=== PATIENT | female | born 1955 | race Caucasian/White ===

== ENCOUNTER 2016-05-14 12:56 | Inpatient (IN) | payer MEDICARE ==
[~2016-05-14] VITALS: Ht 170.2 cm; Wt 96.8 kg
[~2016-05-14 12:56] MED LIST: AC325T PO; BACTRIM PO; BPR150TCR PO; CLN150C PO; CLPD75T PO; GABA600T2 PO; GBPN300C PO; HYDR-3583 PO; HYDR-3714 PO; META-84 PO; NF-METANX PO; NITR-65 PO; NITR100C PO; PHEN200T27 PO; PNT40TEC PO; WRF3T PO
--- OUTSIDE RECORDS SUMMARY | 2016-05-14 13:04 | XMS REPORT | Continuity of Care Document ---
Author Author [facility] Organization [facility] Address Unknown Phone Unavailable Support Name Relationship Address Phone MAGEN DESIR Next Of Kin [address] [place] [address] Insurance Providers Payer Name Policy Number Subscriber Name Relationship [employer]ps Medicare [id number] Oniel Desir 01 Self / Same As Patient Advance Directives Directive Response Recorded Date Advance Directives N 12/10/12 2:14pm Health Care Power of Food Safety Manager N 12/10/12 2:14pm Organ Donor Y 12/10/12 2:14pm Problems No Known Problems or Medical conditions. 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 12/10/12 1:50pm Hospitalization with Isolation Contact 11:51am Allergies, Adverse Reactions, Alerts Allergen Type Severity Reaction Last Updated NKANo Known Allergies Allergy Unknown 09/17/05 Medications Medication Dose Units Route Sig Qty Days Warfarin Sodium (Coumadin) 3 Mg PO DAILY 30 Pantoprazole Sodium (Protonix) 40 Mg PO DAILY 30 Gabapentin (Neurontin) 300 Mg PO TID 90 Clindamycin Hcl (Cleocin Capsule) 150 Mg PO 07,12,17,21 28 Bupropion HCl (Wellbutrin Sr) 150 Mg PO DAILY 30 Acetaminophen (Tylenol) 650 Mg PO Q4H PRN Acetaminophen/Hydrocodone Bitart (Lortab 5 Mg) 1 - 2 Ea PO Q4H PRN 60 Acetaminophen/Hydrocodone Bitart (Anexsia 5-325 Mg Tablet) 1 Each PO Q6HR PRN Phenazopyridine HCl (Pyridium) 1 Each PO TID PRN 5 Nitrofurantoin Macrocrystals (Macrobid) 1 Each PO BID 5 Response Recorded Date/Time Status not known Unknown Results Test Date Result Interp. Ref. Range Activated Partial Thromboplast Time June 09, 2011 1: 45pm 52 SEC H 24-35 Alanine Aminotransferase (ALT/SGPT) June 09, 2011 9: 28am 33 U/L N 30-65 Albumin June 09, 2011 9:28am 2.4 G/ DL L 3.4-5.0 Alkaline Phosphatase June 09, 2011 9:28am 80 U/L N 50-136 Aspartate Amino Transf (AST/SGOT) June 09, 2011 9:28am 52 U/L H 15-37 BUN/Creatinine Ratio June 09, 2011 9:28am 5 - Basophils # (Auto) March 21, 2009 5:03pm 0.0 10^3/uL N 0.0-0.1 Basophils (%) (Auto) March 21, 2009 5:03pm 0 % N 0-10 Blood Urea Nitrogen June 09, 2011 9:28am 4 MG/DL L 7-18 Calcium Level June 09, 2011 9:28am 6.8 MG/DL L 8.5-10.1 Carbon Dioxide Level June 09, 2011 9:28am 22 MMOL/L N 21-32 Chloride Level June 09, 2011 9:28am 107 MMOL/L N 101-110 Creatinine June 09, 2011 9:28am 0.8 MG/DL N 0.6-1.3 Eosinophils # (Auto) March 21, 2009 5:03pm 0.3 10^3/uL N 0.0-0.3 Eosinophils (%) (Auto) March 21, 2009 5:03pm 3 % N 0-10 Glucose Level June 09, 2011 9:28am 94 MG/DL N 74-106 Hematocrit June 08, 2011 2:13am 35 % N 35-52 Hemoglobin June 08, 2011 2:13am 12.0 G/DL N 11.5-16.0 Lymphocytes # (Auto) March 21, 2009 5:03pm 2.4 X 10^3 N 1.0-4.0 Lymphocytes (%) (Auto) March 21, 2009 5:03pm 21 % N 12-44 Mean Corpuscular Hemoglobin June 08, 2011 2:13am 33 PG N 25-34 Mean Corpuscular Hemoglobin Concent June 08, 2011 2: 13am 35 G/DL N 32-36 Mean Corpuscular Volume June 08, 2011 2:13am 95 FL N 80-99 Mean Platelet Volume June 08, 2011 2:13am 10.1 FL N 7.4-10.4 Monocytes # (Auto) March 21, 2009 5:03pm 0.7 X 10^3 N 0.0-1.0 Monocytes (%) (Auto) March 21, 2009 5:03pm 6 % N 0-12 Neutrophils # (Auto) March 21, 2009 5:03pm 8.0 X 10^3 H 1.8-7.8 Neutrophils (%) (Auto) March 21, 2009 5:03pm 70 % N 42-75 Platelet Count June 08, 2011 2:13am 175 10^3/uL N 130-400 Potassium Level June 09, 2011 9:28am 3.5 MMOL/L L 3.6-5.0 Prothromb Time International Ratio June 07, 2011 8:18am 1.0 N 0.8-1.4 Prothrombin Time June 07, 2011 8:18am 13.2 SEC N 12.2-14.7 Red Blood Count June 08, 2011 2:13am 3.64 10^6/uL L 4.35-5.85 Red Cell Distribution Width June 08, 2011 2:13am 16.3 % H 10.0-14.5 Sodium Level June 09, 2011 9:28am 138 MMOL/L N 135-145 Total Bilirubin June 09, 2011 9:28am 0.3 MG/DL N 0.0-1.0 Total Protein June 09, 2011 9:28am 4.5 G/DL L 6.4-8.2 Urine Bacteria September 29, 2012 10:53pm MODERATE /HPF H - Urine Bilirubin September 29, 2012 10:53pm NEGATIVE - Urine Casts September 29, 2012 10:53pm NONE / LPF - Urine Clarity September 29, 2012 10:53pm VERY CLOUDY H - Urine Color September 29, 2012 10:53pm YELLOW - Urine Crystals September 29, 2012 10:53pm NONE /LPF - Urine Culture Indicated September 29, 2012 10:53pm YES - Urine Glucose (UA) September 29, 2012 10:53pm NEGATIVE - Urine Ketones September 29, 2012 10:53pm NEGATIVE - Urine Leukocyte Esterase September 29, 2012 10:53pm 3+ H - Urine Mucus September 29, 2012 10:53pm NEGATIVE /LPF - Urine Nitrite September 29, 2012 10:53pm NEGATIVE - Urine Protein September 29, 2012 10:53pm 3+ H - Urine RBC September 29, 2012 10:53pm 2-5 / HPF H - Urine Specific [place] September 29, 2012 10:53pm 1.020 - Urine Squamous Epithelial Cells September 29, 2012 10:53pm 5-10 /HPF - Urine Urobilinogen September 29, 2012 10:53pm 1 MG/DL - Urine WBC September 29, 2012 10:53pm TNTC / HPF H - Urine pH September 29, 2012 10:53pm 6 - White Blood Count June 08, 2011 2:13am 9.3 10^3/uL N 4.3-11.0 Glucometer June 09, 2011 12:46pm 90 MG/DL N 70-110 Estimat Glomerular Filtration Rate June 07, 2011 8:18am 46 - Urine RBC (Auto) September 29, 2012 10:53pm 5 + H - Procedures Procedure Code Date EXCISION BREAST LESION 09/03/05 EXCISION ADDL BREAST LESION OTH CHEST CAGE OSTECTOMY 77.81 09/17/05 INJECT/INFUSE THROMBOLYTIC AGENT 99.10 CONTRAST AORTOGRAM 88.42 06/07/11 CONTR CEREBR ARTERIOGRAM 88.41 06/07/11 CONTRAST RENAL ARTERIOGR 88.45 06/09/11 CONTRAST AORTOGRAM 88.42 06/08/11 MRSA Screen 06/07/11 Urine Culture 09/29/12 Encounters Encounter Location Date/Time Discharged Inpatient [facility] 1:15pm Departed Emergency Room [facility] 10:01pm
--- NOTE | 2016-05-14 13:09 | ED Dyspnea ---
General Chief Complaint: Respiratory Problems Stated Complaint: SOA/COUGH Source of Information: Patient, RN Notes Reviewed Exam Limitations: No Limitations History of Present Illness Time Seen by Provider: 13:07 Initial Comments As above. Denies previous similar episodes. Hasn't seen her PCP in over 2 years. Does continue to smoke. Timing/Duration: 1 Week, Constant, Increasing Severity: Severe Activities at Onset: None, Rest Prior Episodes/Possible Cause: Unknown Cause Modifying Factors: Worse With Activity, Worse With Coughing, Worse With Lying Down Associated Symptoms: Anxiety, Cough, Edema Allergies and Home Medications Allergies Coded Allergies: NKANo Known Allergies (Verified Allergy, Unknown, 05/14/16) Home Medications Ibuprofen 200 Mg Tablet 600 MG PO Q8H PRN PRN PAIN (Reported) TAKES 3 (200 MG) TABLETS Constitutional: see HPI Respiratory: see HPI cough dyspnea on exertion orthopnea short of breath Cardiovascular: see HPI edema vascular heart diseas : No Psychiatric/Neurological: See HPI Anxiety All Other Systems Reviewed Negative Unless Noted: Yes (Negative excepted noted.) Past Ukwsrrq-Pgxcpd-Zgnkel Hx Surgeries HX Surgeries: Yes Respiratory Hx Respiratory Disorders: No Cardiovascular Hx Cardiac Disorders: Yes Neurological Hx Neurological Disorders: No Reproductive System Hx Reproductive Disorders: No Genitourinary Hx Genitourinary Disorders: Yes Genitourinary Disorders: Bladder Infection Gastrointestinal Hx Gastrointestinal Disorders: No Musculoskeletal Hx Musculoskeletal Disorders: Yes Musculoskeletal Disorders: Amputee, Fractures Endocrine Hx Endocrine Disorders: No HEENT HX ENT Disorders: No Cancer Hx Cancer: No Psychosocial Hx Psychiatric Problems: No Integumentary HX Skin/Integumentary Disorder: Yes Skin/Integumentary Disorders: Recent Skin Changes Blood Transfusions Hx Blood Disorders: No Physical Exam Vital Signs Vital Sign - Last 12Hours 05/14/16 13:04 Temp 97.0 Pulse 130 Resp 24 Pulse Ox 92 O2 Delivery Nasal Cannula O2 Flow Rate 2 Capillary Refill : General Appearance: WD/WN Anxious Moderate Distress Obese HEENT: Normal ENT Inspection Neck: Supple Respiratory: Crackles Decreased Breath Sounds Respiratory Distress (mild- moderate) Cardiovascular: Tachycardia Gastrointestinal: Other (obese; benign) Rectal: Deferred Extremity: Pedal Edema Neurologic/Psychiatric: Alert Oriented x3 No Motor/Sensory Deficits Skin: Warm/Dry Progress/Results/Core Measures Results/Orders Lab Results Laboratory Tests Test 05/14/16 13:35 05/14/16 13:57 05/14/16 14:40 05/14/16 15:47 Range/Units Activated Partial Thromboplast Time 32 24-35 SEC Alanine Aminotransferase (ALT/SGPT) 28 0-55 U/L Albumin 3.9 3.2-4.5 G/DL Alkaline Phosphatase 107 40-136 U/L Anion Gap 11 5-14 MMOL/L Anisocytosis SLIGHT Aspartate Amino Transf (AST/SGOT) 28 5-34 U/L B-Type Natriuretic Peptide 1911.7 H <100.0 PG/ML BUN/Creatinine Ratio 10 Band Neutrophils 0 % Basophils # (Auto) 0.0 0.0-0.1 10^3/uL Basophils % (Manual) 0 % Basophils (%) (Auto) 0 0-10 % Blood Urea Nitrogen 11 7-18 MG/DL Calcium Level 8.3 L 8.5-10.1 MG/DL Carbon Dioxide Level 18 L 21-32 MMOL/L Chloride Level 107 98-107 MMOL/L Creatinine 1.08 0.60-1.30 MG/DL D-Dimer 1.48 H 0.00-0.49 UG/ML Eosinophils # (Auto) 0.0 0.0-0.3 10^3/uL Eosinophils % (Manual) 0 % Eosinophils (%) (Auto) 0 0-10 % Estimat Glomerular Filtration Rate 51 Glucose Level 203 H 70-105 MG/DL Hematocrit 40 35-52 % Hemoglobin 13.5 11.5-16.0 G/DL INR Comment 1.1 0.8-1.4 Lymphocytes # (Auto) 0.8 L 1.0-4.0 X 10^3 Lymphocytes % (Manual) 2 % Lymphocytes (%) (Auto) 6 L 12-44 % Magnesium Level 2.0 1.8-2.4 MG/DL Mean Corpuscular Hemoglobin 31 25-34 PG Mean Corpuscular Hemoglobin Concent 34 32-36 G/DL Mean Corpuscular Volume 91 80-99 FL Mean Platelet Volume 10.4 7.4-10.4 FL Monocytes # (Auto) 0.8 0.0-1.0 X 10^3 Monocytes % (Manual) 6 % Monocytes (%) (Auto) 6 0-12 % Neutrophils # (Auto) 12.3 H 1.8-7.8 X 10^3 Neutrophils % (Manual) 92 % Neutrophils (%) (Auto) 88 H 42-75 % Platelet Count 259 130-400 10^3/uL Potassium Level 4.0 3.6-5.0 MMOL/L Prothrombin Time 14.3 12.2-14.7 SEC Red Blood Count 4.41 4.35-5.85 10^6/uL Red Cell Distribution Width 17.0 H 10.0-14.5 % Sodium Level 136 135-145 MMOL/L Thyroid Stimulating Hormone (TSH) 0.69 0.35-4.94 UIU/ML Total Bilirubin 1.0 0.1-1.0 MG/DL Total Protein 6.6 6.4-8.2 G/DL Troponin I < 0.30 <0.30 NG/ML White Blood Count 14.0 H 4.3-11.0 10^3/uL Alejandro Test YES-POS Arterial Blood Base Excess -6.1 L -2.5-2.5 MMOL/L Arterial Blood HCO3 17 *L 23-27 MMOL/L Arterial Blood Oxygen Saturation 93 L 94-100 % Arterial Blood Partial Pressure CO2 27 L 35-45 MMHG Arterial Blood Partial Pressure O2 60 L 79-93 MMHG Arterial Blood Total CO2 18.0 L 21.0-31.0 MMOL/L Arterial Blood pH 7.42 7.37-7.43 Blood Gas Inspired Oxygen 4L Blood Gas Patient Temperature 97.4 Blood Gas Puncture Site LT RAD Blood Gas Ventilator Setting NO Urine Bacteria NEGATIVE /HPF Urine Bilirubin NEGATIVE NEGATIVE Urine Casts NONE /LPF Urine Clarity CLEAR Urine Color YELLOW Urine Crystals NONE /LPF Urine Culture Indicated NO Urine Glucose (UA) 2+ H NEGATIVE Urine Ketones NEGATIVE NEGATIVE Urine Leukocyte Esterase NEGATIVE NEGATIVE Urine Mucus SMALL H /LPF Urine Nitrite NEGATIVE NEGATIVE Urine Protein 3+ H NEGATIVE Urine RBC 5-10 H /HPF Urine RBC (Auto) 2+ H NEGATIVE Urine Specific [place] 1.020 1.016-1.022 Urine Squamous Epithelial Cells 10-25 H /HPF Urine Urobilinogen 1 NORMAL MG/DL Urine WBC NONE /HPF Urine pH 6 5-9 Lactic Acid Level 2.0 0.5-2.0 MMOL/L My Orders Orders-RACHEAL MURRAY DO Saline Lock/Iv-Start (05/14/16 13:09) Ekg Tracing (05/14/16 13:09) BNP (05/14/16 13:09) Cbc With Automated Diff (05/14/16 13:09) Comprehensive Metabolic Panel (05/14/16 13:09) Fibrin Degradation Products (05/14/16 13:09) Magnesium (05/14/16 13:09) Thyroid Stimulating Hormone (05/14/16 13:09) Troponin I (05/14/16 13:09) Ua Culture If Indicated (05/14/16 13:09) Chest 1 View, Ap/Pa Only (05/14/16 13:09) Protime With Inr (05/14/16 13:17) Partial Thromboplastin Time (05/14/16 13:17) Arterial Blood Gas (05/14/16 13:24) Manual Differential (05/14/16 13:35) Ct Angio Chest W (05/14/16 14:10) Iohexol Injection (Omnipaque 350 Mg/Ml 1 (05/14/16 14:15) Ns (Ivpb) (Sodium Chloride 0.9% Ivpb Bag (05/14/16 14:15) Blood Culture (05/14/16 14:45) Lactic Acid Analyzer (05/14/16 14:45) Furosemide Injection (Lasix Injection) (05/14/16 14:45) Nitroglycerin Ointment (Nitrobid Ointme (05/14/16 14:45) Vital Signs/I&O Vital Sign - Last 12Hours 05/14/16 13:04 Temp 97.0 Pulse 130 Resp 24 B/P Pulse Ox 92 O2 Delivery Nasal Cannula O2 Flow Rate 2 ECG Initial ECG Impression Date: May 14, 2016 Initial ECG Impression Time: 13:18 Initial ECG Rate: 130 Initial ECG Rhythm: S.Tach Initial ECG Comparisson: No Previous ECG Available Comment (+) [facility] Diagnostic Imaging Diagonstic Imaging: Xray, CT Plain Films/CT/US/NM/MRI: chest Reviewed: Reviewed/Discussed Departure Communication Time/Spoke to Admitting Phy: 17:00 Impression Impression: Primary Impression: Respiratory distress Additional Impressions: Elevated BNP c/w CHF Tobacco abuse; probable COPD Pneumonia Disposition: ADMITTED INPATIENT Condition: Stable Decision to Admit Reason: Admit from ER (General) Decision to Admit/Date: May 14, 2016 Time/Decision to Admit Time: 17:00 Departure-Patient Inst. Referrals: [facility] (PCP/Family) Primary Care Physician RACHEAL MURRAY DO May 14, 2016 13:09
[2016-05-14 13:45] LABS: BASOPHILS % (AUTO) 0 % (0-10); EOSINOPHILS % (AUTO) 0 % (0-10); LYMPHOCYTES # (AUTO) 0.8 X 10^3 (1.0-4.0); LYMPHOCYTES % (AUTO) 6 % (12-44); MEAN CORPUSCULAR HEMOGLOBIN 31 PG (25-34); MEAN CORPUSCULAR HGB CONC 34 G/DL (32-36); MEAN CORPUSCULAR VOLUME 91 FL (80-99); MEAN PLATELET VOLUME 10.4 FL (7.4-10.4); MONOCYTES # (AUTO) 0.8 X 10^3 (0.0-1.0); MONOCYTES % (AUTO) 6 % (0-12); NEUTROPHILS # (AUTO) 12.3 X 10^3 (1.8-7.8); NEUTROPHILS % (AUTO) 88 % (42-75); PLATELET COUNT 259 10^3/uL (130-400); RED BLOOD COUNT 4.41 10^6/uL (4.35-5.85)
[2016-05-14 13:56] LABS: INR 1.1 (0.8-1.4); PROTHROMBIN TIME PATIENT 14.3 SEC (12.2-14.7)
[2016-05-14 13:57] LABS: BAND NEUTROPHILS 0 %; BASOPHILS % (MANUAL) 0 %; EOSINOPHILS % (MANUAL) 0 %; LYMPHOCYTES % (MANUAL) 2 %; NEUTROPHILS % (MANUAL) 92 %
[2016-05-14 13:58] LABS: ANISOCYTOSIS SLIGHT
--- NOTE | 2016-05-14 14:02 | Diagnostic Imaging Report ---
CLINICAL INDICATION: Patient with cough, shortness of air x1 day. EXAM: Portable chest x-ray upright view. COMPARISONS: Chest x-ray dated 06/07/2011. FINDINGS: There is interval development of mild cardiomegaly and increased pulmonary vascular congestion. There is development of a small left pleural effusion. There is bibasilar increased density which may be related to mild pulmonary edema. There are degenerative spurs involving the spine. IMPRESSION: 1: There is interval development of mild cardiomegaly, pulmonary vascular congestion which may be related to congestive heart failure/cardiac decompensation. 2: There is development of bibasilar lung infiltrate which may be related to pulmonary edema and a small left pleural effusion as well. Dictated by: Dictated on workstation # [id number]
[2016-05-14 14:03] LABS: ABG BASE EXCESS -6.1 MMOL/L (-2.5-2.5); ABG OXYGEN SATURATION 93 % (94-100); ABG PCO2 27 MMHG (35-45); ABG PH 7.42 (7.37-7.43); ABG PO2 60 MMHG (79-93)
[2016-05-14 14:04] LABS: ABG HCO3 17 MMOL/L (23-27); ALLENS TEST YES-POS; PATIENT TEMP 97.4
[2016-05-14 14:04] LABS: ALANINE AMINOTRANSFERASE 28 U/L (0-55); ALBUMIN 3.9 G/DL (3.2-4.5); ANION GAP 11 MMOL/L (5-14); ASPARTATE AMINO TRANSFERASE 28 U/L (5-34); BLOOD UREA NITROGEN 11 MG/DL (7-18); BUN/CREATININE RATIO 10; CALCIUM 8.3 MG/DL (8.5-10.1); CARBON DIOXIDE 18 MMOL/L (21-32); CHLORIDE 107 MMOL/L (98-107); CREATININE SERUM 1.08 MG/DL (0.60-1.30); GFR ESTIMATED 51; GLUCOSE 203 MG/DL (70-105); SODIUM 136 MMOL/L (135-145); TOTAL PROTEIN 6.6 G/DL (6.4-8.2)
[2016-05-14] MEDS ORDERED: IOHEXOL 350 MG/ML 150 ML (OMNIPAQUE 350) VIAL IV ONE (14:15)
[2016-05-14] MEDS ORDERED: NS 100 ML (IVPB) BAG IV ONE (14:15)
[2016-05-14 14:23] LABS: THYROID STIMULATING HORMONE 0.69 UIU/ML (0.35-4.94); TROPONIN I < 0.30 NG/ML (<0.30)
--- NOTE | 2016-05-14 14:40 | Diagnostic Imaging Report ---
PROCEDURE: CT angiography of the chest with contrast. TECHNIQUE: Multiple contiguous axial images were obtained through the chest after uneventful bolus administration of intravenous contrast. Reconstructed CTA MIP acquisitions were also performed. INDICATION: Shortness of breath, coughing, congestion. FINDINGS: There are no pulmonary emboli seen. The aorta has minimal atherosclerosis. There is no aneurysm or dissection. There is some coronary artery calcification present. There are bilateral pleural effusions layering out to a depth of 2 cm. There are emphysematous changes in the lungs. There is some consolidating infiltrate in the lingular segment of the left upper lobe and in the lateral basal segment of the left lower lobe. There is also some atelectasis at the posterior basilar segment of the right lower lobe. There is no hilar or mediastinal lymphadenopathy. IMPRESSION: Patchy areas of infiltrate and/or atelectasis in both lungs with bilateral pleural effusions. There is no evidence for pulmonary embolism. Dictated by: Dictated on workstation # [id number]
[2016-05-14] MEDS ORDERED: FUROSEMIDE 40 MG/4 ML INJ (LASIX) IVP ONE (14:45)
[2016-05-14] MEDS ORDERED: NITROGLYCERIN 2% OINT 1 GM UNIT DOSE PACKET TOP ONE (14:45)
[2016-05-14 14:53] LABS: BILIRUBIN,URINE NEGATIVE (NEGATIVE); KETONES,URINE NEGATIVE (NEGATIVE); LEUKOCYTE ESTERASE ,URINE NEGATIVE (NEGATIVE); NITRITE,URINE NEGATIVE (NEGATIVE); PH,URINE 6 (5-9); PROTEIN,URINE 3+ (NEGATIVE); UROBILINOGEN,URINE 1 MG/DL (NORMAL)
[2016-05-14] MEDS ORDERED: cefTRIAXone INJECTION 1,000 MG in NORMAL SALINE (BAXTER MINI) 50 ML IV ONE (16:00)
[2016-05-14 16:30] VITALS: BP 113/84
[2016-05-14] MEDS ORDERED: IBUP-2055 PO (17:17)
[2016-05-14] MEDS ORDERED: AZITHROMYCIN IV ADD-VANTAGE 500 MG IV ONE (17:30)
[2016-05-14] MEDS ORDERED: AZITHROMYCIN 500 MG/NS 250 ML IVPB IV NR ×2 (17:30)
[2016-05-14] MEDS ORDERED: SODIUM CHLORIDE (ADD-VANTAGE) 250 ML ONE (17:30)
[2016-05-14] MEDS ORDERED: CATHETER FLUSH 10 ML SYR IV PRN (17:30)
[2016-05-14] MEDS: NS IV 1000 ML 1,000 ML IV SCH (17:45)
[2016-05-14] MEDS: NICOTINE 14 MG (NICODERM) PATCH TD SCH (17:46)
[2016-05-14] MEDS: FUROSEMIDE 40 MG/4 ML INJ (LASIX) IV SCH (17:46)
[2016-05-14] MEDS ORDERED: FLU TRIvalent (5 YOA+) 2016-17 (AFLURIA) 0.5 ML IM ONE (18:30)
[2016-05-14 19:00] VITALS: BP 92/61
[2016-05-14] MEDS: inSUlin (REGULAR) HUMAN 1 UNIT/0.01 ML (CHARGE PER UNIT) SC SCH (21:00)
[2016-05-15 00:35] VITALS: BP 106/64
[2016-05-15 04:20] VITALS: BP 129/58
[2016-05-15] MEDS: inSUlin (REGULAR) HUMAN 1 UNIT/0.01 ML (CHARGE PER UNIT) SC SCH ×4 (06:00→21:40)
[2016-05-15] MEDS: FUROSEMIDE 40 MG/4 ML INJ (LASIX) IV SCH ×2 (06:39→17:02)
[2016-05-15 07:40] LABS: BASOPHILS % (AUTO) 0 % (0-10); EOSINOPHILS # (AUTO) 0.1 10^3/uL (0.0-0.3); EOSINOPHILS % (AUTO) 1 % (0-10); LYMPHOCYTES % (AUTO) 11 % (12-44); MEAN CORPUSCULAR HEMOGLOBIN 31 PG (25-34); MEAN CORPUSCULAR HGB CONC 34 G/DL (32-36); MEAN CORPUSCULAR VOLUME 91 FL (80-99); MEAN PLATELET VOLUME 11.4 FL (7.4-10.4); MONOCYTES # (AUTO) 0.9 X 10^3 (0.0-1.0); MONOCYTES % (AUTO) 9 % (0-12); NEUTROPHILS # (AUTO) 7.5 X 10^3 (1.8-7.8); NEUTROPHILS % (AUTO) 79 % (42-75); PLATELET COUNT 220 10^3/uL (130-400); RED BLOOD COUNT 4.21 10^6/uL (4.35-5.85); RED CELL DISTRIBUTION WIDTH 16.8 % (10.0-14.5); WHITE BLOOD COUNT 9.5 10^3/uL (4.3-11.0)
[2016-05-15 07:59] LABS: CALCIUM 8.1 MG/DL (8.5-10.1); CREATININE SERUM 1.3 MG/DL (0.60-1.30); MAGNESIUM 2.2 MG/DL (1.8-2.4); POTASSIUM 2.7 MMOL/L (3.6-5.0)
[2016-05-15 08:00] VITALS: BP 97/52
[2016-05-15] MEDS: NICOTINE PATCH REMOVAL TP SCH (08:12)
[2016-05-15] MEDS: AZITHROMYCIN 250 MG TAB (ZITHROMAX) PO SCH (08:12)
[2016-05-15] MEDS: NICOTINE 14 MG (NICODERM) PATCH TD SCH (08:12)
--- NOTE | 2016-05-15 08:44 | History & Physicial (CHS) ---
HPI History of Present Illness: 61 yo F that has not been seen by a doctor in over 2 years presents to ER with increasing shortness of breath. She states that she has been coughing for the last 3 days. States that it is a dry cough. No home oxygen dependence. + sick contacts with grandchildren. Denies any fevers or chills. Denies chest pain or palpitations. States that her leg swells frequently but resolves spontaneously. States that about 5 years ago she had cath with stent placement. Denies ever having heart attack. States that she has been a smoker since age 13. Denies ever having diagnosis of CHF or COPD. Source: patient, old records Exam Limitations: no limitations Date seen by provider: May 15, 2016 Attending Physician Alejandra Joseph MD PCP [facility] [place] Date of Admission May 14, 2016 at 15:50 Home Medications Home Medications Reviewed patient Home Medication Reconciliation Form Allergies Coded Allergies: NKANo Known Allergies (Verified Allergy, Unknown, 05/14/16) [id number] Hx Patient Social History Living Status: Home Alone Alcohol Use: Denies Use Recreational Drug Use: No Smoking Status: Current Everyday Smoker Type Used: Cigarettes (1/2 ppd) Recent Foreign Travel: No Contact w/other who traveled: No Recent Hopitalizations: Yes Recent Infectious Disease Expo: No Physical Abuse Screen: No Sexual Abuse: No Past Medical History 1. ASOD- with multiple peripheral interventions by Dr. Pedro, Esvin, and Melonie. Carotid Stenosis- Willis 2. 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 Wilhelm 12-03-12 3. Debility secondary to recent BKA 4. Post op Anemia- Hg at [place] 9.5 on 8- 5. Supratherapeutic INR- coumadin started at [place] during this visit due to previous stenting of the aorta and illiacs by Dr. Mcallister in 2011. 6. Lt. Breast Biopsy- Boles (No path results avail. in computer) 7. Resection of Rt. posterior 8th and 9th ribs by Dr. Pedro 2005, 8. Appendectomy 1970 9. 1978 10. Tubal Ligation- 1979 Review of Systems ([facility]) Constitutional: no symptoms reportedNo chills, No fever, malaiseNo weakness EENTM: no symptoms reported Respiratory: cough dyspnea on exertionNo hemoptysis, orthopnea short of breath wheezing Cardiovascular: No chest pain, edemaNo palpitations Gastrointestinal: no symptoms reportedNo abdominal pain, No constipation, No diarrhea, No nausea, No vomiting Genitourinary: no symptoms reportedNo dysuria, No frequency, No hematuria, No incontinence : No Musculoskeletal: no symptoms reported Skin: no symptoms reportedNo dryness, No lesions, No rash Psychiatric/Neurological: Anxiety (States that she has been anxious since having shortness of breath, no treatment for anxiety at home) Reviewed Test Results Reviewed Test Results Lab Laboratory Tests Test 05/14/16 13:35 05/14/16 13:57 05/14/16 14:40 05/14/16 15:47 Range/Units Activated Partial Thromboplast Time 32 24-35 SEC Alanine Aminotransferase (ALT/SGPT) 28 0-55 U/L Albumin 3.9 3.2-4.5 G/DL Alkaline Phosphatase 107 40-136 U/L Anion Gap 11 5-14 MMOL/L Anisocytosis SLIGHT Aspartate Amino Transf (AST/SGOT) 28 5-34 U/L B-Type Natriuretic Peptide 1911.7 H <100.0 PG/ML BUN/Creatinine Ratio 10 Band Neutrophils 0 % Basophils # (Auto) 0.0 0.0-0.1 10^3/uL Basophils % (Manual) 0 % Basophils (%) (Auto) 0 0-10 % Blood Urea Nitrogen 11 7-18 MG/DL Calcium Level 8.3 L 8.5-10.1 MG/DL Carbon Dioxide Level 18 L 21-32 MMOL/L Chloride Level 107 98-107 MMOL/L Creatinine 1.08 0.60-1.30 MG/DL D-Dimer 1.48 H 0.00-0.49 UG/ML Eosinophils # (Auto) 0.0 0.0-0.3 10^3/uL Eosinophils % (Manual) 0 % Eosinophils (%) (Auto) 0 0-10 % Estimat Glomerular Filtration Rate 51 Glucose Level 203 H 70-105 MG/DL Hematocrit 40 35-52 % Hemoglobin 13.5 11.5-16.0 G/DL INR Comment 1.1 0.8-1.4 Lymphocytes # (Auto) 0.8 L 1.0-4.0 X 10^3 Lymphocytes % (Manual) 2 % Lymphocytes (%) (Auto) 6 L 12-44 % Magnesium Level 2.0 1.8-2.4 MG/DL Mean Corpuscular Hemoglobin 31 25-34 PG Mean Corpuscular Hemoglobin Concent 34 32-36 G/DL Mean Corpuscular Volume 91 80-99 FL Mean Platelet Volume 10.4 7.4-10.4 FL Monocytes # (Auto) 0.8 0.0-1.0 X 10^3 Monocytes % (Manual) 6 % Monocytes (%) (Auto) 6 0-12 % Neutrophils # (Auto) 12.3 H 1.8-7.8 X 10^3 Neutrophils % (Manual) 92 % Neutrophils (%) (Auto) 88 H 42-75 % Platelet Count 259 130-400 10^3/uL Potassium Level 4.0 3.6-5.0 MMOL/L Prothrombin Time 14.3 12.2-14.7 SEC Red Blood Count 4.41 4.35-5.85 10^6/uL Red Cell Distribution Width 17.0 H 10.0-14.5 % Sodium Level 136 135-145 MMOL/L Thyroid Stimulating Hormone (TSH) 0.69 0.35-4.94 UIU/ML Total Bilirubin 1.0 0.1-1.0 MG/DL Total Protein 6.6 6.4-8.2 G/DL Troponin I < 0.30 <0.30 NG/ML White Blood Count 14.0 H 4.3-11.0 10^3/uL Alejandro Test YES-POS Arterial Blood Base Excess -6.1 L -2.5-2.5 MMOL/L Arterial Blood HCO3 17 *L 23-27 MMOL/L Arterial Blood Oxygen Saturation 93 L 94-100 % Arterial Blood Partial Pressure CO2 27 L 35-45 MMHG Arterial Blood Partial Pressure O2 60 L 79-93 MMHG Arterial Blood Total CO2 18.0 L 21.0-31.0 MMOL/L Arterial Blood pH 7.42 7.37-7.43 Blood Gas Inspired Oxygen 4L Blood Gas Patient Temperature 97.4 Blood Gas Puncture Site LT RAD Blood Gas Ventilator Setting NO Urine Bacteria NEGATIVE /HPF Urine Bilirubin NEGATIVE NEGATIVE Urine Casts NONE /LPF Urine Clarity CLEAR Urine Color YELLOW Urine Crystals NONE /LPF Urine Culture Indicated NO Urine Glucose (UA) 2+ H NEGATIVE Urine Ketones NEGATIVE NEGATIVE Urine Leukocyte Esterase NEGATIVE NEGATIVE Urine Mucus SMALL H /LPF Urine Nitrite NEGATIVE NEGATIVE Urine Protein 3+ H NEGATIVE Urine RBC 5-10 H /HPF Urine RBC (Auto) 2+ H NEGATIVE Urine Specific [place] 1.020 1.016-1.022 Urine Squamous Epithelial Cells 10-25 H /HPF Urine Urobilinogen 1 NORMAL MG/DL Urine WBC NONE /HPF Urine pH 6 5-9 Lactic Acid Level 2.0 0.5-2.0 MMOL/L Test 05/14/16 16:15 05/14/16 17:13 05/14/16 21:07 05/15/16 04:05 Range/Units Hemoglobin A1c 5.8 4.5-6.2 % Glucometer 179 H 156 H 70-110 MG/DL Anion Gap 14 5-14 MMOL/L B-Type Natriuretic Peptide 1689.2 H <100.0 PG/ML BUN/Creatinine Ratio 11 Basophils # (Auto) 0.0 0.0-0.1 10^3/uL Basophils (%) (Auto) 0 0-10 % Blood Urea Nitrogen 14 7-18 MG/DL Calcium Level 8.1 L 8.5-10.1 MG/DL Carbon Dioxide Level 22 21-32 MMOL/L Chloride Level 103 98-107 MMOL/L Creatinine 1.30 0.60-1.30 MG/DL Eosinophils # (Auto) 0.1 0.0-0.3 10^3/uL Eosinophils (%) (Auto) 1 0-10 % Estimat Glomerular Filtration Rate 42 Glucose Level 123 H 70-105 MG/DL Hematocrit 38 35-52 % Hemoglobin 12.9 11.5-16.0 G/DL Lymphocytes # (Auto) 1.0 1.0-4.0 X 10^3 Lymphocytes (%) (Auto) 11 L 12-44 % Magnesium Level 2.2 1.8-2.4 MG/DL Mean Corpuscular Hemoglobin 31 25-34 PG Mean Corpuscular Hemoglobin Concent 34 32-36 G/DL Mean Corpuscular Volume 91 80-99 FL Mean Platelet Volume 11.4 H 7.4-10.4 FL Monocytes # (Auto) 0.9 0.0-1.0 X 10^3 Monocytes (%) (Auto) 9 0-12 % Neutrophils # (Auto) 7.5 1.8-7.8 X 10^3 Neutrophils (%) (Auto) 79 H 42-75 % Platelet Count 220 130-400 10^3/uL Potassium Level 2.7 L 3.6-5.0 MMOL/L Red Blood Count 4.21 L 4.35-5.85 10^6/uL Red Cell Distribution Width 16.8 H 10.0-14.5 % Sodium Level 139 135-145 MMOL/L White Blood Count 9.5 4.3-11.0 10^3/uL Test 05/15/16 07:06 Range/Units Glucometer 183 H 70-110 MG/DL Radiology Date of Exam: 05/14/16 CHEST 1 VIEW, AP/PA ONLY CLINICAL INDICATION: Patient with cough, shortness of air x1 day. EXAM: Portable chest x-ray upright view. COMPARISONS: Chest x-ray dated 06/07/2011. FINDINGS: There is interval development of mild cardiomegaly and increased pulmonary vascular congestion. There is development of a small left pleural effusion. There is bibasilar increased density which may be related to mild pulmonary edema. There are degenerative spurs involving the spine. IMPRESSION: 1: There is interval development of mild cardiomegaly, pulmonary vascular congestion which may be related to congestive heart failure/cardiac decompensation. 2: There is development of bibasilar lung infiltrate which may be related to pulmonary edema and a small left pleural effusion as well. Date of Exam: 05/14/16 CT ANGIO CHEST W PROCEDURE: CT angiography of the chest with contrast. TECHNIQUE: Multiple contiguous axial images were obtained through the chest after uneventful bolus administration of intravenous contrast. Reconstructed CTA MIP acquisitions were also performed. INDICATION: Shortness of breath, coughing, congestion. FINDINGS: There are no pulmonary emboli seen. The aorta has minimal atherosclerosis. There is no aneurysm or dissection. There is some coronary artery calcification present. There are bilateral pleural effusions layering out to a depth of 2 cm. There are emphysematous changes in the lungs. There is some consolidating infiltrate in the lingular segment of the left upper lobe and in the lateral basal segment of the left lower lobe. There is also some atelectasis at the posterior basilar segment of the right lower lobe. There is no hilar or mediastinal lymphadenopathy. IMPRESSION: Patchy areas of infiltrate and/or atelectasis in both lungs with bilateral pleural effusions. There is no evidence for pulmonary embolism. Physical Exam-([facility]) Physical Exam Vital Signs VS - Last 72 Hours, by Label 05/14/16 05/14/16 05/14/16 05/14/16 13:04 16:30 16:50 18:37 Temp 97.0 99.2 97.0 Pulse 130 121 122 Resp 24 22 20 B/P 113/84 Pulse Ox 92 97 95 95 O2 Delivery Nasal Cannula O2 Flow Rate 2 4 4.00 05/14/16 05/14/16 05/15/16 05/15/16 19:00 20:32 00:35 04:20 Temp 98.7 97.3 98.0 Pulse 116 109 112 Resp 22 18 22 B/P 92/61 106/64 129/58 Pulse Ox 97 96 98 O2 Delivery Nasal Cannula Nasal Cannula Nasal Cannula O2 Flow Rate 4.00 4.00 4.00 05/15/16 07:07 O2 Flow Rate 4.00 Capillary Refill : Less Than 3 Seconds General Appearance: WD/WN no apparent distress Eyes: Bilateral Eye EOMI, Bilateral Eye PERRL Neck: non-tender full range of motion supple normal inspectionNo carotid bruit Respiratory: chest non-tender no respiratory distress no accessory muscle useNo crackles, wheezing (diffuse in all lung valle) Cardiovascular: normal peripheral pulses regular rate, rhythm no JVD no murmurNo systolic murmur Gastrointestinal: normal bowel sounds non tender soft no organomegaly no pulsatile massNo distended, No guarding, No rebound, No tenderness Extremities: non-tender no calf tenderness pedal edema (LLE 1+ pitting edema) other (R AKA) 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 as tested no motor/sensory deficits alert normal mood/affect oriented x 3 Skin: normal color warm/dry Lymphatic: no adenopathy Assessment/Plan Assessment/Plan Admission Dx Acute Respiratory Failure Severe PVD s/p R AKA and Aortic Stenting CAD s/p stenting Pre Diabetes Hypokalemia Plan 61 yo F admitted with Acute Respiratory Failure concerned for Acute CHF Acute Respiratory Failure: ddx: CHF vs COPD vs PNA - CT did not show evidence of PE, + pleural effusions with h/o vascular dz is concerning for CHF exacerbation given elevated BNP, Echo pending - Continue IV lasix today, will switch to PO tomorrow - A/A nebs started with PO steroids (patient has long h/o tobacco use and likely has underlying COPD) Will need spirometry outpatient - Continue Azithromycin, d/jeremy Rocephin - Titrate oxygen as tolerated - Inspiratory Spirometry Severe PVD s/p R AKA and Aortic Stenting CAD s/p stenting Pre Diabetes - Goal A1c below 5.7, Discussed need for weight loss Tobaccoism - Discussed the need for cessation, patient states that it has been the one habit she has not been able to kick - Will refer her to cessation counselor at [facility] Hypokalemia: Replace and repeat BMP this afternoon, Scheduled PO dose with lasix FEN: Heart Healthy diet DVT PPX: Lovenox 40 mg daily Dispo: Admit to medicine floor, patient continues to need oxygen Diagnosis/Problems: Clinical Quality Measures DVT/VTE Risk/Contraindication: Risk Factor Score Per Nursin RFS Level Per Nursing on Admit: 4+=Very High Copy Copies To 1: ALEJANDRA JOSEPH MD, HOLLY R MD May 15, 2016 08:44
[2016-05-15] MEDS ORDERED: KCL 20 MEQ TAB (K-DUR) PO NR (08:45)
[2016-05-15] MEDS ORDERED: methylPREDNISolone 40 MG/ML (Solu-MEDROL) VIAL IV NR (08:45)
[2016-05-15] MEDS ORDERED: cefTRIAXone 1 GM/NS 50 ML IVPB IV SCH ×2 (09:00)
[2016-05-15] MEDS: ENOXAPARIN 40 MG/0.4 ML (LOVENOX) SYR SC SCH (09:34)
[2016-05-15] MEDS ORDERED: IBUPROFEN 600 MG (MOTRIN) TAB PO PRN (09:45)
[2016-05-15 12:00] VITALS: BP 128/57
[2016-05-15 12:34] LABS: CALCIUM 8.1 MG/DL (8.5-10.1); CREATININE SERUM 1.45 MG/DL (0.60-1.30); POTASSIUM 3.5 MMOL/L (3.6-5.0)
--- NOTE | 2016-05-15 12:58 | Physical Therapy Evaluation ---
PT Evaluation-General Medical Diagnosis Admission Date May 14, 2016 at 15:50 Medical Diagnosis: pneumonia/CHF/DM Onset Date: May 14, 2016 Therapy Diagnosis Therapy Diagnosis: weakness Height/Weight Height (Feet): 5 Height (Inches): 7.00 Weight (Pounds): 205 Weight (Ounces): 4.0 Precautions Precautions/Isolations: Fall Prevention, Standard Precautions Referral Physician: Sami Reason for Referral: Evaluation/Treatment Medical History Pertinent Medical History: CAD, Smoking Additional Medical History right BKA (appears to be an AKA) Current History acute resp. failure; has not seen a physician x 2 yrs; ER with c/o SOB Reviewed History: Yes Social History Home: Single Level Current Living Status: Spouse Entry Into Home: Ramp Prior/Core FIM Prior Level of Function Functional [place] Measure 0=Not Assessed/NA 4=Minimal Assistance 1=Total Assistance 5=Supervision or Setup 2=Maximal Assistance 6=Modified [place] 3=Moderate Assistance 7=Complete [place] Bed Mobility: 6 Transfers (B,C,W/C) (FIM): 6 Wheelchair Mobility: 6 Per patient, she does not ambulate, leave the house and uses her w/c for all mobility PT Evaluation-Current Subjective Patient reluctantly agrees to PT. Pain Numeric Pain Scale: 0-No Pain Location: No Pain Reported Pt/Family Goals return to home Objective Patient Orientation: Normal For Age Problem Solving: Good Attachments: Oxygen, IV ROM/Strength ROM Lower Extremities left LE WFL Strenght Lower Extremities left LE WFL Integumentary/Posture Integumentary refer to nursing notes Bowel Incontinence: No Bladder Incontinence: No Posture WNL Neuromuscular (Tone, Coordination, Reflexes) grossly intact Sensory Vision: Functional Hearing: Functional Sensation Right Lower Extremit: Impaired Sensation Left Lower Extremity: Impaired Transfers Functional [place] Measure 0=Not Assessed/NA 4=Minimal Assistance 1=Total Assistance 5=Supervision or Setup 2=Maximal Assistance 6=Modified [place] 3=Moderate Assistance 7=Complete [place] Transfers (B, C, W/C) (FIM): 5 Scootin Supine to/from Sit: 5 Sit to/from Stand: 5 bed t/f WC(FIM only if WC use): 5 Patient performed sit to stand to FWW SBA and performs squat pivot transfers bed <> commode/w/c Gait Mode of Locomotion: Wheelchair Anticipated Mode of Locomotion: Wheelchair Balance Sitting Static: Normal Sitting Dynamic: Normal Standing Static: Normal Standing Dynamic: Normal Assessment/Needs 61 y.o. female, will benefit from skilled PT to address functional strength to improve functional mobility. Patient is inactive PLOF per patient report. Rehab Potential: Fair Post Rehab Potential-Barriers: inactivity PLOF PT Short Term Goals Short Term Goals Time Frame: May 22, 2016 Transfers (B,C,W/C) (FIM): 6 PT Plan Problem List Problem List: Activity Tolerance, Functional Strength Treatment/Plan Treatment Plan: Continue Plan of Care Treatment Plan: Bed Mobility, Education, Functional Activity Cr, Functional Strength, Safety, Therapeutic Exercise, Transfers Treatment Duration: May 22, 2016 # of days/week 5-6 Visits Per Week: 5-6 Pt/Family Agrees w/Plan: Yes Safety Risks/Education Patient Education: Safety Issues Teaching Recipient: Patient Teaching Methods: Discussion Response to Teaching: Verbalize Understanding Discharge Recommendations Therapy D/C Recommendations: Home w/ Family Support Time/GCodes Time In: 1115 Time Out: 1130 Total Billed Treatment Time: 15 Total Billed Treatment 1 visit EVMod 15 min G Codes Necessary: ALISON Danielle PT May 15, 2016 12:58
[2016-05-15 16:00] VITALS: BP 103/75
[2016-05-15] MEDS: NS IV 1000 ML 1,000 ML IV SCH (17:03)
[2016-05-15 20:30] VITALS: BP 105/76
[2016-05-15] MEDS: FUROSEMIDE 40 MG (LASIX) TAB PO SCH (21:39)
[2016-05-16] VITALS: BP 109/58
[2016-05-16 04:00] VITALS: BP 107/61
[2016-05-16] MEDS: inSUlin (REGULAR) HUMAN 1 UNIT/0.01 ML (CHARGE PER UNIT) SC SCH (06:00)
[2016-05-16] MEDS: KCL 20 MEQ TAB (K-DUR) PO SCH (06:39)
[2016-05-16 06:51] LABS: CALCIUM 8.3 MG/DL (8.5-10.1); CREATININE SERUM 1.57 MG/DL (0.60-1.30); POTASSIUM 3.1 MMOL/L (3.6-5.0)
[2016-05-16] MEDS ORDERED: predniSONE 20 MG TAB PO SCH (07:00)
[2016-05-16] MEDS: NICOTINE PATCH REMOVAL TP SCH (08:06)
[2016-05-16] MEDS: FUROSEMIDE 40 MG (LASIX) TAB PO SCH (08:06)
[2016-05-16] MEDS: AZITHROMYCIN 250 MG TAB (ZITHROMAX) PO SCH (08:06)
[2016-05-16] MEDS: NICOTINE 14 MG (NICODERM) PATCH TD SCH (08:07)
[2016-05-16] MEDS: ENOXAPARIN 40 MG/0.4 ML (LOVENOX) SYR SC SCH (08:08)
[2016-05-16 08:35] VITALS: BP 129/58
[2016-05-16] MEDS ORDERED: KCL 20 MEQ TAB (K-DUR) PO NR (10:14)
--- NOTE | 2016-05-16 10:29 | Physical Therapy Daily Note ---
PT Daily Note-Current Subjective Pt laying supine in bed with head of bed up upon arrival. Pt reports feeling fatigued and SOB at start of tx. Pt agrees to PT and pt encouraged to keep taking deep breaths. Pain Numeric Pain Scale: 0-No Pain Location: No Pain Reported Mental Status Patient Orientation: Person, Place, Time, Situation Attachments: Oxygen, IV Transfers Functional [place] Measure 0=Not Assessed/NA 4=Minimal Assistance 1=Total Assistance 5=Supervision or Setup 2=Maximal Assistance 6=Modified [place] 3=Moderate Assistance 7=Complete IndependenceIRFPAI Quality Coding Scale 6 Independent with activity with or without an assistive device 5 Patient requires set up or clean up by helper. Patient completes activity by themselves 4 Supervision or touching assist (CGA). [place] provide cues , steadying assist 3 The helper provides less than half the effort to complete the activity 2 The helper provides more than half the effort to complete the activity 1 Dependent. The helper does all the effort to complete an activity 7 Patient refused to complete or attempt activity 9 The patient did not perform the activity before the current illness or injury 88 Not attempted due to Medical conditions or safety concerns Pt didn't complete transfers during tx. Exercises Supine Ex: Ankle pumps, Quad Set, Heel Slides, Straight leg raise, Hip abd/add Supine Reps: 15 Treatments Pt completed supine EX in bed for tx. Pt took a couple of rest breaks due to fatigue and SOB but recovered fairly quickly. Pt also received pt education on importance of maintaining strength and ROM. Pt is encouraged to change positions to prevent pressure sores and if pt could stand or even walk a little would be beneficial. Pt is left with all needs met at end of tx. Assessment Current Status: Fair Progress Pt gets SOB during tx but recovers fairly quickly. PT is receptive to pt education. PT Short Term Goals Short Term Goals Time Frame: May 22, 2016 Transfers (B,C,W/C) (FIM): 6 PT Plan Problem List Problem List: Activity Tolerance, Functional Strength, Safety, Balance, Gait, Transfer, Bed Mobility Treatment/Plan Treatment Plan: Continue Plan of Care Treatment Plan: Bed Mobility, Education, Functional Activity Cr, Functional Strength, Safety, Therapeutic Exercise, Transfers Treatment Duration: May 22, 2016 Visits Per Week: 5-6 Safety Risks/Education Patient Education: Transfer Techniques, Correct Positioning, Disease Process, Safety Issues Time/GCodes Time In: 905 Time Out: 930 Total Billed Treatment Time: 25 Total Billed Treatment visit, EX (15m) & FA (10m) DARNELL PRO PTA May 16, 2016 10:29
[2016-05-16 12:00] VITALS: BP 95/51
--- NOTE | 2016-05-16 13:28 | Progress Note (SOAP) ---
Subjective Subjective/Events-last exam Patient states that she is breathing much better today. She took the oxygen off and was still having some shortness of breath but she was satting 92%. Tolerating PO diet. + BM last night. Good UOP. She has decided that she is going to try and stop smoking. She has not had one for 3 days now. Date seen by provider: May 16, 2016 Objective Exam Last Set of Vital Signs Vital Signs Date Time Temp Pulse Resp B/P Pulse Ox O2 Delivery O2 Flow Rate FiO2 05/16/16 08:35 97.7 113 16 129/58 94 Room Air 05/16/16 08:00 2.00 Capillary Refill : Less Than 3 Seconds I&O Intake and Output 05/16/16 00:00 Intake Total 3310 ml Output Total 3400 ml Balance -90 ml Intake Oral 2610 ml IV Total 700 ml Output Urine Total 3400 ml # Voids 2 General: Alert, Oriented X3, Cooperative, No Acute Distress Neck: Supple, No JVD, No Thyromegaly Lungs: Clear to Auscultation, Normal Air Movement Heart: Regular Rate, Normal S1, Normal S2, No Murmurs Abdomen: Normal Bowel Sounds, Soft, No Tenderness, No Hepatosplenomegaly, No Masses Extremities: No Tenderness/Swelling, Other (trace edema present in her leg) Skin: No Rashes, No Breakdown Psych/Mental Status: Mental Status NL, Mood NL Results/Procedures Lab Laboratory Tests 05/15/16 16:09: Glucometer 234H 05/15/16 20:56: Glucometer 236H 05/16/16 05:21: Glucometer 199H 05/16/16 06:17: Anion Gap 12, BUN/Creatinine Ratio 15, Blood Urea Nitrogen 23H, Calcium Level 8.3L, Carbon Dioxide Level 22, Chloride Level 103, Creatinine 1.57H, Estimat Glomerular Filtration Rate 33, Glucose Level 192H, Potassium Level 3.1L, Sodium Level 137 05/16/16 10:45: Glucometer 197H Microbiology 05/14/16 Blood Culture - Preliminary, Resulted No growth Radiology Date of Exam: 05/14/16 CHEST 1 VIEW, AP/PA ONLY CLINICAL INDICATION: Patient with cough, shortness of air x1 day. EXAM: Portable chest x-ray upright view. COMPARISONS: Chest x-ray dated 06/07/2011. FINDINGS: There is interval development of mild cardiomegaly and increased pulmonary vascular congestion. There is development of a small left pleural effusion. There is bibasilar increased density which may be related to mild pulmonary edema. There are degenerative spurs involving the spine. IMPRESSION: 1: There is interval development of mild cardiomegaly, pulmonary vascular congestion which may be related to congestive heart failure/cardiac decompensation. 2: There is development of bibasilar lung infiltrate which may be related to pulmonary edema and a small left pleural effusion as well. Date of Exam: 05/14/16 CT ANGIO CHEST W PROCEDURE: CT angiography of the chest with contrast. TECHNIQUE: Multiple contiguous axial images were obtained through the chest after uneventful bolus administration of intravenous contrast. Reconstructed CTA MIP acquisitions were also performed. INDICATION: Shortness of breath, coughing, congestion. FINDINGS: There are no pulmonary emboli seen. The aorta has minimal atherosclerosis. There is no aneurysm or dissection. There is some coronary artery calcification present. There are bilateral pleural effusions layering out to a depth of 2 cm. There are emphysematous changes in the lungs. There is some consolidating infiltrate in the lingular segment of the left upper lobe and in the lateral basal segment of the left lower lobe. There is also some atelectasis at the posterior basilar segment of the right lower lobe. There is no hilar or mediastinal lymphadenopathy. IMPRESSION: Patchy areas of infiltrate and/or atelectasis in both lungs with bilateral pleural effusions. There is no evidence for pulmonary embolism. Assessment/Plan Assessment/Plan Admission Dx Acute Respiratory Failure Severe PVD s/p R AKA and Aortic Stenting CAD s/p stenting Pre Diabetes Hypokalemia Plan 61 yo F admitted with Acute Respiratory Failure concerned for Acute CHF Acute Respiratory Failure: ddx: CHF vs COPD vs PNA: Improving, likely multifactorial - CT did not show evidence of PE, + pleural effusions with h/o vascular dz is concerning for CHF exacerbation given elevated BNP, Echo pending - Transitioned to PO lasix today, decrease dose given SCOTT - A/A nebs started with PO steroids (patient has long h/o tobacco use and likely has underlying COPD) Will need spirometry outpatient - Continue Azithromycin - Titrate oxygen as tolerated - Inspiratory Spirometry - Discussed the need for smoking cessation Acute Kidney Insufficiency - Likely secondary to aggressive diuresis, Will continue to monitor - Lasix PO daily - Encouraged gentle PO hydration Severe PVD s/p R AKA and Aortic Stenting CAD s/p stenting Pre Diabetes - Goal A1c below 5.7, Discussed need for weight loss Tobaccoism - Discussed the need for cessation, patient states that it has been the one habit she has not been able to kick - Will refer her to cessation counselor at [facility] Hypokalemia: Replace and repeat BMP this afternoon, Scheduled PO dose with lasix FEN: Heart Healthy diet DVT PPX: Lovenox 40 mg daily Dispo: Admit to medicine floor, patient continues to need oxygen Diagnosis/Problems: Clinical Quality Measures DVT/VTE Risk/Contraindication: Risk Factor Score Per Nursin RFS Level Per Nursing on Admit: 4+=Very High ALEJANDRA JOSEPH MD May 16, 2016 13:28
[2016-05-16 15:40] VITALS: BP 109/76
[2016-05-16] MEDS: NS IV 1000 ML 1,000 ML IV SCH (17:28)
[2016-05-16 20:20] VITALS: BP 124/76
[2016-05-16] MEDS: RT-ALBUTEROL/IPRATROPIUM 3 ML (DUONEB) VIAL INH PRN (23:03)
[2016-05-17] VITALS: BP 125/86
[2016-05-17] MEDS ORDERED: LORazepam 1 MG (ATIVAN) TAB PO ONE
[2016-05-17] MEDS ORDERED: ZOLPIDEM 5 MG (AMBIEN) TAB PO PRN
[2016-05-17] MEDS: RT-ALBUTEROL/IPRATROPIUM 3 ML (DUONEB) VIAL INH PRN (02:49)
[2016-05-17 04:00] VITALS: BP 114/80
[2016-05-17] MEDS ORDERED: morphine INJ 4 MG/ML 1 ML (VIAL/SYRINGE) IVP ONE (04:30)
[2016-05-17 06:20] LABS: CALCIUM 8.3 MG/DL (8.5-10.1); CREATININE SERUM 1.59 MG/DL (0.60-1.30); MAGNESIUM 2.1 MG/DL (1.8-2.4); POTASSIUM 3.1 MMOL/L (3.6-5.0)
[2016-05-17] MEDS: RT-ALBUTEROL/IPRATROPIUM 3 ML (DUONEB) VIAL INH SCH ×6 (06:31→23:55)
[2016-05-17] MEDS ORDERED: predniSONE 20 MG TAB PO SCH (07:00)
[2016-05-17 08:00] VITALS: BP 130/85
--- NOTE | 2016-05-17 08:01 | Diagnostic Imaging Report ---
INDICATION: Shortness of breath Portable chest 4:35 AM Heart size and pulmonary vascularity are normal. Lungs are clear. There are no effusions or pneumothoraces. IMPRESSION: Negative chest Dictated by: Dictated on workstation # [id number]
[2016-05-17] MEDS: KCL 20 MEQ TAB (K-DUR) PO SCH (08:09)
[2016-05-17] MEDS: NICOTINE 14 MG (NICODERM) PATCH TD SCH (08:39)
[2016-05-17] MEDS: AZITHROMYCIN 250 MG TAB (ZITHROMAX) PO SCH (08:39)
[2016-05-17] MEDS: NICOTINE PATCH REMOVAL TP SCH (08:40)
[2016-05-17] MEDS: FUROSEMIDE 40 MG (LASIX) TAB PO SCH (08:40)
[2016-05-17] MEDS: ENOXAPARIN 40 MG/0.4 ML (LOVENOX) SYR SC SCH (08:40)
[2016-05-17] MEDS ORDERED: KCL 20 MEQ TAB (K-DUR) PO NR (09:22)
--- NOTE | 2016-05-17 11:33 | Progress Note (SOAP) ---
Subjective Subjective/Events-last exam Patient states that she feels better then last night but still short of breath. Tolerated breakfast this AM. Last night she was having alot of anxiety because of her shortness of breath. She was not hypoxic. Been doing her IS since last night and her high is 1000. Date seen by provider: May 17, 2016 Objective Exam Last Set of Vital Signs Vital Signs Date Time Temp Pulse Resp B/P Pulse Ox O2 Delivery O2 Flow Rate FiO2 05/17/16 10:10 94 2.00 05/17/16 09:00 Nasal Cannula 05/17/16 08:00 96.9 122 18 130/85 Capillary Refill : Less Than 3 Seconds I&O Intake and Output 05/17/16 00:00 Intake Total 3020 ml Output Total 1900 ml Balance 1120 ml Intake Oral 3020 ml Output Urine Total 1900 ml # Voids 2 # Bowel Movements 1 General: Alert, Oriented X3, Cooperative Neck: Supple, No JVD Lungs: Other (Diffuse wheezing in all lung valle, normal work of breathing) Heart: No Murmurs (Tachycardic rate) Abdomen: Normal Bowel Sounds, Soft, No Tenderness, No Hepatosplenomegaly, No Masses Extremities: No Clubbing, No Edema, No Tenderness/Swelling Skin: No Rashes, No Breakdown Neuro: Normal Speech, Sensation Intact, Cranial Nerves 3-12 NL Psych/Mental Status: Mental Status NL, Mood NL Results/Procedures Lab Laboratory Tests 05/17/16 05:12: Anion Gap 13, BUN/Creatinine Ratio 20, Blood Urea Nitrogen 32H, Calcium Level 8.3L, Carbon Dioxide Level 18L, Chloride Level 104, Creatinine 1.59H, Estimat Glomerular Filtration Rate 33, Glucose Level 168H, Magnesium Level 2.1, Potassium Level 3.1L, Sodium Level 135 Microbiology 05/14/16 Blood Culture - Preliminary, Resulted No growth Radiology Date of Exam: 05/14/16 CHEST 1 VIEW, AP/PA ONLY CLINICAL INDICATION: Patient with cough, shortness of air x1 day. EXAM: Portable chest x-ray upright view. COMPARISONS: Chest x-ray dated 06/07/2011. FINDINGS: There is interval development of mild cardiomegaly and increased pulmonary vascular congestion. There is development of a small left pleural effusion. There is bibasilar increased density which may be related to mild pulmonary edema. There are degenerative spurs involving the spine. IMPRESSION: 1: There is interval development of mild cardiomegaly, pulmonary vascular congestion which may be related to congestive heart failure/cardiac decompensation. 2: There is development of bibasilar lung infiltrate which may be related to pulmonary edema and a small left pleural effusion as well. Date of Exam: 05/14/16 CT ANGIO CHEST W PROCEDURE: CT angiography of the chest with contrast. TECHNIQUE: Multiple contiguous axial images were obtained through the chest after uneventful bolus administration of intravenous contrast. Reconstructed CTA MIP acquisitions were also performed. INDICATION: Shortness of breath, coughing, congestion. FINDINGS: There are no pulmonary emboli seen. The aorta has minimal atherosclerosis. There is no aneurysm or dissection. There is some coronary artery calcification present. There are bilateral pleural effusions layering out to a depth of 2 cm. There are emphysematous changes in the lungs. There is some consolidating infiltrate in the lingular segment of the left upper lobe and in the lateral basal segment of the left lower lobe. There is also some atelectasis at the posterior basilar segment of the right lower lobe. There is no hilar or mediastinal lymphadenopathy. IMPRESSION: Patchy areas of infiltrate and/or atelectasis in both lungs with bilateral pleural effusions. There is no evidence for pulmonary embolism. Assessment/Plan Assessment/Plan Admission Dx Acute Respiratory Failure Severe PVD s/p R AKA and Aortic Stenting CAD s/p stenting Pre Diabetes Hypokalemia Plan 61 yo F admitted with Acute Respiratory Failure concerned for Acute CHF Acute Respiratory Failure: ddx: CHF vs COPD vs PNA: Improving, likely multifactorial - CT did not show evidence of PE, + pleural effusions with h/o vascular dz is concerning for CHF exacerbation given elevated BNP, Echo pending - Continue PO lasix 40 daily - A/A nebs started with PO steroids (patient has long h/o tobacco use and likely has underlying COPD) Will need spirometry outpatient - PO steroids increased to 40 BID - Continue Azithromycin - Titrate oxygen as tolerated - Inspiratory Spirometry - Discussed the need for smoking cessation Acute Kidney Insufficiency - Likely secondary to aggressive diuresis, Will continue to monitor - Encouraged gentle PO hydration - Repeat BMP in AM Severe PVD s/p R AKA and Aortic Stenting CAD s/p stenting Pre Diabetes - Goal A1c below 5.7, Discussed need for weight loss Tobaccoism - Discussed the need for cessation, patient states that it has been the one habit she has not been able to kick - Will refer her to cessation counselor at [facility] Hypokalemia: Replace and repeat BMP this afternoon, Scheduled PO dose with lasix FEN: Heart Healthy diet DVT PPX: Lovenox 40 mg daily Dispo: Admit to medicine floor, patient continues to need oxygen, plan to d/c tomorrow, social consult for home oxygen Diagnosis/Problems: Clinical Quality Measures DVT/VTE Risk/Contraindication: Risk Factor Score Per Nursin RFS Level Per Nursing on Admit: 4+=Very High ALEJANDRA JOSEPH MD May 17, 2016 11:33
[2016-05-17 12:00] VITALS: BP 102/84
--- NOTE | 2016-05-17 14:21 | Physical Therapy Daily Note ---
PT Daily Note-Current Subjective Pt sitting up in bed upon arrival. Pt reports continued SOB and anxiety when she feels as though she hasn't caught her breathe. Pt agrees to PT to attempt walking in room. Pain Numeric Pain Scale: 0-No Pain Location: No Pain Reported Mental Status Patient Orientation: Person, Normal For Age Attachments: Oxygen, IV Transfers Functional [place] Measure 0=Not Assessed/NA 4=Minimal Assistance 1=Total Assistance 5=Supervision or Setup 2=Maximal Assistance 6=Modified [place] 3=Moderate Assistance 7=Complete IndependenceIRFPAI Quality Coding Scale 6 Independent with activity with or without an assistive device 5 Patient requires set up or clean up by helper. Patient completes activity by themselves 4 Supervision or touching assist (CGA). D Hanis provide cues , steadying assist 3 The helper provides less than half the effort to complete the activity 2 The helper provides more than half the effort to complete the activity 1 Dependent. The helper does all the effort to complete an activity 7 Patient refused to complete or attempt activity 9 The patient did not perform the activity before the current illness or injury 88 Not attempted due to Medical conditions or safety concerns Transfers (B, C, W/C) (FIM): 4 Scootin Sit to/from Stand: 4 Weight Bearing Weight Bearing Restriction: Full Weight Bearing Location Restriction: LE Bilateral Gait Training Gait (FIM): 1 Distance: 10' Gait Level of Assist: 4 Gait Persons Needed: 1 Gait Assistive Device: FWW Pt has hop to gait pattern. Pt fatigues very easy and has SOB, needing to return to bed to rest. Treatments Pt receives pt education on importance of PT and movement for maintaining strength and health. Pt agrees to ambulation in room. Pt transfers from EOB to standing using FWW at Min A. Pt ambulates approx. 10' wit FWW at CGA in room before needing to return to bed due to SOB and fatigue. Pt returns to bed for O2 and is encouraged with deep breathing EX to catch breathe as well as help control anxiety. Pt is left with all needs met at end of tx and BEAUTY OPERATOR present. Assessment Current Status: Fair Progress Pt continues to have anxiety and SOB with tx. Pt fatigues easy. PT Short Term Goals Short Term Goals Time Frame: May 22, 2016 Transfers (B,C,W/C) (FIM): 6 PT Plan Problem List Problem List: Activity Tolerance, Functional Strength, Safety, Balance, Gait, Transfer Treatment/Plan Treatment Plan: Continue Plan of Care Treatment Plan: Bed Mobility, Education, Functional Activity Cr, Functional Strength, Safety, Therapeutic Exercise, Transfers Treatment Duration: May 22, 2016 Visits Per Week: 5-6 Safety Risks/Education Patient Education: Gait Training, Transfer Techniques, Correct Positioning, Safety Issues Teaching Recipient: Patient Teaching Methods: Discussion Response to Teaching: Verbalize Understanding Time/GCodes Time In: 1210 Time Out: 1235 Total Billed Treatment Time: 25 Total Billed Treatment visit, FA X2 (25m) DARNELL PRO PTA May 17, 2016 14:21
[2016-05-17 14:30] LABS: CALCIUM 8.1 MG/DL (8.5-10.1); CREATININE SERUM 1.6 MG/DL (0.60-1.30); POTASSIUM 4.1 MMOL/L (3.6-5.0)
[2016-05-17 16:35] VITALS: BP 114/82
[2016-05-17] MEDS: NS IV 1000 ML 1,000 ML IV SCH (18:49)
[2016-05-17 20:20] VITALS: BP 115/77
[2016-05-17] MEDS: predniSONE 20 MG TAB PO SCH (20:36)
[2016-05-18 00:35] VITALS: BP 122/89
[2016-05-18] MEDS ORDERED: RT-ALBUTEROL/IPRATROPIUM 3 ML (DUONEB) VIAL INH PRN (02:00)
[2016-05-18] MEDS: RT-ALBUTEROL/IPRATROPIUM 3 ML (DUONEB) VIAL INH SCH ×6 (02:19→22:18)
[2016-05-18 06:02] LABS: CALCIUM 8.5 MG/DL (8.5-10.1); CREATININE SERUM 1.47 MG/DL (0.60-1.30); POTASSIUM 4.2 MMOL/L (3.6-5.0)
[2016-05-18] MEDS: KCL 20 MEQ TAB (K-DUR) PO SCH (07:24)
--- NOTE | 2016-05-18 07:54 | ECHOCARDIOGRAPHY REPORT ---
PROCEDURE PHYSICIAN: LUIS M BROOKS DATE OF PROCEDURE: 05/14/2016 TWO DIMENSIONAL ECHOCARDIOGRAM REPORT PRIMARY PHYSICIAN: OTHER PHYSICIAN: [facility] REFERRING PHYSICIAN: ORDERING PHYSICIAN: Dr. Gallardo INDICATION FOR THE PROCEDURE: 1. Congestive heart failure. 2. Pneumonia. MEASUREMENTS DERIVED VALUES LV DIAMETER (LAX) NORMALS NORMALS Diastolic 5.5 (3.6-5.2) Eject. Fract. (60%+/-6%) Systolic (2.3-3.9) Diastolic Vol. % Shortening (0.22-0.42) Systolic Vol. Aortic Root 3 IVS THICKNESS Diastolic 1.1 (0.6-1.1) LVPW THICKNESS Diastolic 1 (0.6-1.1) LA DIAMETER Systolic 4 (2.1-3.7) DESCRIPTION: Two-dimensional echocardiography shows impairment of global left ventricular systolic function. Left ventricular ejection fraction is approximately 40 to 45%. There is distal septal and apical hypokinesis to akinesis. Aortic, mitral and tricuspid valve leaflets show fair to good leaflet excursion. There is no significant pericardial effusion. Doppler imaging shows mild to moderate mitral regurgitation. There is no evidence of significant valvular stenosis. Subcostal views are limited. On the views available, there is no distinct evidence of any significant intracardiac shunt. Inferior vena cava appears to be mildly dilated but does seem to have inspiratory collapse. Pulmonary artery systolic pressure could not be reliably estimated on this study. CONCLUSIONS: 1. Impairment of global left ventricular systolic function with an ejection fraction of 40 to 45%. 2. Distal septal and apical hypokinesis to akinesis. 3. Mild to moderate mitral regurgitation. 4. No evidence of significant valvular stenosis. Job ID: [id number] Dictated Date: 05/17/2016 09:39:52 Clay Burner Date: 05/18/2016 07:44:42 / marie
[2016-05-18 08:29] VITALS: BP 120/89
[2016-05-18] MEDS: ENOXAPARIN 40 MG/0.4 ML (LOVENOX) SYR SC SCH (09:14)
[2016-05-18] MEDS: AZITHROMYCIN 250 MG TAB (ZITHROMAX) PO SCH (09:14)
[2016-05-18] MEDS: NICOTINE 14 MG (NICODERM) PATCH TD SCH (09:14)
[2016-05-18] MEDS: FUROSEMIDE 40 MG (LASIX) TAB PO SCH (09:14)
[2016-05-18] MEDS: predniSONE 20 MG TAB PO SCH ×2 (09:14→21:56)
[2016-05-18] MEDS: NICOTINE PATCH REMOVAL TP SCH (09:15)
--- NOTE | 2016-05-18 13:47 | Progress Note (SOAP) ---
Subjective Subjective/Events-last exam Pt still quite SOA, become more dyspneic with any activity. Date seen by provider: May 18, 2016 Objective Exam Last Set of Vital Signs Vital Signs Date Time Temp Pulse Resp B/P Pulse Ox O2 Delivery O2 Flow Rate FiO2 05/18/16 11:33 93 2.00 05/18/16 09:00 Nasal Cannula 05/18/16 08:29 97.9 115 26 120/89 Capillary Refill : Less Than 3 Seconds I&O Intake and Output 05/18/16 00:00 Intake Total 2620 ml Output Total 950 ml Balance 1670 ml Intake Oral 1820 ml IV Total 800 ml Output Urine Total 950 ml # Voids 2 # Bowel Movements 2 General: Alert, Oriented X3, Cooperative Lungs: Other (exp wheezes) Heart: Regular Rate Psych/Mental Status: Mood NL Results/Procedures Lab Laboratory Tests 05/17/16 14:02: Anion Gap 13, BUN/Creatinine Ratio 18, Blood Urea Nitrogen 28H, Calcium Level 8.1L, Carbon Dioxide Level 17L, Chloride Level 102, Creatinine 1.60H, Estimat Glomerular Filtration Rate 33, Glucose Level 253H, Potassium Level 4.1, Sodium Level 132L 05/18/16 05:30: Anion Gap 15H, BUN/Creatinine Ratio 18, Blood Urea Nitrogen 27H, Calcium Level 8.5, Carbon Dioxide Level 15L, Chloride Level 103, Creatinine 1.47H, Estimat Glomerular Filtration Rate 36, Glucose Level 212H, Potassium Level 4.2, Sodium Level 133L Microbiology 05/14/16 Blood Culture - Preliminary, Resulted No growth Radiology Date of Exam: 05/14/16 CHEST 1 VIEW, AP/PA ONLY CLINICAL INDICATION: Patient with cough, shortness of air x1 day. EXAM: Portable chest x-ray upright view. COMPARISONS: Chest x-ray dated 06/07/2011. FINDINGS: There is interval development of mild cardiomegaly and increased pulmonary vascular congestion. There is development of a small left pleural effusion. There is bibasilar increased density which may be related to mild pulmonary edema. There are degenerative spurs involving the spine. IMPRESSION: 1: There is interval development of mild cardiomegaly, pulmonary vascular congestion which may be related to congestive heart failure/cardiac decompensation. 2: There is development of bibasilar lung infiltrate which may be related to pulmonary edema and a small left pleural effusion as well. Date of Exam: 05/14/16 CT ANGIO CHEST W PROCEDURE: CT angiography of the chest with contrast. TECHNIQUE: Multiple contiguous axial images were obtained through the chest after uneventful bolus administration of intravenous contrast. Reconstructed CTA MIP acquisitions were also performed. INDICATION: Shortness of breath, coughing, congestion. FINDINGS: There are no pulmonary emboli seen. The aorta has minimal atherosclerosis. There is no aneurysm or dissection. There is some coronary artery calcification present. There are bilateral pleural effusions layering out to a depth of 2 cm. There are emphysematous changes in the lungs. There is some consolidating infiltrate in the lingular segment of the left upper lobe and in the lateral basal segment of the left lower lobe. There is also some atelectasis at the posterior basilar segment of the right lower lobe. There is no hilar or mediastinal lymphadenopathy. IMPRESSION: Patchy areas of infiltrate and/or atelectasis in both lungs with bilateral pleural effusions. There is no evidence for pulmonary embolism. Assessment/Plan Assessment/Plan Admission Dx Acute Respiratory Failure Severe PVD s/p R AKA and Aortic Stenting CAD s/p stenting Pre Diabetes Hypokalemia Plan 61 yo F admitted with Acute Respiratory Failure concerned for Acute CHF Acute Respiratory Failure: ddx: CHF vs COPD vs PNA: Improving, likely multifactorial - CT did not show evidence of PE, + pleural effusions with h/o vascular dz is concerning for CHF exacerbation given elevated BNP, Echo pending - Continue PO lasix 40 daily - A/A nebs started with PO steroids (patient has long h/o tobacco use and likely has underlying COPD) Will need spirometry outpatient - PO steroids increased to 40 BID - Continue Azithromycin - Titrate oxygen as tolerated - Inspiratory Spirometry - Discussed the need for smoking cessation 2/3 - continued wheezing and dyspnea on exertion; qualifies for home oxygen - order placed; will hold DC due to continued symptoms Acute Kidney Insufficiency - Likely secondary to aggressive diuresis, Will continue to monitor - Encouraged gentle PO hydration - Repeat BMP in AM Severe PVD s/p R AKA and Aortic Stenting CAD s/p stenting Pre Diabetes - Goal A1c below 5.7, Discussed need for weight loss Tobaccoism - Discussed the need for cessation, patient states that it has been the one habit she has not been able to kick - Will refer her to cessation counselor at [facility] Hypokalemia: Replace and repeat BMP this afternoon, Scheduled PO dose with lasix FEN: Heart Healthy diet DVT PPX: Lovenox 40 mg daily Dispo: Admit to medicine floor, patient continues to need oxygen, plan to d/c tomorrow, social consult for home oxygen - ordered Diagnosis/Problems: Clinical Quality Measures DVT/VTE Risk/Contraindication: Risk Factor Score Per Nursin RFS Level Per Nursing on Admit: 4+=Very High ELISEO VALENCIA DO May 18, 2016 13:47
[2016-05-18 15:25] VITALS: BP 114/77
[2016-05-18] MEDS ORDERED: CALCIUM CARBONATE 500 MG (TUMS) TAB.CHEW PO PRN (22:00)
[2016-05-19] VITALS: BP 127/78
[2016-05-19] MEDS: RT-ALBUTEROL/IPRATROPIUM 3 ML (DUONEB) VIAL INH SCH ×3 (02:08→10:46)
[2016-05-19] MEDS: KCL 20 MEQ TAB (K-DUR) PO SCH (06:00)
[2016-05-19] MEDS: NICOTINE PATCH REMOVAL TP SCH (08:30)
[2016-05-19] MEDS: NICOTINE 14 MG (NICODERM) PATCH TD SCH (08:30)
[2016-05-19] MEDS: FUROSEMIDE 40 MG (LASIX) TAB PO SCH (08:30)
[2016-05-19] MEDS: ENOXAPARIN 40 MG/0.4 ML (LOVENOX) SYR SC SCH (08:31)
[2016-05-19 08:47] VITALS: BP 130/89
[2016-05-19] MEDS ORDERED: TIOT18CA2 IH (12:26)
[2016-05-19] MEDS ORDERED: LISI10TA2 PO (12:26)
[2016-05-19] MEDS ORDERED: RT-ALBUINH IH (12:26)
[2016-05-19] MEDS ORDERED: POTA20TA8 PO (12:26)
[2016-05-19] MEDS ORDERED: FURO40TA4 PO (12:26)
--- NOTE | 2016-05-20 17:45 | Discharge Summary ---
Diagnosis/Chief Complaint Date of Admission May 14, 2016 at 15:50 Date of Discharge May 19, 2016 at 14:30 Admission Diagnosis Admission Diagnosis Acute Respiratory Failure Severe PVD s/p R AKA and Aortic Stenting CAD s/p stenting Pre Diabetes Hypokalemia Discharge Diagnosis See above Chief Complaint/HPI Chief Complaint/HPI 61 yo F that has not been seen by a doctor in over 2 years presents to ER with increasing shortness of breath. She states that she has been coughing for the last 3 days. States that it is a dry cough. No home oxygen dependence. + sick contacts with grandchildren. Denies any fevers or chills. Denies chest pain or palpitations. States that her leg swells frequently but resolves spontaneously. States that about 5 years ago she had cath with stent placement. Denies ever having heart attack. States that she has been a smoker since age 13. Denies ever having diagnosis of CHF or COPD. Discharge Summary-Simple/Stand Procedures Echo: showed decreased EF 40-45%, mild to moderate mitral regurg Consultations None Discharge Physical Examination Allergies: Coded Allergies: NKANo Known Allergies (Verified Allergy, Unknown, 05/14/16) Vitals & I&Os Vital Sign - Last 12Hours Date Time Temp Pulse Resp B/P Pulse Ox O2 Delivery O2 Flow Rate FiO2 05/19/16 10:47 95 1.00 05/19/16 08:47 97.2 116 20 130/89 Nasal Cannula General Appearance: Alert, Oriented X3, Cooperative, No Acute Distress HEENT: Atraumatic, PERRLA, EOMI, Mucous Memb Moist/[place] Respiratory: Clear to Auscultation, Normal Air Movement Cardiovascular: Regular Rate, Normal S1, Normal S2, No Murmurs Abdominal: Normal Bowel Sounds, Soft, No Tenderness, No Masses Extremities: No Tenderness/Swelling (trace edema: improved since admission) Skin: No Rashes, No Breakdown Neuro: Normal Speech, Sensation Intact, Cranial Nerves 3-12 NL Psych/Mental Status: Mental Status NL, Mood NL Hospital Course See final discharge diagnosis. Labs A1c 5.8 Pending Labs None Radiology Reviewed Date of Exam: 05/14/16 CHEST 1 VIEW, AP/PA ONLY CLINICAL INDICATION: Patient with cough, shortness of air x1 day. EXAM: Portable chest x-ray upright view. COMPARISONS: Chest x-ray dated 06/07/2011. FINDINGS: There is interval development of mild cardiomegaly and increased pulmonary vascular congestion. There is development of a small left pleural effusion. There is bibasilar increased density which may be related to mild pulmonary edema. There are degenerative spurs involving the spine. IMPRESSION: 1: There is interval development of mild cardiomegaly, pulmonary vascular congestion which may be related to congestive heart failure/cardiac decompensation. 2: There is development of bibasilar lung infiltrate which may be related to pulmonary edema and a small left pleural effusion as well. Date of Exam: 05/14/16 CT ANGIO CHEST W PROCEDURE: CT angiography of the chest with contrast. TECHNIQUE: Multiple contiguous axial images were obtained through the chest after uneventful bolus administration of intravenous contrast. Reconstructed CTA MIP acquisitions were also performed. INDICATION: Shortness of breath, coughing, congestion. FINDINGS: There are no pulmonary emboli seen. The aorta has minimal atherosclerosis. There is no aneurysm or dissection. There is some coronary artery calcification present. There are bilateral pleural effusions layering out to a depth of 2 cm. There are emphysematous changes in the lungs. There is some consolidating infiltrate in the lingular segment of the left upper lobe and in the lateral basal segment of the left lower lobe. There is also some atelectasis at the posterior basilar segment of the right lower lobe. There is no hilar or mediastinal lymphadenopathy. IMPRESSION: Patchy areas of infiltrate and/or atelectasis in both lungs with bilateral pleural effusions. There is no evidence for pulmonary embolism. Discussion & Recommendations 61 yo F admitted with Acute Respiratory Failure concerned for Acute CHF Acute Respiratory Failure: ddx: CHF vs COPD vs PNA: Improving, likely multifactorial - CT did not show evidence of PE, + pleural effusions with h/o vascular dz is concerning for CHF exacerbation given elevated BNP - Continue PO lasix 40 daily - A/A nebs started with PO steroids (patient has long h/o tobacco use and likely has underlying COPD) Will need spirometry outpatient - PO steroids increased to 40 BID - Continue Azithromycin - Titrate oxygen as tolerated - Inspiratory Spirometry - Discussed the need for smoking cessation 2/3 - continued wheezing and dyspnea on exertion; qualifies for home oxygen - order placed; will hold DC due to continued symptoms Acute Systolic CHF - Started on ACEI, will consider betablocker as outpatient - EF 40-45% - Will refer to cardiology as outpatient for new onset CHF Acute Kidney Insufficiency: Improving and trending to baseline - Likely secondary to aggressive diuresis, Will continue to monitor - Encouraged gentle PO hydration Severe PVD s/p R AKA and Aortic Stenting CAD s/p stenting Pre Diabetes - Goal A1c below 5.7, Discussed need for weight loss Tobaccoism - Discussed the need for cessation, patient states that it has been the one habit she has not been able to kick - Will refer her to cessation counselor at [facility] Hypokalemia: replaced and resolved at discharge, continue PO replacement with lasix Follow up - Patient plans to follow up with me in the clinic - Needs referral to Cardiology and Pulmonology as outpatient - Needs Spirometry or PFTs Discharge Condition at discharge Stable Instructions to patient/family Please see electonic discharge instructions given to patient. Discharge Medications Reviewed and agree with Discharge Medication list on patient's Discharge Instruction sheet Clinical Quality Measures DVT/VTE Risk/Contraindication: Risk Factor Score Per Nursin RFS Level Per Nursing on Admit: 4+=Very High Copy Copies To 1: ALEJANDRA JOSEPH MD, HOLLY R MD May 20, 2016 17:45
--- NOTE | 2016-05-21 14:05 | Physician Query-General Query ---
Physician Query-General Query to Physician: 1. After studies was pneumonia ruled in or ruled out? Ruled out 2. Please clarify acute kidney insufficiency, does this mean acute kidney failure? Yes PHYSICIAN RESPONSE: Based on the clinical findings in the record, please respond to the query above on this document as an addendum. Possible, probable, or questionable diagnosis can be coded for INPATIENTS ONLY. Physician Response: Physician Response See above If you have questions please contact: Regional Construction Manager: Ext: Thank you for your time and cooperation. Clinical Body Design Checker/Regional Construction Manager This is a permanent part of the medical record PEG HOUSER May 21, 2016 14:04 ALEJANDRA JOSEPH MD May 31, 2016 08:37
== END 2016-05-19 14:30 | disposition home or self-care (01) | DRG 189 ==
LOC: EDUNIT# 12:56 → ER 12:59 → UNDOADMIN 15:50 → 4TH 15:50
PROVIDERS: ADMIT Family Medicine; ATTEND Family Medicine
DX: J96.00 Acute respiratory failure, unspecified whether with hypoxia or hypercapnia (principal); I50.21 Acute systolic (congestive) heart failure; N17.9 Acute kidney failure, unspecified; J90 Pleural effusion, not elsewhere classified; J44.9 Chronic obstructive pulmonary disease, unspecified; F17.200 Nicotine dependence, unspecified, uncomplicated; I25.10 Atherosclerotic heart disease of native coronary artery without angina pectoris; R73.03 Prediabetes; E87.6 Hypokalemia; I70.209 Unspecified atherosclerosis of native arteries of extremities, unspecified extremity; N28.9 Disorder of kidney and ureter, unspecified; Z99.81 Dependence on supplemental oxygen; Z95.5 Presence of coronary angioplasty implant and graft; Z89.611 Acquired absence of right leg above knee
CPT/HCPCS: 36415; 71010; 71275; 80048; 80053; 81000; 82805; 82962; 83036; 83605; 83735; 83880; 84443; 84484; 85007; 85025; 85027; 85379; 85610; 85730; 87040; 93005; 93306; 94640; 94664; 94760; 96365; 96375

== ENCOUNTER 2017-04-02 12:02 | Inpatient (IN) | payer MEDICARE ==
[~2017-04-02] VITALS: Ht 167.6 cm; Wt 96.3 kg
[2017-04-02] VITALS (17 sets, daily range): BP systolic 96–144; BP diastolic 70–112
[~2017-04-02 12:02] MED LIST changes: +FURO40TA4 PO; +IBUP-2055 PO; +LISI10TA2 PO; +POTA20TA8 PO; +RT-ALBUINH IH; +TIOT18CA2 IH
[2017-04-02] MEDS ORDERED: RT-ALBUTEROL/IPRATROPIUM 3 ML (DUONEB) VIAL INH ONE (12:15)
[2017-04-02 12:27] LABS: BASOPHILS # (AUTO) 0.1 10^3/uL (0.0-0.1); BASOPHILS % (AUTO) 0 % (0-10); EOSINOPHILS # (AUTO) 0.1 10^3/uL (0.0-0.3); EOSINOPHILS % (AUTO) 1 % (0-10); LYMPHOCYTES # (AUTO) 1.2 X 10^3 (1.0-4.0); LYMPHOCYTES % (AUTO) 8 % (12-44); MEAN CORPUSCULAR HEMOGLOBIN 31 PG (25-34); MEAN CORPUSCULAR HGB CONC 33 G/DL (32-36); MEAN CORPUSCULAR VOLUME 94 FL (80-99); MEAN PLATELET VOLUME 10.3 FL (7.4-10.4); MONOCYTES # (AUTO) 0.8 X 10^3 (0.0-1.0); MONOCYTES % (AUTO) 5 % (0-12); NEUTROPHILS # (AUTO) 12.2 X 10^3 (1.8-7.8); NEUTROPHILS % (AUTO) 85 % (42-75); PLATELET COUNT 258 10^3/uL (130-400); RED BLOOD COUNT 3.97 10^6/uL (4.35-5.85); RED CELL DISTRIBUTION WIDTH 18.6 % (10.0-14.5); WHITE BLOOD COUNT 14.3 10^3/uL (4.3-11.0)
--- NOTE | 2017-04-02 12:29 | ED General ---
General Stated Complaint: SOB Source of Information: Patient, Family Exam Limitations: No Limitations History of Present Illness Time Seen by Provider: 12:01 Initial Comments Here with report of shortness of breath that is worsened over the last 3 days. She is unable to lay flat and thinks that her CHF may be activated. Does have a history of COPD as well. Has had some recent upper respiratory symptoms. Denies diarrhea. Reports that she may have had a bladder infection. Denies nausea or vomiting. Timing/Duration: 3-4 Days Severity: Moderate, Severe Associated Systoms: No Chest Pain, Cough, No Fever/Chills, No Nausea/Vomiting, Shortness of Air, Weakness Allergies and Home Medications Allergies Coded Allergies: NKANo Known Allergies (Verified Allergy, Unknown, 05/14/16) Home Medications Albuterol Sulfate 8.5 Gm Hfa.aer.ad, 1-2 PUFF IH Q4H PRN for WHEEZING, #1 Prescribed by: ALEJANDRA JOSEPH on 05/19/16 1226 Furosemide 40 Mg Tablet, 40 MG PO DAILY, #30 Prescribed by: ALEJANDRA JOSEPH on 05/19/16 1226 Ibuprofen 200 Mg Tablet, 600 MG PO Q8H PRN for PAIN, (Reported) TAKES 3 (200 MG) TABLETS Lisinopril 10 Mg Tablet, 10 MG PO DAILY, #30 Prescribed by: ALEJANDRA JOSEPH on 05/19/16 1226 Potassium Chloride 20 Meq Tab.er.prt, 20 MEQ PO DAILY@0700, #30 Prescribed by: ALEJANDRA JOSEPH on 05/19/16 1226 Tiotropium [place] 1 Inh Aerp, 1 INH IH QID, #1 Prescribed by: ALEJANDRA JOSEPH on 05/19/16 1226 Constitutional: see HPI, No diaphoresis, fever EENTM: nose congestion Respiratory: cough, short of breath, wheezing Cardiovascular: No chest pain, No edema Gastrointestinal: no symptoms reported Genitourinary: pain (feels some bladder discomfort) : No Musculoskeletal: no symptoms reported Skin: no symptoms reported All Other Systems Reviewed Negative Unless Noted: Yes Past Orrvdly-Wfhobl-Wiqabq Hx Patient Social History Alcohol Use: Denies Use Recreational Drug Use: No Smoking Status: Current Everyday Smoker Type Used: Cigarettes Recent Foreign Travel: No Contact w/Someone Who Travel: No Recent Hopitalizations: Yes Immunizations Up To Date PED Vaccines UTD: No Surgeries History of Surgeries: Yes (pvd) Respiratory History of Respiratory Disorde: No Currently Using CPAP: No Currently Using BIPAP: No Cardiovascular History of Cardiac Disorders: Yes Neurological History of Neurological Disord: No Reproductive System Hx Reproductive Disorders: No Genitourinary History of Genitourinary Disor: No Genitourinary Disorders: Bladder Infection Gastrointestinal History of Gastrointestinal Di: No Musculoskeletal History of Musculoskeletal Dis: Yes Musculoskeletal Disorders: Amputee, Fractures Endocrine History of Endocrine Disorders: No Cancer History of Cancer: No Did You Recieve Any Treatments: No Psychosocial History of Psychiatric Problem: Yes Behavioral Health Disorders: Anxiety Integumentary History of Skin or Integumenta: Yes (age spots) Skin/Integumentary Disorders: Recent Skin Changes Blood Transfusions History of Blood Disorders: No Reviewed Nursing Assessment Reviewed/Agree w Nursing PMH: Yes Family Medical History Significant Family History: No Pertinent Family Hx Physical Exam-Suspected Sepsis Physical Exam Vital Signs Vital Sign - Last 12Hours Capillary Refill : General Appearance: No Apparent Distress, WD/WN HEENT: PERRL/EOMI, Pharynx Normal Neck: Non Tender, Supple Respiratory: No Crackles, Decreased Breath Sounds, Respiratory Distress, Wheezing Cardiovascular: No Murmur, Tachycardia Gastrointestinal: Non Tender, Soft Back: Normal Inspection, No CVA Tenderness, No Vertebral Tenderness Extremity: Normal Range of Motion, Non Tender Neurologic/Psychiatric: Alert, Oriented x3 Skin: normal color, warm/dry Focused Exam Evaluation Lactate Level Laboratory Tests 04/02/17 12:20: Lactic Acid Level 2.00 Lactic Acid Level Laboratory Tests Test 04/02/17 12:20 Lactic Acid Level 2.00 MMOL/L (0.50-2.00) Progress/Results/Core Measures Suspected Sepsis SIRS Temperature: Pulse: Respiratory Rate: Laboratory Tests 04/02/17 12:20: White Blood Count 14.3H Blood Pressure / Mean: Laboratory Tests 04/02/17 12:20: Lactic Acid Level 2.00 Laboratory Tests 04/02/17 12:20: Creatinine 1.66H, INR Comment 1.1, Platelet Count 258, Total Bilirubin 1.0 Results/Orders Lab Results Laboratory Tests Test 04/02/17 12:20 04/02/17 12:54 Range/Units White Blood Count 14.3 H 4.3-11.0 10^3/uL Red Blood Count 3.97 L 4.35-5.85 10^6/uL Hemoglobin 12.4 11.5-16.0 G/DL Hematocrit 37 35-52 % Mean Corpuscular Volume 94 80-99 FL Mean Corpuscular Hemoglobin 31 25-34 PG Mean Corpuscular Hemoglobin Concent 33 32-36 G/DL Red Cell Distribution Width 18.6 H 10.0-14.5 % Platelet Count 258 130-400 10^3/uL Mean Platelet Volume 10.3 7.4-10.4 FL Neutrophils (%) (Auto) 85 H 42-75 % Lymphocytes (%) (Auto) 8 L 12-44 % Monocytes (%) (Auto) 5 0-12 % Eosinophils (%) (Auto) 1 0-10 % Basophils (%) (Auto) 0 0-10 % Neutrophils # (Auto) 12.2 H 1.8-7.8 X 10^3 Lymphocytes # (Auto) 1.2 1.0-4.0 X 10^3 Monocytes # (Auto) 0.8 0.0-1.0 X 10^3 Eosinophils # (Auto) 0.1 0.0-0.3 10^3/uL Basophils # (Auto) 0.1 0.0-0.1 10^3/uL Neutrophils % (Manual) 84 % Lymphocytes % (Manual) 7 % Monocytes % (Manual) 6 % Eosinophils % (Manual) 2 % Band Neutrophils 1 % Toxic Granulation 1+ Anisocytosis SLIGHT Prothrombin Time 14.7 12.2-14.7 SEC INR Comment 1.1 0.8-1.4 Activated Partial Thromboplast Time 26 24-35 SEC Sodium Level 134 L 135-145 MMOL/L Potassium Level 2.6 L 3.6-5.0 MMOL/L Chloride Level 94 L 98-107 MMOL/L Carbon Dioxide Level 24 21-32 MMOL/L Anion Gap 16 H 5-14 MMOL/L Blood Urea Nitrogen 19 H 7-18 MG/DL Creatinine 1.66 H 0.60-1.30 MG/DL Estimat Glomerular Filtration Rate 31 BUN/Creatinine Ratio 11 Glucose Level 167 H 70-105 MG/DL Lactic Acid Level 2.00 0.50-2.00 MMOL/L Calcium Level 9.2 8.5-10.1 MG/DL Total Bilirubin 1.0 0.1-1.0 MG/DL Aspartate Amino Transf (AST/SGOT) 24 5-34 U/L Alanine Aminotransferase (ALT/SGPT) 27 0-55 U/L Alkaline Phosphatase 104 40-136 U/L B-Type Natriuretic Peptide 3771.0 H <100.0 PG/ML Total Protein 6.8 6.4-8.2 GM/DL Albumin 3.9 3.2-4.5 GM/DL Urine Color YELLOW Urine Clarity SLIGHTLY CLOUDY Urine pH 7 5-9 Urine Specific [place] 1.010 L 1.016-1.022 Urine Protein 2+ H NEGATIVE Urine Glucose (UA) NEGATIVE NEGATIVE Urine Ketones NEGATIVE NEGATIVE Urine Nitrite NEGATIVE NEGATIVE Urine Bilirubin NEGATIVE NEGATIVE Urine Urobilinogen NORMAL NORMAL MG/DL Urine Leukocyte Esterase NEGATIVE NEGATIVE Urine RBC (Auto) NEGATIVE NEGATIVE Urine RBC 0-2 /HPF Urine WBC 0-2 /HPF Urine Squamous Epithelial Cells 2-5 /HPF Urine Crystals NONE /LPF Urine Bacteria NEGATIVE /HPF Urine Casts NONE /LPF Urine Mucus NEGATIVE /LPF Urine Culture Indicated NO My Orders Orders - SHANA PHOENIX MD Cbc With Automated Diff (04/02/17 12:10) Comprehensive Metabolic Panel (04/02/17 12:10) Lactic Acid Analyzer (04/02/17 12:10) Blood Culture (04/02/17 12:10) Sputum Culture (04/02/17 12:10) Ua Culture If Indicated (04/02/17 12:10) Protime With Inr (04/02/17 12:10) Partial Thromboplastin Time (04/02/17 12:10) Chest 1 View, Ap/Pa Only (04/02/17 12:10) O2 (04/02/17 12:10) Saline Lock/Iv-Start (04/02/17 12:10) Saline Lock/Iv-Start (04/02/17 12:10) Vital Signs Adult Sepsis Patie Q1H (04/02/17 12:10) Remove Rings In Anticipation O (04/02/17 12:10) Albuterol/Ipra Inhalation Soln (Duoneb I (04/02/17 12:15) Svn Sm Volume Nebulizer Rt-Rfs (04/02/17 12:10) Manual Differential (04/02/17 12:20) Ns Iv 1000 Ml (Sodium Chloride 0.9%) (04/02/17 13:42) Methylprednisolone Sod Succ (Solu-Medrol (04/02/17 13:42) Potassium Chloride (Tablet) (Klor Con Ta (04/02/17 13:42) BNP (04/02/17 13:47) Ceftriaxone Injection (Rocephin Injectio (04/02/17 14:15) Ns Iv 1000 Ml (Sodium Chloride 0.9%) (04/02/17 14:03) Ns Iv 1000 Ml (Sodium Chloride 0.9%) (04/02/17 14:03) Albuterol Pre-Mix Nebs (Rt) (Proventil (04/02/17 14:21) Svn Sm Volume Nebulizer Rt-Rfs (04/02/17 14:21) Medications Given in ED Current Medications Medications Dose Ordered Sig/Angel Route Start Time Stop Time Status Last Admin Dose Admin Albuterol/ Ipratropium 3 ml ONCE ONCE INH 04/02/17 12:15 04/02/17 12:16 DC 04/02/17 12:35 3 ML Ceftriaxone Sodium 1000 mg/ Sodium Chloride 50 ml @ 100 mls/hr ONCE ONCE IV 04/02/17 14:15 04/02/17 14:44 04/02/17 14:19 100 MLS/HR Sodium Chloride 1,000 ml @ 0 mls/hr Q0M ONCE IV 04/02/17 13:42 04/02/17 13:47 DC 04/02/17 13:55 1,000 MLS/HR Sodium Chloride 1,000 ml @ 0 mls/hr Q0M ONCE IV 04/02/17 14:03 04/02/17 14:09 DC 04/02/17 14:15 1,000 MLS/HR Vital Signs/I&O Vital Sign - Last 12Hours 04/02/17 04/02/17 04/02/17 12:05 12:05 12:38 Temp 99.7 Pulse 115 Resp 25 B/P (MAP) 111/90 (97) Pulse Ox 94 94 95 O2 Delivery Nasal Cannula Nasal Cannula Nasal Cannula O2 Flow Rate 4.00 4.00 4.00 Capillary Refill : Progress Note : Progress Note Seen and evaluated. IV 2, labs, chest x-ray, blood cultures and lactic acid ordered. Duo neb ordered. This did improve her situation and breathing. She is on her normal for liters O2. Monitor patient. 1355: Patient's lactic acid upper-level normal. Creatinine is elevated. White count is elevated. Patient is tachycardic. We do not find an actual source of infection although I'm concerned about pneumonia given her breathing history and mildly elevated temperature with respiratory distress. I did discuss the case with Dr. Martínez and she accepts patient for admission, inpatient status. Patient did receive 40 mEq of potassium by mouth. 1402: Patient's as declining blood pressure. We will initiate septic shock protocol. Patient has 1 L of normal saline infusing and we will do a total of 3 L of normal saline to meet the 30 mL/kg bolus. 1415 : I have discussed the case with Dr. Bhakta and he will see the patient in the ICU today in consult. Pending call back Dr. Romero related to Cardiology consult. Dr. Bhakta has recommended 40 mEq of potassium IV after oral meds. 1420: Patient began having shortness of breath. She did reevaluate the patient and her lungs are still clear at this point but diminished. I do not hear crackles. I do believe this is related more to the COPD. Albuterol neb ordered. We did slow down the fluids and we will continue at a slower rate than the protocol given the shortness of breath and history of CHF. Otherwise is the focused exam is completed at this time and do not find any other adverse findings. Blood pressure 113/33 with heart rate of 115. O2 sat in the low 90s on 5 L currently via nasal cannula.. Diagnostic Imaging Diagonstic Imaging: Xray Plain Films/CT/US/NM/MRI: chest Comments VIA [facility]. [place], [place] NAME: ONIEL DESIR [facility] REC#: [id number] PT STATUS: REG ER : 1955 PHYSICIAN: SHANA PHOENIX MD ADMIT DATE: 04/02/17/ER Draft Date of Exam:04/02/17 CHEST 1 VIEW, AP/PA ONLY INDICATION: Shortness of breath. TECHNIQUE: PA and lateral chest. FINDINGS: The heart is mildly enlarged. The pulmonary vascularity is at the upper limits of normal. There are no infiltrates, effusions, or pneumothoraces. IMPRESSION: Mild cardiomegaly without evidence of pulmonary venous hypertension. Dictated on workstation # [id number] Dict: 04/02/17 1246 Trans: 04/02/17 1248 [id number] Interpreted by: SHANA RIOS MD Electronically signed by: Departure Communication (Admissions) Time/Spoke to Admitting Phy: 13:55 Time/Spoke to Consulting Phy: 14:08 Impression Impression: Primary Impression: Septic shock Additional Impressions: Pneumonia Qualified Codes: J18.9 - Pneumonia, unspecified organism COPD exacerbation Acute renal failure Qualified Codes: N17.9 - Acute kidney failure, unspecified Hypokalemia Disposition: ADMITTED INPATIENT Condition: Stable Admissions Decision to Admit Reason: Admit from ER (General) Decision to Admit/Date: Apr 02, 2017 Time/Decision to Admit Time: 13:55 Departure-Patient Inst. Referrals: [facility] (PCP/Family) Primary Care Physician SHANA PHOENIX MD Apr 02, 2017 12:29
[2017-04-02 12:39] LABS: INR 1.1 (0.8-1.4); PROTHROMBIN TIME PATIENT 14.7 SEC (12.2-14.7)
[2017-04-02 12:46] LABS: ALBUMIN 3.9 GM/DL (3.2-4.5); CALCIUM 9.2 MG/DL (8.5-10.1); CREATININE SERUM 1.66 MG/DL (0.60-1.30); POTASSIUM 2.6 MMOL/L (3.6-5.0); TOTAL PROTEIN 6.8 GM/DL (6.4-8.2)
[2017-04-02 12:49] LABS: BAND NEUTROPHILS 1 %; EOSINOPHILS % (MANUAL) 2 %; LYMPHOCYTES % (MANUAL) 7 %; NEUTROPHILS % (MANUAL) 84 %
--- NOTE | 2017-04-02 12:49 | Diagnostic Imaging Report ---
INDICATION: Shortness of breath. TECHNIQUE: PA and lateral chest. FINDINGS: The heart is mildly enlarged. The pulmonary vascularity is at the upper limits of normal. There are no infiltrates, effusions, or pneumothoraces. IMPRESSION: Mild cardiomegaly without evidence of pulmonary venous hypertension. Dictated by: Dictated on workstation # [id number]
[2017-04-02 13:01] LABS: BILIRUBIN,URINE NEGATIVE (NEGATIVE); KETONES,URINE NEGATIVE (NEGATIVE); LEUKOCYTE ESTERASE ,URINE NEGATIVE (NEGATIVE); NITRITE,URINE NEGATIVE (NEGATIVE); PH,URINE 7 (5-9); PROTEIN,URINE 2+ (NEGATIVE); UROBILINOGEN,URINE NORMAL (NORMAL)
[2017-04-02 13:10] LABS: WBC,URINE 0-2 /HPF
[2017-04-02 13:21] LABS: ANISOCYTOSIS SLIGHT
[2017-04-02] MEDS ORDERED: KCL 10 MEQ TAB (MICRO K) PO STA (13:42)
[2017-04-02] MEDS ORDERED: methylPREDNISolone 125 MG (Solu-MEDROL) VIAL IV STA (13:42)
[2017-04-02] MEDS ORDERED: NS IV 1000 ML 1,000 ML IV ONE ×2 (13:42→14:03)
--- OUTSIDE RECORDS SUMMARY | 2017-04-02 13:46 | XMS REPORT ---
Author Author ALEJANDRA JOSEPH Organization [facility] Address [address] [place] [address] Care Team Providers Care Senior Manufacturing Technician Name Role Phone ALEJANDRA JOSEPH Unavailable PROBLEMS Type Condition ICD9-CM Code [id number] Code Onset Dates Condition Status SNOMED Code Problem Above knee amputation of right lower extremity Z89.611 Active 930526604 Problem Insomnia due to medical condition G47.01 Active 97371622 Problem Acute systolic (congestive) heart failure I50.21 Active 028867185 Problem Chronic bronchitis, unspecified chronic bronchitis type J42 Active 79265074 Problem Moderate major depression F32.1 Active 982071 Problem Tobacco use Z72.0 Active 047128530 Problem PVD (peripheral vascular disease) I73.9 Active 164366555 ALLERGIES No Known Allergies SOCIAL HISTORY Never Assessed PLAN OF CARE VITAL SIGNS MEDICATIONS Medication Instructions Dosage Frequency Start Date End Date Duration Status Furosemide 40 mg Orally Once a day 1 tablet 24h Active ProAir HFA 108 (90 Base) MCG/ACT Inhalation every 4 hrs 2 puffs as needed 4h Active Lisinopril 10 mg Orally Once a day 1 tablet 24h Active Klor-Con M20 20 MEQ Orally Once a day 1 tablet with food 24h Active Oxygen 2 L/NC Active Spiriva HandiHaler 18 MCG Inhalation 4 times a day 6h Active RESULTS No Results PROCEDURES No Known procedures IMMUNIZATIONS No Known Immunizations MEDICAL (GENERAL) HISTORY Type Description Date Medical History chronic obstructive pulmonary disease (COPD) Medical History coronary artery disease Medical History pulmonary artery disease Medical History Anxiety disorder Medical History Panic attacks r/t COPD Surgical History section Surgical History Right leg above knee amputation 12/08/2013 Surgical History appendectomy - age 18 Surgical History Stents placed x2 02/06/10 03/31/09 Surgical History left Breast Lumpectomy Surgical History tubal ligation Surgical History Exploratory back surgery Hospitalization History Acute Resp Failure, Severe PVD s/p R AKA, CAD-Vch Hospitalization History past surgery
--- OUTSIDE RECORDS SUMMARY | 2017-04-02 13:46 | XMS REPORT ---
Author Author ALEJANDRA JOSEPH Organization [facility] Address [address] [place] [address] Care Team Providers Care Distance Education Director Name Role Phone ALEJANDRA JOSEPH Unavailable PROBLEMS Type Condition ICD9-CM Code [id number] Code Onset Dates Condition Status SNOMED Code Problem Above knee amputation of right lower extremity Z89.611 Active 813179242 Problem Insomnia due to medical condition G47.01 Active 91309659 Problem Acute systolic (congestive) heart failure I50.21 Active 203275807 Problem Chronic bronchitis, unspecified chronic bronchitis type J42 Active 25562193 Problem Moderate major depression F32.1 Active 482250 Problem Tobacco use Z72.0 Active 350043606 Problem PVD (peripheral vascular disease) I73.9 Active 224745218 ALLERGIES No Information SOCIAL HISTORY Never Assessed PLAN OF CARE VITAL SIGNS MEDICATIONS Medication Instructions Dosage Frequency Start Date End Date Duration Status Furosemide 40 MG Orally Once a day 1 tablet 24h Active Klor-Con M20 20 MEQ Orally Once a day 1 tablet with food 24h Active Spiriva HandiHaler 18 MCG Inhalation 4 times a day 6h Active Lisinopril 10 MG Orally Once a day 1 tablet 24h Active ProAir HFA 108 (90 Base) MCG/ACT Inhalation every 4 hrs 2 puffs as needed 4h Active RESULTS No Results PROCEDURES No Known [...]
--- OUTSIDE RECORDS SUMMARY | 2017-04-02 13:46 | XMS REPORT ---
Author Author ALEJANDRA JOSEPH Organization [facility] Address [address] [place] [address] Care Team Providers Care Tile Presser Name Role Phone ALEJANDRA JOSEPH Unavailable PROBLEMS Type Condition ICD9-CM Code USS93-HD Code Onset Dates Condition Status SNOMED Code Problem Above knee amputation of right lower extremity Z89.611 Active 144989633 Problem Insomnia due to medical condition G47.01 Active 52715064 Problem Acute systolic (congestive) heart failure I50.21 Active 783964071 Problem Chronic bronchitis, unspecified chronic bronchitis type J42 Active 05298932 Problem Moderate major depression F32.1 Active 261138 Problem Tobacco use Z72.0 Active 691218468 Problem PVD (peripheral vascular disease) I73.9 Active 602426032 ALLERGIES No Known Allergies SOCIAL HISTORY Never Assessed PLAN OF CARE Activity Details Follow Up 3 Months with Sami f/u tobacco use and debilty Reason: VITAL SIGNS Height 67 in 2016-09-17 Weight 197.0 lbs 2016-09-17 Temperature 97.6 degrees Fahrenheit 2016-09-17 Heart Rate 76 bpm 2016-09-17 Respiratory Rate 18 2016-09-17 BMI 30.85 kg/m2 2016-09-17 Blood pressure systolic 98 mmHg 2016-09-17 Blood pressure diastolic 62 mmHg 2016-09-17 MEDICATIONS Medication Instructions Dosage Frequency Start Date End Date Duration Status ProAir HFA 108 (90 Base) MCG/ACT Inhalation every 4 hrs 2 puffs as needed 4h 30 days Active Spiriva HandiHaler 18 MCG Inhalation Once a day 1 capsule 24h Active Furosemide 40 mg Orally Once a day 1 tablet 24h Active Klor-Con M20 20 MEQ Orally Once a day 1 tablet with food 24h Active Lisinopril 10 mg Orally Once a day 1 tablet 24h Active Oxygen 2 L/NC Active RESULTS No Results PROCEDURES Procedure Date Ordered Result Body Site [facility] VISIT ESTABLISHED PATIENT September 17, 2016 IMMUNIZATIONS No Known Immunizations MEDICAL (GENERAL) HISTORY [...]
--- OUTSIDE RECORDS SUMMARY | 2017-04-02 13:46 | XMS REPORT ---
Author Author ALEJANDRA JOSEPH Organization [facility] Address [address] [place] [address] Care Team Providers Care Divorce Lawyer Name Role Phone ALEJANDRA JOSEPH Unavailable PROBLEMS Type Condition ICD9-CM Code PGF64-OY Code Onset Dates Condition Status SNOMED Code Problem Above knee amputation of right lower extremity Z89.611 Active 485347857 Problem Insomnia due to medical condition G47.01 Active 07535653 Problem Acute systolic (congestive) heart failure I50.21 Active 289105340 Problem Chronic bronchitis, unspecified chronic bronchitis type J42 Active 00923739 Problem Moderate major depression F32.1 Active 651635 Problem Tobacco use Z72.0 Active 408473863 Problem PVD (peripheral vascular disease) I73.9 Active 587860001 ALLERGIES No Information SOCIAL HISTORY Never Assessed PLAN OF CARE VITAL SIGNS MEDICATIONS Medication Instructions Dosage Frequency Start Date End Date Duration Status Klor-Con M20 20 MEQ Orally Once a day 1 tablet with food 24h Active Lisinopril 10 mg Orally Once a day 1 tablet 24h Active Furosemide 40 mg Orally Once a day 1 tablet 24h Active RESULTS No Results PROCEDURES No Known [...]
--- OUTSIDE RECORDS SUMMARY | 2017-04-02 13:48 | XMS REPORT | Continuity of Care Document ---
Author Author [facility] Organization [facility] Address Unknown Phone Unavailable Allergies Active Description Code Type Severity Reaction Onset Reported/Identified Relationship to Patient Clinical Status Yes NKANo Known Allergies NKA Miscellaneous Allergy Unknown N/A 2016 Medications There is no data. Problems Date Dx Coded Attending Type Code Diagnosis Diagnosed By 08/19/2012 443.81 PERIPHERAL VASCULAR DISEASE DUE TO OTHER DISEASE 08/19/2012 682.6 SKIN ABSCESS OF THE THIGH 08/19/2012 443.81 PERIPHERAL VASCULAR DISEASE DUE TO OTHER DISEASE 08/19/2012 682.6 SKIN ABSCESS OF THE THIGH 08/19/2012 ELISEO VALENCIA DO 443.81 PERIPHERAL VASCULAR DISEASE DUE TO OTHER DISEASE 08/19/2012 ELISEO VALENCIA DO 682.6 SKIN ABSCESS OF THE THIGH 08/19/2012 EILSEO VALENCIA DO 443.81 PERIPHERAL VASCULAR DISEASE DUE TO OTHER DISEASE 08/19/2012 ELISEO VALENCIA DO 682.6 SKIN ABSCESS OF THE THIGH 08/19/2012 JARRELL LOMELI MD 443.81 PERIPHERAL VASCULAR DISEASE DUE TO OTHER DISEASE 08/19/2012 JARRELL LOMELI MD 682.6 SKIN ABSCESS OF THE THIGH 08/19/2012 JARRELL LOMELI MD 443.81 PERIPHERAL VASCULAR DISEASE DUE TO OTHER DISEASE 08/19/2012 JARRELL LOMELI MD 682.6 SKIN ABSCESS OF THE THIGH 08/19/2012 ELISEO VALENCIA DO 443.81 PERIPHERAL VASCULAR DISEASE DUE TO OTHER DISEASE 08/19/2012 ELISEO VALENCIA DO 682.6 SKIN ABSCESS OF THE THIGH 08/19/2012 JARRELL LOMELI MD 443.81 PERIPHERAL VASCULAR DISEASE DUE TO OTHER DISEASE 08/19/2012 JARRELL LOMELI MD 682.6 SKIN ABSCESS OF THE THIGH 08/19/2012 JARRELL LOMELI MD 443.81 PERIPHERAL VASCULAR DISEASE DUE TO OTHER DISEASE 08/19/2012 YANI MD, JARRELL N 682.6 SKIN ABSCESS OF THE THIGH 09/03/2012 682.7 CELLULITIS OF THE RIGHT FOOT 09/03/2012 ELISEO VALENCIA DO 682.7 CELLULITIS OF THE RIGHT FOOT 09/03/2012 ELISEO VALENCIA DO 682.7 CELLULITIS OF THE RIGHT FOOT 09/03/2012 JARRELL LOMELI MD N 682.7 CELLULITIS OF THE RIGHT FOOT 09/03/2012 JARRELL LOMELI MD 682.7 CELLULITIS OF THE RIGHT FOOT 09/03/2012 ELISEO VALENCIA DO 682.7 CELLULITIS OF THE RIGHT FOOT 09/03/2012 JARRELL LOMELI MD N 682.7 CELLULITIS OF THE RIGHT FOOT 09/03/2012 JARRELL LOMELI MD N 682.7 CELLULITIS OF THE RIGHT FOOT 09/29/2012 KENYON CASTAÑEDA MD Ot 443.9 PERIPH VASCULAR DIS NOS 09/29/2012 KENYON CASTAÑEDA MD Ot 599.0 URIN TRACT INFECTION NOS 09/29/2012 KENYON CASTAÑEDA MD Ot 788.1 DYSURIA 12/19/2012 ART BENEDICT MD Ot 041.19 BACTERIAL INFECTION DUE TO OTHER STAPHYL 12/19/2012 ART BENEDICT MD Ot 110.1 DERMATOPHYTOSIS OF NAIL 12/19/2012 ART BENEDICT MD Ot 273.8 DIS PLAS PROTEIN MET NEC 12/19/2012 ART BENEDICT MD Ot 280.0 CHR BLOOD LOSS ANEMIA 12/19/2012 ART BENEDICT MD Ot 305.1 TOBACCO USE DISORDER 12/19/2012 ART BENEDICT MD Ot 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 12/19/2012 ART BENEDICT MD Ot 599.0 URIN TRACT INFECTION NOS 12/19/2012 ART BENEDICT MD Ot 707.15 ULCER OF OTHER PART OF FOOT 12/19/2012 ART BENEDICT MD Ot 730.27 OSTEOMYELITIS NOS-ANKLE 12/19/2012 ART BENEDICT MD Ot 997.62 AMPUT STUMP COMP,INFECT CHRONIC 12/19/2012 ART BENEDICT MD Ot V49.75 BELOW KNEE AMPUTATION STATUS 12/19/2012 ART BENEDICT MD Ot V57.89 REHABILITATION PROC NEC 12/19/2012 ART BENEDICT MD Ot V58.73 AFTERCARE POST SURGERY CIRULATORY SYSTEM 01/14/2013 ELISEO VALENCIA DO K 443.9 PERIPHERAL VASCULAR DISEASE UNSPECIFIED 01/14/2013 ELISEO VALENCIA DO K 891.0 OPEN WOUND OF KNEE LEG (EXCEPT THIGH) AND ANKLE WITHOUT COMPLICATION 01/14/2013 ELISEO VALENCIA DO K 443.9 PERIPHERAL VASCULAR DISEASE UNSPECIFIED 01/14/2013 GARY VALENCIA DOA K 891.0 OPEN WOUND OF KNEE LEG (EXCEPT THIGH) AND ANKLE WITHOUT COMPLICATION 01/14/2013 JARRELL LOMELI MD N 443.9 PERIPHERAL VASCULAR DISEASE UNSPECIFIED 01/14/2013 JARRELL LOMELI MD N 891.0 OPEN WOUND OF KNEE LEG (EXCEPT THIGH) AND ANKLE WITHOUT COMPLICATION 01/14/2013 JARRELL LOMELI MD N 443.9 PERIPHERAL VASCULAR DISEASE UNSPECIFIED 01/14/2013 JARRELL LOMELI MD N 891.0 OPEN WOUND OF KNEE LEG (EXCEPT THIGH) AND ANKLE WITHOUT COMPLICATION 01/14/2013 ELISEO VALENCIA DO K 443.9 PERIPHERAL VASCULAR DISEASE UNSPECIFIED 01/14/2013 ELISEO VALENCIA DO K 891.0 OPEN WOUND OF KNEE LEG (EXCEPT THIGH) AND ANKLE WITHOUT COMPLICATION 01/14/2013 JARRELL LOMELI MD N 443.9 PERIPHERAL VASCULAR DISEASE UNSPECIFIED 01/14/2013 JARRELL LOMELI MD N 891.0 OPEN WOUND OF KNEE LEG (EXCEPT THIGH) AND ANKLE WITHOUT COMPLICATION 01/14/2013 JARRELL LOMELI MD N 443.9 PERIPHERAL VASCULAR DISEASE UNSPECIFIED 01/14/2013 JARRELL LOMELI MD N 891.0 OPEN WOUND OF KNEE LEG (EXCEPT THIGH) AND ANKLE WITHOUT COMPLICATION 01/26/2013 ELISEO VALENCIA DO K 788.41 URINARY FREQUENCY 01/26/2013 ELISEO VALENCIA DO 788.41 URINARY FREQUENCY 01/26/2013 JARRELL LOMELI MD N 788.41 URINARY FREQUENCY 01/26/2013 JARRELL LOMELI MD N 788.41 URINARY FREQUENCY 01/26/2013 ELISEO VALENCIA DO 788.41 URINARY FREQUENCY 01/26/2013 AJRRELL LOMELI MD N 788.41 URINARY FREQUENCY 01/26/2013 JARRELL LOMELI MD N 788.41 URINARY FREQUENCY 06/11/2013 JARRELL LOMELI MD 338.4 CHRONIC PAIN SYNDROME 06/11/2013 ELISEO VALENCIA DO 338.4 CHRONIC PAIN SYNDROME 06/11/2013 JARRELL LOMELI MD 338.4 CHRONIC PAIN SYNDROME 06/11/2013 JARRELL LOMELI MD 338.4 CHRONIC PAIN SYNDROME 08/07/2013 JARRELL LOMELI MD V58.61 LONG-TERM (CURRENT) USE OF ANTICOAGULANTS 08/07/2013 JARRELL LOMELI MD V65.42 COUNSELING ON SUBSTANCE USE AND ABUSE 2016 LEONEL PRATER MD, Ot V58.61 ANTICOAGULANTS,LT,CURRENT USE 2016 LEONEL PRATER MD, Ot V58.83 ENCOUNTER FOR THERAPEUTIC DRUG MONITORIN 2016 LEONEL PRATER MD, Ot V58.61 ANTICOAGULANTS,LT,CURRENT USE 2016 LEONEL PRATER MD Ot V58.83 ENCOUNTER FOR THERAPEUTIC DRUG MONITORIN 2016 LEONEL PRATER MD, Ot V58.61 ANTICOAGULANTS,LT,CURRENT USE 2016 LEONEL PRATER MD Ot V58.83 ENCOUNTER FOR THERAPEUTIC DRUG MONITORIN 2016 LEONEL PRATER MD Ot V58.61 ANTICOAGULANTS,LT,CURRENT USE 2016 LEONEL PRATER MD Ot V58.83 ENCOUNTER FOR THERAPEUTIC DRUG MONITORIN 2016 JARRELL LOMELI MD Ot 707.15 ULCER OF OTHER PART OF FOOT 2016 JARRELL LOMELI MD Ot V58.61 ANTICOAGULANTS,LT,CURRENT USE 2016 JARRELL LOMLEI MD Ot V58.83 ENCOUNTER FOR THERAPEUTIC DRUG MONITORIN 2016 JARRELL LOMELI MD Ot V58.61 ANTICOAGULANTS,LT,CURRENT USE 2016 JARRELL LOMELI MD Ot V58.83 ENCOUNTER FOR THERAPEUTIC DRUG MONITORIN 2016 MARK COE MD Ot V58.61 ANTICOAGULANTS,LT,CURRENT USE 2016 MARK COE MD Ot V58.83 ENCOUNTER FOR THERAPEUTIC DRUG MONITORIN 2016 LEONEL PRATER MD Ot V58.61 ANTICOAGULANTS,LT,CURRENT USE 2016 VETSCH MD, LEONEL Ot V58.83 ENCOUNTER FOR THERAPEUTIC DRUG MONITORIN 2016 LEONEL PRATER MD Ot V58.61 ANTICOAGULANTS,LT,CURRENT USE 2016 LEONEL PRATER MD Ot V58.83 ENCOUNTER FOR THERAPEUTIC DRUG MONITORIN 2016 JARRELL LOMELI MD Ot V58.61 ANTICOAGULANTS,LT,CURRENT USE 2016 JARRELL LOMELI MD N Ot V58.83 ENCOUNTER FOR THERAPEUTIC DRUG MONITORIN 2016 JARRELL LOMELI MD N Ot V58.61 ANTICOAGULANTS,LT,CURRENT USE 2016 JARRELL LOMELI MD N Ot V58.83 ENCOUNTER FOR THERAPEUTIC DRUG MONITORIN 2016 JARRELL LOMELI MD N Ot V58.61 ANTICOAGULANTS,LT,CURRENT USE 2016 JARRELL LOMELI MD N Ot V58.83 ENCOUNTER FOR THERAPEUTIC DRUG MONITORIN 2016 JARRELL LOMELI MD Ot V58.61 ANTICOAGULANTS,LT,CURRENT USE 2016 JARRELL LOMELI MD N Ot V58.83 ENCOUNTER FOR THERAPEUTIC DRUG MONITORIN 2016 JARRELL LOMELI MD N Ot V58.61 ANTICOAGULANTS,LT,CURRENT USE 2016 JARRELL LOMELI MD N Ot V58.83 ENCOUNTER FOR THERAPEUTIC DRUG MONITORIN 2016 JARRELL LOMELI MD N Ot 443.9 PERIPH VASCULAR DIS NOS 2016 JARRELL LOMELI MD Ot V58.61 ANTICOAGULANTS,LT,CURRENT USE 2016 JARRELL LOMELI MD N Ot V58.83 ENCOUNTER FOR THERAPEUTIC DRUG MONITORIN 2016 JARRELL LOMELI MD N Ot V58.61 ANTICOAGULANTS,LT,CURRENT USE 2016 JARRELL LOMELI MD N Ot V58.83 ENCOUNTER FOR THERAPEUTIC DRUG MONITORIN 2016 JARRELL LOMELI MD N Ot V58.61 ANTICOAGULANTS,LT,CURRENT USE 2016 JARRELL LOMELI MD N Ot V58.83 ENCOUNTER FOR THERAPEUTIC DRUG MONITORIN 2016 JARRELL LOMELI MD N Ot V58.61 ANTICOAGULANTS,LT,CURRENT USE 2016 JARRELL LOMELI MD Ot V58.83 ENCOUNTER FOR THERAPEUTIC DRUG MONITORIN 2016 JARRELL LOMELI MD Ot V58.61 ANTICOAGULANTS,LT,CURRENT USE 2016 JARRELL LOMELI MD Ot V58.83 ENCOUNTER FOR THERAPEUTIC DRUG MONITORIN 2016 JARRELL LOMELI MD Ot V58.61 ANTICOAGULANTS,LT,CURRENT USE 2016 JARRELL LOMELI MD Ot V58.83 ENCOUNTER FOR THERAPEUTIC DRUG MONITORIN 2016 JARRELL LOMELI MD Ot V58.61 ANTICOAGULANTS,LT,CURRENT USE 2016 JARRELL LOMELI MD Ot V58.83 ENCOUNTER FOR THERAPEUTIC DRUG MONITORIN 2016 VALENCIA DO, ELISEO K Ot V58.61 ANTICOAGULANTS,LT,CURRENT USE 2016 VALENCIA DO, ELISEO K Ot V58.83 ENCOUNTER FOR THERAPEUTIC DRUG MONITORIN 2016 JARRELL LOMELI MD Ot V58.61 ANTICOAGULANTS,LT,CURRENT USE 2016 JARRELL LOMELI MD Ot V58.83 ENCOUNTER FOR THERAPEUTIC DRUG MONITORIN 2016 JARRELL LOMELI MD Ot V58.61 ANTICOAGULANTS,LT,CURRENT USE 2016 JARRELL LOMELI MD Ot V58.83 ENCOUNTER FOR THERAPEUTIC DRUG MONITORIN 05/16/2016 ALEJANDRA JOSEPH MD Ot E87.6 HYPOKALEMIA 05/16/2016 ALEJANDRA JOSEPH MD Ot F17.200 NICOTINE DEPENDENCE, UNSPECIFIED, UNCOMP 05/16/2016 ALEJANDRA JOSEPH MD Ot I25.10 ATHSCL HEART DISEASE OF [place] CORONARY 05/16/2016 ALEJANDRA JOSEPH MD Ot I70.209 UNSP ATHSCL [place] ARTERIES OF EXTREMITI 05/16/2016 ALEJANDRA JOSEPH MD Ot J96.00 ACUTE RESPIRATORY FAILURE, UNSP W HYPOXI 05/16/2016 ALEJANDRA JOSEPH MD Ot R73.03 PREDIABETES 05/16/2016 ALEJANDRA JOSEPH MD, Ot 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 05/16/2016 ALEJANDRA JOSEPH MD Ot Z95.5 PRESENCE OF CORONARY ANGIOPLASTY IMPLANT 05/16/2016 GAULT MD, ALEJANDRA R Ot Z99.81 DEPENDENCE ON SUPPLEMENTAL OXYGEN 05/17/2016 ALEJANDRA JOSEPH MD R Ot E87.6 HYPOKALEMIA 05/17/2016 ALEJANDRA JOSEPH MD R Ot F17.200 NICOTINE DEPENDENCE, UNSPECIFIED, UNCOMP 05/17/2016 ALEJANDRA JOSEPH MD R Ot I25.10 ATHSCL HEART DISEASE OF [place] CORONARY 05/17/2016 ALEJANDRA JOSEPH MD R Ot I70.209 UNSP ATHSCL [place] ARTERIES OF EXTREMITI 05/17/2016 ALEJANDRA JOSEPH MD R Ot J96.00 ACUTE RESPIRATORY FAILURE, UNSP W HYPOXI 05/17/2016 ALEJANDRA JOSEPH MD R Ot R73.03 PREDIABETES 05/17/2016 ALEJANDRA JOSEPH MD R Ot 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 05/17/2016 ALEJANDRA JOSEPH MD R Ot Z95.5 PRESENCE OF CORONARY ANGIOPLASTY IMPLANT 05/17/2016 ALEJANDRA JOSEPH MD Ot Z99.81 DEPENDENCE ON SUPPLEMENTAL OXYGEN 05/18/2016 ALEJANDRA JOSEPH MD Ot E87.6 HYPOKALEMIA 05/18/2016 ALEJANDRA JOSEPH MD Ot F17.200 NICOTINE DEPENDENCE, UNSPECIFIED, UNCOMP 05/18/2016 ALEJANDRA JOSEPH MD Ot I25.10 ATHSCL HEART DISEASE OF [place] CORONARY 05/18/2016 ALEJANDRA JOSEPH MD Ot I70.209 UNSP ATHSCL [place] ARTERIES OF EXTREMITI 05/18/2016 ALEJANDRA JOSEPH MD R Ot J96.00 ACUTE RESPIRATORY FAILURE, UNSP W HYPOXI 05/18/2016 ALEJANDRA JOSEPH MD R Ot R73.03 PREDIABETES 05/18/2016 ALEJANDRA JOSEPH MD Ot 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 05/18/2016 ALEJANDRA JOSEPH MD R Ot Z95.5 PRESENCE OF CORONARY ANGIOPLASTY IMPLANT 05/18/2016 ALEJANDRA JOSEPH MD R Ot Z99.81 DEPENDENCE ON SUPPLEMENTAL OXYGEN 05/19/2016 ALEJANDRA JOSEPH MD R Ot E87.6 HYPOKALEMIA 05/19/2016 ALEJANDRA JOSEPH MD R Ot F17.200 NICOTINE DEPENDENCE, UNSPECIFIED, UNCOMP 05/19/2016 ALEJANDRA JOSEPH MD R Ot I25.10 ATHSCL HEART DISEASE OF [place] CORONARY 05/19/2016 ALEJANDRA JOSEPH MD Ot I70.209 UNSP ATHSCL [place] ARTERIES OF EXTREMITI 05/19/2016 ALEJANDRA JOSEPH MD Ot J96.00 ACUTE RESPIRATORY FAILURE, UNSP W HYPOXI 05/19/2016 ALEJANDRA JOSEPH MD Ot R73.03 PREDIABETES 05/19/2016 ALEJANDRA JOSEPH MD Ot 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 05/19/2016 ALEJANDRA JOSEPH MD Ot Z95.5 PRESENCE OF CORONARY ANGIOPLASTY IMPLANT 05/19/2016 ALEJANDRA JOSEPH MD Ot Z99.81 DEPENDENCE ON SUPPLEMENTAL OXYGEN 05/19/2016 ALEJANDRA JOSEPH MD Ot E87.6 HYPOKALEMIA 05/19/2016 ALEJANDRA JOSEPH MD Ot F17.200 NICOTINE DEPENDENCE, UNSPECIFIED, UNCOMP 05/19/2016 ALEJANDRA JOSEPH MD Ot I25.10 ATHSCL HEART DISEASE OF [place] CORONARY 05/19/2016 ALEJANDRA JOSEPH MD Ot I50.21 ACUTE SYSTOLIC (CONGESTIVE) HEART FAILUR 05/19/2016 ALEJANDRA JOSEPH MD Ot I70.209 UNSP ATHSCL [place] ARTERIES OF EXTREMITI 05/19/2016 ALEJANDRA JOSEPH MD Ot J44.9 CHRONIC OBSTRUCTIVE PULMONARY DISEASE, U 05/19/2016 ALEJANDRA JOSEPH MD Ot J90 PLEURAL EFFUSION, NOT ELSEWHERE CLASSIFI 05/19/2016 ALEJANDRA JOSEPH MD Ot J96.00 ACUTE RESPIRATORY FAILURE, UNSP W HYPOXI 05/19/2016 ALEJANDRA JOSEPH MD Ot N17.9 ACUTE KIDNEY FAILURE, UNSPECIFIED 05/19/2016 ALEJANDRA JOSEPH MD Ot N28.9 DISORDER OF KIDNEY AND URETER, UNSPECIFI 05/19/2016 ALEJANDRA JOSEPH MD Ot R73.03 PREDIABETES 05/19/2016 ALEJANDRA JOSEPH MD Ot 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 05/19/2016 ALEJANDRA JOSEPH MD Ot Z95.5 PRESENCE OF CORONARY ANGIOPLASTY IMPLANT 05/19/2016 ALEJANDRA JOSEPH MD Ot Z99.81 DEPENDENCE ON SUPPLEMENTAL OXYGEN 04/02/2017 LEONEL PRATER MD Ot V58.61 ANTICOAGULANTS,LT,CURRENT USE 04/02/2017 LEONEL PRATER MD Ot V58.83 ENCOUNTER FOR THERAPEUTIC DRUG MONITORIN 04/02/2017 LEONEL PRATER MD Ot V58.61 ANTICOAGULANTS,LT,CURRENT USE 04/02/2017 LEONEL PRATER MD Ot V58.83 ENCOUNTER FOR THERAPEUTIC DRUG MONITORIN 04/02/2017 LEONEL PRATER MD Ot V58.61 ANTICOAGULANTS,LT,CURRENT USE 04/02/2017 LEONEL PRATER MD Ot V58.83 ENCOUNTER FOR THERAPEUTIC DRUG MONITORIN 04/02/2017 LEONEL PRATER MD Ot V58.61 ANTICOAGULANTS,LT,CURRENT USE 04/02/2017 LEONEL PRATER MD Ot V58.83 ENCOUNTER FOR THERAPEUTIC DRUG MONITORIN 04/02/2017 YANI HEWITT, JARRELL N Ot 707.15 ULCER OF OTHER PART OF FOOT 04/02/2017 JARRELL LOMELI MD Ot V58.61 ANTICOAGULANTS,LT,CURRENT USE 04/02/2017 JARRELL LOMELI MD N Ot V58.83 ENCOUNTER FOR THERAPEUTIC DRUG MONITORIN 04/02/2017 JARRELL LOMELI MD N Ot V58.61 ANTICOAGULANTS,LT,CURRENT USE 04/02/2017 JARRELL LOMELI MD N Ot V58.83 ENCOUNTER FOR THERAPEUTIC DRUG MONITORIN 04/02/2017 MARK COE MD Ot V58.61 ANTICOAGULANTS,LT,CURRENT USE 04/02/2017 MARK COE MD Ot V58.83 ENCOUNTER FOR THERAPEUTIC DRUG MONITORIN 04/02/2017 LEONEL PRATER MD Ot V58.61 ANTICOAGULANTS,LT,CURRENT USE 04/02/2017 LEONEL PRATER MD Ot V58.83 ENCOUNTER FOR THERAPEUTIC DRUG MONITORIN 04/02/2017 LEONEL PRATER MD Ot V58.61 ANTICOAGULANTS,LT,CURRENT USE 04/02/2017 LEONEL PRATER MD Ot V58.83 ENCOUNTER FOR THERAPEUTIC DRUG MONITORIN 04/02/2017 JARRELL LOMELI MD Ot V58.61 ANTICOAGULANTS,LT,CURRENT USE 04/02/2017 JARRELL LOMELI MD N Ot V58.83 ENCOUNTER FOR THERAPEUTIC DRUG MONITORIN 04/02/2017 JARRELL LOMELI MD Ot V58.61 ANTICOAGULANTS,LT,CURRENT USE 04/02/2017 JARRELL LOMELI MD N Ot V58.83 ENCOUNTER FOR THERAPEUTIC DRUG MONITORIN 04/02/2017 JARRELL LOMELI MD N Ot V58.61 ANTICOAGULANTS,LT,CURRENT USE 04/02/2017 JARRELL LOMELI MD N Ot V58.83 ENCOUNTER FOR THERAPEUTIC DRUG MONITORIN 04/02/2017 JARRELL LOMELI MD N Ot V58.61 ANTICOAGULANTS,LT,CURRENT USE 04/02/2017 JARRELL LOMELI MD N Ot V58.83 ENCOUNTER FOR THERAPEUTIC DRUG MONITORIN 04/02/2017 JARRELL LOMELI MD N Ot V58.61 ANTICOAGULANTS,LT,CURRENT USE 04/02/2017 JARRELL LOMELI MD N Ot V58.83 ENCOUNTER FOR THERAPEUTIC DRUG MONITORIN 04/02/2017 JARRELL LOMELI MD N Ot 443.9 PERIPH VASCULAR DIS NOS 04/02/2017 JARRELL LOMELI MD N Ot V58.61 ANTICOAGULANTS,LT,CURRENT USE 04/02/2017 JARRELL LOMELI MD N Ot V58.83 ENCOUNTER FOR THERAPEUTIC DRUG MONITORIN 04/02/2017 JARRELL LOMELI MD N Ot V58.61 ANTICOAGULANTS,LT,CURRENT USE 04/02/2017 JARRELL LOMELI MD N Ot V58.83 ENCOUNTER FOR THERAPEUTIC DRUG MONITORIN 04/02/2017 JARRELL LOMELI MD N Ot V58.61 ANTICOAGULANTS,LT,CURRENT USE 04/02/2017 JARRELL LOMELI MD N Ot V58.83 ENCOUNTER FOR THERAPEUTIC DRUG MONITORIN 04/02/2017 JARRELL LOMELI MD N Ot V58.61 ANTICOAGULANTS,LT,CURRENT USE 04/02/2017 JARRELL LOMELI MD N Ot V58.83 ENCOUNTER FOR THERAPEUTIC DRUG MONITORIN 04/02/2017 JARRELL LOMELI MD N Ot V58.61 ANTICOAGULANTS,LT,CURRENT USE 04/02/2017 JARRELL LOMELI MD N Ot V58.83 ENCOUNTER FOR THERAPEUTIC DRUG MONITORIN 04/02/2017 JARRELL LOMELI MD N Ot V58.61 ANTICOAGULANTS,LT,CURRENT USE 04/02/2017 YANI HEWITT JARRELL N Ot V58.83 ENCOUNTER FOR THERAPEUTIC DRUG MONITORIN 04/02/2017 JARRELL LOMELI MD N Ot V58.61 ANTICOAGULANTS,LT,CURRENT USE 04/02/2017 JARRELL LOMELI MD Ot V58.83 ENCOUNTER FOR THERAPEUTIC DRUG MONITORIN 04/02/2017 ELISEO VALENCIA DO Ot V58.61 ANTICOAGULANTS,LT,CURRENT USE 04/02/2017 VALENCIA ELISEO JUSTIN Ot V58.83 ENCOUNTER FOR THERAPEUTIC DRUG MONITORIN 04/02/2017 JARRELL LOMELI MD Ot V58.61 ANTICOAGULANTS,LT,CURRENT USE 04/02/2017 JARRELL LOMELI MD Ot V58.83 ENCOUNTER FOR THERAPEUTIC DRUG MONITORIN 04/02/2017 JARRELL LOMELI MD Ot V58.61 ANTICOAGULANTS,LT,CURRENT USE 04/02/2017 JARRELL LOMELI MD Ot V58.83 ENCOUNTER FOR THERAPEUTIC DRUG MONITORIN Procedures Code Description [place] [address] ARTERIAL DOPPLER LOWER EXT 09/03/2012 34773 VENOUS DOPPLER BILATERAL 09/03/2012 Cardiolog Braulio Lei 11/12/2012 86.23 NAIL REMOVAL 12/11/2012 84.11 TOE AMPUTATION 12/17/2012 82747 ROUTINE VENIPUNCTURE 06/11/2013 36804 LIPID PANEL 06/11/2013 126418 [employer] DRUG SCREEN 08/07/2013 Results Test Result Range Complete blood count (CBC) with automated white blood cell (WBC) differential - 05/14/16 13:35 Blood leukocytes automated count (number/volume) 14.0 10*3/uL 4.3-11.0 Blood erythrocytes automated count (number/volume) 4.41 10*6/uL 4.35-5.85 Venous blood hemoglobin measurement (mass/volume) 13.5 g/dL 11.5-16.0 Blood hematocrit (volume fraction) 40 % 35-52 Automated erythrocyte mean corpuscular volume 91 [foz_us] 80-99 Automated erythrocyte mean corpuscular hemoglobin (mass per erythrocyte) 31 pg 25-34 Automated erythrocyte mean corpuscular hemoglobin concentration measurement ( mass/volume) 34 g/dL 32-36 Automated erythrocyte distribution width ratio 17.0 % 10.0-14.5 Automated blood platelet count (count/volume) 259 10*3/uL 130-400 Automated blood platelet mean volume measurement 10.4 [foz_us] 7.4-10.4 Automated blood neutrophils/100 leukocytes 88 % 42-75 Automated blood lymphocytes/100 leukocytes 6 % 12-44 Blood monocytes/100 leukocytes 6 % 0-12 Automated blood eosinophils/100 leukocytes 0 % 0-10 Automated blood basophils/100 leukocytes 0 % 0-10 Blood neutrophils automated count (number/volume) 12.3 10*3 1.8-7.8 Blood lymphocytes automated count (number/volume) 0.8 10*3 1.0-4.0 Blood monocytes automated count (number/volume) 0.8 10*3 0.0-1.0 Automated eosinophil count 0.0 10*3/uL 0.0-0.3 Automated blood basophil count (count/volume) 0.0 10*3/uL 0.0-0.1 Blood manual differential performed detection - 05/14/16 13:35 Blood monocytes/100 leukocytes 6 % NRG Manual blood segmented neutrophils/100 leukocytes 92 % NRG Blood band neutrophils/100 leukocytes 0 % NRG Manual blood lymphocytes/100 leukocytes 2 % NRG Manual eosinophils/100 leukocytes in nose 0 % NRG Manual blood basophils/100 leukocytes 0 % NRG Blood anisocytosis detection by light microscopy SLIGHT NRG PT panel in platelet poor plasma by coagulation assay - 05/14/16 13:35 Prothrombin time (PT) in platelet poor plasma by coagulation assay 14.3 s 12.2-14.7 INR in platelet poor plasma or blood by coagulation assay 1.1 0.8-1.4 Activated partial thromboplastin time (aPTT) in platelet poor plasma bycoagulation assay - 05/14/16 13:35 Activated partial thromboplastin time (aPTT) in platelet poor plasma bycoagulation assay 32 s 24-35 Fibrin D-dimer FEU measurement in platelet poor plasma (mass/volume) - 13:35 Fibrin D-dimer FEU measurement in platelet poor plasma (mass/volume) 1.48 ug/mL 0.00-0.49 Comprehensive metabolic panel - 05/14/16 13:35 Serum or plasma sodium measurement (moles/volume) 136 mmol/L 135-145 Serum or plasma potassium measurement (moles/volume) 4.0 mmol/L 3.6-5.0 Serum or plasma chloride measurement (moles/volume) 107 mmol/L 98-107 Carbon dioxide 18 mmol/L 21-32 Serum or plasma anion gap determination (moles/volume) 11 mmol/L 5-14 Serum or plasma urea nitrogen measurement (mass/volume) 11 mg/dL 7-18 Serum or plasma creatinine measurement (mass/volume) 1.08 mg/dL 0.60-1.30 Serum or plasma urea nitrogen/creatinine mass ratio 10 NRG Serum or plasma creatinine measurement with calculation of estimated glomerular filtration rate 51 NRG Serum or plasma glucose measurement (mass/volume) 203 mg/dL 70-105 Serum or plasma calcium measurement (mass/volume) 8.3 mg/dL 8.5-10.1 Serum or plasma total bilirubin measurement (mass/volume) 1.0 mg/dL 0.1-1.0 Serum or plasma alkaline phosphatase measurement (enzymatic activity/volume) 107 U/L 40-136 Serum or plasma aspartate aminotransferase measurement (enzymatic activity/ volume) 28 U/L 5-34 Serum or plasma alanine aminotransferase measurement (enzymatic activity/volume ) 28 U/L 0-55 Serum or plasma protein measurement (mass/volume) 6.6 g/dL 6.4-8.2 Serum or plasma albumin measurement (mass/volume) 3.9 g/dL 3.2-4.5 Magnesium - 05/14/16 13:35 Magnesium 2.0 mg/dL 1.8-2.4 Serum or plasma lithium measurement (moles/volume) - 05/14/16 13:35 BNP level 1911.7 pg/mL <100.0 Serum or plasma troponin i.cardiac measurement (mass/volume) - 05/14/16 13:35 Serum or plasma troponin i.cardiac measurement (mass/volume) < ng/ mL <0.30 THYROID STIMULATING HORMONE - 05/14/16 13:35 THYROID STIMULATING HORMONE 0.69 u[iU]/mL 0.35-4.94 Arterial blood gas measurement - 05/14/16 13:57 Blood pCO2 27 mm[Hg] 35-45 Blood pO2 60 mm[Hg] 79-93 Arterial blood bicarbonate measurement (moles/volume) 17 mmol/L 23-27 Arterial blood base excess by calculation -6.1 mmol/L - 2.5-2.5 Arterial blood oxygen saturation measurement 93 % 94-100 * Inhaled oxygen flow rate 4L NRG Arterial blood pH measurement with patient temperature correction 7.42 7.37-7.43 Arterial blood carbon dioxide, total measurement (moles/volume) 18.0 mmol/L 21.0-31.0 Body site LT RAD NRG Assessment of wrist artery patency prior to arterial puncture YES- POS NRG Setting of ventilation mode NO NRG Measurement of body temperature 97.4 NRG Complete urinalysis with reflex to culture - 05/14/16 14:40 Urine color determination YELLOW NRG Urine clarity determination CLEAR NRG Urine pH measurement by test strip 6 5-9 Specific gravity of urine by test strip 1.020 1.016- 1.022 Urine protein assay by test strip, semi-quantitative 3+ NEGATIVE Urine glucose detection by automated test strip 2+ NEGATIVE Erythrocytes detection in urine sediment by light microscopy 2+ NEGATIVE Urine ketones detection by automated test strip NEGATIVE NEGATIVE Urine nitrite detection by test strip NEGATIVE NEGATIVE Urine total bilirubin detection by test strip NEGATIVE NEGATIVE Urine urobilinogen measurement by automated test strip (mass/volume) 1 mg/dL NORMAL Urine leukocyte esterase detection by dipstick NEGATIVE NEGATIVE Automated urine sediment erythrocyte count by microscopy (number/high power field) [HPF] NRG Automated urine sediment leukocyte count by microscopy (number/high power field ) NONE NRG Bacteria detection in urine sediment by light microscopy NEGATIVE NRG Squamous epithelial cells detection in urine sediment by light microscopy 10-25 NRG Crystals detection in urine sediment by light microscopy NONE NRG Casts detection in urine sediment by light microscopy NONE NRG Mucus detection in urine sediment by light microscopy SMALL NRG Complete urinalysis with reflex to culture NO NRG Bacterial blood culture - 05/14/16 15:30 Bacterial blood culture NG NRG Blood lactic acid measurement (moles/volume) - 05/14/16 15:47 Blood lactic acid measurement (moles/volume) 2.0 mmol/L 0.5-2.0 Bacterial blood culture - 05/14/16 15:47 Bacterial blood culture NG NRG Hemoglobin A1c - 05/14/16 16:15 Hemoglobin A1c 5.8 % 4.5-6.2 Capillary blood glucose measurement by glucometer (mass/volume) - 05/14/16 17: 13 Capillary blood glucose measurement by glucometer (mass/volume) 179 mg/dL 70-110 Capillary blood glucose measurement by glucometer (mass/volume) - 05/14/16 21: 07 Capillary blood glucose measurement by glucometer (mass/volume) 156 mg/dL 70-110 Complete blood count (CBC) with automated white blood cell (WBC) differential - 05/15/16 04:05 Blood leukocytes automated count (number/volume) 9.5 10*3/uL 4.3-11.0 Blood erythrocytes automated count (number/volume) 4.21 10*6/uL 4.35-5.85 Venous blood hemoglobin measurement (mass/volume) 12.9 g/dL 11.5-16.0 Blood hematocrit (volume fraction) 38 % 35-52 Automated erythrocyte mean corpuscular volume 91 [foz_us] 80-99 Automated erythrocyte mean corpuscular hemoglobin (mass per erythrocyte) 31 pg 25-34 Automated erythrocyte mean corpuscular hemoglobin concentration measurement ( mass/volume) 34 g/dL 32-36 Automated erythrocyte distribution width ratio 16.8 % 10.0-14.5 Automated blood platelet count (count/volume) 220 10*3/uL 130-400 Automated blood platelet mean volume measurement 11.4 [foz_us] 7.4-10.4 Automated blood neutrophils/100 leukocytes 79 % 42-75 Automated blood lymphocytes/100 leukocytes 11 % 12-44 Blood monocytes/100 leukocytes 9 % 0-12 Automated blood eosinophils/100 leukocytes 1 % 0-10 Automated blood basophils/100 leukocytes 0 % 0-10 Blood neutrophils automated count (number/volume) 7.5 10*3 1.8-7.8 Blood lymphocytes automated count (number/volume) 1.0 10*3 1.0-4.0 Blood monocytes automated count (number/volume) 0.9 10*3 0.0-1.0 Automated eosinophil count 0.1 10*3/uL 0.0-0.3 Automated blood basophil count (count/volume) 0.0 10*3/uL 0.0-0.1 Whole blood basic metabolic panel - 05/15/16 04:05 Serum or plasma sodium measurement (moles/volume) 139 mmol/L 135-145 Serum or plasma potassium measurement (moles/volume) 2.7 mmol/L 3.6-5.0 Serum or plasma chloride measurement (moles/volume) 103 mmol/L 98-107 Carbon dioxide 22 mmol/L 21-32 Serum or plasma anion gap determination (moles/volume) 14 mmol/L 5-14 Serum or plasma urea nitrogen measurement (mass/volume) 14 mg/dL 7-18 Serum or plasma creatinine measurement (mass/volume) 1.30 mg/dL 0.60-1.30 Serum or plasma urea nitrogen/creatinine mass ratio 11 NRG Serum or plasma creatinine measurement with calculation of estimated glomerular filtration rate 42 NRG Serum or plasma glucose measurement (mass/volume) 123 mg/dL 70-105 Serum or plasma calcium measurement (mass/volume) 8.1 mg/dL 8.5-10.1 Magnesium - 05/15/16 04:05 Magnesium 2.2 mg/dL 1.8-2.4 Serum or plasma lithium measurement (moles/volume) - 05/15/16 04:05 BNP level 1689.2 pg/mL <100.0 Capillary blood glucose measurement by glucometer (mass/volume) - 05/15/16 07: 06 Capillary blood glucose measurement by glucometer (mass/volume) 183 mg/dL 70-110 Whole blood basic metabolic panel - 05/15/16 12:06 Serum or plasma sodium measurement (moles/volume) 136 mmol/L 135-145 Serum or plasma potassium measurement (moles/volume) 3.5 mmol/L 3.6-5.0 Serum or plasma chloride measurement (moles/volume) 100 mmol/L 98-107 Carbon dioxide 22 mmol/L 21-32 Serum or plasma anion gap determination (moles/volume) 14 mmol/L 5-14 Serum or plasma urea nitrogen measurement (mass/volume) 18 mg/dL 7-18 Serum or plasma creatinine measurement (mass/volume) 1.45 mg/dL 0.60-1.30 Serum or plasma urea nitrogen/creatinine mass ratio 12 NRG Serum or plasma creatinine measurement with calculation of estimated glomerular filtration rate 37 NRG Serum or plasma glucose measurement (mass/volume) 164 mg/dL 70-105 Serum or plasma calcium measurement (mass/volume) 8.1 mg/dL 8.5-10.1 Capillary blood glucose measurement by glucometer (mass/volume) - 05/15/16 16: 09 Capillary blood glucose measurement by glucometer (mass/volume) 234 mg/dL 70-110 Capillary blood glucose measurement by glucometer (mass/volume) - 05/15/16 20: 56 Capillary blood glucose measurement by glucometer (mass/volume) 236 mg/dL 70-110 Capillary blood glucose measurement by glucometer (mass/volume) - 05/16/16 05: 21 Capillary blood glucose measurement by glucometer (mass/volume) 199 mg/dL 70-110 Whole blood basic metabolic panel - 05/16/16 06:17 Serum or plasma sodium measurement (moles/volume) 137 mmol/L 135-145 Serum or plasma potassium measurement (moles/volume) 3.1 mmol/L 3.6-5.0 Serum or plasma chloride measurement (moles/volume) 103 mmol/L 98-107 Carbon dioxide 22 mmol/L 21-32 Serum or plasma anion gap determination (moles/volume) 12 mmol/L 5-14 Serum or plasma urea nitrogen measurement (mass/volume) 23 mg/dL 7-18 Serum or plasma creatinine measurement (mass/volume) 1.57 mg/dL 0.60-1.30 Serum or plasma urea nitrogen/creatinine mass ratio 15 NRG Serum or plasma creatinine measurement with calculation of estimated glomerular filtration rate 33 NRG Serum or plasma glucose measurement (mass/volume) 192 mg/dL 70-105 Serum or plasma calcium measurement (mass/volume) 8.3 mg/dL 8.5-10.1 Capillary blood glucose measurement by glucometer (mass/volume) - 05/16/16 10: 45 Capillary blood glucose measurement by glucometer (mass/volume) 197 mg/dL 70-110 Whole blood basic metabolic panel - 05/17/16 05:12 Serum or plasma sodium measurement (moles/volume) 135 mmol/L 135-145 Serum or plasma potassium measurement (moles/volume) 3.1 mmol/L 3.6-5.0 Serum or plasma chloride measurement (moles/volume) 104 mmol/L 98-107 Carbon dioxide 18 mmol/L 21-32 Serum or plasma anion gap determination (moles/volume) 13 mmol/L 5-14 Serum or plasma urea nitrogen measurement (mass/volume) 32 mg/dL 7-18 Serum or plasma creatinine measurement (mass/volume) 1.59 mg/dL 0.60-1.30 Serum or plasma urea nitrogen/creatinine mass ratio 20 NRG Serum or plasma creatinine measurement with calculation of estimated glomerular filtration rate 33 NRG Serum or plasma glucose measurement (mass/volume) 168 mg/dL 70-105 Serum or plasma calcium measurement (mass/volume) 8.3 mg/dL 8.5-10.1 Magnesium - 05/17/16 05:12 Magnesium 2.1 mg/dL 1.8-2.4 Whole blood basic metabolic panel - 05/17/16 14:02 Serum or plasma sodium measurement (moles/volume) 132 mmol/L 135-145 Serum or plasma potassium measurement (moles/volume) 4.1 mmol/L 3.6-5.0 Serum or plasma chloride measurement (moles/volume) 102 mmol/L 98-107 Carbon dioxide 17 mmol/L 21-32 Serum or plasma anion gap determination (moles/volume) 13 mmol/L 5-14 Serum or plasma urea nitrogen measurement (mass/volume) 28 mg/dL 7-18 Serum or plasma creatinine measurement (mass/volume) 1.60 mg/dL 0.60-1.30 Serum or plasma urea nitrogen/creatinine mass ratio 18 NRG Serum or plasma creatinine measurement with calculation of estimated glomerular filtration rate 33 NRG Serum or plasma glucose measurement (mass/volume) 253 mg/dL 70-105 Serum or plasma calcium measurement (mass/volume) 8.1 mg/dL 8.5-10.1 Whole blood basic metabolic panel - 05/18/16 05:30 Serum or plasma sodium measurement (moles/volume) 133 mmol/L 135-145 Serum or plasma potassium measurement (moles/volume) 4.2 mmol/L 3.6-5.0 Serum or plasma chloride measurement (moles/volume) 103 mmol/L 98-107 Carbon dioxide 15 mmol/L 21-32 Serum or plasma anion gap determination (moles/volume) 15 mmol/L 5-14 Serum or plasma urea nitrogen measurement (mass/volume) 27 mg/dL 7-18 Serum or plasma creatinine measurement (mass/volume) 1.47 mg/dL 0.60-1.30 Serum or plasma urea nitrogen/creatinine mass ratio 18 NRG Serum or plasma creatinine measurement with calculation of estimated glomerular filtration rate 36 NRG Serum or plasma glucose measurement (mass/volume) 212 mg/dL 70-105 Serum or plasma calcium measurement (mass/volume) 8.5 mg/dL 8.5-10.1 Complete blood count (CBC) with automated white blood cell (WBC) differential - 04/02/17 12:20 Blood leukocytes automated count (number/volume) 14.3 10*3/uL 4.3-11.0 Blood erythrocytes automated count (number/volume) 3.97 10*6/uL 4.35-5.85 Venous blood hemoglobin measurement (mass/volume) 12.4 g/dL 11.5-16.0 Blood hematocrit (volume fraction) 37 % 35-52 Automated erythrocyte mean corpuscular volume 94 [foz_us] 80-99 Automated erythrocyte mean corpuscular hemoglobin (mass per erythrocyte) 31 pg 25-34 Automated erythrocyte mean corpuscular hemoglobin concentration measurement ( mass/volume) 33 g/dL 32-36 Automated erythrocyte distribution width ratio 18.6 % 10.0-14.5 Automated blood platelet count (count/volume) 258 10*3/uL 130-400 Automated blood platelet mean volume measurement 10.3 [foz_us] 7.4-10.4 Automated blood neutrophils/100 leukocytes 85 % 42-75 Automated blood lymphocytes/100 leukocytes 8 % 12-44 Blood monocytes/100 leukocytes 5 % 0-12 Automated blood eosinophils/100 leukocytes 1 % 0-10 Automated blood basophils/100 leukocytes 0 % 0-10 Blood neutrophils automated count (number/volume) 12.2 10*3 1.8-7.8 Blood lymphocytes automated count (number/volume) 1.2 10*3 1.0-4.0 Blood monocytes automated count (number/volume) 0.8 10*3 0.0-1.0 Automated eosinophil count 0.1 10*3/uL 0.0-0.3 Automated blood basophil count (count/volume) 0.1 10*3/uL 0.0-0.1 Blood lactic acid measurement (moles/volume) - 04/02/17 12:20 Blood lactic acid measurement (moles/volume) 2.00 mmol/L 0.50-2.00 PT panel in platelet poor plasma by coagulation assay - 04/02/17 12:20 Prothrombin time (PT) in platelet poor plasma by coagulation assay 14.7 s 12.2-14.7 INR in platelet poor plasma or blood by coagulation assay 1.1 0.8-1.4 Activated partial thromboplastin time (aPTT) in platelet poor plasma bycoagulation assay - 04/02/17 12:20 Activated partial thromboplastin time (aPTT) in platelet poor plasma bycoagulation assay 26 s 24-35 Comprehensive metabolic panel - 04/02/17 12:20 Serum or plasma sodium measurement (moles/volume) 134 mmol/L 135-145 Serum or plasma potassium measurement (moles/volume) 2.6 mmol/L 3.6-5.0 Serum or plasma chloride measurement (moles/volume) 94 mmol/L 98-107 Carbon dioxide 24 mmol/L 21-32 Serum or plasma anion gap determination (moles/volume) 16 mmol/L 5-14 Serum or plasma urea nitrogen measurement (mass/volume) 19 mg/dL 7-18 Serum or plasma creatinine measurement (mass/volume) 1.66 mg/dL 0.60-1.30 Serum or plasma urea nitrogen/creatinine mass ratio 11 NRG Serum or plasma creatinine measurement with calculation of estimated glomerular filtration rate 31 NRG Serum or plasma glucose measurement (mass/volume) 167 mg/dL 70-105 Serum or plasma calcium measurement (mass/volume) 9.2 mg/dL 8.5-10.1 Serum or plasma total bilirubin measurement (mass/volume) 1.0 mg/dL 0.1-1.0 Serum or plasma alkaline phosphatase measurement (enzymatic activity/volume) 104 U/L 40-136 Serum or plasma aspartate aminotransferase measurement (enzymatic activity/ volume) 24 U/L 5-34 Serum or plasma alanine aminotransferase measurement (enzymatic activity/volume ) 27 U/L 0-55 Serum or plasma protein measurement (mass/volume) 6.8 g/dL 6.4-8.2 Serum or plasma albumin measurement (mass/volume) 3.9 g/dL 3.2-4.5 Blood manual differential performed detection - 04/02/17 12:20 Blood monocytes/100 leukocytes 6 % NRG Manual blood segmented neutrophils/100 leukocytes 84 % NRG Blood band neutrophils/100 leukocytes 1 % NRG Manual blood lymphocytes/100 leukocytes 7 % NRG Manual eosinophils/100 leukocytes in nose 2 % NRG Blood anisocytosis detection by light microscopy SLIGHT NRG Blood toxic granules detection by light microscopy 1+ NRG Complete urinalysis with reflex to culture - 04/02/17 12:54 Urine color determination YELLOW NRG Urine clarity determination SLIGHTLY CLOUDY NRG Urine pH measurement by test strip 7 5-9 Specific gravity of urine by test strip 1.010 1.016- 1.022 Urine protein assay by test strip, semi-quantitative 2+ NEGATIVE Urine glucose detection by automated test strip NEGATIVE NEGATIVE Erythrocytes detection in urine sediment by light microscopy NEGATIVE NEGATIVE Urine ketones detection by automated test strip NEGATIVE NEGATIVE Urine nitrite detection by test strip NEGATIVE NEGATIVE Urine total bilirubin detection by test strip NEGATIVE NEGATIVE Urine urobilinogen measurement by automated test strip (mass/volume) NORMAL NORMAL Urine leukocyte esterase detection by dipstick NEGATIVE NEGATIVE Automated urine sediment erythrocyte count by microscopy (number/high power field) [HPF] NRG Automated urine sediment leukocyte count by microscopy (number/high power field ) [HPF] NRG Bacteria detection in urine sediment by light microscopy NEGATIVE NRG Squamous epithelial cells detection in urine sediment by light microscopy 2-5 NRG Crystals detection in urine sediment by light microscopy NONE NRG Casts detection in urine sediment by light microscopy NONE NRG Mucus detection in urine sediment by light microscopy NEGATIVE NRG Complete urinalysis with reflex to culture NO NRG Encounters ACCT No. Visit Date/Time Discharge Status Pt. Type Provider Facility Loc./Unit Complaint [id number] 2016 15:50:00 05/19/2016 14:30:00 DIS Inpatient JAKE HEWITT, ALEJANDRA Martinez [facility] [address] CHF,PNEUMONIA,DIABETES [id number] 09/11/2013 12:55:00 09/11/2013 23:59:59 CLS Outpatient JARRELL LOMELI MD [facility] ANTICOAG THERPAY [id number] 08/31/2013 13:13:00 08/31/2013 23:59:59 CLS Outpatient JARRELL LOMELI MD [facility] ANTICOAG THERAPY [id number] 08/21/2013 12:15:00 08/21/2013 23:59:59 CLS Outpatient ELISEO VALENCIA DO [facility] ANTICOAG THERPAY [id number] 08/14/2013 16:00:00 08/14/2013 23:59:59 CLS Outpatient JARRELL LOMELI MD [facility] ANTICOAG THERAPY [id number] 08/05/2013 12:30:00 08/05/2013 23:59:59 CLS Outpatient JARRELL LOMELI MD [facility] ANTICOAG THERAPY [id number] 07/17/2013 15:45:00 07/17/2013 23:59:59 CLS Outpatient JARRELL LOMELI MD [facility] ANTICOAG THERAPY [id number] 07/08/2013 13:32:00 07/08/2013 23:59:59 CLS Outpatient JARRELL LOMELI MD [facility] ANTICOAG THERAPY [id number] 06/24/2013 13:05:00 06/24/2013 23:59:59 CLS Outpatient JARRELL LOMELI MD [facility] ANTICOAG THERAPY [id number] 06/11/2013 13:30:00 06/11/2013 23:59:59 CLS Outpatient JARRELL LOMELI MD [facility] ANTICOAG THERPAY [id number] 06/05/2013 14:45:00 06/05/2013 23:59:59 CLS Outpatient JARRELL LOMELI MD [facility] ANTICOAG THERAPY, AMPUTATION (RT) UPPER KNEE [id number] 04/13/2013 12:30:00 04/13/2013 23:59:59 CLS Outpatient JARRELL LOMELI MD [facility] ANTI COAG THERAPY [id number] 04/06/2013 11:25:00 04/06/2013 23:59:59 CLS Outpatient JARRELL LOMELI MD [facility] ANTICOAGULANT THERAPY [id number] 03/26/2013 13:30:00 03/26/2013 23:59:59 CLS Outpatient JARRELL LOMELI MD [facility] ANTICOAG THERAPY [id number] 03/19/2013 16:15:00 03/19/2013 23:59:59 CLS Outpatient JARRELL LOMELI MD [facility] ANTICOAG THERAPY [id number] 03/11/2013 15:45:00 03/11/2013 23:59:59 CLS Outpatient JARRELL LOMELI MD [facility] ANTI-COAGULANT [id number] 03/02/2013 13:15:00 03/02/2013 23:59:59 CLS Outpatient LEONEL PRATER MD [facility] ANTICOAG THERPAY [id number] 02/16/2013 16:00:00 02/16/2013 23:59:59 CLS Outpatient LEONEL PRATER MD [facility] ANTICOAG [place] [id number] 01/29/2013 14:50:00 01/29/2013 23:59:59 CLS Outpatient MARK COE MD [facility] ANTICOAG THERAPY [id number] 01/22/2013 13:15:00 01/22/2013 23:59:59 CLS Outpatient JARRELL LOMELI MD [facility] ANTICOAG THERAPY [id number] 01/15/2013 13:30:00 01/15/2013 23:59:59 CLS Outpatient JARRELL LOMELI MD [facility] ANTICOAG THERAPY, OPEN WOUND [id number] 01/08/2013 13:30:00 01/08/2013 23:59:59 CLS Outpatient LEONEL PRATER MD [facility] ANTICOAG THERAPY [id number] 01/01/2013 11:50:00 01/01/2013 23:59:59 CLS Outpatient LEONEL PRATER MD [facility] ANTICOAGULATION THERAPY [id number] 12/29/2012 13:40:00 12/29/2012 23:59:59 CLS Outpatient LEONEL PRATER MD [facility] ANTICOAGULANT THERAPY [id number] 12/22/2012 15:45:00 12/22/2012 23:59:59 CLS Outpatient LEONEL PRATER MD [facility] ANTICOAG THERPAY [id number] 12/10/2012 13:15:00 12/19/2012 11:30:00 DIS Inpatient ART BENEDICT MD [facility] IRF R-BKA [id number] 09/29/2012 22:01:00 09/29/2012 23:41:00 DIS Emergency KENYON CASTAÑEDA MD [facility] ER POSS BLADDER INFECTION [id number] 04/02/2017 12:04:00 ACT Emergency SHANA PHOENIX MD [facility] ER SOB [id number] 2016 12:59:00 Document Registration [id number] 08/07/2013 11:42:00 08/07/2013 23:59:59 CLS Outpatient JARRELL LOMELI MD [id number] 07/09/2013 11:16:00 07/09/2013 23:59:59 CLS Outpatient JARRELL LOMELI MD [id number] 06/11/2013 13:45:00 06/11/2013 23:59:59 CLS Outpatient ELISEO VALENCIA DO [id number] 06/11/2013 13:45:00 06/11/2013 23:59:59 CLS Outpatient JARRELL LOMELI MD [id number] 04/14/2013 10:41:00 04/14/2013 23:59:59 CLS Outpatient JARRELL LOMELI MD [id number] 02/18/2013 09:52:00 02/18/2013 23:59:59 CLS Outpatient ELISEO VALENCIA DO [id number] 01/14/2013 10:49:00 01/14/2013 23:59:59 CLS Outpatient ELISEO VALENCIA DO [id number] 09/03/2012 12:38:00 Document Registration [id number] 08/19/2012 14:45:00 Document Registration
[2017-04-02] MEDS ORDERED: NS IV 1000 ML 1,000 ML IV STA (14:03)
[2017-04-02] MEDS ORDERED: cefTRIAXone INJECTION 1,000 MG in NS (IVPB) 50 ML IV ONE (14:15)
[2017-04-02] MEDS ORDERED: RT-ALBUTEROL SULF 2.5 MG/3 ML PRE-MIX VIAL INH STA (14:21)
--- NOTE | 2017-04-02 14:49 | Consultation-Cardiology ---
HPI-Cardiology Cardiology Consultation: Date of Consultation 04/02/17 Time Seen by Provider: 14:45 Date of Admission 04-02-17 Attending Physician Admitting Physician [facility] Consulting Physician Wing Romero MD HPI: Chief Complaint: Dyspnea Elevated BNP Ms. Desir is a 61 year old female who is being admitted to ICU 10 from the ED. She reports increasing dyspnea over the course of the last 3 days. She reports orthopnea. She reports thick, productive cough. She c/o nausea. No vomiting or diarrhea. She reports some swelling of her left leg. She does not report any fever or chills. She continue to smoke approx 5 cigs per. She is currently sitting up in bed and is dyspneic with conversation. She is O2 dependant at home, 4L/NC. Review of Systems-Cardiology Review of Systems Constitutional: lightheadedness, malaise Eyes: No vision change Ears/Nose/Throat: No nasal drainage Respiratory: As described under HPI Cardiovascular: As described under HPI Gastrointestinal: No diarrhea, nausea, No vomiting Genitourinary: No dysuria, No hematuria : No Musculoskeletal: other (Right AKA) Skin: No rash, No ulcerations Psychiatric/Neurological: No focal weakness Hematologic: No bleeding abnormalities All Other Systems Reviewed Negative Unless Noted: Yes YTH-Ainqfs-Ofgjml Hx Patient Social History Alcohol Use: Denies Use Recreational Drug Use: No Smoking Status: Current Everyday Smoker Type Used: Cigarettes Recent Foreign Travel: No Recent Infectious Disease Expo: No Hospitalization with Isolation: Denies Immunizations Up To Date Tetanus Booster (TDap): Unknown Past Medical History PMH As described under Assessment. Allergies and Home Medications Allergies Coded Allergies: NKANo Known Allergies (Verified Allergy, Unknown, 05/14/16) Home Medications Albuterol Sulfate 1 Puff Puff, 2 PUFF IH Q6H PRN for SHORTNESS OF BREATH, ( Reported) 1 PUFF = 90 MCG Furosemide 40 Mg Tablet, 80 MG PO DAILY, (Reported) TAKES 2 (40MG) TABLETS Ibuprofen 200 Mg Tablet, 600 MG PO Q8H PRN for PAIN-MILD, (Reported) TAKES 3 (200 MG) TABLETS Potassium Chloride 20 Meq Tab.er.prt, 40 TAB PO DAILY, (Reported) TAKES 2 (20MEQ) TABLETS Tiotropium [place] 1 Inh Aerp, 1 CAP IH DAILY, (Reported) Zolpidem Tartrate 10 Mg Tablet, 10 MG PO HS, (Reported) Physical Exam-Cardiology Physical Exam Vital Signs/I&O Vital Sign - Last 12Hours 04/02/17 04/02/17 04/02/17 12:05 12:05 12:38 Temp 99.7 Pulse 115 Resp 25 B/P (MAP) 111/90 (97) Pulse Ox 94 94 95 O2 Delivery Nasal Cannula Nasal Cannula Nasal Cannula O2 Flow Rate 4.00 4.00 4.00 Capillary Refill : Less Than 3 Seconds Constitutional: AAO x 3 HEENT: PERRL Neck: carotid bruit Respiratory: wheezing (scattered), other (diminished lower lobes bilat; dyspneic; orthopneic) Cardiovascular: regular rate-rhythm, tachycardia, systolic murmur Gastrointestinal: No tender, soft, round, audible bowel sounds Rectal: deferred Extremities: other (mild LLE edema; R AKA) Neurologic/Psychiatric: grossly intact Skin: normal color, warm/dry, No rash, No ulcerations Data Review Labs Laboratory Tests 04/02/17 12:20: White Blood Count 14.3H, Red Blood Count 3.97L, Hemoglobin 12.4, Hematocrit 37, Mean Corpuscular Volume 94, Mean Corpuscular Hemoglobin 31, Mean Corpuscular Hemoglobin Concent 33, Red Cell Distribution Width 18.6H, Platelet Count 258, Mean Platelet Volume 10.3, Neutrophils (%) (Auto) 85H, Lymphocytes (%) (Auto) 8L , Monocytes (%) (Auto) 5, Eosinophils (%) (Auto) 1, Basophils (%) (Auto) 0, Neutrophils # (Auto) 12.2H, Lymphocytes # (Auto) 1.2, Monocytes # (Auto) 0.8, Eosinophils # (Auto) 0.1, Basophils # (Auto) 0.1, Neutrophils % (Manual) 84, Lymphocytes % (Manual) 7, Monocytes % (Manual) 6, Eosinophils % (Manual) 2, Band Neutrophils 1, Toxic Granulation 1+, Anisocytosis SLIGHT, Prothrombin Time 14.7, INR Comment 1.1, Activated Partial Thromboplast Time 26, Sodium Level 134L , Potassium Level 2.6L, Chloride Level 94L, Carbon Dioxide Level 24, Anion Gap 16H, Blood Urea Nitrogen 19H, Creatinine 1.66H, Estimat Glomerular Filtration Rate 31, BUN/Creatinine Ratio 11, Glucose Level 167H, Lactic Acid Level 2.00, Calcium Level 9.2, Total Bilirubin 1.0, Aspartate Amino Transf (AST/SGOT) 24, Alanine Aminotransferase (ALT/SGPT) 27, Alkaline Phosphatase 104, B-Type Natriuretic Peptide 3771.0H, Total Protein 6.8, Albumin 3.9 04/02/17 12:54: Urine Color YELLOW, Urine Clarity SLIGHTLY CLOUDY, Urine pH 7, Urine Specific [place] 1.010L, Urine Protein 2+H, Urine Glucose (UA) NEGATIVE, Urine Ketones NEGATIVE, Urine Nitrite NEGATIVE, Urine Bilirubin NEGATIVE, Urine Urobilinogen NORMAL, Urine Leukocyte Esterase NEGATIVE, Urine RBC (Auto) NEGATIVE, Urine RBC 0-2, Urine WBC 0-2, Urine Squamous Epithelial Cells 2-5, Urine Crystals NONE, Urine Bacteria NEGATIVE, Urine Casts NONE, Urine Mucus NEGATIVE, Urine Culture Indicated NO Radiology NAME: ONIEL DESIR [facility] REC#: [id number] PT STATUS: REG ER : 1955 PHYSICIAN: SHANA PHOENIX MD ADMIT DATE: 04/02/17/ER Draft Date of Exam:04/02/17 CHEST 1 VIEW, AP/PA ONLY INDICATION: Shortness of breath. TECHNIQUE: PA and lateral chest. FINDINGS: The heart is mildly enlarged. The pulmonary vascularity is at the upper limits of normal. There are no infiltrates, effusions, or pneumothoraces. IMPRESSION: Mild cardiomegaly without evidence of pulmonary venous hypertension. 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 Barker on 12-03-12 Severe PAD for which she has had stenting to the iliac and femoral artery per Dr. Barker and Dr. Mcallister at [facility]. 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 Paez Discussion and Recomendations Dyspnea which is multifactorial. Pneumonia with sepsis which is being managed by medical/pulmonary services. Acute exacerbation of COPD which is being managed by medical and pulmonary services. Last echo showed LVEF 40-45%. Elevated BNP. We will treat with diuretics and repeat echocardiogram. Acute on chronic renal failure likely in some part r/t chronic diuretic use. She reports she is on Lasix 40mg daily, but has recently been taking 80 mg daily. This is likely the reason for her hypokalemia. We will treat with diuretics as needed. Monitor renal function closely. We will start ASA 81 mg daily d/t known h/o carotid arterial disease. Advise out pt f/u on carotids. We advise further coronary work up when more stable. We would like to thank medical services for this consult. Further rec will be based on her hospital course. This consult is being scribed on behalf of Dr. Romero after discussion regarding plan of care. Physician Assessment Physician Assessment Notes continuing shortness of breath. Denies cp or palp or syncope or recent ext swelling Lungs: diminished air entry over all lung desir, prolonged exp phase, scattered rhonchi Cor: reg Ext: R AKA, no significant edema of the L leg A&R * As documented in our note above that I updated (italics) and as noted below * Complex management due to multiple advance comorbidities * I discussed her case with Dr Phoenix of the ER service * Current diagnosis is septic shock. Consequently, she has been large amounts of fluids that has stabilized * Need to monitor closely for signs of decomp CHF * When stabilized, we do recommend further w/u for CAD (but she is currently refusing to have any further cor w/u) * Replenish K * Monitor labs closely * I spoke in detail with her and answered her questions FRANCES [employer] Apr 02, 2017 14:49 WING ROMERO MD [facility] Apr 02, 2017 16:00
--- OUTSIDE RECORDS SUMMARY | 2017-04-02 14:55 | XMS REPORT | Continuity of Care Document ---
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 05/16/2016 ALEJANDRA JOSEPH MD Ot I70.209 UNSP ATHSCL BLACKFEET ARTERIES OF EXTREMITI 05/16/2016 ALEJANDRA JOSEPH MD [...] R Ot 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 05/17/2016 ALEJANDRA JOSEPH MD R Ot I70.209 UNSP ATHSCL BLACKFEET ARTERIES OF EXTREMITI 05/17/2016 ALEJANDRA JOSEPH MD [...] MD Ot 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 05/18/2016 ALEJANDRA JOSEPH MD Ot I70.209 UNSP ATHSCL BLACKFEET ARTERIES OF EXTREMITI 05/18/2016 ALEJANDRA JOSEPH MD [...] F17.200 NICOTINE DEPENDENCE, UNSPECIFIED, UNCOMP 05/19/2016 ALEJANDRA OJSEPH MD R Ot 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 05/19/2016 ALEJANDRA JOSEPH MD Ot I70.209 UNSP ATHSCL BLACKFEET ARTERIES OF EXTREMITI 05/19/2016 ALEJANDRA JOSEPH MD [...] MD Ot 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 05/19/2016 ALEJANDRA JOSEPH MD Ot I50.21 ACUTE SYSTOLIC (CONGESTIVE) HEART FAILUR 05/19/2016 ALEJANDRA JOSEPH MD Ot I70.209 UNSP ATHSCL BLACKFEET ARTERIES OF EXTREMITI 05/19/2016 ALEJANDRA JOSEPH MD [...] Procedures Code Description [place] [address] ARTERIAL DOPPLER LOWER EXT 09/03/2012 57884 VENOUS DOPPLER BILATERAL 09/03/2012 Cardiolog Braulio Lei 11/12/2012 86.23 NAIL REMOVAL 12/11/2012 84.11 TOE AMPUTATION 12/17/2012 60023 ROUTINE VENIPUNCTURE 06/11/2013 91343 LIPID PANEL 06/11/2013 301440 [employer] DRUG SCREEN 08/07/2013 Results Test Result [...] granules detection by light microscopy 1+ NRG Serum or plasma lithium measurement (moles/volume) - 04/02/17 12:20 BNP level 3771.0 pg/mL <100.0 Complete urinalysis with reflex to culture - [...] Status Pt. Type Provider Facility Loc./Unit Complaint [id number] 2016 15:50:00 05/19/2016 14:30:00 DIS Inpatient JAKE HEWITT, ALEJANDRA Martinez [facility] [address] CHF,PNEUMONIA,DIABETES [id number] 09/11/2013 12:55:00 09/11/2013 23:59:59 CLS Outpatient JARRELL LOMELI MD [facility] ANTICOAG THERPAY [id number] 08/31/2013 13:13:00 08/31/2013 23:59:59 CLS Outpatient JARRELL LOMELI MD [facility] ANTICOAG THERAPY [id number] 08/21/2013 12:15:00 08/21/2013 23:59:59 CLS Outpatient ELISEO VALENCIA DO [facility] ANTICOAG THERPAY [id number] 08/14/2013 16:00:00 08/14/2013 23:59:59 CLS Outpatient JARRELL LOMELI MD [facility] ANTICOAG THERAPY [id number] 08/05/2013 12:30:00 08/05/2013 23:59:59 CLS Outpatient JARRELL LOMELI MD [facility] ANTICOAG THERAPY [id number] 07/17/2013 15:45:00 07/17/2013 23:59:59 CLS Outpatient JARRELL LOMELI MD [facility] ANTICOAG THERAPY [id number] 07/08/2013 13:32:00 07/08/2013 23:59:59 CLS Outpatient JARRELL LOMELI MD [facility] ANTICOAG THERAPY [id number] 06/24/2013 13:05:00 06/24/2013 23:59:59 CLS Outpatient JARRELL LOMELI MD [facility] ANTICOAG THERAPY [id number] 06/11/2013 13:30:00 06/11/2013 23:59:59 CLS Outpatient JARRELL LOMELI MD [facility] ANTICOAG THERPAY [id number] 06/05/2013 14:45:00 06/05/2013 23:59:59 CLS Outpatient JARRELL LOMELI MD [facility] ANTICOAG THERAPY, AMPUTATION (RT) UPPER KNEE [id number] 04/13/2013 12:30:00 04/13/2013 23:59:59 CLS Outpatient JARRELL LOMELI MD [facility] ANTI COAG THERAPY [id number] 04/06/2013 11:25:00 04/06/2013 23:59:59 CLS Outpatient JARRELL LOMELI MD [facility] ANTICOAGULANT THERAPY [id number] 03/26/2013 13:30:00 03/26/2013 23:59:59 CLS Outpatient JARRELL LOMELI MD [facility] ANTICOAG THERAPY [id number] 03/19/2013 16:15:00 03/19/2013 23:59:59 CLS Outpatient JARRELL LOMELI MD [facility] ANTICOAG THERAPY [id number] 03/11/2013 15:45:00 03/11/2013 23:59:59 CLS Outpatient JARRELL LOMELI MD [facility] LAB ANTI-COAGULANT [id number] 03/02/2013 13:15:00 03/02/2013 23:59:59 CLS Outpatient LEONEL PRATER MD [facility] ANTICOAG THERPAY [id number] 02/16/2013 16:00:00 02/16/2013 23:59:59 CLS Outpatient LEONEL PRATER MD [facility] ANTICOAG [place] [id number] 01/29/2013 14:50:00 01/29/2013 23:59:59 CLS Outpatient MARK COE MD [facility] ANTICOAG THERAPY [id number] 01/22/2013 13:15:00 01/22/2013 23:59:59 CLS Outpatient JARRELL LOMELI MD [facility] ANTICOAG THERAPY [id number] 01/15/2013 13:30:00 01/15/2013 23:59:59 CLS Outpatient JARRELL LOMELI MD [facility] ANTICOAG THERAPY, OPEN WOUND [id number] 01/08/2013 13:30:00 01/08/2013 23:59:59 CLS Outpatient LEONEL PRATER MD [facility] ANTICOAG THERAPY [id number] 01/01/2013 11:50:00 01/01/2013 23:59:59 CLS Outpatient LEONEL PRATER MD [facility] ANTICOAGULATION THERAPY [id number] 12/29/2012 13:40:00 12/29/2012 23:59:59 CLS Outpatient LEONEL PRATER MD [facility] ANTICOAGULANT THERAPY [id number] 12/22/2012 15:45:00 12/22/2012 23:59:59 CLS Outpatient LEONEL PRATER MD [facility] ANTICOAG THERPAY [id number] 12/10/2012 13:15:00 12/19/2012 11:30:00 DIS Inpatient ART BENEDICT MD [facility] IRF R-BKA [id number] 09/29/2012 22:01:00 09/29/2012 23:41:00 DIS Emergency KENYON CASTAÑEDA MD [facility] ER POSS BLADDER INFECTION [id number] 04/02/2017 12:04:00 ACT Emergency SHANA PHOENIX MD [facility] ER SOB [id number] 2016 12:59:00 Document Registration [id number] 08/07/2013 11:42:00 08/07/2013 23:59:59 CLS Outpatient JARRELL LOMELI MD [id number] 07/09/2013 11:16:00 07/09/2013 23:59:59 CLS Outpatient JARRELL LOMELI MD [id number] 06/11/2013 13:45:00 06/11/2013 23:59:59 CLS Outpatient ELISEO VALENCIA DO [id number] 06/11/2013 13:45:00 06/11/2013 23:59:59 CLS Outpatient JARRELL LOMELI MD [id number] 04/14/2013 10:41:00 04/14/2013 23:59:59 CLS Outpatient JARRELL LOMEIL MD [id number] 02/18/2013 09:52:00 02/18/2013 23:59:59 CLS Outpatient ELISEO VALENCIA DO [id number] 01/14/2013 10:49:00 01/14/2013 23:59:59 CLS Outpatient ELISEO VALENCIA DO [id number] 09/03/2012 12:38:00 Document Registration [id number] 08/19/2012 14:45:00 Document Registration
[2017-04-02] MEDS ORDERED: ASPIRIN 81 MG CHEW (CHILDREN'S ASA) PO NR (15:30)
[2017-04-02] MEDS ORDERED: MAGNESIUM 1 GM/100 ML IVPB 100 ML IV NR (15:30)
[2017-04-02] MEDS ORDERED: POTA20TA15 PO (15:46)
[2017-04-02] MEDS ORDERED: TIOT18CA2 IH (15:46)
[2017-04-02] MEDS ORDERED: RT-ALBUINH IH (15:46)
[2017-04-02] MEDS ORDERED: ZOLP10TA5 PO (15:46)
[2017-04-02] MEDS ORDERED: FURO40TA4 PO (15:46)
[2017-04-02] MEDS ORDERED: FUROSEMIDE 40 MG/4 ML INJ (LASIX) ONE (17:43)
[2017-04-02] MEDS ORDERED: morphine INJ 4 MG/ML 1 ML (VIAL/SYRINGE) ONE (17:43)
[2017-04-02] MEDS ORDERED: AZITHROMYCIN 250 MG TAB (ZITHROMAX) PO NR (17:46)
[2017-04-02] MEDS ORDERED: FUROSEMIDE 40 MG/4 ML INJ (LASIX) IV NR (17:46)
[2017-04-02] MEDS: morphine INJ 4 MG/ML 1 ML (VIAL/SYRINGE) IV PRN ×2 (17:57→21:56)
[2017-04-02] MEDS: ENOXAPARIN 40 MG/0.4 ML (LOVENOX) SYR SQ SCH (18:00)
[2017-04-02] MEDS: RT-ALBUTEROL/IPRATROPIUM 3 ML (DUONEB) VIAL INH SCH ×2 (18:19→22:02)
[2017-04-02] MEDS ORDERED: INFLUENZA TRIvalent 2017-2018 0.5 ML/45 MCG SYR IM ONE (19:30)
[2017-04-03] VITALS (18 sets, daily range): BP systolic 15–139; BP diastolic 35–112
[2017-04-03] MEDS: inSUlin (REGULAR) HUMAN 1 UNIT/0.01 ML (CHARGE PER UNIT) SC SCH ×6 (00:20→22:34)
[2017-04-03] MEDS: RT-ALBUTEROL/IPRATROPIUM 3 ML (DUONEB) VIAL INH SCH ×6 (03:05→22:21)
[2017-04-03 05:25] LABS: BASOPHILS % (AUTO) 0 % (0-10); EOSINOPHILS % (AUTO) 0 % (0-10); LYMPHOCYTES # (AUTO) 0.8 X 10^3 (1.0-4.0); LYMPHOCYTES % (AUTO) 7 % (12-44); MEAN CORPUSCULAR HEMOGLOBIN 31 PG (25-34); MEAN CORPUSCULAR HGB CONC 32 G/DL (32-36); MEAN CORPUSCULAR VOLUME 95 FL (80-99); MEAN PLATELET VOLUME 10.7 FL (7.4-10.4); MONOCYTES # (AUTO) 0.3 X 10^3 (0.0-1.0); MONOCYTES % (AUTO) 3 % (0-12); NEUTROPHILS # (AUTO) 9.6 X 10^3 (1.8-7.8); NEUTROPHILS % (AUTO) 90 % (42-75); PLATELET COUNT 224 10^3/uL (130-400); RED BLOOD COUNT 4.16 10^6/uL (4.35-5.85); RED CELL DISTRIBUTION WIDTH 18.6 % (10.0-14.5); WHITE BLOOD COUNT 10.8 10^3/uL (4.3-11.0)
[2017-04-03 05:45] LABS: BILIRUBIN,TOTAL 1.9 MG/DL (0.1-1.0); CALCIUM 8.7 MG/DL (8.5-10.1); CREATININE SERUM 1.75 MG/DL (0.60-1.30); MAGNESIUM 2.2 MG/DL (1.8-2.4); PHOSPHORUS 5.8 MG/DL (2.3-4.7); POTASSIUM 3.7 MMOL/L (3.6-5.0); TOTAL PROTEIN 7.1 GM/DL (6.4-8.2)
[2017-04-03] MEDS: KCL 20 MEQ TAB (K-DUR) PO SCH (06:00)
[2017-04-03] MEDS: POTASSIUM CL 10MEQ/50ML IVPB 50 ML IV SCH (06:00)
[2017-04-03] MEDS: MAGNESIUM 1 GM/100 ML IVPB 100 ML IV SCH (06:00)
[2017-04-03 06:10] LABS: THYROID STIMULATING HORMONE 1.08 UIU/ML (0.35-4.94)
--- NOTE | 2017-04-03 06:41 | Pulmonary Consultation ---
History of Present Illness History of Present Illness Date of Consultation 04/03/17 06:36 Time Seen by Provider: 06:36 Date of Admission History of Present Illness 61yo with hx of COPD and persistent tobacco use, and CHF SOB that has progressively worsened over the last 3 days. SOB is worse with laying flat. I am consulted for ICU management. Pt has had thick productive sputum. No fever or chills. I am consulted for ICU management. Allergies and Home Medications Allergies Coded Allergies: No Known Drug Allergies (Unverified , 04/02/17) Home Medications Albuterol Sulfate 1 Puff Puff, 2 PUFF IH Q6H PRN for SHORTNESS OF BREATH, ( Reported) 1 PUFF = 90 MCG Furosemide 40 Mg Tablet, 80 MG PO DAILY, (Reported) TAKES 2 (40MG) TABLETS Ibuprofen 200 Mg Tablet, 600 MG PO Q8H PRN for PAIN-MILD, (Reported) TAKES 3 (200 MG) TABLETS Potassium Chloride 10 Meq Tablet.er, 10 MEQ PO DAILY for 30 Days Prescribed by: SAMANTHA BAÑUELOS on 04/09/17 1245 Tiotropium [place] 1 Inh Aerp, 1 CAP IH DAILY, (Reported) Past Abdjeis-Ziobud-Seqcpx Hx Patient Social History Alcohol Use: Denies Use Recreational Drug Use: No Smoking Status: Current Everyday Smoker Type Used: Cigarettes Recent Foreign Travel: No Contact w/Someone Who Travel: No Recent Infectious Disease Expo: No Recent Hopitalizations: No Physical Abuse: No Sexual Abuse: No Immunizations Up To Date Tetanus Booster (TDap): Unknown PED Vaccines UTD: No Surgeries History of Surgeries: Yes (pvd, ) Surgeries: Amputation, Section, Coronary Stent, Orthopedic, Vascular Surgery Respiratory History of Respiratory Disorde: Yes Respiratory Disorders: COPD Currently Using CPAP: No Currently Using BIPAP: No Cardiovascular History of Cardiac Disorders: Yes (CHF) Cardiac Disorders: Coronary Artery Disease, Peripheral Vascular Neurological History of Neurological Disord: No Reproductive System : No Hx Reproductive Disorders: No Genitourinary History of Genitourinary Disor: Yes Genitourinary Disorders: Bladder Infection Gastrointestinal History of Gastrointestinal Di: No Musculoskeletal History of Musculoskeletal Dis: Yes Musculoskeletal Disorders: Amputee, Fractures Endocrine History of Endocrine Disorders: No HEENT History of HEENT Disorders: No Cancer History of Cancer: No Did You Recieve Any Treatments: No Psychosocial History of Psychiatric Problem: Yes Behavioral Health Disorders: Anxiety Suicide Risk Score: 0 Integumentary History of Skin or Integumenta: Yes (age spots) Skin/Integumentary Disorders: Recent Skin Changes Blood Transfusions History of Blood Disorders: No Reviewed Nursing Assessment Reviewed/Agree w Nursing PMH: Yes Family Medical History Significant Family History: No Pertinent Family Hx Review of Systems Time Seen by Provider: 06:52 Constitutional: Weakness, Malaise Respiratory: Cough, Shortness of breath, Wheezing, Sputum Cardiovascular: Palpitations, Orthopnea, Edema, Lt Headedness Neurological: Weakness, Incoordination, Confusion Exam Exam Vital Signs Date Time Temp Pulse Resp B/P (MAP) Pulse Ox O2 Delivery O2 Flow Rate FiO2 04/03/17 05:00 101 15 15/102 (73) 97 Nasal Cannula 4.00 04/03/17 04:00 96.2 101 19 123/91 (102) 96 Nasal Cannula 4.00 04/03/17 04:00 95 Nasal Cannula 4.00 04/03/17 03:05 96 Nasal Cannula 4.00 04/03/17 03:00 105 33 110/81 (91) 96 Nasal Cannula 4.00 04/03/17 02:00 103 14 128/90 (103) 95 Nasal Cannula 4.00 04/03/17 01:00 101 04/03/17 01:00 107 26 133/94 (107) 99 Nasal Cannula 4.00 04/03/17 00:00 96.4 104 18 101/87 (92) 96 Nasal Cannula 4.00 04/03/17 00:00 96 Nasal Cannula 4.00 04/02/17 23:00 110 22 126/111 (116) 96 Nasal Cannula 4.00 04/02/17 22:04 99 Nasal Cannula 4.00 04/02/17 22:00 112 25 123/94 (104) 99 Nasal Cannula 4.00 04/02/17 21:00 112 15 131/112 (118) 96 Nasal Cannula 4.00 04/02/17 20:00 96.6 115 37 118/100 (106) 98 Nasal Cannula 4.00 04/02/17 20:00 96 Nasal Cannula 4.00 04/02/17 19:00 114 04/02/17 19:00 114 36 144/106 (119) 96 Nasal Cannula 4.00 04/02/17 18:45 114 15 129/91 (104) 97 Nasal Cannula 4.00 04/02/17 18:30 113 23 126/88 (101) 98 Nasal Cannula 4.00 04/02/17 18:23 97 Nasal Cannula 4.00 04/02/17 18:15 112 117/95 (102) 97 Nasal Cannula 4.00 04/02/17 18:00 111 37 137/96 (110) 97 Nasal Cannula 4.00 04/02/17 17:45 121 139/70 (93) 98 Nasal Cannula 4.00 04/02/17 17:30 118 140/75 (96) 98 Nasal Cannula 4.00 04/02/17 17:15 129 106/87 (93) 98 Nasal Cannula 4.00 04/02/17 17:00 121 96/84 (88) 98 Nasal Cannula 4.00 04/02/17 16:45 118 36 122/92 (102) 98 Nasal Cannula 4.00 04/02/17 16:45 98 Nasal Cannula 4.00 04/02/17 16:40 110 98 04/02/17 16:30 120 36 121/99 (106) 98 Nasal Cannula 4.00 04/02/17 16:15 119 23 121/77 (92) 98 Nasal Cannula 4.00 04/02/17 16:00 99.0 110 26 98 Nasal Cannula 5.00 04/02/17 12:38 95 Nasal Cannula 4.00 04/02/17 12:05 94 Nasal Cannula 4.00 04/02/17 12:05 99.7 115 25 111/90 (97) 94 Nasal Cannula 4.00 I & O 04/03/17 07:00 Intake Total 850 ml Output Total 525 ml Balance 325 ml General Appearance: No Apparent Distress, WD/WN HEENT: PERRL/EOMI, Pharynx Normal Neck: Non Tender, Supple Respiratory: No Crackles, Decreased Breath Sounds, Respiratory Distress, Wheezing Cardiovascular: No Murmur, Tachycardia Capillary Refill: Less Than 3 Seconds Extremity: Normal Range of Motion, Non Tender Neurologic/Psychiatric: Alert, Oriented x3 Results Lab Laboratory Tests 04/02/17 12:20 04/03/17 04:55 Assessment/Plan Assessment/Plan Dyspnea - multifactorial Pneumonia -continue rocephin and azithromycin Hypotension - resolved -responded to IVF Acute on chronic respiratory failure wtih COPDAE -Continue solumedrol -Check ABG - pt will probably benefit from vent to mask -SVNs Morbid obesity r/o obesity hypoventilation syndrome CHF systolic/diastolic last EF 40-45% -repeat echo pending Acute renal failure with CKD stage II-III Tobacco dependance -education severe PAD and 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 255 Clinical Quality Measures DVT/VTE Risk/Contraindication: Risk Factor Score Per Nursin RFS Level Per Nursing on Admit: 3=High NORA BAER DO Apr 03, 2017 06:41
--- NOTE | 2017-04-03 08:39 | Progress Note-Cardiology ---
Cardiology SOAP Progress Note Subjective: Sitting up in bed. Spouse at the bedside. States she feels better today. Continued c/o cough, but feels it has improved. No c/o CP, palpitations. Objective: I&O/Vital Signs Vital Sign - Last 12Hours 04/03/17 04/03/17 04/03/17 04/03/17 01:00 01:00 02:00 03:00 Pulse 107 101 103 105 Resp 26 14 33 B/P (MAP) 133/94 (107) 128/90 (103) 110/81 (91) Pulse Ox 99 95 96 O2 Delivery Nasal Cannula Nasal Cannula Nasal Cannula O2 Flow Rate 4.00 4.00 4.00 04/03/17 04/03/17 04/03/17 04/03/17 03:05 04:00 04:00 05:00 Temp 96.2 Pulse 101 101 Resp 19 15 B/P (MAP) 123/91 (102) 125/102 (110) Pulse Ox 96 95 96 97 O2 Delivery Nasal Cannula Nasal Cannula Nasal Cannula Nasal Cannula O2 Flow Rate 4.00 4.00 4.00 4.00 04/03/17 04/03/17 04/03/17 04/03/17 06:00 06:59 07:00 07:03 Pulse 101 105 106 Resp 17 17 B/P (MAP) 135/108 (117) 105/90 (95) Pulse Ox 96 96 97 O2 Delivery Nasal Cannula Nasal Cannula Nasal Cannula O2 Flow Rate 4.00 4.00 4.00 04/03/17 04/03/17 04/03/17 04/03/17 08:00 09:00 10:00 10:58 Pulse 101 106 102 Resp 14 27 51 B/P (MAP) 139/72 (94) 125/108 (114) Pulse Ox 96 99 97 96 O2 Delivery Nasal Cannula Nasal Cannula Nasal Cannula Room Air O2 Flow Rate 4.00 4.00 4.00 Intake and Output 04/03/17 00:00 Intake Total 650 ml Output Total 375 ml Balance 275 ml Weight (Pounds): 190 Weight (Ounces): 0.0 Weight (Calculated Kilograms): 86.578348 Constitutional: AAO x 3 Respiratory: wheezing (scattered), other (diminished lower lobes bilat) Cardiovascular: regular rate-rhythm, tachycardia, systolic murmur Gastrointestional: No tender, soft, round, audible bowel sounds Extremities: other (mild LLE edema; R AKA) Neurologic/Psychiatric: grossly intact Skin: normal color, warm/dry, No rash, No ulcerations Results/Procedures: Labs Laboratory Tests 04/02/17 12:54: Urine Color YELLOW, Urine Clarity SLIGHTLY CLOUDY, Urine pH 7, Urine Specific [place] 1.010L, Urine Protein 2+H, Urine Glucose (UA) NEGATIVE, Urine Ketones NEGATIVE, Urine Nitrite NEGATIVE, Urine Bilirubin NEGATIVE, Urine Urobilinogen NORMAL, Urine Leukocyte Esterase NEGATIVE, Urine RBC (Auto) NEGATIVE, Urine RBC 0-2, Urine WBC 0-2, Urine Squamous Epithelial Cells 2-5, Urine Crystals NONE, Urine Bacteria NEGATIVE, Urine Casts NONE, Urine Mucus NEGATIVE, Urine Culture Indicated NO 04/02/17 20:08: 04/03/17 00:06: Glucometer 160H 04/03/17 04:55: White Blood Count 10.8, Red Blood Count 4.16L, Hemoglobin 12.8, Hematocrit 40, Mean Corpuscular Volume 95, Mean Corpuscular Hemoglobin 31, Mean Corpuscular Hemoglobin Concent 32, Red Cell Distribution Width 18.6H, Platelet Count 224, Mean Platelet Volume 10.7H, Neutrophils (%) (Auto) 90H, Lymphocytes (%) (Auto) 7L, Monocytes (%) (Auto) 3, Eosinophils (%) (Auto) 0, Basophils (%) (Auto) 0, Neutrophils # (Auto) 9.6H, Lymphocytes # (Auto) 0.8L, Monocytes # (Auto) 0.3, Eosinophils # (Auto) 0.0, Basophils # (Auto) 0.0, Sodium Level 134L, Potassium Level 3.7, Chloride Level 97L, Carbon Dioxide Level 19L, Anion Gap 18H, Blood Urea Nitrogen 24H, Creatinine 1.75H, Estimat Glomerular Filtration Rate 29, BUN/ Creatinine Ratio 14, Glucose Level 162H, Calcium Level 8.7, Phosphorus Level 5.8H, Magnesium Level 2.2, Total Bilirubin 1.9H, Aspartate Amino Transf (AST/ SGOT) 52H, Alanine Aminotransferase (ALT/SGPT) 49, Alkaline Phosphatase 115, Total Protein 7.1, Albumin 4.0, Triglycerides Level 48, Cholesterol Level 60, LDL Cholesterol Direct 19, VLDL Cholesterol 10, HDL Cholesterol 32L, Thyroid Stimulating Hormone (TSH) 1.08 04/03/17 09:37: Blood Gas Puncture Site LT RAD, Blood Gas Patient Temperature 96.6, Arterial Blood pH 7.37, Arterial Blood Partial Pressure CO2 28L, Arterial Blood Partial Pressure O2 81, Arterial Blood HCO3 16*L, Arterial Blood Total CO2 17.3L, Arterial Blood Oxygen Saturation 98, Arterial Blood Base Excess -8.0L, Alejandro Test YES-POS, Blood Gas Ventilator Setting NO, Blood Gas Inspired Oxygen 4L 04/03/17 11:10: Lactic Acid Level 3.69*H Microbiology 04/02/17 Influenza Types A,B Antigen (LISA) - Final, Complete Laboratory Tests 04/02/17 12:20 04/03/17 04:55 A/P: Assessment: Dyspnea, likely multifactorial (see below) Septic shock - management per Med/Pulm/ICU services Pneumonia with septicemia Dilated cardiomyopathy of undetermined etiology and chronic systolic and diastolic CHF Acute exacerbation of COPD Supplemental oxygen dependent at home (4L/NC per pt) Echo of 04/02/17: LVEF approx 30%, mod to mod-sev MR Acute on chronic renal failure - CKD stage III, worse today Hypokalemia r/t chronic diuretic use - improved today Tobaccoism - cessation advised 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 Barker on 12-03-12 Severe PAD for which she has had stenting to the iliac and femoral artery per Dr. Barker and Dr. Mcallister at [facility]. 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 Paez Plan: Dyspnea which is multifactorial. Pneumonia with sepsis which is being managed by medical/pulmonary services. Acute exacerbation of COPD which is being managed by medical and pulmonary services. Chronic systolic CHF - will give diuretics cautiously and monitor renal function closely Advise starting STEVEN (-) tx for cardiomyopathy with close monitoring of renal function Advise further cardiac work up when clinically improved - she does not wish to have any further cardiac testing at this time Hypokalemia - resolved Physician Assessment Physician Assessment Still short of breath, but somewhat better today. Denies cp or palp or syncope Lungs: diminished air entry over all lung ferraro Cor: reg Ext: R AKA, L mild swelling of the leg A&R * As documented in our note above that I updated (italics) and as noted below * I discussed her case with Dr Bhakta of the ICU/Pulm svce * I discussed her CV issues in detail with Mrs Ferraro and her . A full cardiac w/u is advised (post stabilization) of current illness, but she refuses * Will reinitiate diuretics to control CHF * Labs need monitored closely * Management is complex due to multiple comorbidities FRANCES DEL CID [employer] HEL[employer] Apr 03, 2017 08:39 LUIS M BROOKS MD [facility] Apr 03, 2017 12:30
--- NOTE | 2017-04-03 08:39 | Diagnostic Imaging Report ---
INDICATION: Dyspnea. TECHNIQUE: A frontal chest was obtained at 0445 hours. COMPARISON: 04/02/2017. FINDINGS: There is cardiomegaly and central vascular congestion with mild interstitial edema showing partial improvement compared to yesterday. There is no new consolidation, pneumothorax, or pleural fluid. IMPRESSION: Cardiomegaly and central vascular congestion with partial improvement in the interstitial edema compared to yesterday. No new abnormality. Dictated by: Dictated on workstation # [id number]
[2017-04-03] MEDS ORDERED: lisINopril 5 MG (PRINIVIL) TABLET PO NR (08:45)
[2017-04-03] MEDS: ASPIRIN 81 MG CHEW (CHILDREN'S ASA) PO SCH (09:31)
[2017-04-03] MEDS: cefTRIAXone INJECTION 1,000 MG in NS (IVPB) 50 ML IV SCH (09:32)
[2017-04-03 09:59] LABS: ABG OXYGEN SATURATION 98 % (94-100); ABG PCO2 28 MMHG (35-45); ABG PH 7.37 (7.37-7.43); ABG PO2 81 MMHG (79-93); ABG TCO2 17.3 MMOL/L (21.0-31.0)
[2017-04-03 10:01] LABS: ABG HCO3 16 MMOL/L (23-27); ALLENS TEST YES-POS; PATIENT TEMP 96.6
[2017-04-03] MEDS ORDERED: SODIUM BICARB 8.4% 50 MEQ/50 ML (ABBOTT) SYR IV ONE ×2 (11:00)
--- NOTE | 2017-04-03 11:25 | History & Physical-Hospitalist ---
HPI History of Present Illness: HPI/Chief Complaint CC: Shortness of breath w/septic shock with pneumonia HPI: This is a 61-year-old white female clinic patient of [facility] with a past medical history of oxygen dependent COPD on 4 L 05/11 who presents to the emergency room with complaints of worsening shortness of breath over the last few days. She denied any fever but it worsened to the point that she can no longer go on. She was found to be in acute respiratory failure responded to nebulizer treatments but fluid overload precluded the high volume fluid resuscitation for septic shock that she was classified as having after her blood pressure decreased to the [address] Bhakta and Dr. Cruz were both consulted on the case and patient was monitored closely in the ICU while empiric antibiotics given along with fluids and oxygen supplementation. Source: patient Exam Limitations: no limitations Date Seen 04/03/17 Time Seen by Provider: 10:00 Attending Physician Leigh Walsh DO [facility] Referring Physician Date of Admission Apr 02, 2017 at 14:46 Home Medications & Allergies Home Medications Reviewed patient Home Medication Reconciliation Form Allergies Allergies Coded Allergies No Known Drug Allergies ([id number]) Past Eefvswd-[id number]-Hrhztd Hx Patient Social History Marrital Status: Employed/Student: unemployed Alcohol Use: Denies Use Recreational Drug Use: No Smoking Status: Current Everyday Smoker Type Used: Cigarettes Physical Abuse Screen: No Sexual Abuse: No Recent Foreign Travel: No Contact w/other who traveled: No Recent Hopitalizations: No Recent Infectious Disease Expo: No Immunizations Up To Date Tetanus Booster (TDap): Unknown Pediatric: No Surgeries Yes (pvd, ) Amputation, Section, Coronary Stent, Orthopedic, Vascular Surgery Respiratory Yes COPD, Emphysema, Pneumonia Currently Using CPAP: No Currently Using BIPAP: No Cardiovascular Yes (CHF) Chronic Edema/Swelling, Coronary Artery Disease, Peripheral Vascular Neurological No Reproductive System : No Hx Reproductive Disorders: No Genitourinary Yes Bladder Infection Gastrointestinal No Musculoskeletal Yes Amputee, Fractures Endocrine History of Endocrine Disorders: No HEENT History of HEENT Disorders: No Cancer No Did You Recieve Any Treatments: No Psychosocial History of Psychiatric Problem: Yes Behavioral Health Disorders: Anxiety Integumentary History of Skin or Integumenta: Yes (age spots) Skin/Integumentary Disorders: Recent Skin Changes Blood Transfusions History of Blood Disorders: No Reviewed Nursing Assessment Reviewed/Agree w Nursing PMH: Yes Family Medical History Significant Family History: No Pertinent Family Hx Review of Systems Constitutional: see HPI, weakness EENTM: no symptoms reported Respiratory: cough, dyspnea on exertion, orthopnea, short of breath, wheezing Cardiovascular: palpitations Gastrointestinal: nausea Genitourinary: decreased output Musculoskeletal: back pain Skin: no symptoms reported Psychiatric/Neurological: Anxiety, Depressed All Other Systems Reviewed Negative Unless Noted: Yes Physical Exam Physical Exam Vital Signs Vital Sign - Last 12Hours Capillary Refill : Less Than 3 Seconds General Appearance: No Apparent Distress, WD/WN, Chronically ill, Obese Eyes: Bilateral Eye Normal Inspection, Bilateral Eye PERRL HEENT: PERRL/EOMI, Normal ENT Inspection, Pharynx Normal Neck: Full Range of Motion, Normal Inspection, Non Tender, Supple, Carotid Bruit Respiratory: Chest Non Tender, No Accessory Muscle Use, No Respiratory Distress , Crackles, Decreased Breath Sounds, Wheezing Cardiovascular: Regular Rate, Rhythm, No Edema, No Gallop, No JVD, No Murmur, Normal Peripheral Pulses Gastrointestinal: Normal Bowel Sounds, No Organomegaly, No Pulsatile Mass, Non Tender, Soft Back: Normal Inspection, No CVA Tenderness, No Vertebral Tenderness Extremity: Normal Capillary Refill, Normal Inspection, Normal Range of Motion ( amputee), Non Tender, No Calf Tenderness, No Pedal Edema Neurologic/Psychiatric: Alert, Oriented x3, No Motor/Sensory Deficits, Normal Mood/Affect Skin: Normal Color, Warm/Dry Lymphatic: No Adenopathy Results Results/Procedures Lab Laboratory Tests 04/02/17 12:20 04/03/17 04:55 Assessment/Plan Admission Diagnosis Respiratory failure with septic shock Assessment and Plan Plan: ICU admit Monitor closely IVF along with fluid overload precautions Home meds Monitor creatinine Diagnosis/Problems Diagnosis/Problems (1) Septic shock Status: Acute Assessment & Plan: IVF (2) RESPIRATORY FAILURE, UNSP, UNSP W HYPOXIA OR HYPERCAPNIA Status: Acute Assessment & Plan: O2, Nebs, BiPAP (3) Acute renal failure Status: Acute Qualifiers: Qualified Codes: N17.9 - Acute kidney failure, unspecified (4) Hypokalemia Status: Acute Assessment & Plan: Replace (5) Pneumonia Status: Acute Qualifiers: Qualified Codes: J18.9 - Pneumonia, unspecified organism (6) COPD exacerbation Status: Acute Assessment & Plan: IV steroids Clinical Quality Measures DVT/VTE Risk/Contraindication: Risk Factor Score Per Nursin RFS Level Per Nursing on Admit: 3=High LEIGH WALSH DO Apr 03, 2017 11:25
[2017-04-03] MEDS ORDERED: IBUPROFEN TABLET 200 MG TAB PO PRN (11:30)
[2017-04-03] MEDS ORDERED: LACTATED RINGERS 1,000 ML IV ONE (11:50)
[2017-04-03] MEDS: ENOXAPARIN 40 MG/0.4 ML (LOVENOX) SYR SQ SCH (17:09)
[2017-04-03] MEDS ORDERED: NS IV 1000 ML 1,000 ML ONE (17:25)
[2017-04-03] MEDS ORDERED: NS IV 1000 ML 1,000 ML IV SCH (17:30)
[2017-04-03] MEDS ORDERED: AZITHROMYCIN 250 MG TAB (ZITHROMAX) PO SCH (18:00)
[2017-04-03] MEDS: ZOLPIDEM 5 MG (AMBIEN) TAB PO SCH (21:00)
[2017-04-03] MEDS: morphine INJ 4 MG/ML 1 ML (VIAL/SYRINGE) IV PRN (22:33)
[2017-04-04] VITALS (25 sets, daily range): BP systolic 64–107; BP diastolic 40–83
[2017-04-04] MEDS: LACTATED RINGERS 1,000 ML IV SCH ×4 (01:25→21:27)
[2017-04-04] MEDS ORDERED: NS IV 1000 ML 1,000 ML IV SCH ×3 (02:15→17:45)
[2017-04-04] MEDS: RT-ALBUTEROL/IPRATROPIUM 3 ML (DUONEB) VIAL INH SCH ×6 (02:31→21:35)
[2017-04-04 05:04] LABS: BASOPHILS % (AUTO) 0 % (0-10); EOSINOPHILS % (AUTO) 0 % (0-10); LYMPHOCYTES # (AUTO) 0.6 X 10^3 (1.0-4.0); LYMPHOCYTES % (AUTO) 3 % (12-44); MEAN CORPUSCULAR HEMOGLOBIN 31 PG (25-34); MEAN CORPUSCULAR HGB CONC 32 G/DL (32-36); MEAN CORPUSCULAR VOLUME 96 FL (80-99); MEAN PLATELET VOLUME 10.6 FL (7.4-10.4); MONOCYTES # (AUTO) 0.9 X 10^3 (0.0-1.0); MONOCYTES % (AUTO) 5 % (0-12); NEUTROPHILS # (AUTO) 15.9 X 10^3 (1.8-7.8); NEUTROPHILS % (AUTO) 92 % (42-75); PLATELET COUNT 202 10^3/uL (130-400); RED BLOOD COUNT 3.51 10^6/uL (4.35-5.85); RED CELL DISTRIBUTION WIDTH 18.5 % (10.0-14.5); WHITE BLOOD COUNT 17.4 10^3/uL (4.3-11.0)
[2017-04-04 05:22] LABS: ALBUMIN 3.3 GM/DL (3.2-4.5); CALCIUM 8.5 MG/DL (8.5-10.1); CREATININE SERUM 1.44 MG/DL (0.60-1.30); MAGNESIUM 1.9 MG/DL (1.8-2.4); PHOSPHORUS 3.6 MG/DL (2.3-4.7); POTASSIUM 3.4 MMOL/L (3.6-5.0); TOTAL PROTEIN 5.8 GM/DL (6.4-8.2)
[2017-04-04 05:32] LABS: ANISOCYTOSIS MODERATE; BAND NEUTROPHILS 1 %; BASOPHILS % (MANUAL) 0 %; EOSINOPHILS % (MANUAL) 0 %; LYMPHOCYTES % (MANUAL) 3 %; MICROCYTOSIS SLIGHT; NEUTROPHILS % (MANUAL) 94 %; POLYCHROMASIA SLIGHT
[2017-04-04] MEDS: POTASSIUM CL 10MEQ/50ML IVPB 50 ML IV SCH (06:32)
[2017-04-04] MEDS: MAGNESIUM 1 GM/100 ML IVPB 100 ML IV SCH (06:32)
[2017-04-04] MEDS: KCL 20 MEQ TAB (K-DUR) PO SCH ×2 (06:32→10:04)
[2017-04-04] MEDS: inSUlin (REGULAR) HUMAN 1 UNIT/0.01 ML (CHARGE PER UNIT) SC SCH ×4 (06:32→21:34)
--- NOTE | 2017-04-04 07:19 | Diagnostic Imaging Report ---
INDICATION: Dyspnea. 0536 hours FINDINGS: Since study one day earlier, there is persistent mild cardiomegaly. There is mild pulmonary venous congestion. No focal infiltrate is identified. There is blunting of the costophrenic sulci, greater on the right. IMPRESSION: Findings remain compatible with probable congestive heart failure with cardiomegaly and pulmonary venous congestion. There are probable small pleural effusions, greater on the right. Dictated by: Dictated on workstation # [id number]
[2017-04-04] MEDS: UMECLIDINIUM BROMIDE (INCRUSE ELLIPTA) 7'S IH SCH ×2 (07:42→10:20)
--- NOTE | 2017-04-04 08:57 | Progress Note-Cardiology ---
Cardiology SOAP Progress Note Subjective: Sitting up in bed. States she feels weak and tired. She states she feels her breathing is much better than yesterday. No c/o CP, palpitations. Objective: I&O/Vital Signs Vital Sign - Last 12Hours 04/04/17 04/04/17 04/04/17 04/04/17 00:00 00:00 01:00 01:00 Pulse 98 99 98 Resp 15 16 Pulse Ox 98 94 93 O2 Delivery Nasal Cannula Nasal Cannula Nasal Cannula O2 Flow Rate 4.00 4.00 4.00 04/04/17 04/04/17 04/04/17 04/04/17 02:00 02:33 03:00 04:00 Pulse 98 99 Resp 18 13 B/P (MAP) 89/66 (74) Pulse Ox 94 93 96 95 O2 Delivery Nasal Cannula Nasal Cannula Nasal Cannula Nasal Cannula O2 Flow Rate 4.00 4.00 4.00 4.00 04/04/17 04/04/17 04/04/17 04/04/17 04:00 05:00 06:00 07:00 Pulse 97 98 98 98 Resp 14 17 14 17 B/P (MAP) 84/57 (66) 102/68 (79) 84/65 (71) Pulse Ox 93 95 95 94 O2 Delivery Nasal Cannula Nasal Cannula Nasal Cannula Nasal Cannula O2 Flow Rate 4.00 4.00 4.00 4.00 04/04/17 04/04/17 04/04/17 04/04/17 07:01 08:00 10:20 10:21 Pulse 98 95 Resp 25 B/P (MAP) 84/57 (66) Pulse Ox 94 96 96 O2 Delivery Nasal Cannula Nasal Cannula Nasal Cannula O2 Flow Rate 4.00 4.00 4.00 Intake and Output 04/04/17 00:00 Intake Total 2200 ml Output Total 550 ml Balance 1650 ml Weight (Pounds): 191 Weight (Ounces): 0.0 Weight (Calculated Kilograms): 86.042514 Constitutional: AAO x 3 Respiratory: wheezing (scattered), other (diminished lower lobes bilat) Cardiovascular: regular rate-rhythm, tachycardia, systolic murmur Gastrointestional: No tender, soft, round, audible bowel sounds Extremities: other (mild LLE edema; R AKA) Neurologic/Psychiatric: grossly intact Skin: normal color, warm/dry, No rash, No ulcerations Results/Procedures: Labs Laboratory Tests 04/03/17 12:28: Glucometer 151H 04/03/17 13:09: Lactic Acid Level 3.20*H 04/03/17 17:03: Glucometer 149H 04/03/17 22:10: Glucometer 303H 04/04/17 04:30: White Blood Count 17.4H, Red Blood Count 3.51L, Hemoglobin 10.8L, Hematocrit 34L , Mean Corpuscular Volume 96, Mean Corpuscular Hemoglobin 31, Mean Corpuscular Hemoglobin Concent 32, Red Cell Distribution Width 18.5H, Platelet Count 202, Mean Platelet Volume 10.6H, Neutrophils (%) (Auto) 92H, Lymphocytes (%) (Auto) 3L, Monocytes (%) (Auto) 5, Eosinophils (%) (Auto) 0, Basophils (%) (Auto) 0, Neutrophils # (Auto) 15.9H, Lymphocytes # (Auto) 0.6L, Monocytes # (Auto) 0.9, Eosinophils # (Auto) 0.0, Basophils # (Auto) 0.0, Neutrophils % (Manual) 94, Lymphocytes % (Manual) 3, Monocytes % (Manual) 2, Eosinophils % (Manual) 0, Basophils % (Manual) 0, Band Neutrophils 1, Polychromasia SLIGHT, Anisocytosis MODERATE, Microcytosis SLIGHT, Macrocytosis MODERATE, Sodium Level 133L, Potassium Level 3.4L, Chloride Level 96L, Carbon Dioxide Level 22, Anion Gap 15H , Blood Urea Nitrogen 29H, Creatinine 1.44H, Estimat Glomerular Filtration Rate 37, BUN/Creatinine Ratio 20, Glucose Level 132H, Lactic Acid Level 1.27, Calcium Level 8.5, Phosphorus Level 3.6, Magnesium Level 1.9, Total Bilirubin 1.0, Aspartate Amino Transf (AST/SGOT) 38H, Alanine Aminotransferase (ALT/SGPT) 43, Alkaline Phosphatase 87, Total Protein 5.8L, Albumin 3.3 04/04/17 11:17: Glucometer 170H Microbiology 04/02/17 Blood Culture - Preliminary, Resulted No growth 04/02/17 Influenza Types A,B Antigen (LISA) - Final, Complete A/P: Assessment: Dyspnea, likely multifactorial (see below) Septic shock - management per Med/Pulm/ICU services Pneumonia with septicemia Dilated cardiomyopathy of undetermined etiology and chronic systolic and diastolic CHF Acute exacerbation of COPD Supplemental oxygen dependent at home (4L/NC per pt) Echo of 04/02/17: LVEF approx 30%, mod to mod-sev MR Acute on chronic renal failure - CKD stage III, better today Hypokalemia r/t chronic diuretic use - replace Tobaccoism - cessation advised 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 Barker on 12-03-12 Severe PAD for which she has had stenting to the iliac and femoral artery per Dr. Barker and Dr. Mcallister at [facility]. 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 Paez Plan: Dyspnea which is multifactorial. Pneumonia with sepsis which is being managed by medical/pulmonary services. Acute exacerbation of COPD which is being managed by medical and pulmonary services. Chronic systolic and diastolic CHF - will give diuretics cautiously and monitor renal function closely Somewhat low BP requiring multiple fluid bolus during the night. We will hold STEVEN (-) for now. Advise further cardiac work up when clinically improved - she does not wish to have any further cardiac testing at this time Hypokalemia - replace Monitor lab closely Physician Assessment Physician Assessment Reports gen weakness and malaise. Dissatisfied with diet. Refuses cardiac diet. Still short of breath, but notes improvement compared to time of admission. Denies cp or palp or syncope Lungs: diminished air entry over all lung valle Cor: reg Ext: R AKA, L mild swelling of the leg Diminished urine output this am A&R * As documented in our note above that I updated (italics) and as noted below * Management is complex due to multiple comorbidities * Complex management * Reasonable to continue ivf because of low urine output, mild hypotension, and suspected septic shock * Monitor labs closely * Change diet to 1500 kCal ADA, because refusing cardiac diet * I have reviewed her CV issues with her and her in detail during this hospitalization FRANCES DEL CID [employer] JO[employer] FEEDER Apr 04, 2017 08:57 LUIS M BROOKS MD FACP [facility] Apr 04, 2017 11:40
[2017-04-04] MEDS ORDERED: FUROSEMIDE 40 MG (LASIX) TAB PO SCH (09:00)
[2017-04-04] MEDS ORDERED: lisINopril 5 MG (PRINIVIL) TABLET PO SCH ×2 (09:00)
[2017-04-04] MEDS ORDERED: TIOTROPIUM BROMIDE (SPIRIVA) 5'S INHALER IH SCH (09:00)
[2017-04-04] MEDS ORDERED: NS IV 1000 ML 1,000 ML IV ONE (09:45)
[2017-04-04] MEDS: cefTRIAXone INJECTION 1,000 MG in NS (IVPB) 50 ML IV SCH (10:04)
[2017-04-04] MEDS: ASPIRIN 81 MG CHEW (CHILDREN'S ASA) PO SCH (10:04)
--- NOTE | 2017-04-04 10:21 | Progress Note-Hospitalist ---
Progress Note HPI/CC on Admission CC: Shortness of breath w/septic shock with pneumonia HPI: This is a 61-year-old white female clinic patient of [facility] with a past medical history of oxygen dependent COPD on 4 L 24/7 who presents to the emergency room with complaints of worsening shortness of breath over the last few days. She denied any fever but it worsened to the point that she can no longer go on. She was found to be in acute respiratory failure responded to nebulizer treatments but fluid overload precluded the high volume fluid resuscitation for septic shock that she was classified as having after her blood pressure decreased to the [address] Bhakta and Dr. Cruz were both consulted on the case and patient was monitored closely in the ICU while empiric antibiotics given along with fluids and oxygen supplementation. Progress Notes/Assess & Plan Date Seen 04/04/17 Time Seen by Provider: 09:30 Admission Dx/Process Respiratory failure with septic shock Diagonsis/Assessment & Plan Patient doing well except for hypotension that continues. I suspect some sort of adrenal insufficiency but she reports that she is not on prednisone or any type of steroid long-term or multiple times in the past but considering the refractory hypotension in the fluids that have been given in its still 86/40 and she is overall very weak I'm going to empirically start hydrocortisone 100 MG every 8 hours and evaluate response Doesn't understand why she is on a heart healthy diet so I explained that she needed to maintain that and whenever she went home that was up to her Denies any significant pain issues currently Coughing a lot more so I ordered antitussives Checked meds and labs No fever, hypotension noted, improved overall, at bedside Tachycardic at 92 bpm Diminished breath sounds in the bases but very subtle wheezing noted much improved from yesterday No edema and normal range of motion Laboratory Tests 04/04/17 04:30 Assessment: Septic shock requiring high volume fluid resuscitation but volume overload and pulmonary congestion on chest x-ray on admit but continues to be hypotensive so empirically treating for adrenal insufficiency and awaiting response Severe COPD oxygen dependent at home on 4 L 24/7 Hyponatremia Hypokalemia Acute on chronic renal failure Leukocytosis Anemia of chronic illness Plan: ICU maintained due to hypotension Monitor closely IVF along with fluid overload precautions Home meds Monitor creatinine Hydrocortisone 100mg IV Q8 hrs Diagnosis/Problems Diagnosis/Problems (1) Septic shock Status: Acute Assessment & Plan: 04/03/17: IVF 04/04/17: Add Hydrocortisone empirically since I suspect Adrenal insufficiency (2) RESPIRATORY FAILURE, UNSP, UNSP W HYPOXIA OR HYPERCAPNIA Status: Acute Assessment & Plan: O2, Nebs, BiPAP (3) Acute renal failure Status: Acute Assessment & Plan: 04/04/17: Improved on IVF Qualifiers: Qualified Codes: N17.9 - Acute kidney failure, unspecified (4) Hypokalemia Status: Acute Assessment & Plan: Replacing (5) Pneumonia Status: Acute Qualifiers: Qualified Codes: J18.9 - Pneumonia, unspecified organism (6) COPD exacerbation Status: Acute Assessment & Plan: Nebs, O2 HERMELINDA WALSH DO Apr 04, 2017 10:21
[2017-04-04] MEDS: HYDROCORTISONE 100 MG/2 ML (Solu-CORTEF) VIAL IV SCH ×3 (12:02→21:34)
[2017-04-04] MEDS: guaiFENesin/CODEINE (ROBITUSSIN AC) 10ML UDC PO PRN ×2 (12:02→21:34)
[2017-04-04] MEDS: BENZONATATE 100 MG (TESSALON) CAPSULE PO SCH ×2 (12:02→21:33)
--- NOTE | 2017-04-04 13:40 | Pulmonary Progress Note ---
Subjective Time Seen by Provider: 13:41 Subjective/Events-last exam PT is having persistent hypotension and leukocytosis is worse. No fever. Exam Exam Vital Signs Date Time Temp Pulse Resp B/P (MAP) Pulse Ox O2 Delivery O2 Flow Rate FiO2 04/04/17 10:21 96 Nasal Cannula 4.00 04/04/17 10:20 96 Nasal Cannula 4.00 04/04/17 10:00 107 16 72/40 (51) 97 Nasal Cannula 4.00 04/04/17 09:00 103 14 107/78 (88) 91 Nasal Cannula 4.00 04/04/17 08:00 95 25 84/57 (66) 94 Nasal Cannula 4.00 04/04/17 07:01 98 04/04/17 07:00 98 17 84/65 (71) 94 Nasal Cannula 4.00 04/04/17 06:00 98 14 102/68 (79) 95 Nasal Cannula 4.00 04/04/17 05:00 98 17 84/57 (66) 95 Nasal Cannula 4.00 04/04/17 04:00 97 14 93 Nasal Cannula 4.00 04/04/17 04:00 95 Nasal Cannula 4.00 04/04/17 03:00 99 13 96 Nasal Cannula 4.00 04/04/17 02:33 93 Nasal Cannula 4.00 04/04/17 02:00 98 18 89/66 (74) 94 Nasal Cannula 4.00 04/04/17 01:00 98 16 93 Nasal Cannula 4.00 04/04/17 01:00 99 04/04/17 00:00 94 Nasal Cannula 4.00 04/04/17 00:00 98 15 98 Nasal Cannula 4.00 04/03/17 23:00 102 13 88 Nasal Cannula 4.00 04/03/17 22:21 91 Nasal Cannula 4.00 04/03/17 22:00 105 20 117/64 (81) 93 04/03/17 21:00 105 15 90/78 (82) 97 Nasal Cannula 4.00 04/03/17 20:00 105 11 101/85 (90) 96 Nasal Cannula 4.00 04/03/17 20:00 94 Nasal Cannula 4.00 04/03/17 19:37 104 04/03/17 19:17 94 Nasal Cannula 4.00 04/03/17 19:00 104 16 74/56 (62) 97 Nasal Cannula 4.00 04/03/17 18:00 101 21 66/50 (55) 94 Nasal Cannula 4.00 04/03/17 17:00 103 26 83/70 (74) 97 Nasal Cannula 4.00 04/03/17 16:00 96 Nasal Cannula 4.00 04/03/17 16:00 98.8 04/03/17 16:00 Nasal Cannula 4.00 04/03/17 15:00 Nasal Cannula 4.00 04/03/17 14:44 94 Nasal Cannula 4.00 04/03/17 14:00 Nasal Cannula 4.00 I & O 04/04/17 07:00 Intake Total 5700 ml Output Total 1200 ml Balance 4500 ml General Appearance: No Apparent Distress, WD/WN, Chronically ill, Obese HEENT: PERRL/EOMI, Normal ENT Inspection, Pharynx Normal Neck: Full Range of Motion, Normal Inspection, Non Tender, Supple, Carotid Bruit Respiratory: Chest Non Tender, No Accessory Muscle Use, No Respiratory Distress , Crackles, Decreased Breath Sounds, Wheezing Cardiovascular: Regular Rate, Rhythm, No Edema, No Gallop, No JVD, No Murmur, Normal Peripheral Pulses Capillary Refill: Less Than 3 Seconds Extremity: Normal Capillary Refill, Normal Inspection, Normal Range of Motion ( amputee), Non Tender, No Calf Tenderness, No Pedal Edema Neurologic/Psychiatric: Alert, Oriented x3, No Motor/Sensory Deficits, Normal Mood/Affect Skin: Normal Color, Warm/Dry Lymphatic: No Adenopathy Results Lab Laboratory Tests 04/03/17 04:55 04/04/17 04:30 Assessment/Plan Assessment/Plan Dyspnea - multifactorial Pneumonia with sepsis -change to vanco and zosyn Hypotension - - IVF bolus -solucortef started COPDAE -Check ABG - pt will probably benefit from vent to mask -SVNs Metabolic acidosis -Improving continue LA Morbid obesity CHF systolic/diastolic last EF 40-45% -cardiology following Acute renal failure with CKD stage II-III -monitor Tobacco dependance -education severe PAD and hx of R BKA secondary to hx of ischemic foot Hx of stent distal aorta 233 Clinical Quality Measures DVT/VTE Risk/Contraindication: Risk Factor Score Per Nursin RFS Level Per Nursing on Admit: 3=High NORA BAER DO Apr 04, 2017 13:40
[2017-04-04] MEDS ORDERED: PIPERACILLIN/TAZOBACTAM 4.5 GM/NS 100 ML IV NR ×2 (13:45)
[2017-04-04] MEDS ORDERED: PHARMACY TO DOSE IV SCH (13:45)
[2017-04-04] MEDS ORDERED: NS IV 500 ML 500 ML IV ONE (14:15)
[2017-04-04 14:37] LABS: BILIRUBIN,URINE NEGATIVE (NEGATIVE); KETONES,URINE NEGATIVE (NEGATIVE); LEUKOCYTE ESTERASE ,URINE 2+ (NEGATIVE); NITRITE,URINE NEGATIVE (NEGATIVE); PH,URINE 6 (5-9); PROTEIN,URINE 2+ (NEGATIVE); UROBILINOGEN,URINE NORMAL (NORMAL)
[2017-04-04 14:50] LABS: SQUAMOUS EPITHELIAL CELL,UR 0-2 /HPF
[2017-04-04] MEDS ORDERED: VANCOMYCIN 1,750 MG/NS 500 ML IVPB IV NR ×2 (15:00)
[2017-04-04] MEDS: ENOXAPARIN 40 MG/0.4 ML (LOVENOX) SYR SQ SCH (15:50)
[2017-04-04] MEDS ORDERED: NS IV 1000 ML 1,000 ML ONE (16:07)
[2017-04-04] MEDS ORDERED: LIDOCAINE 1% INJ 20 ML (XYLOCAINE) VIAL ONE (16:09)
[2017-04-04 16:10] LABS: LEGIONELLA PNEU ANTIGEN URINE Negative; STREP PNEUMOCOCCUS ANTIG Negative
--- NOTE | 2017-04-04 16:39 | Progress Note-Standard ---
Standard Progress Note Progress Notes/Assess & Plan Time Seen by Provider: 16:30 Final Diagnosis Consulted for a-line placement per Dr. Bhakta. Pts history obtained from Dr. Bhakta and RN. Consent signed after discussion with pt. A 22 gauge arterial catheter was placed to left radial artery x2 attempts. Ace well. Report to RN and Dr. Bhakta. YULISSA MINA CRNA Apr 04, 2017 16:39
[2017-04-04] MEDS: morphine INJ 4 MG/ML 1 ML (VIAL/SYRINGE) IV PRN ×2 (17:11→20:26)
--- NOTE | 2017-04-04 17:25 | Pulmonary Procedures ---
Pulmonary Procedures Date of Procedure Date of Service: Apr 04, 2017 Lumen: triple (US guided) Central Line Procedure: betadine prep, sterile drapes applied Position: internal jugular (R) Anesthesia: Lidocaine Volume Anesthetic (ccs): 5 Complications: none Post Position: sutured, good blood return, position confirmed w/ CXR NORA BAER DO Apr 04, 2017 17:25
[2017-04-04] MEDS ORDERED: NS IV 500 ML 500 ML IV SCH (17:45)
--- NOTE | 2017-04-04 17:51 | Diagnostic Imaging Report ---
INDICATION: Central line placement. FINDINGS: Right IJ catheter at the SVC. There is cardiomegaly with vascular congestion and pulmonary edema. No pneumothorax or small pleural effusions. IMPRESSION: Failure pattern with venous hypertension, edema, and small effusions. Central line at the SVC. No pneumothorax. Dictated by: Dictated on workstation # [id number]
[2017-04-04] MEDS ORDERED: NS (IVPB) 250 ML ONE (18:44)
[2017-04-04] MEDS ORDERED: NOREPINEPHRINE 4 MG/4 ML (LEVOPHED) AMP IV ONE (18:45)
[2017-04-04] MEDS: NOREPINEPHRINE 4 MG in NS (IVPB) 250 ML IV SCH (18:50)
[2017-04-04] MEDS: PIPERACILLIN SODIUM/TAZOBACTAM 4.5 GM in NS (IVPB) 100 ML IV SCH (20:26)
[2017-04-04] MEDS: ZOLPIDEM 5 MG (AMBIEN) TAB PO SCH (21:28)
[2017-04-05] VITALS (34 sets, daily range): BP systolic 67–111; BP diastolic 49–94
[2017-04-05] MEDS: RT-ALBUTEROL/IPRATROPIUM 3 ML (DUONEB) VIAL INH SCH ×6 (02:07→22:05)
[2017-04-05] MEDS: PIPERACILLIN SODIUM/TAZOBACTAM 4.5 GM in NS (IVPB) 100 ML IV SCH ×3 (03:20→19:35)
[2017-04-05] MEDS: LACTATED RINGERS 1,000 ML IV SCH ×3 (03:45→17:10)
[2017-04-05 04:13] LABS: BASOPHILS % (AUTO) 0 % (0-10); EOSINOPHILS % (AUTO) 0 % (0-10); LYMPHOCYTES # (AUTO) 0.7 X 10^3 (1.0-4.0); LYMPHOCYTES % (AUTO) 5 % (12-44); MEAN CORPUSCULAR HEMOGLOBIN 31 PG (25-34); MEAN CORPUSCULAR HGB CONC 32 G/DL (32-36); MEAN CORPUSCULAR VOLUME 97 FL (80-99); MEAN PLATELET VOLUME 10.2 FL (7.4-10.4); MONOCYTES # (AUTO) 0.8 X 10^3 (0.0-1.0); MONOCYTES % (AUTO) 6 % (0-12); NEUTROPHILS % (AUTO) 89 % (42-75); PLATELET COUNT 245 10^3/uL (130-400); RED BLOOD COUNT 3.79 10^6/uL (4.35-5.85); RED CELL DISTRIBUTION WIDTH 18.9 % (10.0-14.5); WHITE BLOOD COUNT 13.5 10^3/uL (4.3-11.0)
[2017-04-05 04:33] LABS: ALBUMIN 3.6 GM/DL (3.2-4.5); BILIRUBIN,TOTAL 1.1 MG/DL (0.1-1.0); CALCIUM 8.6 MG/DL (8.5-10.1); CREATININE SERUM 1.45 MG/DL (0.60-1.30); MAGNESIUM 1.9 MG/DL (1.8-2.4); PHOSPHORUS 3.7 MG/DL (2.3-4.7); POTASSIUM 4.1 MMOL/L (3.6-5.0); TOTAL PROTEIN 6.1 GM/DL (6.4-8.2)
[2017-04-05] MEDS: POTASSIUM CL 10MEQ/50ML IVPB 50 ML IV SCH (04:42)
[2017-04-05] MEDS: MAGNESIUM 1 GM/100 ML IVPB 100 ML IV SCH (04:42)
[2017-04-05] MEDS: KCL 20 MEQ TAB (K-DUR) PO SCH ×2 (04:42→08:33)
[2017-04-05] MEDS: inSUlin (REGULAR) HUMAN 1 UNIT/0.01 ML (CHARGE PER UNIT) SC SCH ×4 (04:43→20:46)
[2017-04-05] MEDS: HYDROCORTISONE 100 MG/2 ML (Solu-CORTEF) VIAL IV SCH (05:42)
[2017-04-05 06:34] LABS: PROCALCITON 0.21 ng/mL (<=0.10)
[2017-04-05] MEDS: UMECLIDINIUM BROMIDE (INCRUSE ELLIPTA) 7'S IH SCH (06:54)
--- NOTE | 2017-04-05 07:06 | Pulmonary Progress Note ---
Subjective Time Seen by Provider: 07:13 Subjective/Events-last exam No complications noted. Exam Exam Vital Signs Date Time Temp Pulse Resp B/P (MAP) Pulse Ox O2 Delivery O2 Flow Rate FiO2 04/05/17 06:57 98 Nasal Cannula 4.00 04/05/17 06:54 98 Nasal Cannula 4.00 04/05/17 06:00 85 21 97/77 (84) 98 Nasal Cannula 4.00 04/05/17 05:00 88 14 100/80 (87) 97 Nasal Cannula 4.00 04/05/17 04:20 97 Nasal Cannula 4.00 04/05/17 04:00 99 14 98/76 (83) 97 Nasal Cannula 4.00 04/05/17 03:15 98.0 102 103/80 (88) 04/05/17 03:00 105 15 97/79 (85) 96 Nasal Cannula 4.00 04/05/17 02:08 97 Nasal Cannula 4.00 04/05/17 02:00 101 14 96/75 (82) 97 Nasal Cannula 4.00 04/05/17 01:00 106 15 97/82 (87) 96 Nasal Cannula 4.00 04/05/17 01:00 105 04/05/17 00:00 109 16 91/79 (83) 96 Nasal Cannula 4.00 04/04/17 23:45 97 Nasal Cannula 4.00 04/04/17 23:45 97.1 112 22 102/75 (84) 97 Nasal Cannula 4.00 04/04/17 23:00 112 20 99/77 (84) 97 Nasal Cannula 4.00 04/04/17 22:00 109 14 92/72 (79) 96 Nasal Cannula 4.00 04/04/17 21:36 96 Nasal Cannula 3.50 04/04/17 21:00 112 20 91/72 (78) 95 Nasal Cannula 4.00 04/04/17 20:00 96 Nasal Cannula 4.00 04/04/17 20:00 115 19 84/67 (73) 94 Nasal Cannula 4.00 04/04/17 19:19 92 Nasal Cannula 3.50 04/04/17 19:00 108 04/04/17 19:00 108 20 93/79 (84) 96 Nasal Cannula 4.00 04/04/17 19:00 98.2 04/04/17 18:24 89/51 (64) 04/04/17 18:00 106 20 64/53 (57) 95 Nasal Cannula 4.00 04/04/17 17:55 105 83/66 (72) 04/04/17 17:53 104 04/04/17 17:00 112 21 73/50 (58) 96 Nasal Cannula 4.00 04/04/17 16:00 105 22 97/54 (68) 95 Nasal Cannula 4.00 04/04/17 16:00 95 Nasal Cannula 4.00 04/04/17 15:51 104 97/54 (68) 04/04/17 15:24 88/50 (63) 04/04/17 15:00 105 18 71/58 (62) 94 Nasal Cannula 4.00 04/04/17 14:30 95 Nasal Cannula 4.00 04/04/17 14:30 91 Nasal Cannula 4.00 04/04/17 14:23 99 20 80/51 (61) 96 Nasal Cannula 4.00 04/04/17 14:05 98.7 103 16 84/53 (63) 97 Nasal Cannula 4.00 04/04/17 13:00 108 04/04/17 13:00 108 20 69/56 (60) 95 Nasal Cannula 4.00 04/04/17 12:00 108 19 92/83 (86) 93 Nasal Cannula 4.00 04/04/17 12:00 97.4 Nasal Cannula 4.00 04/04/17 10:21 96 Nasal Cannula 4.00 04/04/17 10:20 96 Nasal Cannula 4.00 04/04/17 10:00 107 16 72/40 (51) 97 Nasal Cannula 4.00 04/04/17 09:00 103 14 107/78 (88) 91 Nasal Cannula 4.00 04/04/17 08:30 96.9 Nasal Cannula 4.00 04/04/17 08:30 Nasal Cannula 4.00 04/04/17 08:00 95 25 84/57 (66) 94 Nasal Cannula 4.00 I & O 04/05/17 07:00 Intake Total 6394.5 ml Output Total 890 ml Balance 5504.5 ml General Appearance: No Apparent Distress, WD/WN, Chronically ill, Obese HEENT: PERRL/EOMI, Normal ENT Inspection, Pharynx Normal Neck: Full Range of Motion, Normal Inspection, Non Tender, Supple, Carotid Bruit Respiratory: Chest Non Tender, No Accessory Muscle Use, No Respiratory Distress , Crackles, Decreased Breath Sounds, Wheezing Cardiovascular: Regular Rate, Rhythm, No Edema, No Gallop, No JVD, No Murmur, Normal Peripheral Pulses Capillary Refill: Less Than 3 Seconds Extremity: Normal Capillary Refill, Normal Inspection, Normal Range of Motion ( amputee), Non Tender, No Calf Tenderness, No Pedal Edema Neurologic/Psychiatric: Alert, Oriented x3, No Motor/Sensory Deficits, Normal Mood/Affect Skin: Normal Color, Warm/Dry Lymphatic: No Adenopathy Results Lab Laboratory Tests 04/04/17 04:30 04/05/17 03:55 Assessment/Plan Assessment/Plan Dyspnea - multifactorial Pneumonia with sepsis Hypotension - improved -Continue to monitor COPDAE -noninvasive ventilation -SVNs Metabolic acidosis -Improving continue LA Morbid obesity CHF systolic/diastolic last EF 40-45% -cardiology following Acute renal failure with CKD stage II-III -monitor Tobacco dependance -education severe PAD and hx of R BKA secondary to hx of ischemic foot Hx of stent distal aorta 233 Clinical Quality Measures DVT/VTE Risk/Contraindication: Risk Factor Score Per Nursin RFS Level Per Nursing on Admit: 3=High NORA BAER DO Apr 05, 2017 07:06
--- NOTE | 2017-04-05 08:27 | Diagnostic Imaging Report ---
EXAMINATION: Portable upright radiograph of the chest. INDICATION: Dyspnea. FINDINGS: The heart is moderately enlarged with pulmonary vascular congestion. There is right perihilar and basilar infiltrates or atelectasis. Small bilateral effusions are suggested. No pneumothorax. Right IJ line is again noted. IMPRESSION: Interstitial pulmonary edema. Right perihilar and basilar mild opacities are likely atelectasis. Dictated by: Dictated on workstation # [id number]
[2017-04-05] MEDS: BENZONATATE 100 MG (TESSALON) CAPSULE PO SCH ×3 (08:34→21:04)
[2017-04-05] MEDS: ASPIRIN 81 MG CHEW (CHILDREN'S ASA) PO SCH (08:34)
--- NOTE | 2017-04-05 09:14 | Progress Note-Cardiology ---
Cardiology SOAP Progress Note Subjective: She does not report cp or palp or syncope. Reports some improvement of shortness of breath. Transferred to ICU status yesterday for low bp requiring pressor support; now off pressors Objective: I&O/Vital Signs Vital Sign - Last 12Hours 04/04/17 04/04/17 04/04/17 04/04/17 21:36 22:00 23:00 23:45 Temp 97.1 Pulse 109 112 112 Resp 14 20 22 B/P (MAP) 92/72 (79) 99/77 (84) 102/75 (84) Pulse Ox 96 96 97 97 O2 Delivery Nasal Cannula Nasal Cannula Nasal Cannula Nasal Cannula O2 Flow Rate 3.50 4.00 4.00 4.00 04/04/17 04/05/17 04/05/17 04/05/17 23:45 00:00 01:00 01:00 Pulse 109 105 106 Resp 16 15 B/P (MAP) 91/79 (83) 97/82 (87) Pulse Ox 97 96 96 O2 Delivery Nasal Cannula Nasal Cannula Nasal Cannula O2 Flow Rate 4.00 4.00 4.00 04/05/17 04/05/17 04/05/17 04/05/17 02:00 02:08 03:00 03:15 Temp 98.0 Pulse 101 105 102 Resp 14 15 B/P (MAP) 96/75 (82) 97/79 (85) 103/80 (88) Pulse Ox 97 97 96 O2 Delivery Nasal Cannula Nasal Cannula Nasal Cannula O2 Flow Rate 4.00 4.00 4.00 04/05/17 04/05/17 04/05/17 04/05/17 04:00 04:20 05:00 06:00 Pulse 99 88 85 Resp 14 14 21 B/P (MAP) 98/76 (83) 100/80 (87) 97/77 (84) Pulse Ox 97 97 97 98 O2 Delivery Nasal Cannula Nasal Cannula Nasal Cannula Nasal Cannula O2 Flow Rate 4.00 4.00 4.00 4.00 04/05/17 04/05/17 04/05/17 04/05/17 06:54 06:57 07:00 07:00 Pulse 103 83 Resp 26 B/P (MAP) 96/72 (80) Pulse Ox 98 98 97 O2 Delivery Nasal Cannula Nasal Cannula Nasal Cannula O2 Flow Rate 4.00 4.00 4.00 04/05/17 04/05/17 04/05/17 04/05/17 07:34 07:35 07:35 08:00 Temp 97.2 Pulse 101 101 101 97 Resp 20 12 B/P (MAP) 106/81 (89) 106/80 (89) 101/75 (84) Pulse Ox 98 97 O2 Delivery Nasal Cannula Nasal Cannula O2 Flow Rate 4.00 4.00 04/05/17 08:30 Pulse Ox 97 O2 Delivery Nasal Cannula O2 Flow Rate 4.00 Intake and Output 04/05/17 00:00 Intake Total 4619.5 ml Output Total 475 ml Balance 4144.5 ml Weight (Pounds): 212 Weight (Ounces): 0.0 Weight (Calculated Kilograms): 96.717450 Constitutional: AAO x 3 Respiratory: wheezing (scattered), other (diminished lower lobes bilat) Cardiovascular: regular rate-rhythm, tachycardia, systolic murmur Gastrointestional: No tender, soft, round, audible bowel sounds Extremities: other (mild LLE edema; R AKA) Neurologic/Psychiatric: grossly intact Skin: normal color, warm/dry, No rash, No ulcerations Results/Procedures: Labs Laboratory Tests 04/04/17 11:17: Glucometer 170H 04/04/17 14:21: Urine Color YELLOW, Urine Clarity SLIGHTLY CLOUDY, Urine pH 6, Urine Specific [place] 1.015L, Urine Protein 2+H, Urine Glucose (UA) NEGATIVE, Urine Ketones NEGATIVE, Urine Nitrite NEGATIVE, Urine Bilirubin NEGATIVE, Urine Urobilinogen NORMAL, Urine Leukocyte Esterase 2+H, Urine RBC (Auto) 3+H, Urine RBC 2-5H, Urine WBC 2-5, Urine Squamous Epithelial Cells 0-2, Urine Crystals NONE, Urine Bacteria NEGATIVE, Urine Casts NONE, Urine Mucus NEGATIVE, Urine Culture Indicated NO 04/04/17 14:25: Lactic Acid Level 2.24*H 04/04/17 16:00: Glucometer 141H 04/04/17 16:40: Lactic Acid Level 5.49*H 04/04/17 21:25: Glucometer 222H 04/05/17 03:55: White Blood Count 13.5H, Red Blood Count 3.79L, Hemoglobin 11.7, Hematocrit 37, Mean Corpuscular Volume 97, Mean Corpuscular Hemoglobin 31, Mean Corpuscular Hemoglobin Concent 32, Red Cell Distribution Width 18.9H, Platelet Count 245, Mean Platelet Volume 10.2, Neutrophils (%) (Auto) 89H, Lymphocytes (%) (Auto) 5L , Monocytes (%) (Auto) 6, Eosinophils (%) (Auto) 0, Basophils (%) (Auto) 0, Neutrophils # (Auto) 12.0H, Lymphocytes # (Auto) 0.7L, Monocytes # (Auto) 0.8, Eosinophils # (Auto) 0.0, Basophils # (Auto) 0.0, Sodium Level 132L, Potassium Level 4.1, Chloride Level 100, Carbon Dioxide Level 20L, Anion Gap 12, Blood Urea Nitrogen 29H, Creatinine 1.45H, Estimat Glomerular Filtration Rate 37, BUN/ Creatinine Ratio 20, Glucose Level 128H, Calcium Level 8.6, Phosphorus Level 3.7 , Magnesium Level 1.9, Total Bilirubin 1.1H, Aspartate Amino Transf (AST/SGOT) 36H, Alanine Aminotransferase (ALT/SGPT) 55, Alkaline Phosphatase 84, Total Protein 6.1L, Albumin 3.6 04/05/17 04:55: Lactic Acid Level 0.95 Microbiology 04/02/17 Blood Culture - Preliminary, Resulted No growth 04/02/17 Influenza Types A,B Antigen (LISA) - Final, Complete Laboratory Tests 04/04/17 04:30 04/05/17 03:55 A/P: Assessment: Dyspnea, likely multifactorial (see below) Septic shock - management per Med/Pulm/ICU services Pneumonia with septicemia Dilated cardiomyopathy of undetermined etiology and chronic systolic and diastolic CHF Acute exacerbation of COPD Supplemental oxygen dependent at home (4L/NC per pt) Echo of 04/02/17: LVEF approx 30%, mod to mod-sev MR Acute on chronic renal failure - CKD stage III, better today Hypokalemia r/t chronic diuretic use - replace Tobaccoism - cessation advised 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 Barker on 12-03-12 Severe PAD for which she has had stenting to the iliac and femoral artery per Dr. Barker and Dr. Mcallister at [facility]. 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 Paez Plan: * Very complex management due to multiple active comorbidities (see above) * Cardiac management compromised by continual hypotension * Focus currently is on management of septic shock * Monitor labs closely * I spoke with her this morning and answered her questions LUIS M BROOKS MD FACP FAC CCDS Apr 05, 2017 09:14
[2017-04-05] MEDS: NOREPINEPHRINE 4 MG in NS (IVPB) 250 ML IV SCH ×2 (10:52→22:08)
--- NOTE | 2017-04-05 11:24 | Progress Note-Hospitalist ---
Progress Note HPI/CC on Admission CC: Shortness of breath w/septic shock with pneumonia HPI: This is a 61-year-old white female clinic patient of [facility] with a past medical history of oxygen dependent COPD on 4 L 24/7 who presents to the emergency room with complaints of worsening shortness of breath over the last few days. She denied any fever but it worsened to the point that she can no longer go on. She was found to be in acute respiratory failure responded to nebulizer treatments but fluid overload precluded the high volume fluid resuscitation for septic shock that she was classified as having after her blood pressure decreased to the [address] Bhakta and Dr. Cruz were both consulted on the case and patient was monitored closely in the ICU while empiric antibiotics given along with fluids and oxygen supplementation. Progress Notes/Assess & Plan Date Seen 04/05/17 Time Seen by Provider: 10:30 Admission Dx/Process Respiratory failure with septic shock Diagonsis/Assessment & Plan Patient doing well except for hypotension that continues and required Levophed on/off last night No response to the Hydrocortisone so defintely not adrenal crisis Denies any significant pain issues currently Checked meds and labs Pt continues to decline despite our best efforts so prognosis is guarded No fever, hypotension noted, improved overall Tachycardic at 92 bpm Diminished breath sounds in the bases but very subtle wheezing noted No edema and normal range of motion Laboratory Tests 04/05/17 03:55 Assessment: Septic shock requiring high volume fluid resuscitation but volume overload and pulmonary congestion on chest x-ray on admit but continues to be hypotensive so placing back on Levophed Severe COPD oxygen dependent at home on 4 L 24/7 Hyponatremia Hypokalemia Acute on chronic renal failure Leukocytosis Anemia of chronic illness Plan: ICU maintained due to hypotension Monitor closely IVF along with fluid overload precautions Home meds Monitor creatinine Prognosis becomes more poor each passing day Diagnosis/Problems Diagnosis/Problems (1) Septic shock Status: Acute Assessment & Plan: 04/03/17: IVF 04/04/17: Add Hydrocortisone empirically since I suspect Adrenal insufficiency (2) RESPIRATORY FAILURE, UNSP, UNSP W HYPOXIA OR HYPERCAPNIA Status: Acute Assessment & Plan: O2, Nebs, BiPAP (3) Acute renal failure Status: Acute Assessment & Plan: 04/04/17: Improved on IVF Qualifiers: Qualified Codes: N17.9 - Acute kidney failure, unspecified (4) Hypokalemia Status: Acute Assessment & Plan: Replacing (5) Pneumonia Status: Acute Qualifiers: Qualified Codes: J18.9 - Pneumonia, unspecified organism (6) COPD exacerbation Status: Acute Assessment & Plan: Nebs, O2 HERMELINDA WALSH DO Apr 05, 2017 11:24
[2017-04-05] MEDS: morphine INJ 4 MG/ML 1 ML (VIAL/SYRINGE) IV PRN ×3 (13:34→23:46)
[2017-04-05] MEDS ORDERED: VANCOMYCIN 1250 MG/NS 250 ML IVPB IV SCH ×2 (15:00)
[2017-04-05] MEDS: ENOXAPARIN 40 MG/0.4 ML (LOVENOX) SYR SQ SCH (16:20)
[2017-04-05] MEDS ORDERED: FUROSEMIDE 40 MG/4 ML INJ (LASIX) ONE (18:57)
[2017-04-05] MEDS ORDERED: FUROSEMIDE 40 MG/4 ML INJ (LASIX) IV NR (19:15)
--- NOTE | 2017-04-05 19:37 | Diagnostic Imaging Report ---
INDICATION: Shortness of breath. COMPARISON: 04/05/2017. EXAMINATION: Single view of the chest was obtained. FINDINGS: Cardiac enlargement with increasing bilateral pulmonary infiltrates. There are new effusions. No pneumothorax is seen. Central venous catheter on the right is stable. IMPRESSION: 1. Cardiac enlargement with increasing interstitial infiltrates. This may represent CHF versus pneumonia. 2. New trace effusions. Dictated by: Dictated on workstation # [id number]
[2017-04-05] MEDS: ZOLPIDEM 5 MG (AMBIEN) TAB PO SCH (21:02)
[2017-04-06] VITALS (22 sets, daily range): BP systolic 84–112; BP diastolic 65–93
[2017-04-06] MEDS: RT-ALBUTEROL/IPRATROPIUM 3 ML (DUONEB) VIAL INH SCH ×6 (02:26→21:16)
[2017-04-06] MEDS: morphine INJ 4 MG/ML 1 ML (VIAL/SYRINGE) IV PRN ×4 (03:41→18:54)
[2017-04-06] MEDS: PIPERACILLIN SODIUM/TAZOBACTAM 4.5 GM in NS (IVPB) 100 ML IV SCH ×3 (03:41→19:48)
[2017-04-06 04:36] LABS: BASOPHILS % (AUTO) 0 % (0-10); EOSINOPHILS % (AUTO) 0 % (0-10); LYMPHOCYTES # (AUTO) 2.8 X 10^3 (1.0-4.0); LYMPHOCYTES % (AUTO) 16 % (12-44); MEAN CORPUSCULAR HEMOGLOBIN 31 PG (25-34); MEAN CORPUSCULAR HGB CONC 32 G/DL (32-36); MEAN CORPUSCULAR VOLUME 96 FL (80-99); MONOCYTES # (AUTO) 1.7 X 10^3 (0.0-1.0); MONOCYTES % (AUTO) 9 % (0-12); NEUTROPHILS % (AUTO) 74 % (42-75); PLATELET COUNT 346 10^3/uL (130-400); RED BLOOD COUNT 4.08 10^6/uL (4.35-5.85); RED CELL DISTRIBUTION WIDTH 19.1 % (10.0-14.5); WHITE BLOOD COUNT 17.5 10^3/uL (4.3-11.0)
[2017-04-06 05:03] LABS: ALBUMIN 3.7 GM/DL (3.2-4.5); BILIRUBIN,TOTAL 1.8 MG/DL (0.1-1.0); CALCIUM 9.1 MG/DL (8.5-10.1); CREATININE SERUM 1.62 MG/DL (0.60-1.30); MAGNESIUM 1.9 MG/DL (1.8-2.4); POTASSIUM 4.2 MMOL/L (3.6-5.0); TOTAL PROTEIN 6.4 GM/DL (6.4-8.2)
[2017-04-06] MEDS: POTASSIUM CL 10MEQ/50ML IVPB 50 ML IV SCH (05:08)
[2017-04-06] MEDS: MAGNESIUM 1 GM/100 ML IVPB 100 ML IV SCH (05:08)
[2017-04-06] MEDS: KCL 20 MEQ TAB (K-DUR) PO SCH ×3 (05:09→08:03)
[2017-04-06] MEDS: inSUlin (REGULAR) HUMAN 1 UNIT/0.01 ML (CHARGE PER UNIT) SC SCH ×4 (05:09→21:06)
[2017-04-06] MEDS: NOREPINEPHRINE 4 MG in NS (IVPB) 250 ML IV SCH (05:37)
[2017-04-06] MEDS: UMECLIDINIUM BROMIDE (INCRUSE ELLIPTA) 7'S IH SCH (06:44)
[2017-04-06] MEDS: guaiFENesin/CODEINE (ROBITUSSIN AC) 10ML UDC PO PRN ×2 (08:01→17:39)
[2017-04-06] MEDS: BENZONATATE 100 MG (TESSALON) CAPSULE PO SCH ×3 (08:02→21:05)
[2017-04-06] MEDS: ASPIRIN 81 MG CHEW (CHILDREN'S ASA) PO SCH (08:02)
--- NOTE | 2017-04-06 09:34 | Diagnostic Imaging Report ---
Clinical indication: Patient with COPD and hypokalemia, acute renal failure. Exam: Portable chest x-ray, upright view. Comparison: Portable chest x-ray upright view dated 04/05/2017. Findings: Again seen is a right IJ central line with tip in the mid superior vena cava. There is interval improved aeration of both lungs. There is mild airspace opacity in the right perihilar and right midlung field region. There is stable elevation of the right hemidiaphragm. There is stable cardiomegaly with no significant pulmonary vascular congestion. The remainder of this exam shows no significant interval change compared to the prior study of comparison. Impression: 1: There is interval improved aeration of both lungs with resolution of the left lung infiltrates and near resolution of the right lung infiltrates. There is mild right perihilar/right mid lung base infiltrate remaining. 2: Stable cardiomegaly with no significant pulmonary vascular congestion. 3: Stable elevation of the right hemidiaphragm. Dictated by: Dictated on workstation # [id number]
--- NOTE | 2017-04-06 13:29 | Progress Note-Cardiology ---
Cardiology SOAP Progress Note Subjective: Notes gen malaise and weakness Denies cp or palp or syncope Shortness of breath at usual baseline Objective: I&O/Vital Signs Vital Sign - Last 12Hours 04/06/17 04/06/17 04/06/17 04/06/17 02:02 02:26 03:13 03:40 Temp 97.1 Pulse 101 105 Resp 24 21 B/P (MAP) 108/93 (98) 108/83 (91) Pulse Ox 96 97 95 O2 Delivery Nasal Cannula Nasal Cannula Nasal Cannula O2 Flow Rate 4.00 4.00 4.00 04/06/17 04/06/17 04/06/17 04/06/17 04:00 05:05 06:00 06:44 Pulse 107 108 Resp 19 13 B/P (MAP) 101/87 (92) 100/81 (87) Pulse Ox 95 97 95 96 O2 Delivery Nasal Cannula Nasal Cannula Nasal Cannula Nasal Cannula O2 Flow Rate 4.00 4.00 4.00 4.00 04/06/17 04/06/17 04/06/17 04/06/17 06:53 07:00 08:00 08:00 Temp 97.5 Pulse 106 110 Resp 18 B/P (MAP) 107/86 (93) Pulse Ox 97 95 O2 Delivery Nasal Cannula Nasal Cannula Nasal Cannula O2 Flow Rate 4.00 4.00 4.00 04/06/17 04/06/17 04/06/17 04/06/17 08:00 09:00 10:51 12:00 Temp 97.0 Pulse 110 103 Resp 15 11 B/P (MAP) 100/80 (87) 98/65 (76) Pulse Ox 98 96 98 O2 Delivery Nasal Cannula Nasal Cannula Nasal Cannula Nasal Cannula O2 Flow Rate 4.00 4.00 4.00 4.00 04/06/17 12:00 Pulse Ox 95 O2 Delivery Nasal Cannula O2 Flow Rate 4.00 Intake and Output 04/06/17 00:00 Intake Total 2641.5 ml Output Total 2125 ml Balance 516.5 ml Weight (Pounds): 215 Weight (Ounces): 0.3 Weight (Calculated Kilograms): 97.626755 Constitutional: AAO x 3 Respiratory: wheezing (scattered), other (diminished lower lobes bilat) Cardiovascular: regular rate-rhythm, tachycardia, systolic murmur Gastrointestional: No tender, soft, round, audible bowel sounds Extremities: other (mild LLE edema; R AKA) Neurologic/Psychiatric: grossly intact Skin: normal color, warm/dry, No rash, No ulcerations Results/Procedures: Labs Laboratory Tests 04/05/17 16:32: Glucometer 180H 04/05/17 19:12: Lactic Acid Level 1.50 04/05/17 20:31: Glucometer 135H 04/06/17 04:25: White Blood Count 17.5H, Red Blood Count 4.08L, Hemoglobin 12.6, Hematocrit 39, Mean Corpuscular Volume 96, Mean Corpuscular Hemoglobin 31, Mean Corpuscular Hemoglobin Concent 32, Red Cell Distribution Width 19.1H, Platelet Count 346, Mean Platelet Volume 10.0, Neutrophils (%) (Auto) 74, Lymphocytes (%) (Auto) 16 , Monocytes (%) (Auto) 9, Eosinophils (%) (Auto) 0, Basophils (%) (Auto) 0, Neutrophils # (Auto) 13.0H, Lymphocytes # (Auto) 2.8, Monocytes # (Auto) 1.7H, Eosinophils # (Auto) 0.0, Basophils # (Auto) 0.0, Sodium Level 137, Potassium Level 4.2, Chloride Level 102, Carbon Dioxide Level 20L, Anion Gap 15H, Blood Urea Nitrogen 30H, Creatinine 1.62H, Estimat Glomerular Filtration Rate 32, BUN/ Creatinine Ratio 19, Glucose Level 120H, Calcium Level 9.1, Phosphorus Level 4.0 , Magnesium Level 1.9, Total Bilirubin 1.8H, Aspartate Amino Transf (AST/SGOT) 34, Alanine Aminotransferase (ALT/SGPT) 56H, Alkaline Phosphatase 84, Total Protein 6.4, Albumin 3.7 04/06/17 11:17: Glucometer 141H Microbiology 04/04/17 Blood Culture - Preliminary, Resulted No growth 04/02/17 Influenza Types A,B Antigen (LISA) - Final, Complete Laboratory Tests 04/05/17 03:55 04/06/17 04:25 A/P: Assessment: Dyspnea, likely multifactorial (see below) Septic shock - management per Med/Pulm/ICU services Pneumonia with septicemia Dilated cardiomyopathy of undetermined etiology and chronic systolic and diastolic CHF Acute exacerbation of COPD Supplemental oxygen dependent at home (4L/NC per pt) Echo of 04/02/17: LVEF approx 30%, mod to mod-sev MR Acute on chronic renal failure - CKD stage III, better today Hypokalemia r/t chronic diuretic use - replace Tobaccoism - cessation advised 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 Barker on 12-03-12 Severe PAD for which she has had stenting to the iliac and femoral artery per Dr. Barker and Dr. Mcallister at [facility]. 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 Paez Plan: * Very complex management due to multiple active comorbidities (see above) * Cardiac management compromised by continual hypotension * Focus currently is on management of septic shock * Monitor labs closely * I spoke with her this morning and answered her questions LUIS M BROOKS MD FACP FAC CCDS Apr 06, 2017 13:29
[2017-04-06] MEDS ORDERED: TROUGH ORDER-PHARMACY XX NR (14:00)
[2017-04-06] MEDS: ENOXAPARIN 40 MG/0.4 ML (LOVENOX) SYR SQ SCH (16:00)
[2017-04-06] MEDS: ZOLPIDEM 5 MG (AMBIEN) TAB PO SCH (21:06)
[2017-04-07] VITALS (30 sets, daily range): BP systolic 87–118; BP diastolic 58–85
[2017-04-07] MEDS: guaiFENesin/CODEINE (ROBITUSSIN AC) 10ML UDC PO PRN (02:01)
[2017-04-07] MEDS: RT-ALBUTEROL/IPRATROPIUM 3 ML (DUONEB) VIAL INH SCH ×6 (02:19→22:17)
[2017-04-07] MEDS: PIPERACILLIN SODIUM/TAZOBACTAM 4.5 GM in NS (IVPB) 100 ML IV SCH ×3 (03:22→20:35)
[2017-04-07 05:13] LABS: BASOPHILS % (AUTO) 0 % (0-10); EOSINOPHILS # (AUTO) 0.1 10^3/uL (0.0-0.3); EOSINOPHILS % (AUTO) 1 % (0-10); LYMPHOCYTES # (AUTO) 0.7 X 10^3 (1.0-4.0); LYMPHOCYTES % (AUTO) 5 % (12-44); MEAN CORPUSCULAR HEMOGLOBIN 31 PG (25-34); MEAN CORPUSCULAR HGB CONC 32 G/DL (32-36); MEAN CORPUSCULAR VOLUME 96 FL (80-99); MEAN PLATELET VOLUME 9.9 FL (7.4-10.4); MONOCYTES # (AUTO) 0.7 X 10^3 (0.0-1.0); MONOCYTES % (AUTO) 5 % (0-12); NEUTROPHILS # (AUTO) 12.1 X 10^3 (1.8-7.8); NEUTROPHILS % (AUTO) 89 % (42-75); PLATELET COUNT 177 10^3/uL (130-400); RED BLOOD COUNT 3.84 10^6/uL (4.35-5.85); RED CELL DISTRIBUTION WIDTH 18.9 % (10.0-14.5); WHITE BLOOD COUNT 13.6 10^3/uL (4.3-11.0)
[2017-04-07 05:39] LABS: ALBUMIN 3.3 GM/DL (3.2-4.5); BILIRUBIN,TOTAL 1.8 MG/DL (0.1-1.0); CALCIUM 8.7 MG/DL (8.5-10.1); CREATININE SERUM 1.55 MG/DL (0.60-1.30); MAGNESIUM 1.7 MG/DL (1.8-2.4); PHOSPHORUS 3.3 MG/DL (2.3-4.7); POTASSIUM 3.9 MMOL/L (3.6-5.0); TOTAL PROTEIN 5.7 GM/DL (6.4-8.2)
[2017-04-07] MEDS: inSUlin (REGULAR) HUMAN 1 UNIT/0.01 ML (CHARGE PER UNIT) SC SCH ×4 (05:47→22:29)
[2017-04-07] MEDS: POTASSIUM CL 10MEQ/50ML IVPB 50 ML IV SCH (05:47)
[2017-04-07] MEDS: MAGNESIUM 1 GM/100 ML IVPB 100 ML IV SCH ×3 (05:47→07:01)
[2017-04-07] MEDS: morphine INJ 4 MG/ML 1 ML (VIAL/SYRINGE) IV PRN ×5 (07:02→22:29)
[2017-04-07] MEDS: UMECLIDINIUM BROMIDE (INCRUSE ELLIPTA) 7'S IH SCH (07:03)
[2017-04-07] MEDS: ASPIRIN 81 MG CHEW (CHILDREN'S ASA) PO SCH (08:04)
[2017-04-07] MEDS: VANCOMYCIN 750 MG/NS 250 ML IVPB IV SCH ×2 (08:04)
[2017-04-07] MEDS: BENZONATATE 100 MG (TESSALON) CAPSULE PO SCH ×3 (08:05→20:35)
[2017-04-07] MEDS: KCL 20 MEQ TAB (K-DUR) PO SCH (08:08)
--- NOTE | 2017-04-07 09:27 | Progress Note (SOAP) ---
Subjective Subjective/Events-last exam Pt states she is improved today. States that her BP has always run low and this is nothing new to her. Still very SOB when she moves around the bed. Review of Systems Date Seen by Provider: Apr 06, 2017 Time Seen by Provider: 09:00 Pulmonary: Dyspnea, Cough Cardiovascular: No: Chest Pain Objective Exam Last Set of Vital Signs Vital Signs Date Time Temp Pulse Resp B/P (MAP) Pulse Ox O2 Delivery O2 Flow Rate FiO2 04/07/17 08:15 90 Nasal Cannula 4.00 04/07/17 07:46 98.4 105 21 99/77 (84) 04/05/17 19:45 30 Capillary Refill : Less Than 3 Seconds I&O Intake and Output 04/07/17 00:00 Intake Total 1825 ml Output Total 2725 ml Balance -900 ml Intake Oral 1825 ml Output Urine Total 2725 ml General: Alert, Oriented X3, Moderate Distress Lungs: Other (wheezing bilaterally, increased effort) Heart: Regular Rate, Normal S1, Normal S2, No Murmurs, Gallops, Rubs Abdomen: Normal Bowel Sounds, Soft, No Tenderness, No Hepatosplenomegaly, No Masses Extremities: No Clubbing, No Cyanosis, Other (3+ edema) Skin: No Rashes, No Breakdown, No Significant Lesion Psych/Mental Status: Mental Status NL, Mood NL Results/Procedures Lab Laboratory Tests 04/06/17 11:17: Glucometer 141H 04/06/17 14:14: Vancomycin Level Trough 23.5H 04/06/17 16:08: Glucometer 161H 04/06/17 21:05: Glucometer 112H 04/07/17 04:30: White Blood Count 13.6H, Red Blood Count 3.84L, Hemoglobin 11.8, Hematocrit 37, Mean Corpuscular Volume 96, Mean Corpuscular Hemoglobin 31, Mean Corpuscular Hemoglobin Concent 32, Red Cell Distribution Width 18.9H, Platelet Count 177, Mean Platelet Volume 9.9, Neutrophils (%) (Auto) 89H, Lymphocytes (%) (Auto) 5L , Monocytes (%) (Auto) 5, Eosinophils (%) (Auto) 1, Basophils (%) (Auto) 0, Neutrophils # (Auto) 12.1H, Lymphocytes # (Auto) 0.7L, Monocytes # (Auto) 0.7, Eosinophils # (Auto) 0.1, Basophils # (Auto) 0.0, Sodium Level 135, Potassium Level 3.9, Chloride Level 102, Carbon Dioxide Level 19L, Anion Gap 14, Blood Urea Nitrogen 29H, Creatinine 1.55H, Estimat Glomerular Filtration Rate 34, BUN/ Creatinine Ratio 19, Glucose Level 110H, Calcium Level 8.7, Phosphorus Level 3.3 , Magnesium Level 1.7L, Total Bilirubin 1.8H, Aspartate Amino Transf (AST/SGOT) 25, Alanine Aminotransferase (ALT/SGPT) 46, Alkaline Phosphatase 69, Total Protein 5.7L, Albumin 3.3 Microbiology 04/04/17 Blood Culture - Preliminary, Resulted No growth 04/02/17 Influenza Types A,B Antigen (LISA) - Final, Complete Radiology NAME: ONIEL DESIR [facility] REC#: [id number] PT STATUS: REG ER : 1955 PHYSICIAN: SHANA PHOENIX MD ADMIT DATE: 04/02/17/ER Draft Date of Exam:04/02/17 CHEST 1 VIEW, AP/PA ONLY INDICATION: Shortness of breath. TECHNIQUE: PA and lateral chest. FINDINGS: The heart is mildly enlarged. The pulmonary vascularity is at the upper limits of normal. There are no infiltrates, effusions, or pneumothoraces. IMPRESSION: Mild cardiomegaly without evidence of pulmonary venous hypertension. Dictated on workstation # [id number] Dict: 04/02/17 1246 Trans: 04/02/17 1248 [id number] Interpreted by: SHANA RIOS MD Electronically signed by: Assessment/Plan Assessment/Plan Plan Septic shock 04/06 - Resolved Severe COPD oxygen dependent at home on 4 L 05/11 04/06 - still very SOB on the oxygen so we are goign to keep her in the unit. HYPOTENSION 04/06 - pt was again hypotensive to the 80-90s, so started levophed again this am. Hyponatremia 04/06 - Resolved Hypokalemia 04/06 - Replace per protocol Acute on chronic renal failure 04/06 - Improved Leukocytosis 04/06 - improved Anemia of chronic illness 04/06 - stable (1) Septic shock Status: Acute (2) RESPIRATORY FAILURE, UNSP, UNSP W HYPOXIA OR HYPERCAPNIA Status: Acute (3) Acute renal failure Status: Acute Qualifiers: Qualified Codes: N17.9 - Acute kidney failure, unspecified (4) Hypokalemia Status: Acute (5) Pneumonia Status: Acute Qualifiers: Qualified Codes: J18.9 - Pneumonia, unspecified organism (6) COPD exacerbation Status: Acute Clinical Quality Measures DVT/VTE Risk/Contraindication: Risk Factor Score Per Nursin RFS Level Per Nursing on Admit: 3=High TAYLOR LORENZO MD Apr 07, 2017 9:27 am
--- NOTE | 2017-04-07 09:39 | Diagnostic Imaging Report ---
CLINICAL INDICATION: Followup exam. Patient with COPD, hypokalemia, acute renal failure. EXAM: Portable chest x-ray upright view. COMPARISON: Chest x-ray dated 04/06/2017. FINDINGS: There is stable cardiomegaly. There is no significant pulmonary vascular congestion. There is continued right lung base/right perihilar infiltrate. Remainder of the lungs are clear. There is no pleural effusion or pneumothorax. Stable right IJ central line. The remainder of this exam shows no significant interval change compared to the prior study of comparison. IMPRESSION: 1: Stable chest x-ray exam with suspected right lung base/right perihilar infiltrate. 2: The remainder of this exam shows no significant interval change compared to the prior study of comparison. Dictated by: Dictated on workstation # [id number]
[2017-04-07] MEDS ORDERED: FUROSEMIDE 40 MG/4 ML INJ (LASIX) IVP NR (14:00)
--- NOTE | 2017-04-07 14:54 | Progress Note-Cardiology ---
Cardiology SOAP Progress Note Subjective: Feels more short of breath today. Feels she is filling with fluid Denies cp or palp Continues to have gen malaise Objective: I&O/Vital Signs Vital Sign - Last 12Hours 04/07/17 04/07/17 04/07/17 04/07/17 03:00 03:20 04:00 05:00 Pulse 101 110 107 Resp 16 22 20 B/P (MAP) 101/74 (83) 93/60 (71) 90/58 (69) Pulse Ox 94 96 94 98 O2 Delivery Nasal Cannula Nasal Cannula Nasal Cannula Nasal Cannula O2 Flow Rate 4.00 4.00 4.00 4.00 04/07/17 04/07/17 04/07/17 04/07/17 06:00 07:00 07:00 07:03 Pulse 97 109 110 Resp 21 27 B/P (MAP) 99/82 (88) 99/77 (84) Pulse Ox 98 99 98 O2 Delivery Nasal Cannula Nasal Cannula Nasal Cannula O2 Flow Rate 4.00 4.00 4.00 04/07/17 04/07/17 04/07/17 04/07/17 07:46 08:15 09:00 09:45 Temp 98.4 Pulse 105 104 110 Resp 21 28 22 B/P (MAP) 99/77 (84) 118/82 (94) 118/82 (94) Pulse Ox 90 90 97 95 O2 Delivery Nasal Cannula Nasal Cannula Nasal Cannula Nasal Cannula O2 Flow Rate 4.00 4.00 4.00 4.00 04/07/17 04/07/17 04/07/17 04/07/17 10:25 10:42 11:00 11:00 Temp 98.5 Pulse 105 Resp 16 B/P (MAP) 101/74 (83) 97/68 (78) Pulse Ox 99 98 O2 Delivery Nasal Cannula Nasal Cannula O2 Flow Rate 4.00 4.00 04/07/17 04/07/17 04/07/17 04/07/17 11:15 11:25 11:28 11:31 Temp 97.2 Pulse 105 Resp 17 B/P (MAP) 90/63 (72) 87/74 (78) Pulse Ox 96 97 O2 Delivery Nasal Cannula Nasal Cannula O2 Flow Rate 4.00 4.00 04/07/17 04/07/17 04/07/17 11:45 12:00 13:00 Pulse 101 101 Resp 17 B/P (MAP) 101/64 (76) 96/67 (77) Pulse Ox 97 O2 Delivery Nasal Cannula O2 Flow Rate 4.00 Intake and Output 04/07/17 00:00 Intake Total 840 ml Output Total 800 ml Balance 40 ml Weight (Pounds): 215 Weight (Ounces): 1.5 Weight (Calculated Kilograms): 97.761112 Constitutional: AAO x 3 Respiratory: wheezing (scattered), other (diminished lower lobes bilat) Cardiovascular: regular rate-rhythm, tachycardia, systolic murmur Gastrointestional: No tender, soft, round, audible bowel sounds Extremities: other (mild LLE edema; R AKA) Neurologic/Psychiatric: grossly intact Skin: normal color, warm/dry, No rash, No ulcerations Results/Procedures: Labs Laboratory Tests 04/06/17 16:08: Glucometer 161H 04/06/17 21:05: Glucometer 112H 04/07/17 04:30: White Blood Count 13.6H, Red Blood Count 3.84L, Hemoglobin 11.8, Hematocrit 37, Mean Corpuscular Volume 96, Mean Corpuscular Hemoglobin 31, Mean Corpuscular Hemoglobin Concent 32, Red Cell Distribution Width 18.9H, Platelet Count 177, Mean Platelet Volume 9.9, Neutrophils (%) (Auto) 89H, Lymphocytes (%) (Auto) 5L , Monocytes (%) (Auto) 5, Eosinophils (%) (Auto) 1, Basophils (%) (Auto) 0, Neutrophils # (Auto) 12.1H, Lymphocytes # (Auto) 0.7L, Monocytes # (Auto) 0.7, Eosinophils # (Auto) 0.1, Basophils # (Auto) 0.0, Sodium Level 135, Potassium Level 3.9, Chloride Level 102, Carbon Dioxide Level 19L, Anion Gap 14, Blood Urea Nitrogen 29H, Creatinine 1.55H, Estimat Glomerular Filtration Rate 34, BUN/ Creatinine Ratio 19, Glucose Level 110H, Calcium Level 8.7, Phosphorus Level 3.3 , Magnesium Level 1.7L, Total Bilirubin 1.8H, Aspartate Amino Transf (AST/SGOT) 25, Alanine Aminotransferase (ALT/SGPT) 46, Alkaline Phosphatase 69, Total Protein 5.7L, Albumin 3.3 04/07/17 10:33: Glucometer 117H Microbiology 04/04/17 Blood Culture - Preliminary, Resulted No growth 04/02/17 Influenza Types A,B Antigen (LISA) - Final, Complete A/P: Assessment: Dyspnea, likely multifactorial (see below) Septic shock - management per Med/Pulm/ICU services Pneumonia with septicemia Dilated cardiomyopathy of undetermined etiology and chronic systolic and diastolic CHF Acute exacerbation of COPD Supplemental oxygen dependent at home (4L/NC per pt) Echo of 04/02/17: LVEF approx 30%, mod to mod-sev MR Acute on chronic renal failure - CKD stage III, better today Hypokalemia r/t chronic diuretic use - replace Tobaccoism - cessation advised 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 Barker on 12-03-12 Severe PAD for which she has had stenting to the iliac and femoral artery per Dr. Barker and Dr. Mcallister at [facility]. 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 Paez Plan: * Very complex management due to multiple active comorbidities (see above) * Cardiac management compromised by continual hypotension * CHF appears to be worsening * Additional iv Lasix today * Monitor labs closely * I spoke with her this morning and answered her questions LUIS M BROOKS MD FACP [facility] Apr 07, 2017 14:54
[2017-04-07] MEDS: ENOXAPARIN 40 MG/0.4 ML (LOVENOX) SYR SQ SCH (15:46)
[2017-04-07] MEDS: ZOLPIDEM 5 MG (AMBIEN) TAB PO SCH (22:29)
--- NOTE | 2017-04-07 23:43 | Progress Note (SOAP) ---
Subjective Subjective/Events-last exam Pt still very SOB, tearful and doesn't want to leave the ICU due to her SOB. Review of Systems Date Seen by Provider: Apr 07, 2017 Time Seen by Provider: 10:00 Pulmonary: Dyspnea, Cough Cardiovascular: No: Chest Pain Objective Exam Last Set of Vital Signs Vital Signs Date Time Temp Pulse Resp B/P (MAP) Pulse Ox O2 Delivery O2 Flow Rate FiO2 04/07/17 23:00 105 15 109/79 (89) 97 NIV Bilevel 30.00 04/07/17 15:32 98.4 04/05/17 19:45 30 Capillary Refill : Less Than 3 Seconds I&O Intake and Output 04/07/17 00:00 Intake Total 1825 ml Output Total 2725 ml Balance -900 ml Intake Oral 1825 ml Output Urine Total 2725 ml General: Alert, Oriented X3, Cooperative, Moderate Distress Lungs: Other (wheezing diffusely, good effort) Heart: Regular Rate, Normal S1, Normal S2, No Murmurs, Gallops, Rubs Abdomen: Normal Bowel Sounds, Soft, No Tenderness, No Masses Extremities: No Clubbing, No Cyanosis, Other (2-3+ edema) Psych/Mental Status: Mental Status NL, Mood NL Results/Procedures Lab Laboratory Tests 04/07/17 04:30: White Blood Count 13.6H, Red Blood Count 3.84L, Hemoglobin 11.8, Hematocrit 37, Mean Corpuscular Volume 96, Mean Corpuscular Hemoglobin 31, Mean Corpuscular Hemoglobin Concent 32, Red Cell Distribution Width 18.9H, Platelet Count 177, Mean Platelet Volume 9.9, Neutrophils (%) (Auto) 89H, Lymphocytes (%) (Auto) 5L , Monocytes (%) (Auto) 5, Eosinophils (%) (Auto) 1, Basophils (%) (Auto) 0, Neutrophils # (Auto) 12.1H, Lymphocytes # (Auto) 0.7L, Monocytes # (Auto) 0.7, Eosinophils # (Auto) 0.1, Basophils # (Auto) 0.0, Sodium Level 135, Potassium Level 3.9, Chloride Level 102, Carbon Dioxide Level 19L, Anion Gap 14, Blood Urea Nitrogen 29H, Creatinine 1.55H, Estimat Glomerular Filtration Rate 34, BUN/ Creatinine Ratio 19, Glucose Level 110H, Calcium Level 8.7, Phosphorus Level 3.3 , Magnesium Level 1.7L, Total Bilirubin 1.8H, Aspartate Amino Transf (AST/SGOT) 25, Alanine Aminotransferase (ALT/SGPT) 46, Alkaline Phosphatase 69, Total Protein 5.7L, Albumin 3.3 04/07/17 10:33: Glucometer 117H 04/07/17 15:39: Glucometer 146H Microbiology 04/04/17 Blood Culture - Preliminary, Resulted No growth 04/02/17 Influenza Types A,B Antigen (LISA) - Final, Complete Radiology NAME: ONIEL DESIR [facility] REC#: [id number] PT STATUS: REG ER : 1955 PHYSICIAN: SHANA PHOENIX MD ADMIT DATE: 04/02/17/ER Draft Date of Exam:04/02/17 CHEST 1 VIEW, AP/PA ONLY INDICATION: Shortness of breath. TECHNIQUE: PA and lateral chest. FINDINGS: The heart is mildly enlarged. The pulmonary vascularity is at the upper limits of normal. There are no infiltrates, effusions, or pneumothoraces. IMPRESSION: Mild cardiomegaly without evidence of pulmonary venous hypertension. Dictated on workstation # [id number] Dict: 04/02/17 1246 Trans: 04/02/17 1248 [id number] Interpreted by: SHANA RIOS MD Electronically signed by: Assessment/Plan Assessment/Plan Plan Septic shock 04/06 - Resolved Severe COPD oxygen dependent at home on 4 L 05/11 04/06 - still very SOB on the oxygen so we are goign to keep her in the unit. 04/07 - pt desats when she moves around in bed, will keep in unit again today HYPOTENSION 04/06 - pt was again hypotensive to the 80-90s, so started levophed again this am. 04/07 - resolved Hyponatremia 04/06 - Resolved Hypokalemia 04/06 - Replace per protocol 04/07 - replaced Acute on chronic renal failure 04/06 - Improved 04/07 - stable, monitoring closely Leukocytosis 04/06 - improved Anemia of chronic illness 04/06 - stable 04/07 - stable (1) Septic shock Status: Acute (2) RESPIRATORY FAILURE, UNSP, UNSP W HYPOXIA OR HYPERCAPNIA Status: Acute (3) Acute renal failure Status: Acute Qualifiers: Qualified Codes: N17.9 - Acute kidney failure, unspecified (4) Hypokalemia Status: Acute (5) Pneumonia Status: Acute Qualifiers: Qualified Codes: J18.9 - Pneumonia, unspecified organism (6) COPD exacerbation Status: Acute Clinical Quality Measures DVT/VTE Risk/Contraindication: Risk Factor Score Per Nursin RFS Level Per Nursing on Admit: 3=High TAYLOR LORENZO MD Apr 07, 2017 11:43 pm
[2017-04-08] VITALS (15 sets, daily range): BP systolic 89–109; BP diastolic 62–81
[2017-04-08] MEDS: morphine INJ 4 MG/ML 1 ML (VIAL/SYRINGE) IV PRN ×6 (01:19→21:22)
[2017-04-08] MEDS: RT-ALBUTEROL/IPRATROPIUM 3 ML (DUONEB) VIAL INH SCH ×6 (02:40→23:45)
[2017-04-08] MEDS: PIPERACILLIN SODIUM/TAZOBACTAM 4.5 GM in NS (IVPB) 100 ML IV SCH ×3 (05:06→20:24)
[2017-04-08 05:24] LABS: BASOPHILS % (AUTO) 0 % (0-10); EOSINOPHILS # (AUTO) 0.1 10^3/uL (0.0-0.3); EOSINOPHILS % (AUTO) 0 % (0-10); LYMPHOCYTES # (AUTO) 0.4 X 10^3 (1.0-4.0); LYMPHOCYTES % (AUTO) 4 % (12-44); MEAN CORPUSCULAR HEMOGLOBIN 31 PG (25-34); MEAN CORPUSCULAR HGB CONC 32 G/DL (32-36); MEAN CORPUSCULAR VOLUME 95 FL (80-99); MONOCYTES # (AUTO) 0.5 X 10^3 (0.0-1.0); MONOCYTES % (AUTO) 4 % (0-12); NEUTROPHILS # (AUTO) 10.2 X 10^3 (1.8-7.8); NEUTROPHILS % (AUTO) 91 % (42-75); PLATELET COUNT 162 10^3/uL (130-400); RED CELL DISTRIBUTION WIDTH 18.7 % (10.0-14.5); WHITE BLOOD COUNT 11.1 10^3/uL (4.3-11.0)
[2017-04-08 05:48] LABS: MAGNESIUM 1.8 MG/DL (1.8-2.4)
[2017-04-08 05:52] LABS: ALBUMIN 3.3 GM/DL (3.2-4.5); BILIRUBIN,TOTAL 1.6 MG/DL (0.1-1.0); CALCIUM 8.2 MG/DL (8.5-10.1); CREATININE SERUM 1.58 MG/DL (0.60-1.30); POTASSIUM 3.3 MMOL/L (3.6-5.0); TOTAL PROTEIN 5.7 GM/DL (6.4-8.2)
[2017-04-08] MEDS ORDERED: KCL 20 MEQ TAB (K-DUR) PO ONE (06:15)
[2017-04-08] MEDS: POTASSIUM CL 10MEQ/50ML IVPB 50 ML IV SCH (06:17)
[2017-04-08] MEDS: MAGNESIUM 1 GM/100 ML IVPB 100 ML IV SCH (06:17)
[2017-04-08] MEDS: KCL 20 MEQ TAB (K-DUR) PO SCH ×2 (06:18→08:05)
[2017-04-08] MEDS: inSUlin (REGULAR) HUMAN 1 UNIT/0.01 ML (CHARGE PER UNIT) SC SCH ×4 (06:18→21:22)
[2017-04-08] MEDS: UMECLIDINIUM BROMIDE (INCRUSE ELLIPTA) 7'S IH SCH (06:51)
--- NOTE | 2017-04-08 07:57 | Diagnostic Imaging Report ---
Portable upright radiograph of the chest. INDICATION: Pneumonia. COMPARISON 04/07/2017. FINDINGS: There is minimal improvement in right basilar infiltrate with persistent right perihilar infiltrate. There is background vascular congestion. The heart size is markedly enlarged. There is suggestion of a small right effusion. No effusion on the left side. The right IJ line is seen in place with the tip at the SVC level. IMPRESSION: 1. Cardiomegaly with pulmonary vascular congestion. 2. Improving right perihilar and basilar infiltrates. Dictated by: Dictated on workstation # [id number]
[2017-04-08] MEDS ORDERED: RT-ALBUTEROL/IPRATROPIUM 3 ML (DUONEB) VIAL INH PRN (08:00)
[2017-04-08] MEDS: guaiFENesin/CODEINE (ROBITUSSIN AC) 10ML UDC PO PRN (08:04)
[2017-04-08] MEDS: BENZONATATE 100 MG (TESSALON) CAPSULE PO SCH ×3 (08:04→21:22)
[2017-04-08] MEDS: ASPIRIN 81 MG CHEW (CHILDREN'S ASA) PO SCH (08:04)
[2017-04-08] MEDS ORDERED: KCL 20 MEQ TAB (K-DUR) PO NR (08:15)
[2017-04-08] MEDS: VANCOMYCIN 750 MG/NS 250 ML IVPB IV SCH ×2 (09:49)
[2017-04-08] MEDS ORDERED: KCL 10 MEQ TAB (MICRO K) PO NR (11:00)
[2017-04-08] MEDS ORDERED: FUROSEMIDE 40 MG/4 ML INJ (LASIX) IVP NR (11:00)
[2017-04-08] MEDS ORDERED: RT-ALBUTEROL HFA (VENTOLIN) PER PUFF IH PRN (12:30)
--- NOTE | 2017-04-08 12:35 | Progress Note-Cardiology ---
Cardiology SOAP Progress Note Subjective: Notes gen malaise and shortness of breath Does not report cp or palp or syncope Objective: I&O/Vital Signs Vital Sign - Last 12Hours 04/08/17 04/08/17 04/08/17 04/08/17 01:00 01:00 02:00 02:40 Pulse 105 105 98 Resp 21 14 B/P (MAP) 97/67 (77) 94/74 (81) Pulse Ox 99 100 99 O2 Delivery NIV Bilevel Nasal Cannula Nasal Cannula O2 Flow Rate 30.00 4.00 4.00 04/08/17 04/08/17 04/08/17 04/08/17 03:00 04:00 04:00 05:00 Pulse 105 108 106 Resp 24 21 23 B/P (MAP) 98/76 (83) 96/72 (80) 100/79 (86) Pulse Ox 100 91 97 100 O2 Delivery Nasal Cannula Nasal Cannula Nasal Cannula Nasal Cannula O2 Flow Rate 4.00 4.00 4.00 4.00 04/08/17 04/08/17 04/08/17 04/08/17 06:00 06:51 07:00 07:00 Pulse 108 105 109 Resp 22 15 B/P (MAP) 101/75 (84) 96/70 (79) Pulse Ox 99 100 96 O2 Delivery Nasal Cannula Nasal Cannula Nasal Cannula O2 Flow Rate 4.00 4.00 4.00 04/08/17 04/08/17 04/08/17 04/08/17 07:00 08:00 08:00 10:50 Temp 98.0 Pulse 98 106 Resp 24 B/P (MAP) 89/63 (72) Pulse Ox 100 97 96 99 O2 Delivery Nasal Cannula Nasal Cannula Nasal Cannula O2 Flow Rate 4.00 4.00 4.00 FiO2 36 04/08/17 04/08/17 12:00 12:00 Temp 96.7 Pulse 98 Resp 21 B/P (MAP) 95/71 (79) Pulse Ox 96 100 O2 Delivery Nasal Cannula Nasal Cannula O2 Flow Rate 4.00 4.00 Intake and Output 04/08/17 00:00 Intake Total 472 ml Output Total 4625 ml Balance -4153 ml Weight (Pounds): 130 Weight (Ounces): 1.5 Weight (Calculated Kilograms): 58.773195 Constitutional: AAO x 3 Respiratory: wheezing (scattered), other (diminished lower lobes bilat) Cardiovascular: regular rate-rhythm, tachycardia, systolic murmur Gastrointestional: No tender, soft, round, audible bowel sounds Extremities: other (mild LLE edema; R AKA) Neurologic/Psychiatric: grossly intact Skin: normal color, warm/dry, No rash, No ulcerations Results/Procedures: Labs Laboratory Tests 04/07/17 15:39: Glucometer 146H 04/08/17 05:10: White Blood Count 11.1H, Red Blood Count 3.70L, Hemoglobin 11.3L, Hematocrit 35 , Mean Corpuscular Volume 95, Mean Corpuscular Hemoglobin 31, Mean Corpuscular Hemoglobin Concent 32, Red Cell Distribution Width 18.7H, Platelet Count 162, Mean Platelet Volume 10.0, Neutrophils (%) (Auto) 91H, Lymphocytes (%) (Auto) 4L , Monocytes (%) (Auto) 4, Eosinophils (%) (Auto) 0, Basophils (%) (Auto) 0, Neutrophils # (Auto) 10.2H, Lymphocytes # (Auto) 0.4L, Monocytes # (Auto) 0.5, Eosinophils # (Auto) 0.1, Basophils # (Auto) 0.0, Sodium Level 134L, Potassium Level 3.3L, Chloride Level 99, Carbon Dioxide Level 23, Anion Gap 12, Blood Urea Nitrogen 21H, Creatinine 1.58H, Estimat Glomerular Filtration Rate 33, BUN/ Creatinine Ratio 13, Glucose Level 145H, Calcium Level 8.2L, Phosphorus Level 3.0, Magnesium Level 1.8, Total Bilirubin 1.6H, Aspartate Amino Transf (AST/SGOT ) 18, Alanine Aminotransferase (ALT/SGPT) 35, Alkaline Phosphatase 64, Total Protein 5.7L, Albumin 3.3 04/08/17 11:15: Glucometer 151H Microbiology 04/04/17 Blood Culture - Preliminary, Resulted No growth 04/02/17 Influenza Types A,B Antigen (LISA) - Final, Complete Laboratory Tests 04/07/17 04:30 04/08/17 05:10 A/P: Assessment: Dyspnea, likely multifactorial (see below) Septic shock - management per Med/Pulm/ICU services Pneumonia with septicemia Dilated cardiomyopathy of undetermined etiology and acute on chronic systolic and diastolic CHF Acute exacerbation of COPD Supplemental oxygen dependent at home (4L/NC per pt) Echo of 04/02/17: LVEF approx 30%, mod to mod-sev MR Acute on chronic renal failure - CKD stage III, better today Hypokalemia r/t chronic diuretic use - replace Tobaccoism - cessation advised 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 Barker on 12-03-12 Severe PAD for which she has had stenting to the iliac and femoral artery per Dr. Barker and Dr. Mcallister at [facility]. 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 Paez Plan: * Very complex management due to multiple active comorbidities (see above) * Cardiac management compromised by continual hypotension * Still appears to be in CHF and/or volume overload * Additional iv Lasix today * Replenish K * Monitor labs closely * I spoke with her this morning and answered her questions LUIS M BROOKS MD FACP [facility] Apr 08, 2017 12:35
[2017-04-08] MEDS: ENOXAPARIN 40 MG/0.4 ML (LOVENOX) SYR SQ SCH (15:44)
--- NOTE | 2017-04-08 21:17 | Progress Note (SOAP) ---
Subjective Subjective/Events-last exam Pt feeling somewhat better this am, still SOB, closer to her baseline status. Review of Systems Date Seen by Provider: Apr 08, 2017 Time Seen by Provider: 11:00 Pulmonary: Dyspnea, Cough Cardiovascular: No: Chest Pain Objective Exam Last Set of Vital Signs Vital Signs Date Time Temp Pulse Resp B/P (MAP) Pulse Ox O2 Delivery O2 Flow Rate FiO2 04/08/17 21:00 Nasal Cannula 4.00 04/08/17 19:26 97.1 113 24 109/81 (90) 99 04/08/17 07:00 36 Capillary Refill : Less Than 3 Seconds I&O Intake and Output 04/08/17 00:00 Intake Total 1597 ml Output Total 5525 ml Balance -3928 ml Intake Oral 1047 ml IV Total 550 ml Output Urine Total 5525 ml General: Alert, Oriented X3, Cooperative, Moderate Distress Lungs: Other (diffuse wheezing, good effort) Heart: Regular Rate, Normal S1, Normal S2, No Murmurs, Gallops, Rubs Abdomen: Normal Bowel Sounds, Soft, No Tenderness Extremities: Other (2-3+ edema) Psych/Mental Status: Mental Status NL, Mood NL Results/Procedures Lab Laboratory Tests 04/08/17 05:10: White Blood Count 11.1H, Red Blood Count 3.70L, Hemoglobin 11.3L, Hematocrit 35 , Mean Corpuscular Volume 95, Mean Corpuscular Hemoglobin 31, Mean Corpuscular Hemoglobin Concent 32, Red Cell Distribution Width 18.7H, Platelet Count 162, Mean Platelet Volume 10.0, Neutrophils (%) (Auto) 91H, Lymphocytes (%) (Auto) 4L , Monocytes (%) (Auto) 4, Eosinophils (%) (Auto) 0, Basophils (%) (Auto) 0, Neutrophils # (Auto) 10.2H, Lymphocytes # (Auto) 0.4L, Monocytes # (Auto) 0.5, Eosinophils # (Auto) 0.1, Basophils # (Auto) 0.0, Sodium Level 134L, Potassium Level 3.3L, Chloride Level 99, Carbon Dioxide Level 23, Anion Gap 12, Blood Urea Nitrogen 21H, Creatinine 1.58H, Estimat Glomerular Filtration Rate 33, BUN/ Creatinine Ratio 13, Glucose Level 145H, Calcium Level 8.2L, Phosphorus Level 3.0, Magnesium Level 1.8, Total Bilirubin 1.6H, Aspartate Amino Transf (AST/SGOT ) 18, Alanine Aminotransferase (ALT/SGPT) 35, Alkaline Phosphatase 64, Total Protein 5.7L, Albumin 3.3 04/08/17 11:15: Glucometer 151H 04/08/17 15:41: Glucometer 141H 04/08/17 20:38: Glucometer 157H Microbiology 04/04/17 Blood Culture - Preliminary, Resulted No growth 04/02/17 Influenza Types A,B Antigen (LISA) - Final, Complete Radiology NAME: ONIEL DESIR [facility] REC#: [id number] PT STATUS: REG ER : 1955 PHYSICIAN: SHANA PHOENIX MD ADMIT DATE: 04/02/17/ER Draft Date of Exam:04/02/17 CHEST 1 VIEW, AP/PA ONLY INDICATION: Shortness of breath. TECHNIQUE: PA and lateral chest. FINDINGS: The heart is mildly enlarged. The pulmonary vascularity is at the upper limits of normal. There are no infiltrates, effusions, or pneumothoraces. IMPRESSION: Mild cardiomegaly without evidence of pulmonary venous hypertension. Dictated on workstation # [id number] Dict: 04/02/17 1246 Trans: 04/02/17 1248 [id number] Interpreted by: SHANA RIOS MD Electronically signed by: Assessment/Plan Assessment/Plan Plan Septic shock 04/06 - Resolved Severe COPD oxygen dependent at home on 4 L 05/11 04/06 - still very SOB on the oxygen so we are goign to keep her in the unit. 04/07 - pt desats when she moves around in bed, will keep in unit again today 04/08 - on home O2 at 4LPM but still very SOB, no changes today except we will transfer to floor HYPOTENSION 04/06 - pt was again hypotensive to the 80-90s, so started levophed again this am. 04/07 - resolved 04/08 - no further issues Hyponatremia 04/06 - Resolved Hypokalemia 04/06 - Replace per protocol 04/07 - replaced Acute on chronic renal failure 04/06 - Improved 04/07 - stable, monitoring closely 04/08 - Creat still above normal so no lasix despite her edema Leukocytosis 04/06 - improved Anemia of chronic illness 04/06 - stable 04/07 - stable 04/08 - stable DISPO: will consider SWB or CNH tomorrow. (1) Septic shock Status: Acute (2) RESPIRATORY FAILURE, UNSP, UNSP W HYPOXIA OR HYPERCAPNIA Status: Acute (3) Acute renal failure Status: Acute Qualifiers: Qualified Codes: N17.9 - Acute kidney failure, unspecified (4) Hypokalemia Status: Acute (5) Pneumonia Status: Acute Qualifiers: Qualified Codes: J18.9 - Pneumonia, unspecified organism (6) COPD exacerbation Status: Acute Clinical Quality Measures DVT/VTE Risk/Contraindication: Risk Factor Score Per Nursin RFS Level Per Nursing on Admit: 3=High TAYLOR LORENZO MD Apr 08, 2017 9:17 pm
[2017-04-08] MEDS: ZOLPIDEM 5 MG (AMBIEN) TAB PO SCH (21:22)
[2017-04-09 00:03] VITALS: BP 98/69
[2017-04-09] MEDS: RT-ALBUTEROL/IPRATROPIUM 3 ML (DUONEB) VIAL INH SCH ×3 (02:55→11:08)
[2017-04-09] MEDS: morphine INJ 4 MG/ML 1 ML (VIAL/SYRINGE) IV PRN ×3 (02:59→11:35)
[2017-04-09 04:02] VITALS: BP 111/77
[2017-04-09] MEDS: PIPERACILLIN SODIUM/TAZOBACTAM 4.5 GM in NS (IVPB) 100 ML IV SCH ×2 (04:09→11:36)
[2017-04-09] MEDS: inSUlin (REGULAR) HUMAN 1 UNIT/0.01 ML (CHARGE PER UNIT) SC SCH ×2 (05:38→11:44)
[2017-04-09 06:58] LABS: BASOPHILS % (AUTO) 0 % (0-10); EOSINOPHILS # (AUTO) 0.1 10^3/uL (0.0-0.3); EOSINOPHILS % (AUTO) 1 % (0-10); LYMPHOCYTES # (AUTO) 0.5 X 10^3 (1.0-4.0); LYMPHOCYTES % (AUTO) 6 % (12-44); MEAN CORPUSCULAR HEMOGLOBIN 31 PG (25-34); MEAN CORPUSCULAR HGB CONC 32 G/DL (32-36); MEAN CORPUSCULAR VOLUME 94 FL (80-99); MEAN PLATELET VOLUME 10.2 FL (7.4-10.4); MONOCYTES # (AUTO) 0.5 X 10^3 (0.0-1.0); MONOCYTES % (AUTO) 6 % (0-12); NEUTROPHILS # (AUTO) 8.3 X 10^3 (1.8-7.8); NEUTROPHILS % (AUTO) 88 % (42-75); PLATELET COUNT 141 10^3/uL (130-400); RED BLOOD COUNT 3.71 10^6/uL (4.35-5.85); WHITE BLOOD COUNT 9.5 10^3/uL (4.3-11.0)
[2017-04-09 07:14] LABS: ALBUMIN 3.3 GM/DL (3.2-4.5); BILIRUBIN,TOTAL 1.7 MG/DL (0.1-1.0); CREATININE SERUM 1.41 MG/DL (0.60-1.30); POTASSIUM 3.2 MMOL/L (3.6-5.0); TOTAL PROTEIN 5.7 GM/DL (6.4-8.2)
--- NOTE | 2017-04-09 07:17 | Pulmonary Progress Note ---
Subjective Time Seen by Provider: 07:16 Subjective/Events-last exam PT is doing better. Exam Exam Vital Signs Date Time Temp Pulse Resp B/P (MAP) Pulse Ox O2 Delivery O2 Flow Rate FiO2 04/09/17 04:02 97.7 107 18 111/77 (88) 98 Nasal Cannula 4.00 04/09/17 02:55 98 Nasal Cannula 3.00 04/09/17 01:00 102 04/09/17 00:03 97.9 108 20 98/69 (79) 98 Nasal Cannula 4.00 04/08/17 21:00 Nasal Cannula 4.00 04/08/17 20:30 Nasal Cannula 4.00 04/08/17 19:26 97.1 113 24 109/81 (90) 99 Nasal Cannula 4.00 04/08/17 19:00 111 04/08/17 15:47 97.1 97 18 95/69 (78) 99 Nasal Cannula 4.00 04/08/17 15:08 98 Nasal Cannula 4.00 04/08/17 14:10 98.8 73 22 96/68 (77) 94 Nasal Cannula 4.00 04/08/17 13:00 98 04/08/17 12:00 96.7 98 21 95/71 (79) 100 Nasal Cannula 4.00 04/08/17 12:00 96 Nasal Cannula 4.00 04/08/17 11:00 97 15 92/62 (72) 100 Nasal Cannula 4.00 04/08/17 10:50 99 Nasal Cannula 4.00 04/08/17 10:00 100 14 100 Nasal Cannula 4.00 04/08/17 09:00 97 25 95/66 (76) 99 Nasal Cannula 4.00 04/08/17 08:00 96 Nasal Cannula 4.00 04/08/17 08:00 98.0 106 24 89/63 (72) 97 Nasal Cannula 4.00 I & O 04/09/17 07:00 Intake Total 1090 ml Output Total 5525 ml Balance -4435 ml General Appearance: No Apparent Distress, WD/WN, Chronically ill, Obese HEENT: PERRL/EOMI, Normal ENT Inspection, Pharynx Normal Neck: Full Range of Motion, Normal Inspection, Non Tender, Supple, Carotid Bruit Respiratory: Chest Non Tender, No Accessory Muscle Use, No Respiratory Distress , Crackles, Decreased Breath Sounds, Wheezing Cardiovascular: Regular Rate, Rhythm, No Edema, No Gallop, No JVD, No Murmur, Normal Peripheral Pulses Capillary Refill: Less Than 3 Seconds Extremity: Normal Capillary Refill, Normal Inspection, Normal Range of Motion ( amputee), Non Tender, No Calf Tenderness, No Pedal Edema Neurologic/Psychiatric: Alert, Oriented x3, No Motor/Sensory Deficits, Normal Mood/Affect Skin: Normal Color, Warm/Dry Lymphatic: No Adenopathy Results Lab Laboratory Tests 04/08/17 05:10 04/09/17 05:30 Assessment/Plan Assessment/Plan Dyspnea - multifactorial Pneumonia with sepsis -D/C vanco and continue Zosyn for now -Cultures are negative. COPDAE - Persistent wheezing -noninvasive ventilation -Start solumedrol -Check CXR and BNP -SVNs, Oxygen Metabolic acidosis -Improving continue LA Morbid obesity CHF systolic/diastolic last EF 40-45% -cardiology following Acute renal failure with CKD stage II-III -monitor Tobacco dependance -education severe PAD and hx of R BKA secondary to hx of ischemic foot Hx of stent distal aorta 232 Clinical Quality Measures DVT/VTE Risk/Contraindication: Risk Factor Score Per Nursin RFS Level Per Nursing on Admit: 3=High NORA BAER DO Apr 09, 2017 07:16
[2017-04-09 08:00] VITALS: BP 100/71
[2017-04-09] MEDS ORDERED: TROUGH ORDER-PHARMACY XX NR (08:00)
[2017-04-09] MEDS: BENZONATATE 100 MG (TESSALON) CAPSULE PO SCH ×2 (08:26→11:36)
[2017-04-09] MEDS: ASPIRIN 81 MG CHEW (CHILDREN'S ASA) PO SCH (08:26)
[2017-04-09] MEDS ORDERED: KCL 10 MEQ TAB (MICRO K) PO SCH (09:00)
--- NOTE | 2017-04-09 09:48 | Diagnostic Imaging Report ---
INDICATION: Pneumonia. COMPARISON: 04/08/2017. FINDINGS: Single frontal radiographic view of the chest was obtained and demonstrates stable prominent cardiomegaly. Pulmonary vasculature remains mildly prominent as well. Lungs continue to show diffuse interstitial opacities with areas of more prominent patchy airspace disease in the right infrahilar and basilar regions. There is no large effusion or pneumothorax. Right internal jugular central venous catheter is again seen with tip in the SVC. Bony structures show no gross acute abnormalities. IMPRESSION: 1. Essentially stable exam of the chest showing cardiomegaly with pulmonary vascular congestion and diffuse interstitial pneumonia or edema. 2. Stable patchy opacities within the right infrahilar and medial right base. Findings could be on the basis of superimposed atelectasis. Alveolar edema or focal infiltrate is also considered. Dictated by: Dictated on workstation # [id number]
--- NOTE | 2017-04-09 11:01 | Discharge Summary ---
Diagnosis/Chief Complaint Date of Admission Apr 02, 2017 at 2:46 pm Date of Discharge Apr 09, 2017 Admission Diagnosis Admission Diagnosis (1) Septic shock (2) RESPIRATORY FAILURE, UNSP, UNSP W HYPOXIA OR HYPERCAPNIA (3) Acute renal failure (4) Hypokalemia (5) Pneumonia (6) COPD exacerbation Discharge Diagnosis Septic shock 04/06 - Resolved Severe COPD oxygen dependent at home on 4 L 24/7 04/06 - still very SOB on the oxygen so we are goign to keep her in the unit. 04/07 - pt desats when she moves around in bed, will keep in unit again today 04/08 - on home O2 at 4LPM but still very SOB, no changes today except we will transfer to floor HYPOTENSION 04/06 - pt was again hypotensive to the 80-90s, so started levophed again this am. 04/07 - resolved 04/08 - no further issues Hyponatremia 04/06 - Resolved Hypokalemia 04/06 - Replace per protocol 04/07 - replaced Acute on chronic renal failure 04/06 - Improved 04/07 - stable, monitoring closely 04/08 - Creat still above normal so no lasix despite her edema Leukocytosis 04/06 - improved Anemia of chronic illness 04/06 - stable 04/07 - stable 04/08 - stable DISPO: will consider SWB or CNH tomorrow. DISCHARGE: On day of discharge, patient stated that she did not want to participate in therapy, so she requested to go home on hospice. She was very clear that she understood that her prognosis was very poor and that she was making this decision knowing she would . We talked about other options such as a assisted but she roundly refused this. Her was in the room and supported her decision. Arrangements were made through social work. Chief Complaint/HPI Chief Complaint/HPI HPI: This is a 61-year-old white female clinic patient of [facility] with a past medical history of oxygen dependent COPD on 4 L 24/7 who presents to the emergency room with complaints of worsening shortness of breath over the last few days. She denied any fever but it worsened to the point that she can no longer go on. She was found to be in acute respiratory failure responded to nebulizer treatments but fluid overload precluded the high volume fluid resuscitation for septic shock that she was classified as having after her blood pressure decreased to the [address] Bhakta and Dr. Cruz were both consulted on the case and patient was monitored closely in the ICU while empiric antibiotics given along with fluids and oxygen supplementation. Discharge Summary-Simple/Stand Consultations Dr Nick Bhakta Discharge Physical Examination Allergies: Coded Allergies: No Known Drug Allergies (Unverified , 04/02/17) Vitals & I&Os Vital Sign - Last 12Hours Date Time Temp Pulse Resp B/P (MAP) Pulse Ox O2 Delivery O2 Flow Rate FiO2 04/09/17 08:00 98.3 107 18 100/71 (81) 98 Nasal Cannula 4.00 04/08/17 07:00 36 Intake and Output 04/09/17 00:00 Intake Total 650 ml Output Total 4700 ml Balance -4050 ml General Appearance: Alert, Oriented X3, Cooperative, Moderate Distress Respiratory: Other (improved wheezing diffusely, still dyspneic, good efffort) Cardiovascular: Regular Rate, Normal S1, Normal S2, No Murmurs, Gallops, Rubs Abdominal: Normal Bowel Sounds, Soft, No Tenderness Extremities: Other (3+ edema) Psych/Mental Status: Mental Status NL, Mood NL Hospital Course See final discharge diagnosis. Labs Laboratory Tests Test 04/06/17 11:17 04/06/17 14:14 04/06/17 16:08 04/06/17 21:05 Range/Units Glucometer 141 H 161 H 112 H 70-110 MG/DL Vancomycin Level Trough 23.5 H 10.0-20.0 UG/ML Test 04/07/17 04:30 04/07/17 10:33 04/07/17 15:39 04/08/17 05:10 Range/Units White Blood Count 13.6 H 11.1 H 4.3-11.0 10^3/uL Red Blood Count 3.84 L 3.70 L 4.35-5.85 10^6/uL Hemoglobin 11.8 11.3 L 11.5-16.0 G/DL Hematocrit 37 35 35-52 % Mean Corpuscular Volume 96 95 80-99 FL Mean Corpuscular Hemoglobin 31 31 25-34 PG Mean Corpuscular Hemoglobin Concent 32 32 32-36 G/DL Red Cell Distribution Width 18.9 H 18.7 H 10.0-14.5 % Platelet Count 177 162 130-400 10^3/uL Mean Platelet Volume 9.9 10.0 7.4-10.4 FL Neutrophils (%) (Auto) 89 H 91 H 42-75 % Lymphocytes (%) (Auto) 5 L 4 L 12-44 % Monocytes (%) (Auto) 5 4 0-12 % Eosinophils (%) (Auto) 1 0 0-10 % Basophils (%) (Auto) 0 0 0-10 % Neutrophils # (Auto) 12.1 H 10.2 H 1.8-7.8 X 10^3 Lymphocytes # (Auto) 0.7 L 0.4 L 1.0-4.0 X 10^3 Monocytes # (Auto) 0.7 0.5 0.0-1.0 X 10^3 Eosinophils # (Auto) 0.1 0.1 0.0-0.3 10^3/uL Basophils # (Auto) 0.0 0.0 0.0-0.1 10^3/uL Sodium Level 135 134 L 135-145 MMOL/L Potassium Level 3.9 3.3 L 3.6-5.0 MMOL/L Chloride Level 102 99 98-107 MMOL/L Carbon Dioxide Level 19 L 23 21-32 MMOL/L Anion Gap 14 12 5-14 MMOL/L Blood Urea Nitrogen 29 H 21 H 7-18 MG/DL Creatinine 1.55 H 1.58 H 0.60-1.30 MG/DL Estimat Glomerular Filtration Rate 34 33 BUN/Creatinine Ratio 19 13 Glucose Level 110 H 145 H 70-105 MG/DL Calcium Level 8.7 8.2 L 8.5-10.1 MG/DL Phosphorus Level 3.3 3.0 2.3-4.7 MG/DL Magnesium Level 1.7 L 1.8 1.8-2.4 MG/DL Total Bilirubin 1.8 H 1.6 H 0.1-1.0 MG/DL Aspartate Amino Transf (AST/SGOT) 25 18 5-34 U/L Alanine Aminotransferase (ALT/SGPT) 46 35 0-55 U/L Alkaline Phosphatase 69 64 40-136 U/L Total Protein 5.7 L 5.7 L 6.4-8.2 GM/DL Albumin 3.3 3.3 3.2-4.5 GM/DL Glucometer 117 H 146 H 70-110 MG/DL Test 04/08/17 11:15 04/08/17 15:41 04/08/17 20:38 04/09/17 04:59 Range/Units Glucometer 151 H 141 H 157 H 166 H 70-110 MG/DL Test 04/09/17 05:30 04/09/17 05:40 04/09/17 08:23 Range/Units White Blood Count 9.5 4.3-11.0 10^3/uL Red Blood Count 3.71 L 4.35-5.85 10^6/uL Hemoglobin 11.3 L 11.5-16.0 G/DL Hematocrit 35 35-52 % Mean Corpuscular Volume 94 80-99 FL Mean Corpuscular Hemoglobin 31 25-34 PG Mean Corpuscular Hemoglobin Concent 32 32-36 G/DL Red Cell Distribution Width 19.0 H 10.0-14.5 % Platelet Count 141 130-400 10^3/uL Mean Platelet Volume 10.2 7.4-10.4 FL Neutrophils (%) (Auto) 88 H 42-75 % Lymphocytes (%) (Auto) 6 L 12-44 % Monocytes (%) (Auto) 6 0-12 % Eosinophils (%) (Auto) 1 0-10 % Basophils (%) (Auto) 0 0-10 % Neutrophils # (Auto) 8.3 H 1.8-7.8 X 10^3 Lymphocytes # (Auto) 0.5 L 1.0-4.0 X 10^3 Monocytes # (Auto) 0.5 0.0-1.0 X 10^3 Eosinophils # (Auto) 0.1 0.0-0.3 10^3/uL Basophils # (Auto) 0.0 0.0-0.1 10^3/uL Sodium Level 135 135-145 MMOL/L Potassium Level 3.2 L 3.6-5.0 MMOL/L Chloride Level 95 L 98-107 MMOL/L Carbon Dioxide Level 25 21-32 MMOL/L Anion Gap 15 H 5-14 MMOL/L Blood Urea Nitrogen 17 7-18 MG/DL Creatinine 1.41 H 0.60-1.30 MG/DL Estimat Glomerular Filtration Rate 38 BUN/Creatinine Ratio 12 Glucose Level 140 H 70-105 MG/DL Calcium Level 8.0 L 8.5-10.1 MG/DL Total Bilirubin 1.7 H 0.1-1.0 MG/DL Aspartate Amino Transf (AST/SGOT) 19 5-34 U/L Alanine Aminotransferase (ALT/SGPT) 28 0-55 U/L Alkaline Phosphatase 60 40-136 U/L Total Protein 5.7 L 6.4-8.2 GM/DL Albumin 3.3 3.2-4.5 GM/DL B-Type Natriuretic Peptide 4306.4 H <100.0 PG/ML Vancomycin Level Trough 14.1 10.0-20.0 UG/ML Radiology Reviewed NAME: ONIEL DESIR [facility] REC#: [id number] PT STATUS: REG ER : 1955 PHYSICIAN: SHANA PHOENIX MD ADMIT DATE: 04/02/17/ER Draft Date of Exam:04/02/17 CHEST 1 VIEW, AP/PA ONLY INDICATION: Shortness of breath. TECHNIQUE: PA and lateral chest. FINDINGS: The heart is mildly enlarged. The pulmonary vascularity is at the upper limits of normal. There are no infiltrates, effusions, or pneumothoraces. IMPRESSION: Mild cardiomegaly without evidence of pulmonary venous hypertension. Dictated on workstation # [id number] Dict: 04/02/17 1246 Trans: 04/02/17 1248 [id number] Interpreted by: SHANA RIOS MD Electronically signed by: Discharge Instructions to patient/family Please see electronic discharge instructions given to patient. Discharge Medications Reviewed and agree with Discharge Medication list on patient's Discharge Instruction sheet Clinical Quality Measures DVT/VTE Risk/Contraindication: Risk Factor Score Per Nursin RFS Level Per Nursing on Admit: 3=High Copy Copies To 1: ALEJANDRA JOSEPH MD, JULIE A MD Apr 09, 2017 11:01 am
[2017-04-09] MEDS: UMECLIDINIUM BROMIDE (INCRUSE ELLIPTA) 7'S IH SCH (11:08)
--- NOTE | 2017-04-09 11:10 | Discharge Instructions ---
Discharge [facility] Discharge Medications New, Converted or Re-Newed RX: Other Continued Medications: Albuterol Sulfate (Proair Hfa) 1 Puff Puff 2 PUFF IH Q6H PRN for SHORTNESS OF BREATH, PUFF 1 PUFF = 90 MCG Furosemide (Furosemide) 40 Mg Tablet 80 MG PO DAILY, TAB TAKES 2 (40MG) TABLETS Ibuprofen (Ibuprofen) 200 Mg Tablet 600 MG PO Q8H PRN for PAIN-MILD, TAB TAKES 3 (200 MG) TABLETS Tiotropium [place] (Spiriva) 1 Inh Aerp 1 CAP IH DAILY, INHALER Discontinued Medications: Potassium Chloride (Potassium Chloride) 20 Meq Tab.er.prt 40 TAB PO DAILY, TAB TAKES 2 (20MEQ) TABLETS Zolpidem Tartrate (Zolpidem Tartrate) 10 Mg Tablet 10 MG PO HS, TAB Patient Instructions Goal/Follow Up Appt: Hospice will come to your home. If you have any questions, please call the clinic. Patient Instructions: Hospice will work with your family to make arrangements for your comfort at home. Please call [phone] if you have any questions. Return to The Hospital For: Please call the on-call hospice nurse if you have any questions or concerns. You may also call the clinic during regular business hours. Activity & Diet Discharge Diet: No Restrictions Activity as Tolerated: Yes Orders-Post D/C & Referrals Pneu Vac Indicated: Yes Copy Copies To 1: ALEJANDRA JOSEPH MD, JULIE A MD Apr 09, 2017 11:10 am
[2017-04-09 12:00] VITALS: BP 106/74
[2017-04-09] MEDS ORDERED: methylPREDNISolone 40 MG/ML (Solu-MEDROL) VIAL IV SCH (12:00)
[2017-04-09] MEDS ORDERED: POTA10TA10 PO (12:45)
[2017-04-09] MEDS ORDERED: FUROSEMIDE 40 MG (LASIX) TAB PO NR (12:45)
--- NOTE | 2017-04-09 13:45 | Progress Note-Cardiology ---
Cardiology SOAP Progress Note Subjective: Still has gen malaise and weakness Shortness of breath modestly improved, compared to yesterday No cp or palp or syncope Objective: I&O/Vital Signs Vital Sign - Last 12Hours 04/09/17 04/09/17 04/09/17 04/09/17 02:55 04:02 07:00 07:34 Temp 97.7 Pulse 107 108 Resp 18 B/P (MAP) 111/77 (88) Pulse Ox 98 98 O2 Delivery Nasal Cannula Nasal Cannula Nasal Cannula O2 Flow Rate 3.00 4.00 3.00 04/09/17 04/09/17 04/09/17 08:00 08:00 11:11 Temp 98.3 Pulse 107 Resp 18 B/P (MAP) 100/71 (81) Pulse Ox 98 98 O2 Delivery Nasal Cannula Nasal Cannula Nasal Cannula O2 Flow Rate 4.00 3.00 3.00 Intake and Output 04/09/17 00:00 Intake Total 650 ml Output Total 4700 ml Balance -4050 ml Weight (Pounds): 212 Weight (Ounces): 6.0 Weight (Calculated Kilograms): 96.269124 Constitutional: AAO x 3 Respiratory: wheezing (scattered), other (diminished lower lobes bilat) Cardiovascular: regular rate-rhythm, tachycardia, systolic murmur Gastrointestional: No tender, soft, round, audible bowel sounds Extremities: other (mild LLE edema; R AKA) Neurologic/Psychiatric: grossly intact Skin: normal color, warm/dry, No rash, No ulcerations Results/Procedures: Labs Laboratory Tests 04/08/17 15:41: Glucometer 141H 04/08/17 20:38: Glucometer 157H 04/09/17 04:59: Glucometer 166H 04/09/17 05:30: White Blood Count 9.5, Red Blood Count 3.71L, Hemoglobin 11.3L, Hematocrit 35, Mean Corpuscular Volume 94, Mean Corpuscular Hemoglobin 31, Mean Corpuscular Hemoglobin Concent 32, Red Cell Distribution Width 19.0H, Platelet Count 141, Mean Platelet Volume 10.2, Neutrophils (%) (Auto) 88H, Lymphocytes (%) (Auto) 6L , Monocytes (%) (Auto) 6, Eosinophils (%) (Auto) 1, Basophils (%) (Auto) 0, Neutrophils # (Auto) 8.3H, Lymphocytes # (Auto) 0.5L, Monocytes # (Auto) 0.5, Eosinophils # (Auto) 0.1, Basophils # (Auto) 0.0 04/09/17 05:40: Sodium Level 135, Potassium Level 3.2L, Chloride Level 95L, Carbon Dioxide Level 25, Anion Gap 15H, Blood Urea Nitrogen 17, Creatinine 1.41H, Estimat Glomerular Filtration Rate 38, BUN/Creatinine Ratio 12, Glucose Level 140H, Calcium Level 8.0L, Total Bilirubin 1.7H, Aspartate Amino Transf (AST/SGOT) 19, Alanine Aminotransferase (ALT/SGPT) 28, Alkaline Phosphatase 60, Total Protein 5.7L, Albumin 3.3 04/09/17 08:23: B-Type Natriuretic Peptide 4306.4H, Vancomycin Level Trough 14.1 04/09/17 11:42: Glucometer 130H Microbiology 04/04/17 Blood Culture - Preliminary, Resulted No growth 04/02/17 Influenza Types A,B Antigen (LISA) - Final, Complete A/P: Assessment: Dyspnea, likely multifactorial (see below) Septic shock - management per Med/Pulm/ICU services Acute exacerbation of COPD de to pneumonia with septicemia Dilated cardiomyopathy of undetermined etiology and acute on chronic systolic and diastolic CHF Not suitable for STEVEN-inhibitor or ARB due to relative hypotension and renal failure Not suitable for BB due to low bp Supplemental oxygen dependent at home (4L/NC per pt) Echo of 04/02/17: LVEF approx 30%, mod to mod-sev MR Acute on chronic renal failure - CKD stage III, better today Hypokalemia r/t chronic diuretic use - replace Tobaccoism - cessation advised 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 Barker on 12-03-12 Severe PAD for which she has had stenting to the iliac and femoral artery per Dr. Barker and Dr. Mcallister at [facility]. 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 Paez Plan: * Very complex management due to multiple active comorbidities (see above) * Continue Lasix * Replenish K * CHF med therapy compromised due to low bp and renal failure (see above) LUIS M BROOKS MD FACP FAC CCDS Apr 09, 2017 13:45
[2017-04-09 15:26] VITALS: BP 106/74
[2017-04-10] MEDS ORDERED: FUROSEMIDE 40 MG (LASIX) TAB PO SCH (09:00)
== END 2017-04-09 15:26 | disposition hospice, home (50) | DRG 871 ==
LOC: EDUNIT# 12:02 → ER 12:04 → ICU 14:46 → 4TH 04-08 13:50
PROVIDERS: ADMIT Internal Medicine; ATTEND Internal Medicine
PROC: 02HV33Z Insertion of Infusion Device into Superior Vena Cava, Percutaneous Approach (ICD-10-PCS; principal; 2017-04-04)
DX: A41.9 Sepsis, unspecified organism (principal); R65.21 Severe sepsis with septic shock; J18.9 Pneumonia, unspecified organism; J96.21 Acute and chronic respiratory failure with hypoxia; J96.22 Acute and chronic respiratory failure with hypercapnia; N17.9 Acute kidney failure, unspecified; I42.0 Dilated cardiomyopathy; I50.43 Acute on chronic combined systolic (congestive) and diastolic (congestive) heart failure; E27.40 Unspecified adrenocortical insufficiency; E87.1 Hypo-osmolality and hyponatremia; J43.9 Emphysema, unspecified; I25.10 Atherosclerotic heart disease of native coronary artery without angina pectoris; E66.01 Morbid (severe) obesity due to excess calories; N18.3 Chronic kidney disease, stage 3 (moderate); I34.0 Nonrheumatic mitral (valve) insufficiency; I73.9 Peripheral vascular disease, unspecified; D63.8 Anemia in other chronic diseases classified elsewhere; I65.21 Occlusion and stenosis of right carotid artery; E87.6 Hypokalemia; T50.1X5A Adverse effect of loop [high-ceiling] diuretics, initial encounter; F17.210 Nicotine dependence, cigarettes, uncomplicated; F41.9 Anxiety disorder, unspecified; F32.9 Major depressive disorder, single episode, unspecified; Z99.81 Dependence on supplemental oxygen; Z95.5 Presence of coronary angioplasty implant and graft; Z95.828 Presence of other vascular implants and grafts; Z68.30 Body mass index [BMI] 30.0-30.9, adult; Z89.511 Acquired absence of right leg below knee
CPT/HCPCS: 36415; 71010; 80053; 80061; 80202; 81000; 82805; 82962; 83605; 83735; 83880; 84100; 84145; 84443; 85007; 85025; 85027; 85610; 85730; 87040; 87449; 87804; 87899; 93306; 94640; 94660; 94760; 96365; 96375

== ENCOUNTER 2017-06-01 06:00 | Emergency (ER) | payer MEDICARE ==
[~2017-06-01] VITALS: Ht 167.6 cm; Wt 96.3 kg
[~2017-06-01 06:00] MED LIST changes: +POTA10TA10 PO; +POTA20TA15 PO; +ZOLP10TA5 PO
[2017-06-01] MEDS ORDERED: LORA1TAB (06:12)
[2017-06-01] MEDS ORDERED: MORP100S3 (06:12)
[2017-06-01] MEDS ORDERED: RT-ALBUTEROL SULF 2.5 MG/3 ML PRE-MIX VIAL INH STA (06:12)
[2017-06-01 06:18] LABS: BASOPHILS % (AUTO) 0 % (0-10); EOSINOPHILS # (AUTO) 0.4 10^3/uL (0.0-0.3); EOSINOPHILS % (AUTO) 4 % (0-10); HEMATOCRIT 31 % (35-52); HEMOGLOBIN 9.9 G/DL (11.5-16.0); LYMPHOCYTES # (AUTO) 1.2 X 10^3 (1.0-4.0); LYMPHOCYTES % (AUTO) 10 % (12-44); MEAN CORPUSCULAR HEMOGLOBIN 30 PG (25-34); MEAN CORPUSCULAR HGB CONC 32 G/DL (32-36); MEAN CORPUSCULAR VOLUME 95 FL (80-99); MEAN PLATELET VOLUME 9.8 FL (7.4-10.4); MONOCYTES # (AUTO) 0.8 X 10^3 (0.0-1.0); MONOCYTES % (AUTO) 6 % (0-12); NEUTROPHILS # (AUTO) 9.9 X 10^3 (1.8-7.8); NEUTROPHILS % (AUTO) 80 % (42-75); PLATELET COUNT 256 10^3/uL (130-400); RED BLOOD COUNT 3.27 10^6/uL (4.35-5.85); RED CELL DISTRIBUTION WIDTH 17.9 % (10.0-14.5); WHITE BLOOD COUNT 12.3 10^3/uL (4.3-11.0)
--- NOTE | 2017-06-01 06:20 | ED Respiratory ---
General Chief Complaint: Respiratory Problems Stated Complaint: SOB Nursing Triage Note: increased SOA x 5 hours. patient given breathing treatment in route and 125mg solu-medrol IV Source: patient, EMS, old records Exam Limitations: no limitations History of Present Illness Date Seen by Provider: Jun 01, 2017 Time Seen by Provider: 06:02 Initial Comments Here by EMS with shortness of breath over the last several hours. She is apparently been up all night crying with her granddaughter due to or is about her health. States that her anxiety was elevated with this. Reports that she had vomiting and diarrhea with this well. States that she became increasingly short of breath and her nebulizer treatments at home were not working so EMS was ultimately called. They did give DuoNeb and 125 mg Solu-Medrol IV for fairly significant shortness of breath and moderate wheezes throughout with decreased breath sounds in the bases per EMS. Patient does have history of CHF and COPD and does note increased swelling of the left leg. She does have amputation above the knee on the right leg. Timing/Duration: yesterday, getting worse Severity: moderate Prior Episodes/Possible Cause: occasional episodes Modifying Factors: Worse With Activity, Improves With Albuterol Nebulizer, Improves With Oxygen, Improves With Rest Associated Symptoms: No chest pain/soreness, cough, No fever/chills, No nasal congestion, No nasal drainage, shortness of breath, wheezing Allergies and Home Medications Allergies Coded Allergies: No Known Drug Allergies (Unverified , 04/02/17) Home Medications Albuterol Sulfate 1 Puff Puff, 2 PUFF IH Q6H PRN for SHORTNESS OF BREATH, ( Reported) 1 PUFF = 90 MCG Furosemide 40 Mg Tablet, 80 MG PO DAILY, (Reported) TAKES 2 (40MG) TABLETS Ibuprofen 200 Mg Tablet, 600 MG PO Q8H PRN for PAIN-MILD, (Reported) TAKES 3 (200 MG) TABLETS Lorazepam 1 Mg Tablet, (Reported) Morphine Sulfate 100 Mg/5 Ml Solution, (Reported) Potassium Chloride 10 Meq Tablet.er, 10 MEQ PO DAILY for 30 Days Prescribed by: SAMANTHA BAÑUELOS on 04/09/17 1245 Tiotropium [place] 1 Inh Aerp, 1 CAP IH DAILY, (Reported) Constitutional: see HPI, No chills, No fever EENTM: no symptoms reported Respiratory: see HPI, cough, short of breath, wheezing Cardiovascular: No chest pain, edema, No palpitations Gastrointestinal: No abdominal pain, diarrhea, nausea, vomiting Genitourinary: no symptoms reported Musculoskeletal: no symptoms reported Skin: no symptoms reported Psychiatric/Neurological: See HPI, Anxiety, Emotional Problems Hematologic/Lymphatic: No Symptoms Reported All Other Systems Reviewed Negative Unless Noted: Yes Past Mmxntoc-Vjhpzk-Uwmyra Hx Patient Social History Alcohol Use: Denies Use Recreational Drug Use: No Type Used: Cigarettes 2nd Hand Smoke Exposure: Yes Recent Foreign Travel: No Contact w/Someone Who Travel: No Recent Infectious Disease Expo: No Recent Hopitalizations: No Immunizations Up To Date Tetanus Booster (TDap): Unknown PED Vaccines UTD: No Surgeries History of Surgeries: Yes (pvd, ) Surgeries: Amputation, Section, Coronary Stent, Orthopedic, Vascular Surgery Respiratory History of Respiratory Disorde: Yes Respiratory Disorders: COPD Currently Using CPAP: No Currently Using BIPAP: No Cardiovascular History of Cardiac Disorders: Yes (CHF) Cardiac Disorders: Chronic Edema/Swelling, Coronary Artery Disease, Peripheral Vascular Neurological History of Neurological Disord: No Reproductive System Hx Reproductive Disorders: No Genitourinary History of Genitourinary Disor: Yes Genitourinary Disorders: Bladder Infection Gastrointestinal History of Gastrointestinal Di: No Musculoskeletal History of Musculoskeletal Dis: Yes Musculoskeletal Disorders: Amputee, Fractures Endocrine History of Endocrine Disorders: No HEENT History of HEENT Disorders: No Cancer History of Cancer: No Did You Recieve Any Treatments: No Psychosocial History of Psychiatric Problem: Yes Behavioral Health Disorders: Anxiety Integumentary History of Skin or Integumenta: Yes (age spots) Skin/Integumentary Disorders: Recent Skin Changes Blood Transfusions History of Blood Disorders: No Reviewed Nursing Assessment Reviewed/Agree w Nursing PMH: Yes Family Medical History Significant Family History: No Pertinent Family Hx Physical Exam Vital Signs Vital Signs - First Documented 06/01/17 06:00 Temp 96.8 Pulse 112 Resp 24 B/P (MAP) 135/99 (111) Pulse Ox 92 O2 Delivery Nasal Cannula O2 Flow Rate 4.50 Capillary Refill : Less Than 3 Seconds General Appearance: WD/WN, no apparent distress HEENT: PERRL/EOMI, pharynx normal Neck: full range of motion, supple Respiratory: respiratory distress, accessory muscle use, crackles, wheezing, other Cardiovascular: no murmur, tachycardia Gastrointestinal: non tender, soft Extremities: non-tender, normal inspection Neurologic/Psychiatric: alert, oriented x 3 Skin: normal color, warm/dry Focused Exam Evaluation Lactate Level Laboratory Tests 06/01/17 07:51: Lactic Acid Level 0.99 Lactic Acid Level Laboratory Tests Test 06/01/17 07:51 Lactic Acid Level 0.99 MMOL/L (0.50-2.00) Progress/Results/Core Measures Suspected Sepsis Recent Fever Within 48 Hours: No Infection Criteria Present: None New/Unexplained Altered Menta: No Sepsis Screen: No Definite Risk Sepsis Diagnosis: SIRS Temperature:96.8 Pulse: 112 Respiratory Rate: 24 Laboratory Tests 06/01/17 06:10: White Blood Count 12.3H Blood Pressure 135 /99 Mean: 111 Laboratory Tests 06/01/17 07:51: Lactic Acid Level 0.99 Laboratory Tests 06/01/17 06:10: Creatinine 1.53H, Platelet Count 256, Total Bilirubin 1.2H 06/01/17 07:22: INR Comment 1.3 Results/Orders Lab Results Laboratory Tests Test 06/01/17 06:10 06/01/17 07:22 06/01/17 07:51 Range/Units White Blood Count 12.3 H 4.3-11.0 10^3/uL Red Blood Count 3.27 L 4.35-5.85 10^6/uL Hemoglobin 9.9 L 11.5-16.0 G/DL Hematocrit 31 L 35-52 % Mean Corpuscular Volume 95 80-99 FL Mean Corpuscular Hemoglobin 30 25-34 PG Mean Corpuscular Hemoglobin Concent 32 32-36 G/DL Red Cell Distribution Width 17.9 H 10.0-14.5 % Platelet Count 256 130-400 10^3/uL Mean Platelet Volume 9.8 7.4-10.4 FL Neutrophils (%) (Auto) 80 H 42-75 % Lymphocytes (%) (Auto) 10 L 12-44 % Monocytes (%) (Auto) 6 0-12 % Eosinophils (%) (Auto) 4 0-10 % Basophils (%) (Auto) 0 0-10 % Neutrophils # (Auto) 9.9 H 1.8-7.8 X 10^3 Lymphocytes # (Auto) 1.2 1.0-4.0 X 10^3 Monocytes # (Auto) 0.8 0.0-1.0 X 10^3 Eosinophils # (Auto) 0.4 H 0.0-0.3 10^3/uL Basophils # (Auto) 0.0 0.0-0.1 10^3/uL Sodium Level 140 135-145 MMOL/L Potassium Level 3.1 L 3.6-5.0 MMOL/L Chloride Level 102 98-107 MMOL/L Carbon Dioxide Level 21 21-32 MMOL/L Anion Gap 17 H 5-14 MMOL/L Blood Urea Nitrogen 22 H 7-18 MG/DL Creatinine 1.53 H 0.60-1.30 MG/DL Estimat Glomerular Filtration Rate 34 BUN/Creatinine Ratio 14 Glucose Level 146 H 70-105 MG/DL Calcium Level 9.0 8.5-10.1 MG/DL Magnesium Level 1.8 1.8-2.4 MG/DL Total Bilirubin 1.2 H 0.1-1.0 MG/DL Aspartate Amino Transf (AST/SGOT) 24 5-34 U/L Alanine Aminotransferase (ALT/SGPT) 16 0-55 U/L Alkaline Phosphatase 87 40-136 U/L Troponin I < 0.30 <0.30 NG/ML C-Reactive Protein High Sensitivity 3.76 H 0.00-0.50 MG/DL B-Type Natriuretic Peptide 3302.2 H <100.0 PG/ML Total Protein 6.7 6.4-8.2 GM/DL Albumin 3.8 3.2-4.5 GM/DL Prothrombin Time 16.2 H 12.2-14.7 SEC INR Comment 1.3 0.8-1.4 Activated Partial Thromboplast Time 30 24-35 SEC Lactic Acid Level 0.99 0.50-2.00 MMOL/L My Orders Orders - SHANA PHOENIX MD Albuterol Pre-Mix Nebs (Rt) (Proventil (06/01/17 06:12) Svn Sm Volume Nebulizer Rt-Rfs (06/01/17 06:12) BNP (06/01/17 06:13) Cbc With Automated Diff (06/01/17 06:13) Comprehensive Metabolic Panel (06/01/17 06:13) Hs C Reactive Protein (06/01/17 06:13) Magnesium (06/01/17 06:13) Troponin I (06/01/17 06:13) Chest 1 View, Ap/Pa Only (06/01/17 06:13) Saline Lock/Iv-Start (06/01/17 06:13) Ekg Tracing (06/01/17 06:13) O2 (06/01/17 06:13) Monitor-Rhythm Ecg Trace Only (06/01/17 06:13) Albuterol/Ipra Inhalation Soln (Duoneb I (06/01/17 06:45) Svn Sm Volume Nebulizer Rt-Rfs (06/01/17 06:34) Lactic Acid Analyzer (06/01/17 06:48) Blood Culture (06/01/17 06:48) Sputum Culture (06/01/17 06:48) Ua Culture If Indicated (06/01/17 06:48) Protime With Inr (06/01/17 06:48) Partial Thromboplastin Time (06/01/17 06:48) Saline Lock/Iv-Start (06/01/17 06:48) Vital Signs Adult Sepsis Patie Q1H (06/01/17 06:48) Remove Rings In Anticipation O (06/01/17 06:48) Lorazepam Injection (Ativan Injection) (06/01/17 08:15) Ceftriaxone Injection (Rocephin Injectio (06/01/17 08:30) Medications Given in ED Current Medications Medications Dose Ordered Sig/Angel Route Start Time Stop Time Status Last Admin Dose Admin Albuterol/ Ipratropium 3 ml ONCE ONCE INH 06/01/17 06:45 06/01/17 06:46 DC 06/01/17 06:39 3 ML Ceftriaxone Sodium 1000 mg/ Sodium Chloride 50 ml @ 100 mls/hr ONCE ONCE IV 06/01/17 08:30 06/01/17 08:59 DC 06/01/17 08:35 100 MLS/HR Lorazepam 1 mg ONCE ONCE IVP 06/01/17 08:15 06/01/17 08:16 DC 06/01/17 08:34 1 MG Vital Signs/I&O Vital Sign - Last 12Hours 06/01/17 06/01/17 06/01/17 06:00 06:21 06:40 Temp 96.8 Pulse 112 Resp 24 B/P (MAP) 135/99 (111) Pulse Ox 92 96 96 O2 Delivery Nasal Cannula Nasal Cannula Nasal Cannula O2 Flow Rate 4.50 4.00 4.00 Capillary Refill : Less Than 3 Seconds Blood Pressure Mean: 111 Progress Note : Progress Note Seen and evaluated. IV by EMS. Chest x-ray, EKG and labs ordered. We will repeat albuterol 2 and evaluated. Monitor patient. Improving after albuterol treatments. Patient noted to have hypotension. Very challenging in the setting of COPD and CHF. Pending labs. Ottoniel caballero added. Monitor patient. 0800 : I have discussed the case with Dr. Gallardo and she did inform her that the patient was on hospice she thought. I did asked the patient and family and they do agree that she is on hospice. This has changed management some as she is in CHF and COPD but she is on hospice for these things. Does appear that the crux of the problem was severe anxiety. Patient and family did not call the hospice nurse this morning. We will call [facility] and have them come out. reports that there is some problem with her portable oxygen. He will bring her oxygen and wheelchair back from home and we will evaluate that. Ativan 1 mg IV ordered for anxiety. She is typically on 1 mg every 2 hours as needed for anxiety. She has not had any of this since last night. I did rediscuss the case with Dr. Gallardo at 0817 and she is in full agreement with plan. Continue to monitor patient. 0940: Hospice nurse has been in to see the patient and they have her set up for refilling her home medicine of morphine. They are getting a new oxygen regulator and it will be sent here so the patient can go home. All of these things were discussed with the patient and family who agree. She is much better now after Ativan and feels safe at home. Discharged home with return precautions. Patient and family verbalize understanding instructions and agreement with plan. ECG Initial ECG Impression Date: Jun 01, 2017 Initial ECG Impression Time: 06:35 Initial ECG Rate: 109 Initial ECG Rhythm: S.Tach Comment Sinus tachycardia with PVC. Left axis deviation. Right bundle branch block noted. Similar to previous but changing axis from 14 May 2016. No evidence of ST elevation NV. Question of some lateral lead ST depression. Interpreted by me. Diagnostic Imaging Diagonstic Imaging: Xray Plain Films/CT/US/NM/MRI: chest Comments [facility] [place], [place] NAME: ONIEL DESIR REC#: [id number] PT STATUS: REG ER : 1955 PHYSICIAN: SHANA PHOENIX MD ADMIT DATE: 06/01/17/ER Draft Date of Exam:06/01/17 CHEST 1 VIEW, AP/PA ONLY Indication: Worsening dyspnea over the last 5 hours. Discussion: Single portable upright view of the chest was obtained, comparison 04/09/2017. Changes of chronic lung disease with chronic interstitial thickening is again noted. However, there is increased consolidation within the right lung base which could be seen with atelectasis and/or pneumonia. Small right pleural effusion is new. Cardiomegaly is stable. Impression: 1. Cardiomegaly, stable. 2. Small right pleural effusion with right basilar opacities as described. Dictated on workstation # [id number] Dict: 06/01/17 0746 Trans: 06/01/17 0748 [facility] [id number] Interpreted by: JÚNIOR LERMA MD Electronically signed by: Departure Impression Impression: Primary Impression: Right lower lobe pneumonia Qualified Codes: J18.1 - Lobar pneumonia, unspecified organism Additional Impressions: CHF exacerbation Qualified Codes: I50.9 - Heart failure, unspecified COPD exacerbation Anxiety about health Disposition: 01 HOME, SELF-CARE Condition: Stable Departure-Patient Inst. Referrals: [facility] [place] ([place]/Family) Primary Care Physician Patient Instructions: Pneumonia, Adult (DC), Chronic Bronchitis (DC), CHF, Community-Acquired Pneumonia, Adult (DC) Add. Discharge Instructions: All discharge instructions reviewed with patient and/or family. Voiced understanding. Continue medications as directed. Use oxygen as directed. If you're having any problems, you should call your hospice nurse right away. Return for worse pain, fever, vomiting, weakness, breathing problems or other concerns as needed. Take new antibiotic as directed. You may start this tomorrow morning. Scripts Cefdinir (Cefdinir) 300 Mg Capsule 300 MG PO BID, #14 CAP 0 Refills Prov: SHANA PHOENIX MD 06/01/17 SHANA PHOENIX MD Jun 01, 2017 06:20
[2017-06-01 06:44] LABS: ALANINE AMINOTRANSFERASE 16 U/L (0-55); ALBUMIN 3.8 GM/DL (3.2-4.5); ALKALINE PHOSPHATASE 87 U/L (40-136); BILIRUBIN,TOTAL 1.2 MG/DL (0.1-1.0); BUN/CREATININE RATIO 14; CARBON DIOXIDE 21 MMOL/L (21-32); CHLORIDE 102 MMOL/L (98-107); CREATININE SERUM 1.53 MG/DL (0.60-1.30); GFR ESTIMATED 34; GLUCOSE 146 MG/DL (70-105); MAGNESIUM 1.8 MG/DL (1.8-2.4); POTASSIUM 3.1 MMOL/L (3.6-5.0); SODIUM 140 MMOL/L (135-145); TOTAL PROTEIN 6.7 GM/DL (6.4-8.2)
[2017-06-01] MEDS ORDERED: RT-ALBUTEROL/IPRATROPIUM 3 ML (DUONEB) VIAL INH ONE (06:45)
[2017-06-01 07:42] LABS: INR 1.3 (0.8-1.4); PROTHROMBIN TIME PATIENT 16.2 SEC (12.2-14.7)
--- NOTE | 2017-06-01 07:48 | Diagnostic Imaging Report ---
Indication: Worsening dyspnea over the last 5 hours. Discussion: Single portable upright view of the chest was obtained, comparison 04/09/2017. Changes of chronic lung disease with chronic interstitial thickening is again noted. However, there is increased consolidation within the right lung base which could be seen with atelectasis and/or pneumonia. Small right pleural effusion is new. Cardiomegaly is stable. Impression: 1. Cardiomegaly, stable. 2. Small right pleural effusion with right basilar opacities as described. Dictated by: Dictated on workstation # [id number]
[2017-06-01] MEDS ORDERED: LORazepam INJ 2 MG/ML (ATIVAN) VIAL IVP ONE (08:15)
[2017-06-01] MEDS ORDERED: cefTRIAXone INJECTION 1,000 MG in NS (IVPB) 50 ML IV ONE (08:30)
[2017-06-01] MEDS ORDERED: CEFD300C3 PO (09:43)
[2017-06-01 10:50] VITALS: BP 107/59
== END 2017-06-01 10:50 | disposition home or self-care (01) ==
LOC: EDUNIT# 06:04 → ER 06:05
DX: J18.1 Lobar pneumonia, unspecified organism (principal); I50.9 Heart failure, unspecified; J44.1 Chronic obstructive pulmonary disease with (acute) exacerbation; F41.9 Anxiety disorder, unspecified; I25.10 Atherosclerotic heart disease of native coronary artery without angina pectoris; Z77.22 Contact with and (suspected) exposure to environmental tobacco smoke (acute) (chronic); Z87.59 Personal history of other complications of pregnancy, childbirth and the puerperium; Z87.81 Personal history of (healed) traumatic fracture; Z95.5 Presence of coronary angioplasty implant and graft
CPT/HCPCS: 36415; 71045; 80053; 83605; 83735; 83880; 84484; 85025; 85610; 85730; 86141; 87040; 93005; 94640

== ENCOUNTER 2018-01-23 14:21 | Outpatient (CLI) | payer MEDICARE ==
[~2018-01-23] VITALS: Ht 167.6 cm; Wt 68.2 kg
[~2018-01-23 14:21] MED LIST changes: +CEFD300C3 PO; +LORA1TAB; +MORP100S3
[2018-01-24] MEDS ORDERED: BENZ-36 PO (12:34)
[2018-01-24] MEDS ORDERED: HYDR-3820 PO (12:34)
[2018-01-24] MEDS ORDERED: ALBU2.5V4 IH (12:34)
[2018-01-24] MEDS ORDERED: FURO-124 PO (12:34)
[2018-01-24] MEDS ORDERED: HYOS0.1281 PO (12:34)
[2018-01-24] MEDS ORDERED: ESCI20TA45 PO (12:34)
== END 2018-01-23 16:30 | disposition home or self-care (01) ==
LOC: PREOP 14:21
PROVIDERS: ATTEND Surgery
DX: Z01.818 Encounter for other preprocedural examination (principal)
CPT/HCPCS: 87081

== ENCOUNTER 2018-01-27 06:22 | Day surgery (SDC) | payer MEDICARE, OTHER ==
[~2018-01-27] VITALS: Ht 167.6 cm; Wt 68.2 kg
[~2018-01-27 06:22] MED LIST changes: +ALBU2.5V4 IH; +BENZ-36 PO; +ESCI20TA45 PO; +FURO-124 PO; +HYDR-3820 PO; +HYOS0.1281 PO
[2018-01-27 06:25] VITALS: BP 114/72
[2018-01-27] MEDS ORDERED: ceFAZolin 2 GM IV Premixed 50 ML IV ONE (06:30)
--- OUTSIDE RECORDS SUMMARY | 2018-01-27 06:31 | XMS REPORT ---
Author Author ALEJANDRA JOSEPH Organization [facility] Address [address] [place] [address] Care Team Providers Care Procedure Analyst Name Role Phone ALEJANDRA JOSEPH Unavailable PROBLEMS Type Condition ICD9-CM Code QYM80-KN Code Onset Dates Condition Status SNOMED Code Problem Above knee amputation of right lower extremity Z89.611 Active 063684634 Problem Insomnia due to medical condition G47.01 Active 30161345 Problem Acute systolic (congestive) heart failure I50.21 Active 716692547 Problem Chronic bronchitis, unspecified chronic bronchitis type J42 Active 06973624 Problem Moderate major depression F32.1 Active 808910 Problem Tobacco use Z72.0 Active 887347296 Problem PVD (peripheral vascular disease) I73.9 Active [id number] ALLERGIES No Information ENCOUNTERS Encounter Location Date Diagnosis [facility] [id number] [place] [address]2- [address] August, [facility] [id number] [place] [address] 71841- 2482 Jul, [facility] [id number] [place] [address] 37855- 6411 Apr, [facility] [id number] [place] [address] 05293- 7273 Apr, [facility] [id number] [place] [address] [id number] Mar, [facility] [address] [address] Mar, Hypokalemia E87.6 [facility] [id number] [place] [address] 13028- 2775 Mar, Hypokalemia E87.6 and Acute systolic (congestive) heart failure I50.21 [facility] [address] [address] 05 Dec, 2016 Acute systolic (congestive) heart failure I50.21 ; Acute respiratory failure, unsp w hypoxia or hypercapnia J96.00 and Insomnia due to medical condition G47.01 [facility] [address] [address] Dec, SOB (shortness of breath) R06.02 [facility] [id number] [place] [address]23- 0172 Nov, SOB (shortness of breath) R06.02 and Acute on chronic diastolic congestive heart failure I50.33 [facility] [id number] [address] Oct, [facility] [id number] [place] [address] 77991- 4215 Sep, [facility] [id number] [address] Sep, Chronic bronchitis, unspecified chronic bronchitis type J42 ; Tobacco use Z72.0 ; Moderate major depression F32.1 and Debility R53.81 [facility] [address] [address] Sep, [facility] [address] [address] August, [facility] [id number] [address] May, [facility] [id number] [address] Jul, [facility] [id number] [place] [address] 84125- 7131 Jul, [facility] [address], [place] [address] Nov, [facility] [place] [facility] [address] [id number] [place] [address]66 Nov, [facility] [place] [facility] [address] [id number] [place] [address] 5[address] Oct, [facility] [place] [facility] [address] [id number] [place] [address] 64[address] Oct, [facility] [place] [facility] [address] [id number] [place] [address] 2085 Sep, [facility] [place] [facility] [address] [id number] [place] [address] 2597 Sep, [facility] [place] [facility] [address] [id number] [place] [address] 9970 Sep, [facility] [place] [facility] [address] [id number] [place] [address] 2162 Sep, [facility] [place] [facility] [address] [id number] [place] [address] 9148 Sep, [facility] [place] [facility] [address] [id number] [place] [address] 6153 Sep, [facility] [place] [facility] [address] [id number] [place] [address] 2846 August, [facility] [place] [facility] [address] [id number] [place] [address] 8405 August, [facility] [place] [facility] [address] [id number] [place] [address] 9830 August, [facility] [place] [facility] [address] [id number] [place] [address] 6419 August, [facility] [place] [facility] [address] [id number] [place] [address] 2639 August, [facility] [place] [facility] [address] [id number] [place] [address]- 6736 August, [facility] [place] [facility] [address] [id number] [place] [address]- 2265 August, [facility] [place] [facility] [address] [id number] [place] [address]- 6251 August, [facility] [place] [facility] [address] [id number] [place] [address]- 4957 August, [facility] [place] [facility] [address] [id number] [place] [address]- 8280 August, [facility] [place] [facility] [address] [id number] [place] [address]- 3662 Jul, [facility] [place] [facility] [address] [id number] [place] [address]- 5764 Jul, [facility] [place] [facility] [address] [id number] [place] [address]- 1024 Jul, [facility] [place] [facility] [address] [id number] [place] [address]- 3992 Jul, [facility] [place] [facility] [address] [id number] [place] [address]- 4904 Jul, [facility] [place] [facility] [address] [id number] [place] [address]- 6072 Jul, [facility] [place] [facility] [address] [id number] [place] [address]- 8893 Jul, [facility] [place] [facility] [address] [id number] [place] [address]- 8859 Jul, [facility] [place] [facility] [address] [id number] [place] [address]- 4124 Jul, [facility] [place] [facility] [address] [id number] [place] [address]- 3281 Jun, [facility] [place] [facility] [address] [id number] [place] [address]- 4610 Jun, [facility] [place] [facility] [address] [id number] [place] [address]- 6073 Jun, [facility] [place] [facility] [address] [id number] [place] [address]- 5954 27 Jun, 2013 [facility] [place] [facility] [address] [id number] [place] [address]- 7492 Jun, [facility] [place] [facility] [address] [id number] [place] [address]- 2966 Jun, [facility] [place] [facility] [address] [id number] [place] [address]- 9044 Jun, [facility] [place] [facility] [address] [id number] [place] [address]- 4341 Jun, [facility] [place] [facility] [address] [id number] [place] [address]- 9818 Jun, [facility] [place] [facility] [address] [id number] [place] [address]- 8913 Jun, [facility] [place] [facility] [address] [id number] [place] [address]- 2670 Jun, [facility] [place] [facility] [address] [id number] [place] [address]- 9944 May, [facility] [place] [facility] [address] [id number] [place] [address]- 2021 May, [facility] [place] [facility] [address] [facility] [id number] [place] [address]- 6806 May, [facility] [place] [facility] [address] [id number] [place] [address]- 4216 May, [facility] [place] [facility] [address] [id number] [place] [address]- 8886 May, [facility] [place] [facility] [address] [id number] [place] [address]- 1646 May, [facility] [place] [facility] [address] [id number] [place] [address]- 5229 May, [facility] [place] [facility] [address] [facility] [id number] [place] [address]- 2982 May, [facility] [place] [facility] [address] [id number] [place] [address]- 1891 May, [facility] [place] [facility] [address] [id number] [place] [address]- 3946 May, [facility] [place] [facility] [address] [id number] [place] [address]- 0716 May, [facility] [place] [facility] [address] [id number] [place] [address]- 8238 May, [facility] [place] [facility] [address] [id number] [place] [address]- 7922 Mar, [facility] [place] [facility] [address] [id number] [place] [address]- 3910 Mar, [facility] [place] [facility] [address] [id number] [place] [address]- 2629 Mar, [facility] [place] [facility] [address] [id number] [place] [address]- 1070 Mar, [facility] [place] [facility] [address] [id number] [place] [address]- 5309 30 Mar, 2013 [facility] [place] [facility] [address] [id number] [place] [address]- 8298 Mar, [facility] [place] [facility] [address] [id number] [place] [address]- 8575 Mar, [facility] [place] [facility] [address] [id number] [place] [address]- 9634 Mar, [facility] [place] [facility] [address] [id number] [place] [address]- 2631 Mar, [facility] [place] [facility] [address] [id number] [place] [address]- 0548 Mar, [facility] [place] [facility] [address] [id number] [place] [address]- 1585 Mar, [facility] [place] [facility] [address] [id number] [place] [address]- 1292 Mar, 2012 [facility] [address] [id number] [place] [address]- 7535 Mar, [facility] [address] [id number] [place] [address]15 Mar, [facility] [address] [id number] [place] [address]- 6765 Mar, [facility] [address] [id number] [place] [address]- 7672 Mar, [facility] [address] [id number] [place] [address]709 Mar, [facility] [address] [id number] [place] [address]- 0815 Mar, [facility] [address] [facility] [id number] [place] [address]- 6466 Feb, [facility] [address] [id number] [place] [address]- 1459 Feb, [facility] [address] [facility] [id number] [place] [address]- 3498 Feb, [facility] [address] [facility] [id number] [place] [address]- 1133 Feb, [facility] [place] [facility] [address] [id number] [place] [address]- 5830 Feb, [facility] [address] [id number], [place] [address]- 1034 Jan, [facility] [place] [facility] [address] [id number] [place] [address]- 0193 18 Jan, 2013 [facility] [place] [facility] [address] [facility] [id number] [place] [address]- 6511 Jan, [facility] [place] [facility] [address] [facility] [id number] [place] [address]- 0161 Jan, [facility] [address] [facility] [id number], [place] [address]- 2512 Jan, [facility] [address] [facility] [id number], [place] [address]- 8236 Jan, [facility] [address] [facility] [id number], [place] [address]- 9378 Jan, [facility] [address] [facility] [id number], [place] [address]- 9324 Jan, [facility] [address] [facility] [id number], [place] [address]- 6300 Jan, [facility] [address] [facility] [id number], [place] [address]- 6466 Jan, [facility] [address], [place] [address]- 6876 Jan, [facility] [address], [place] [address]- 7635 Jan, [facility] [id number], [place] [address]- 6345 Dec, [facility] [address], [place] [address]- 8406 Dec, [facility] [id number], [place] [address]- 0486 Sep, [facility] [id number], [place] [address]- 9877 August, [facility] [id number], [place] [address]- 2296 August, [facility] [id number], [place] [address]- 3926 August, IMMUNIZATIONS No Known Immunizations SOCIAL HISTORY Never Assessed REASON FOR VISIT PLAN OF CARE VITAL SIGNS MEDICATIONS Unknown Medications RESULTS No Results PROCEDURES No Known procedures INSTRUCTIONS MEDICATIONS ADMINISTERED No Known Medications MEDICAL (GENERAL) HISTORY Type Description Date Medical [...] R AKA, CAD-Vch Hospitalization History past surgery Hospitalization History Septic shock, respiratory failure-[facility] 04/02/17
--- OUTSIDE RECORDS SUMMARY | 2018-01-27 06:31 | XMS REPORT ---
Author Author ALEJANDRA JOSEPH Organization [facility] Address [address] [place] [address] Care Team Providers Care External Auditor Name Role Phone ALEJANDRA JOSEPH Unavailable PROBLEMS Type Condition ICD9-CM Code OOL16-[place] Code Onset Dates Condition Status SNOMED Code Problem Above knee amputation of right lower extremity Z89.611 Active 121082094 Problem Insomnia due to medical condition G47.01 Active 97363152 Problem Acute systolic (congestive) heart failure I50.21 Active 546504076 Problem Chronic bronchitis, unspecified chronic bronchitis type J42 Active 51048457 Problem Moderate major depression F32.1 Active 734274 Problem Tobacco use Z72.0 Active 647019008 Problem PVD (peripheral vascular disease) I73.9 Active [id number] ALLERGIES No Information ENCOUNTERS Encounter Location Date Diagnosis [facility] [id number] [place] [address]- [address] August, [facility] [id number] [place] [address]- 1959 Jul, [facility] [id number] [place] [address] 24296- 4887 Apr, [facility] [id number] [place] [address] 97913- 9656 Apr, [facility] [id number] [place] [id number] Mar, [facility] [address] [address] Mar, Hypokalemia E87.6 [facility] [id number] [place] [address]66- 0677 Mar, Hypokalemia E87.6 and Acute systolic (congestive) heart failure I50.21 [facility] [address] [address] 05 Dec, 2016 Acute systolic (congestive) heart failure I50.21 ; Acute respiratory failure, unsp w hypoxia or hypercapnia J96.00 and Insomnia due to medical condition G47.01 [facility] [address], [place] [address] Dec, SOB (shortness of breath) R06.02 [facility] [id number] [place] [address]10- 5014 Nov, SOB (shortness of breath) R06.02 and Acute on chronic diastolic congestive heart failure I50.33 [facility] [id number] [address] Oct, [facility] [id number] [place] [address]27- 5232 Sep, [facility] [id number] [address] Sep, Chronic bronchitis, unspecified chronic bronchitis type J42 ; Tobacco use Z72.0 ; Moderate major depression F32.1 and Debility R53.81 [facility] [address] [address] Sep, [facility] [address] [address] August, [facility] [id number] [address] May, [facility] [id number] [address] Jul, [facility] [id number] [place] [address]1655- 2444 Jul, [facility] [address] [address] Nov, [facility] [place] [facility] [address] [id number] [place] [address] 7[address] Nov, [facility] [place] [facility] [address] [id number] [place] [address] 7769 Oct, [facility] [place] [facility] [address] [id number] [place] [address] 0[address] Oct, [facility] [place] [facility] [address] [id number] [place] [address] 2766 Sep, [facility] [place] [facility] [address] [id number] [place] [address] 4196 Sep, [facility] [place] [facility] [address] [id number] [place] [address] 0016 Sep, [facility] [place] [facility] [address] [id number] [place] [address] 4669 Sep, [facility] [place] [facility] [address] [id number] [place] [address] 7157 Sep, [facility] [place] [facility] [address] [id number] [place] [address] 2478 Sep, [facility] [place] [facility] [address] [id number] [place] [address] 7759 August, [facility] [place] [facility] [address] [id number] [place] [address] August, [facility] [place] [facility] [address] [id number] [place] [address]- 4343 August, [facility] [place] [facility] [address] [id number] [place] [address] 4014 August, [facility] [place] [facility] [address] [id number] [place] [address] 8703 August, [facility] [place] [facility] [address] [id number] [place] [address] 5236 August, [facility] [place] [facility] [address] [id number] [place] [address]- 3661 August, [facility] [place] [facility] [address] [id number] [place] [address]- 8967 August, [facility] [place] [facility] [address] [id number] [place] [address]- 3940 August, [facility] [place] [facility] [address] [id number] [place] [address]- 4254 August, [facility] [place] [facility] [address] [id number] [place] [address]- 7055 Jul, [facility] [place] [facility] [address] [id number] [place] [address]- 1942 Jul, [facility] [place] [facility] [address] [id number] [place] [address]- 1772 Jul, [facility] [place] [facility] [address] [id number] [place] [address]- 3960 Jul, [facility] [place] [facility] [address] [id number] [place] [address]- 4700 Jul, [facility] [place] [facility] [address] [id number] [place] [address]- 4442 Jul, [facility] [place] [facility] [address] [id number] [place] [address]- 9882 Jul, [facility] [place] [facility] [address] [id number] [place] [address]- 5236 Jul, [facility] [place] [facility] [address] [id number] [place] [address]- 7355 Jul, [facility] [place] [facility] [address] [id number] [place] [address]- 3231 Jun, [facility] [place] [facility] [address] [id number] [place] [address]- 0122 Jun, [facility] [place] [facility] [address] [id number] [place] [address]- 4715 Jun, [facility] [place] [facility] [address] [id number] [place] [address]- 8625 27 Jun, 2013 [facility] [place] [facility] [address] [id number] [place] [address]- 4666 Jun, [facility] [place] [facility] [address] [id number] [place] [address]- 8666 Jun, [facility] [place] [facility] [address] [id number] [place] [address]- 1262 Jun, [facility] [place] [facility] [address] [id number] [place] [address]- 4705 Jun, [facility] [place] [facility] [address] [id number] [place] [address]- 6939 Jun, [facility] [place] [facility] [address] [id number] [place] [address]- 2184 Jun, [facility] [place] [facility] [address] [id number] [place] [address]- 6011 Jun, [facility] [place] [facility] [address] [id number] [place] [address]- 7069 May, [facility] [place] [facility] [address] [id number] [place] [address]- 2114 May, [facility] [place] [facility] [address] [facility] [id number] [place] [address]- 1213 May, [facility] [place] [facility] [address] [id number] [place] [address]- 9356 May, [facility] [place] [facility] [address] [id number] [place] [address]- 5538 May, [facility] [place] [facility] [address] [id number] [place] [address]- 6364 May, [facility] [place] [facility] [address] [id number] [place] [address]- 1584 May, [facility] [place] [facility] [address] [facility] [id number] [place] [address]- 4760 May, [facility] [place] [facility] [address] [id number] [place] [address]- 2698 May, [facility] [place] [facility] [address] [id number] [place] [address]- 0376 May, [facility] [place] [facility] [address] [id number] [place] [address]- 6486 May, [facility] [place] [facility] [address] [id number] [place] [address]- 1506 May, [facility] [place] [facility] [address] [id number] [place] [address]- 2056 Mar, [facility] [place] [facility] [address] [id number] [place] [address]- 9020 Mar, [facility] [place] [facility] [address] [id number] [place] [address]- 3978 Mar, [facility] [place] [facility] [address] [id number] [place] [address]- 2245 Mar, [facility] [place] [facility] [address] [id number] [place] [address]- 8460 30 Mar, 2013 [facility] [place] [facility] [address] [id number] [place] [address]- 0823 Mar, [facility] [place] [facility] [address] [id number] [place] [address]- 8367 Mar, [facility] [place] [facility] [address] [id number] [place] [address]- 1086 Mar, [facility] [place] [facility] [address] [id number] [place] [address]- 3885 Mar, [facility] [place] [facility] [address] [id number] [place] [address]- 0739 Mar, [facility] [place] [facility] [address] [id number] [place] [address]- 0878 Mar, [facility] [place] [facility] [address] [id number] [place] [address]- 3047 Mar, 2012 [facility] [address] [id number] [place] [address]- 4022 Mar, [facility] [address] [id number] [place] [address] Mar, [facility] [address] [id number] [place] [address]- 7972 Mar, [facility] [address] [id number] [place] [address]- 6305 Mar, [facility] [address] [id number] [place] [address] Mar, [facility] [address] [id number] [place] [address]- 2611 Mar, [facility] [address] [facility] [id number] [place] [address]- 7998 Feb, [facility] [address] [id number] [place] [address]- 1447 Feb, [facility] [address] [facility] [id number] [place] [address]- 3586 Feb, [facility] [address] [facility] [id number] [place] [address]- 8309 Feb, [facility] [place] [facility] [address] [id number] [place] [address]- 2015 Feb, [facility] [address] [id number], [place] [address]- 2763 Jan, [facility] [place] [facility] [address] [id number] [place] [address]- 7309 18 Jan, 2013 [facility] [place] [facility] [address] [facility] [id number] [place] [address]- 8981 Jan, [facility] [place] [facility] [address] [facility] [id number] [place] [address]- 7346 Jan, [facility] [address] [facility] [id number], [place] [address]- [address] Jan, [facility] [address] [facility] [id number], [place] [address]- 8766 Jan, [facility] [address] [facility] [id number], [place] [address]- 3673 Jan, [facility] [address] [facility] [id number], [place] [address]- 2690 Jan, [facility] [address] [facility] [id number], [place] [address]- 6933 Jan, [facility] [address] [facility] [id number], [place] [address]- 8096 Jan, [facility] [address], [place] [address]- 1106 Jan, [facility] [address], [place] [address]- 1752 Jan, [facility] [address], [place] [address]- [address] Dec, [facility] [address] Dec, [facility] [id number] [address]- 0485 Sep, [facility] [id number], [place] [address]- 3971 August, [facility] [id number], [place] [address]- 0997 August, [facility] [address], [place] [address]- 2516 August, IMMUNIZATIONS No Known Immunizations SOCIAL HISTORY Never Assessed REASON FOR VISIT Controlled Med Refill PLAN OF CARE VITAL SIGNS MEDICATIONS Unknown [...] past surgery Hospitalization History Septic shock, respiratory failure-VC 04/02/17
--- OUTSIDE RECORDS SUMMARY | 2018-01-27 06:32 | XMS REPORT ---
Author Author ALEJANDRA JOSEPH Organization [facility] Address [address] [place] [address] Care Team Providers Care Field Support Rep Name Role Phone ALEJANDRA JOSEPH Unavailable PROBLEMS Type Condition ICD9-CM Code HZG82-OI Code Onset Dates Condition Status SNOMED Code Problem Above knee amputation of right lower extremity Z89.611 Active 478678219 Problem Insomnia due to medical condition G47.01 Active 81999961 Problem Acute systolic (congestive) heart failure I50.21 Active 382721310 Problem Chronic bronchitis, unspecified chronic bronchitis type J42 Active 46717075 Problem Moderate major depression F32.1 Active 134987 Problem Tobacco use Z72.0 Active 488882040 Problem PVD (peripheral vascular disease) I73.9 Active 284309538 ALLERGIES No Known Allergies ENCOUNTERS Encounter Location Date Diagnosis [facility] [id number] [place] [address] 46504- 8917 Jul, [facility] [id number] [place] [address] 29367- 0757 Apr, [facility] [id number] [place] [address] 14243- 7792 Apr, [facility] [place] [id number] [place] [id number] Mar, [facility] [id number] [place] [address] 95378- 5013 Mar, Hypokalemia E87.6 [facility] [id number] [place] [address] 43274- 6601 Mar, Hypokalemia E87.6 and Acute systolic (congestive) heart failure I50.21 [facility] [id number] [place] [address] 16379- 3083 Dec, Acute systolic (congestive) heart failure I50.21 ; Acute respiratory failure, unsp w hypoxia or hypercapnia J96.00 and Insomnia due to medical condition G47.01 [facility] [id number] [place] [address] 81820- 8930 Dec, SOB (shortness of breath) R06.02 [facility] [id number] [place] [address] 27180- 0992 Nov, SOB (shortness of breath) R06.02 and Acute on chronic diastolic congestive heart failure I50.33 [facility] [address] [place], [place] [id number] [place] [address] Oct, [facility] [id number] [place] [address] 84823- 0063 Sep, [facility] [id number] [place] [address] 62930- 4581 Sep, Chronic bronchitis, unspecified chronic bronchitis type J42 ; Tobacco use Z72.0 ; Moderate major depression F32.1 and Debility R53.81 [facility] [id number] [place] [address] 79418- 1738 Sep, [facility] [id number] [place] [address] 06249- 2881 August, [facility] [id number] [place] [address] 44125- 1241 May, [facility] [id number] [place] [address] 91050- 3525 Jul, [facility] [id number] [place] [address] 77663- 6055 Jul, [facility] [id number] [place] [address] 98217- 1694 Nov, [facility] [id number] [place] [address] 67010- 4118 Nov, [facility] [place] [facility] [address] [id number] [place] [address] 12[address] Oct, [facility] [place] [facility] [address] [id number] [place] [address] Oct, [facility] [place] [facility] [address] [id number] [place] [address] 9085 Sep, [facility] [place] [facility] [address] [id number] [place] [address]- 7407 Sep, [facility] [place] [facility] [address] [id number] [place] [address]- 8460 Sep, [facility] [place] [facility] [address] [id number] [place] [address]- 6050 Sep, [facility] [place] [facility] [address] [id number] [place] [address]- 5974 Sep, [facility] [place] [facility] [address] [id number] [place] [address]- 2228 Sep, [facility] [place] [facility] [address] [id number] [place] [address]- 9688 August, [facility] [place] [facility] [address] [id number] [place] [address]- 3884 August, [facility] [place] [facility] [address] [id number] [place] [address]- 3153 August, [facility] [place] [facility] [address] [id number] [place] [address] 1924 August, [facility] [place] [facility] [address] [id number] [place] [address] August, [facility] [place] [facility] [address] [id number] [place] 3111 August, [facility] [place] [facility] [address] [id number] [place] [address]- 8053 August, [facility] [place] [facility] [address] [id number] [place] [address]- 1937 August, [facility] [place] [facility] [address] [id number] [place] [address]- 1722 August, [facility] [place] [facility] [address] [id number] [place] [address]- 2957 August, [facility] [place] [facility] [address] [id number] [place] [address]- 0644 Jul, [facility] [place] [facility] [address] [id number] [place] [address]- 5133 Jul, [facility] [place] [facility] [address] [id number] [place] [address]- 4091 Jul, [facility] [place] [facility] [address] [id number] [place] [address]- 7544 Jul, [facility] [place] [facility] [address] [id number] [place] [address]- 7327 Jul, [facility] [place] [facility] [address] [id number] [place] [address]- 5789 Jul, [facility] [place] [facility] [address] [id number] [place] [address]- 5591 Jul, [facility] [place] [facility] [address] [id number] [place] [address]- 4658 Jul, [facility] [place] [facility] [address] [id number] [place] [address]- 4728 Jul, [facility] [place] [facility] [address] [id number] [address]- 5315 Jun, [facility] [place] [facility] [address] [id number] [place] [address]- 9060 Jun, [facility] [place] [facility] [address] [id number] [place] [address]- 4747 Jun, [facility] [place] [facility] [address] [id number] [place] [address]- 4133 Jun, [facility] [place] [facility] [address] [id number] [place] [address]- 4680 Jun, [facility] [place] [facility] [address] [id number] [place] [address]- 9088 Jun, [facility] [place] [facility] [address] [id number] [place] 9446 Jun, [facility] [place] [facility] [address] [id number] [place] [address]- 6839 Jun, [facility] [place] [facility] [address] [id number] [place] [address]- 2960 Jun, [facility] [place] [facility] [address] [id number] [place] [address]- 4129 Jun, [facility] [place] [facility] [address] [facility] [id number] [place] [address]- 0386 Jun, [facility] [place] [facility] [address] [facility] [id number] [place] [address]- 8106 May, [facility] [place] [facility] [address] [id number] [place] [address]- 9498 May, [facility] [place] [facility] [address] [facility] [id number] [place] [address]- 3317 May, [facility] [place] [facility] [address] [facility] [id number] [place] [address]- 4920 May, [facility] [place] [facility] [address] [facility] [id number] [place] [address]- 0286 May, [facility] [place] [facility] [address] [id number] [place] [address]- 2549 May, [facility] [place] [facility] [address] [id number] [place] [address]- 7001 May, [facility] [place] [facility] [address] [facility] [id number] [place] 9708 May, [facility] [place] [facility] [address] [facility] [id number] [place] [address]- 1505 May, [facility] [place] [facility] [address] [id number] [place] [address]- 0967 May, [facility] [place] [facility] [address] [id number] [place] [address]- 6096 May, [facility] [place] [facility] [address] [id number] [place] [address]- 8906 May, [facility] [place] [facility] [address] [id number] [place] [address]- 2891 Mar, [facility] [place] [facility] [address] [id number] [place] [address]- 9362 Mar, [facility] [place] [facility] [address] [id number] [place] [address]- 9917 Mar, [facility] [place] [facility] [address] [id number] [place] [address]- 1461 Mar, [facility] [place] [facility] [address] [id number] [place] [address]- 5609 30 Mar, 2013 [facility] [place] [facility] [address] [id number] [place] [address]- 0263 Mar, [facility] [place] [facility] [address] [id number] [place] [address]- 2361 Mar, [facility] [place] [facility] [address] [id number] [place] [address]- 7542 Mar, [facility] [place] [facility] [address] [id number] [place] [address]- 3881 Mar, [facility] [place] [facility] [address] [id number] [place] [address]- 9921 Mar, [facility] [place] [facility] [address] [id number] [place] [address]- 7850 Mar, [facility] [place] [facility] [address] [id number] [place] [address]- 7733 19 Mar, 2013 [facility] [place] [facility] [address] [id number] [place] [address]- 2772 13 Mar, 2013 [facility] [address] [id number] [place] [address]- 9724 Mar, [facility] [place] [facility] [address] [id number] [place] [address]- 3583 06 Mar, 2013 [facility] [address] [id number] [place] [address]- 0893 06 Mar, 2013 [facility] [place] [facility] [address] [id number] [place] [address]- 2000 Mar, [facility] [address] [id number] [place] [address]- 2574 Mar, [facility] [address] [id number] [place] [address]- 7714 Feb, [facility] [address] [id number] [place] [address]- 1235 Feb, [facility] [address] [id number] [place] [address]- 1043 Feb, [facility] [address] [id number] [place] [address]- 7033 Feb, [facility] [address] [facility] [id number] [place] [address]- 0525 Feb, [facility] [place] [facility] [address] [id number] [place] [address]- 8654 18 Jan, 2013 [facility] [place] [facility] [address] [id number] [place] [address]- 3113 18 Jan, 2013 [facility] [place] [facility] [address] [id number] [place] [address]- 7233 17 Jan, 2013 [facility] [place] [facility] [address] [id number] [place] [address]- 7098 17 Jan, 2013 [facility] [place] [facility] [address] [id number] [place] [address]- 2703 Jan, [facility] [address] [id number] [address]- 8929 Jan, [facility] [id number] [address]- 0450 Jan, [facility] [address] [id number] 6307 Jan, [facility] [id number] [address]- 1660 Jan, [facility] [address] [id number] 2370 Jan, [facility] [id number] [address]- 7460 Jan, [facility] [id number] [address]- 7403 Jan, [facility] [id number] [address]- 9636 Dec, [facility] [id number] [address]120 Dec, [facility] [id number] 9413 Sep, [facility] [id number] [address]- 6600 August, [facility] [id number] [address]- 4690 August, [facility] [id number] [address]- 7633 August, IMMUNIZATIONS No Known Immunizations SOCIAL HISTORY Never Assessed REASON FOR VISIT Respiratory c/o/swelling foot and leg---DBennettRN, SOB at rest, cannot sleep at night PLAN OF CARE Activity Details Follow Up 2 days with [place] Reason: VITAL SIGNS Height 67 in 2016-12-12 Weight 220 lbs 2016-12-12 Temperature 97.9 degrees Fahrenheit 2016-12-12 Heart Rate 98 bpm 2016-12-12 Respiratory Rate 20 2016-12-12 Oximetry w/ oxygen:98 % 2016-12-12 BMI 34.45 kg/m2 2016-12-12 Blood pressure systolic 102 mmHg 2016-12-12 Blood pressure diastolic 60 mmHg 2016-12-12 MEDICATIONS Medication Instructions Dosage Frequency Start Date End Date Duration Status Lisinopril 10 mg Orally Once a day 1 tablet 24h 30 Active ProAir HFA 108 (90 Base) MCG/ACT Inhalation every 4 hrs 2 puffs as needed 4h 30 days Active Oxygen 2 L/NC Active Furosemide 40 mg Orally Once a day 1 tablet 24h 30 days Active Klor-Con M20 20 MEQ Orally Once a day 1 tablet with food 24h 30 Active RESULTS Name Result Date Reference Range Xray : Chest (IN HOUSE) 2016-12-12 PROCEDURES Procedure Date Ordered Result Body Site MEASURE BLOOD OXYGEN LEVEL Dec 12, 2016 CHEST X-RAY Dec 12, 2016 INSTRUCTIONS MEDICATIONS ADMINISTERED No Known Medications MEDICAL [...] Resp Failure, Severe PVD s/p R AKA, CAD-[facility] Hospitalization History past surgery Hospitalization History Septic shock, respiratory failure-[facility] 04/02/17
--- OUTSIDE RECORDS SUMMARY | 2018-01-27 06:32 | XMS REPORT ---
Author Author ALEJANDRA GALLARDO Organization [facility] Address [address] [place] [address] Care Team Providers Care Fuel Oil Clerk Name Role Phone ALEJANDRA GALLARDO Unavailable PROBLEMS Type Condition ICD9-CM Code RZK49-JD Code Onset Dates Condition Status SNOMED Code Problem Above knee amputation of right lower extremity Z89.611 Active 288600547 Problem Insomnia due to medical condition G47.01 Active 33799334 Problem Acute systolic (congestive) heart failure I50.21 Active 246347848 Problem Chronic bronchitis, unspecified chronic bronchitis type J42 Active 76117650 Problem Moderate major depression F32.1 Active 080411 Problem Tobacco use Z72.0 Active 648523891 Problem PVD (peripheral vascular disease) I73.9 Active 909114258 ALLERGIES No Known Allergies ENCOUNTERS Encounter Location Date Diagnosis [facility] [id number] [place] [address]73- 9954 Jul, [facility] [id number] [place] [address] 47407- 6507 Apr, [facility] [id number] [place] [address] 94483- 9415 Apr, [facility] [id number] [place] [address] [id number] Mar, [facility] [id number] [place] [address] 28653- 3830 Mar, Hypokalemia E87.6 [facility] [id number] [place] [address] 99779- 5370 Mar, Hypokalemia E87.6 and Acute systolic (congestive) heart failure I50.21 [facility] [id number] [place] [address] 66426- 4234 Dec, Acute systolic (congestive) heart failure I50.21 ; Acute respiratory failure, unsp w hypoxia or hypercapnia J96.00 and Insomnia due to medical condition G47.01 [facility] [id number] [place] [address] 33965- 6816 Dec, SOB (shortness of breath) R06.02 [facility] [id number] [place] [address] 97524- 1672 Nov, SOB (shortness of breath) R06.02 and Acute on chronic diastolic congestive heart failure I50.33 [facility] [address] [place], [place] [id number] [place] [address] Oct, [facility] [id number] [place] [address] 06964- 8946 Sep, [facility] [id number] [place] [address] 22922- 3930 Sep, Chronic bronchitis, unspecified chronic bronchitis type J42 ; Tobacco use Z72.0 ; Moderate major depression F32.1 and Debility R53.81 [facility] [id number] [place] [address] 76147- 7252 Sep, [facility] [id number] [place] [address] 83718- 4639 August, [facility] [id number] [place] [address] 00826- 2353 May, [facility] [id number] [place] [address] 40344- 8736 Jul, [facility] [id number] [place] [address] 61158- 2373 Jul, [facility] [id number] [place] [address] 14175- 1137 Nov, [facility] [id number] [place] [address] 61160- 0575 Nov, [facility] [place] [facility] [address] [id number] [place] [address] 9578 Oct, [facility] [place] [facility] [address] [id number] [place] [address] Oct, [facility] [place] [facility] [address] [id number] [place] [address] 54[address] Sep, [facility] [place] [facility] [address] [id number] [place] [address]- 3536 Sep, [facility] [place] [facility] [address] [id number] [place] [address]- 5857 Sep, [facility] [place] [facility] [address] [id number] [place] [address] 1933 Sep, [facility] [place] [facility] [address] [id number] [place] [address]- 6242 Sep, [facility] [place] [facility] [address] [id number] [place] [address]- 4715 Sep, [facility] [place] [facility] [address] [id number] [place] [address]- 2410 August, [facility] [place] [facility] [address] [id number] [place] [address]- 0229 August, [facility] [place] [facility] [address] [id number] [place] [address]- 1397 August, [facility] [place] [facility] [address] [id number] [place] [address]- 5100 August, [facility] [place] [facility] [address] [id number] [place] [address]041 August, [facility] [place] [facility] [address] [id number] [place] [address]79 August, [facility] [place] [facility] [address] [id number] [place] [address]- 6343 August, [facility] [place] [facility] [address] [id number] [place] [address]- 9791 August, [facility] [place] [facility] [address] [id number] [place] [address]- 1901 August, [facility] [place] [facility] [address] [id number] [place] [address]- 1710 August, [facility] [place] [facility] [address] [id number] [place] [address]- 9136 Jul, [facility] [place] [facility] [address] [id number] [place] [address]- 5774 Jul, [facility] [place] [facility] [address] [id number] [place] [address]- 0785 Jul, [facility] [place] [facility] [address] [id number] [place] [address]- 5621 Jul, [facility] [place] [facility] [address] [id number] [place] [address]- 9742 Jul, [facility] [place] [facility] [address] [id number] [place] [address]- 2183 Jul, [facility] [place] [facility] [address] [id number] [place] [address]- 8711 Jul, [facility] [place] [facility] [address] [id number] [place] [address]- 4101 Jul, [facility] [place] [facility] [address] [id number] [place] [address]- 0878 Jul, [facility] [place] [facility] [address] [id number] [place] [address]- 9026 Jun, [facility] [place] [facility] [address] [id number] [place] [address]- 4254 Jun, [facility] [place] [facility] [address] [id number] [place] [address]- 1182 Jun, [facility] [place] [facility] [address] [id number] [place] [address]- 7753 Jun, [facility] [place] [facility] [address] [id number] [place] [address]- 4408 Jun, [facility] [place] [facility] [address] [id number] [place] [address]- 1383 Jun, [facility] [place] [facility] [address] [id number] [place] 9766 Jun, [facility] [place] [facility] [address] [id number] [place] [address]- 4315 Jun, [facility] [place] [facility] [address] [id number] [place] [address]- 0983 Jun, [facility] [place] [facility] [address] [id number] [place] [address]- 7420 Jun, [facility] [place] [facility] [address] [facility] [id number] [place] [address]- 4626 Jun, [facility] [place] [facility] [address] [facility] [id number] [place] [address]- 8599 May, [facility] [place] [facility] [address] [id number] [place] [address]- 7910 May, [facility] [place] [facility] [address] [facility] [id number] [place] [address]- 8700 May, [facility] [place] [facility] [address] [facility] [id number] [place] [address]- 8320 May, [facility] [place] [facility] [address] [facility] [id number] [place] [address]- 8307 May, [facility] [place] [facility] [address] [id number] [place] [address]- 2543 May, [facility] [place] [facility] [address] [id number] [place] [address]- 5141 May, [facility] [place] [facility] [address] [facility] [id number] [place] [address]64 May, [facility] [place] [facility] [address] [facility] [id number] [place] [address]- 3219 May, [facility] [place] [facility] [address] [id number] [place] [address]- 1084 May, [facility] [place] [facility] [address] [id number] [place] [address]- 0816 May, [facility] [place] [facility] [address] [id number] [place] [address]- 7386 May, [facility] [place] [facility] [address] [id number] [place] [address]- 4927 Mar, [facility] [place] [facility] [address] [id number] [place] [address]- 0249 Mar, [facility] [place] [facility] [address] [id number] [place] [address]- 5767 Mar, [facility] [place] [facility] [address] [id number] [place] [address]- 2849 Mar, [facility] [place] [facility] [address] [id number] [place] [address]- 8073 30 Mar, 2013 [facility] [place] [facility] [address] [id number] [place] [address]- 4331 Mar, [facility] [place] [facility] [address] [id number] [place] [address]- 8952 Mar, [facility] [place] [facility] [address] [id number] [place] [address]- 2137 Mar, [facility] [place] [facility] [address] [id number] [place] [address]- 1913 Mar, [facility] [place] [facility] [address] [id number] [place] [address]- 9756 Mar, [facility] [place] [facility] [address] [id number] [place] [address]- 7192 Mar, [facility] [place] [facility] [address] [id number] [place] [address]- 0576 19 Mar, 2013 [facility] [place] [facility] [address] [id number] [place] [address]- 7192 13 Mar, 2013 [facility] [address] [id number] [place] [address]- 3144 Mar, [facility] [place] [facility] [address] [id number] [place] [address]- 9507 06 Mar, 2013 [facility] [address] [id number] [place] [address]- 6461 06 Mar, 2013 [facility] [place] [facility] [address] [id number] [place] [address]- 3902 Mar, [facility] [address] [id number] [place] [address]- 5002 Mar, [facility] [address] [id number] [place] [address]- 0717 Feb, [facility] [address] [id number] [place] [address]- 2189 Feb, [facility] [address] [id number] [place] [address]- 2904 Feb, [facility] [address] [id number] [place] [address]- 1485 Feb, [facility] [address] [facility] [id number] [place] [address]- 7685 Feb, [facility] [place] [facility] [address] [id number] [place] [address]- 7357 18 Jan, 2013 [facility] [place] [facility] [address] [id number] [place] [address]- 7057 18 Jan, 2013 [facility] [place] [facility] [address] [id number] [place] [address]- 2559 17 Jan, 2013 [facility] [place] [facility] [address] [id number] [place] [address]- 9010 17 Jan, 2013 [facility] [place] [facility] [address] [id number] [place] [address]- 4670 Jan, [facility] [address] [facility] [id number] [place] [address]- 2702 Jan, [facility] [address] [facility] [id number] [place] [address]25 Jan, [facility] [address] [facility] [id number] [place] 3728 Jan, [facility] [address] [facility] [id number] [place] 5364 Jan, [facility] [address] [facility] [id number] [place] 8746 Jan, [facility] [address] [facility] [id number] [place] 9438 Jan, [facility] [id number] [place] [address]106 Jan, [facility] [id number] [place] [address]- 0075 Dec, [facility] [address] [id number] 9729 Dec, [facility] [address] [id number] [place] [address]- 9038 Sep, [facility] [address] [id number] 8291 August, [facility] [address] [id number] [place] [address]- 0507 August, [facility] [address] [id number] 2928 August, IMMUNIZATIONS No Known Immunizations SOCIAL HISTORY Never Assessed REASON FOR VISIT f/u per Dr Gallardo---PRASHANT Garcia PLAN OF CARE Activity Details Follow Up 2 Weeks with Sami f/u CHF Reason: VITAL SIGNS Height 67 in 2016-12-18 Weight 220.0 lbs 2016-12-18 Temperature 98.4 degrees Fahrenheit 2016-12-18 Heart Rate 86 bpm 2016-12-18 Respiratory Rate 20 2016-12-18 Oximetry room air:89 % 2016-12-18 BMI 34.45 kg/m2 2016-12-18 Blood pressure systolic 114 mmHg 2016-12-18 Blood pressure diastolic 71 mmHg 2016-12-18 MEDICATIONS Medication Instructions Dosage Frequency Start Date End Date Duration Status ProAir HFA 108 (90 Base) MCG/ACT Inhalation every 4 hrs 2 puffs as needed 4h 30 days Active Ambien 10 mg Orally Once a day 1 tablet at bedtime as needed 24h Dec, 28 days Active Oxygen 2 L/NC Active ProAir HFA 108 (90 Base) MCG/ACT Inhalation every 4 hrs PRN 2 puffs as needed Dec, Active Furosemide 40 mg Orally Once a day 2 tablets 24h Active Klor-Con M20 20 meq Orally Once a day 2 tablet with food 24h Active Lisinopril 10 mg Orally Once a day 1 tablet 24h 90 days Active Spiriva HandiHaler 18 MCG Inhalation Once a day 1 capsule 24h 1 Dec, 2020 12 months Active RESULTS No Results PROCEDURES Procedure Date Ordered Result Body Site MEASURE BLOOD OXYGEN LEVEL Dec 18, 2016 INSTRUCTIONS MEDICATIONS ADMINISTERED No Known Medications [...] Resp Failure, Severe PVD s/p R AKA, CAD-[facility] Hospitalization History past surgery Hospitalization History Septic shock, respiratory failure-[facility] 04/02/17
--- OUTSIDE RECORDS SUMMARY | 2018-01-27 06:32 | XMS REPORT ---
Author Author ALEJANDRA JOSEPH Organization [facility] Address [address] [place] [address] Care Team Providers [facility] Name Role Phone ALEJANDRA JOSEPH Unavailable PROBLEMS Type Condition ICD9-CM Code OEP07-VI Code Onset Dates Condition Status SNOMED Code Problem Above knee amputation of right lower extremity Z89.611 Active 749099948 Problem Insomnia due to medical condition G47.01 Active 71661187 Problem Acute systolic (congestive) heart failure I50.21 Active 735305673 Problem Chronic bronchitis, unspecified chronic bronchitis type J42 Active 17753241 Problem Moderate major depression F32.1 Active 003795 Problem Tobacco use Z72.0 Active 333369905 Problem PVD (peripheral vascular disease) I73.9 Active 760027252 ALLERGIES No Information ENCOUNTERS Encounter Location Date Diagnosis [facility] [id number] [place] [address] 75823- 7442 August, [facility] [id number] [place] [address] 14646- 0638 Jul, [facility] [id number] [place] [address] 48067- 1267 Apr, [facility] [id number] [place] [address] 28174- 8033 Apr, [facility] [id number] [place] [address] [id number] Mar, [facility] [address] [address]- [address]763 Mar, Hypokalemia E87.6 [facility] [id number] [place] [address] 59235- 2497 Mar, Hypokalemia E87.6 and Acute systolic (congestive) heart failure I50.21 [facility] [id number] [address] 05 Dec, 2016 Acute systolic (congestive) heart failure I50.21 ; Acute respiratory failure, unsp w hypoxia or hypercapnia J96.00 and Insomnia due to medical condition G47.01 [facility] [address], [place] [address] Dec, SOB (shortness of breath) R06.02 [facility] [id number] [place] [address] 62359- 0583 Nov, SOB (shortness of breath) R06.02 and Acute on chronic diastolic congestive heart failure I50.33 [facility] [id number] [address] Oct, [facility] [id number] [place] [address] 15617- 4546 Sep, [facility] [id number] [address] Sep, Chronic bronchitis, unspecified chronic bronchitis type J42 ; Tobacco use Z72.0 ; Moderate major depression F32.1 and Debility R53.81 [facility] [address], [place] [address] Sep, [facility] [address], [place] [address] 1036 August, [facility] [id number] [address] May, [facility] [id number] [address] Jul, [facility] [id number] [place] [address] 31189- 1883 Jul, [facility] [address], [place] [address] 42[address] Nov, [facility] [place] [facility] [address] [id number] [place] [address] 4679 Nov, [facility] [place] [facility] [address] [id number] [place] [address] 6189 Oct, [facility] [place] [facility] [address] [id number] [place] [address] 1599 Oct, [facility] [place] [facility] [address] [id number] [place] [address] 5669 Sep, [facility] [place] [facility] [address] [id number] [place] [address] 1428 Sep, [facility] [place] [facility] [address] [id number] [place] [address] 7620 Sep, [facility] [place] [facility] [address] [id number] [place] [address] 1876 Sep, [facility] [place] [facility] [address] [id number] [place] [address] 3188 Sep, [facility] [place] [facility] [address] [id number] [place] [address] 4858 Sep, [facility] [place] [facility] [address] [id number] [place] [address]- 8770 August, [facility] [place] [facility] [address] [id number] [place] [address] 8813 August, [facility] [place] [facility] [address] [id number] [place] [address] 1841 August, [facility] [place] [facility] [address] [id number] [place] [address]- 4626 August, [facility] [place] [facility] [address] [id number] [place] [address]- 0041 August, [facility] [place] [facility] [address] [id number] [place] [address]- 6636 August, [facility] [place] [facility] [address] [id number] [place] [address]- 5285 August, [facility] [place] [facility] [address] [id number] [place] [address]- 2112 August, [facility] [place] [facility] [address] [id number] [place] [address]- 7388 August, [facility] [place] [facility] [address] [id number] [place] [address]- 9538 August, [facility] [place] [facility] [address] [id number] [place] [address]- 4026 Jul, [facility] [place] [facility] [address] [id number] [place] [address]- 9744 Jul, [facility] [place] [facility] [address] [id number] [place] [address]- 7987 Jul, [facility] [place] [facility] [address] [id number] [place] [address]- 4624 Jul, [facility] [place] [facility] [address] [id number] [place] [address]- 5633 Jul, [facility] [place] [facility] [address] [id number] [place] [address]- 4442 Jul, [facility] [place] [facility] [address] [id number] [place] [address]- 5428 Jul, [facility] [place] [facility] [address] [id number] [place] [address]- 7971 Jul, [facility] [place] [facility] [address] [id number] [place] [address]- 1770 Jul, [facility] [place] [facility] [address] [id number] [place] [address]- 3792 Jun, [facility] [place] [facility] [address] [id number] [place] [address]- 5373 Jun, [facility] [place] [facility] [address] [id number] [place] [address]- 6780 Jun, [facility] [place] [facility] [address] [id number] [place] [address]- 9506 27 Jun, 2013 [facility] [place] [facility] [address] [id number] [place] [address]- 2458 Jun, [facility] [place] [facility] [address] [id number] [place] [address]- 9096 Jun, [facility] [place] [facility] [address] [id number] [place] [address]- 7754 Jun, [facility] [place] [facility] [address] [id number] [place] [address]- 0046 Jun, [facility] [place] [facility] [address] [id number] [place] [address]- 6554 Jun, [facility] [place] [facility] [address] [id number] [place] [address]- 2550 Jun, [facility] [place] [facility] [address] [id number] [place] [address]- 3529 Jun, [facility] [place] [facility] [address] [id number] [place] [address]- 9583 May, [facility] [place] [facility] [address] [id number] [place] [address]- 7643 May, [facility] [place] [facility] [address] [facility] [id number] [place] [address]- 5042 May, [facility] [place] [facility] [address] [id number] [place] [address]- 9446 May, [facility] [place] [facility] [address] [id number] [place] [address]- 2045 May, [facility] [place] [facility] [address] [id number] [place] [address]- 2112 May, [facility] [place] [facility] [address] [id number] [place] [address]- 0935 May, [facility] [place] [facility] [address] [facility] [id number] [place] [address]- 6606 May, [facility] [place] [facility] [address] [id number] [place] [address]- 8336 May, [facility] [place] [facility] [address] [id number] [place] [address]- 2466 May, [facility] [place] [facility] [address] [id number] [place] [address]- 0436 May, [facility] [place] [facility] [address] [id number] [place] [address]- 6715 May, [facility] [place] [facility] [address] [id number] [place] [address]- 8445 Mar, [facility] [place] [facility] [address] [id number] [place] [address]- 3430 Mar, [facility] [place] [facility] [address] [id number] [place] [address]- 5127 Mar, [facility] [place] [facility] [address] [id number] [place] [address]- 7809 Mar, [facility] [place] [facility] [address] [id number] [place] [address]- 4640 30 Mar, 2013 [facility] [place] [facility] [address] [id number] [place] [address]- 3939 Mar, [facility] [place] [facility] [address] [id number] [place] [address]- 8705 Mar, [facility] [place] [facility] [address] [id number] [place] [address]- 4283 Mar, [facility] [place] [facility] [address] [id number] [place] [address]- 1655 Mar, [facility] [place] [facility] [address] [id number] [place] [address]- 3948 Mar, [facility] [place] [facility] [address] [id number] [place] [address]- 6423 Mar, [facility] [place] [facility] [address] [id number] [place] [address]- 4576 Mar, 2012 [facility] [address] [id number] [place] [address]- 9254 Mar, [facility] [address] [id number] [place] [address] Mar, [facility] [address] [id number] [place] [address]- 1392 Mar, [facility] [address] [id number] [place] [address]- 4121 Mar, [facility] [address] [id number] [place] [address] Mar, [facility] [address] [id number] [place] [address]- 7303 Mar, [facility] [address] [facility] [id number] [place] [address]- 5125 Feb, [facility] [address] [id number] [place] [address]- 2564 Feb, [facility] [address] [facility] [id number] [place] [address]- 5033 Feb, [facility] [address] [facility] [id number] [place] [address]- 4465 Feb, [facility] [place] [facility] [address] [id number] [place] [address]- 7655 Feb, [facility] [address] [id number] [address]- 0580 Jan, [facility] [place] [facility] [address] [id number] [place] [address]- 9616 18 Jan, 2013 [facility] [place] [facility] [address] [facility] [id number] [place] [address]- 3425 Jan, [facility] [place] [facility] [address] [facility] [id number] [place] [address]- 0443 Jan, [facility] [address] [facility] [id number] [address]- 4506 Jan, [facility] [address] [facility] [id number], [place] [address]- 7056 Jan, [facility] [address] [facility] [id number], [place] [address]- 4416 Jan, [facility] [address] [facility] [id number], [place] [address]- 4636 Jan, [facility] [address] [facility] [id number] [address]- 1706 Jan, [facility] [address] [facility] [id number], [place] [address]- 4896 Jan, [facility] [address] [facility] [id number], [place] [address]- 1066 Jan, [facility] [address] [facility] [id number], [place] [address]- 6176 Jan, [facility] [address], [place] [address]- 5423 Dec, [facility] [address], [place] [address]- 2586 Dec, [facility] [id number], [place] [address]- 3396 Sep, [facility] [id number], [place] [address]- 8286 August, [facility] [id number], [place] [address]- 7156 August, [facility] [id number], [place] [address]- 7456 August, IMMUNIZATIONS No Known Immunizations SOCIAL HISTORY Never Assessed REASON FOR VISIT Requesting medication PLAN OF CARE VITAL SIGNS MEDICATIONS Medication Instructions Dosage Frequency Start Date End Date Duration Status Diflucan 150 MG Orally once 1 tablet Apr, Apr, 1 day Active RESULTS No Results PROCEDURES No Known [...] Resp Failure, Severe PVD s/p R AKA, CAD-[facility] Hospitalization History past surgery Hospitalization History Septic shock, respiratory failure-[facility] 04/02/17
--- OUTSIDE RECORDS SUMMARY | 2018-01-27 06:33 | XMS REPORT ---
Author Author ALEJANDRA JOSEPH Organization [facility] Address [address] [place] [address] Care Team Providers Care Watch Repairer Apprentice Name Role Phone ALEJANDRA JOSEPH Unavailable PROBLEMS Type Condition ICD9-CM Code YCD55-AT Code Onset Dates Condition Status SNOMED Code Problem Above knee amputation of right lower extremity Z89.611 Active 510475912 Problem Insomnia due to medical condition G47.01 Active 77056121 Problem Acute systolic (congestive) heart failure I50.21 Active 140152439 Problem Chronic bronchitis, unspecified chronic bronchitis type J42 Active 55707380 Problem Moderate major depression F32.1 Active 792694 Problem Tobacco use Z72.0 Active 187206804 Problem PVD (peripheral vascular disease) I73.9 Active 662178245 ALLERGIES No Information ENCOUNTERS Encounter Location Date Diagnosis [facility] [id number] [place] [address]85- [address]229 August, [facility] [id number] [place] [address] 25907- 1049 Jul, [facility] [id number] [place] [address] 49516- 3170 Apr, [facility] [id number] [place] [address]128- 4145 Apr, [facility] [id number] [place] [id number] Mar, [facility] [address] [address] Mar, Hypokalemia E87.6 [facility] [id number] [place] [address]73- 2692 Mar, Hypokalemia E87.6 and Acute systolic (congestive) heart failure I50.21 [facility] [address] [address] 05 Dec, 2016 Acute systolic (congestive) heart failure I50.21 ; Acute respiratory failure, unsp w hypoxia or hypercapnia J96.00 and Insomnia due to medical condition G47.01 [facility] [address] [address] Dec, SOB (shortness of breath) R06.02 [facility] [id number] [place] [address] 77532- 0548 Nov, SOB (shortness of breath) R06.02 and Acute on chronic diastolic congestive heart failure I50.33 [facility] [id number] [address] Oct, [facility] [id number] [place] [address] 13004- 4453 Sep, [facility] [id number] [address] Sep, Chronic bronchitis, unspecified chronic bronchitis type J42 ; Tobacco use Z72.0 ; Moderate major depression F32.1 and Debility R53.81 [facility] [address] [address] Sep, [facility] [address] [address] 0[address] August, [facility] [id number] [address] 44[address] May, [facility] [id number] [address] Jul, [facility] [id number] [place] [address] 07056- 3867 Jul, [facility] [address] [address] Nov, [facility] [place] [facility] [address] [id number] [place] [address] Nov, [facility] [place] [facility] [address] [id number] [place] [address] 3[address] Oct, [facility] [place] [facility] [address] [id number] [place] [address] 7[address] Oct, [facility] [place] [facility] [address] [id number] [place] [address] 9815 Sep, [facility] [place] [facility] [address] [id number] [place] [address] 8[address] Sep, [facility] [place] [facility] [address] [id number] [place] [address] 1512 Sep, [facility] [place] [facility] [address] [id number] [place] [address] 6378 Sep, [facility] [place] [facility] [address] [id number] [place] [address]- 8112 Sep, [facility] [place] [facility] [address] [id number] [place] [address] 7457 Sep, [facility] [place] [facility] [address] [id number] [place] [address]- 5084 August, [facility] [place] [facility] [address] [id number] [place] [address] 7023 August, [facility] [place] [facility] [address] [id number] [place] [address]- 7085 August, [facility] [place] [facility] [address] [id number] [place] [address] 4665 August, [facility] [place] [facility] [address] [id number] [place] [address] 3918 August, [facility] [place] [facility] [address] [id number] [place] [address]- 2146 August, [facility] [place] [facility] [address] [id number] [place] [address] 2102 August, [facility] [place] [facility] [address] [id number] [place] [address]- 1539 August, [facility] [place] [facility] [address] [id number] [place] [address]- 3495 August, [facility] [place] [facility] [address] [id number] [place] [address]- 5194 August, [facility] [place] [facility] [address] [id number] [place] [address]- 0660 Jul, [facility] [place] [facility] [address] [id number] [place] [address]- 4931 Jul, [facility] [place] [facility] [address] [id number] [place] [address]- 9001 Jul, [facility] [place] [facility] [address] [id number] [place] [address]- 0929 Jul, [facility] [place] [facility] [address] [id number] [place] [address]- 6148 Jul, [facility] [place] [facility] [address] [id number] [place] [address]- 8115 Jul, [facility] [place] [facility] [address] [id number] [place] [address]- 0300 Jul, [facility] [place] [facility] [address] [id number] [place] [address]- 2603 Jul, [facility] [place] [facility] [address] [id number] [place] [address]- 7229 Jul, [facility] [place] [facility] [address] [id number] [place] [address]- 8085 Jun, [facility] [place] [facility] [address] [id number] [place] [address]- 0433 Jun, [facility] [place] [facility] [address] [id number] [place] [address]- 6072 Jun, [facility] [place] [facility] [address] [id number] [place] [address]- 1333 27 Jun, 2013 [facility] [place] [facility] [address] [id number] [place] [address]- 6220 Jun, [facility] [place] [facility] [address] [id number] [place] [address]- 0706 Jun, [facility] [place] [facility] [address] [id number] [place] [address]- 3576 Jun, [facility] [place] [facility] [address] [id number] [place] [address]- 0062 Jun, [facility] [place] [facility] [address] [id number] [place] [address]- 7118 Jun, [facility] [place] [facility] [address] [id number] [place] [address]- 5927 Jun, [facility] [place] [facility] [address] [id number] [place] [address]- 5165 Jun, [facility] [place] [facility] [address] [id number] [place] [address]- 6549 May, [facility] [place] [facility] [address] [id number] [place] [address]- 4480 May, [facility] [place] [facility] [address] [facility] [id number] [place] [address]- 4365 May, [facility] [place] [facility] [address] [id number] [place] [address]- 1966 May, [facility] [place] [facility] [address] [id number] [place] [address]- 5975 May, [facility] [place] [facility] [address] [id number] [place] [address]- 5544 May, [facility] [place] [facility] [address] [id number] [place] [address]- 5824 May, [facility] [place] [facility] [address] [facility] [id number] [place] [address]- 2568 May, [facility] [place] [facility] [address] [id number] [place] [address]- 6673 May, [facility] [place] [facility] [address] [id number] [place] [address]- 1546 May, [facility] [place] [facility] [address] [id number] [place] [address]- 9266 May, [facility] [place] [facility] [address] [id number] [place] [address]- 9641 May, [facility] [place] [facility] [address] [id number] [place] [address]- 2852 Mar, [facility] [place] [facility] [address] [id number] [place] [address]- 9044 Mar, [facility] [place] [facility] [address] [id number] [place] [address]- 8557 Mar, [facility] [place] [facility] [address] [id number] [place] [address]- 6640 Mar, [facility] [place] [facility] [address] [id number] [place] [address]- 3115 30 Mar, 2013 [facility] [place] [facility] [address] [id number] [place] [address]- 7603 Mar, [facility] [place] [facility] [address] [id number] [place] [address]- 3804 Mar, [facility] [place] [facility] [address] [id number] [place] [address]- 3199 Mar, [facility] [place] [facility] [address] [id number] [place] [address]- 5786 Mar, [facility] [place] [facility] [address] [id number] [place] [address]- 1209 Mar, [facility] [place] [facility] [address] [id number] [place] [address]- 9045 Mar, [facility] [place] [facility] [address] [id number] [place] [address]- 8363 Mar, 2012 [facility] [address] [id number] [place] [address]- 9861 Mar, [facility] [address] [id number] [place] [address]68 Mar, [facility] [address] [id number] [place] [address]- 1475 Mar, [facility] [address] [id number] [place] [address]- 9855 Mar, [facility] [address] [id number] [place] 1312 Mar, [facility] [address] [id number] [place] [address]- 7404 Mar, [facility] [address] [facility] [id number] [place] [address]- 0035 Feb, [facility] [address] [id number] [place] [address]- 3626 Feb, [facility] [address] [facility] [id number] [place] [address]- 4009 Feb, [facility] [address] [facility] [id number] [place] [address]- 7010 Feb, [facility] [place] [facility] [address] [id number] [place] [address]- 5858 Feb, [facility] [address] [id number] [address]- 7925 Jan, [facility] [place] [facility] [address] [id number] [place] [address]- 9315 18 Jan, 2013 [facility] [place] [facility] [address] [facility] [id number] [place] [address]- 3795 Jan, [facility] [place] [facility] [address] [facility] [id number] [place] [address]- 1343 17 Jan, 2013 [facility] [id number] [address]- [address]180 Jan, [facility] [address] [facility] [id number] [address]- 1116 Jan, [facility] [id number] [address]- 1489 Jan, [facility] [address] [facility] [id number] [address]- 6726 Jan, [facility] [address] [facility] [id number] [address]- 1186 Jan, [facility] [address] [facility] [id number] [place] [address] Jan, [facility] [id number] [address]- 3726 Jan, [facility] [id number] [address]- 0826 Jan, [facility] [id number] [address] Dec, [facility] [id number] [address]- 6326 Dec, [facility] [address] [id number] [address]- 1516 Sep, [facility] [address] [id number] [address]- 9120 August, [facility] [address] [id number] [address]- 4826 August, [facility] [id number] [address]- 3916 August, IMMUNIZATIONS No Known Immunizations SOCIAL HISTORY Never Assessed REASON FOR VISIT BMP PLAN OF CARE VITAL SIGNS MEDICATIONS Medication Instructions Dosage Frequency Start Date End Date Duration Status Klor-Con M20 20 meq Orally Once a day 2 tablet with food 24h Active Furosemide 40 mg Orally Once a day 2 tablets 24h Active RESULTS No Results PROCEDURES Procedure Date Ordered Result Body Site BASIC METABOLIC PANEL Mar 25, 2017 INSTRUCTIONS MEDICATIONS ADMINISTERED No Known Medications MEDICAL [...] Resp Failure, Severe PVD s/p R AKA, CAD-[facility] Hospitalization History past surgery Hospitalization History Septic shock, respiratory failure-[facility] 04/02/17
--- OUTSIDE RECORDS SUMMARY | 2018-01-27 06:33 | XMS REPORT ---
Author Author ALEJANDRA JOSEPH Organization [facility] Address [address] [place] [address] Care Team Providers Care Electrical Lineworker Name Role Phone ALEJANDRA JOSEPH Unavailable PROBLEMS Type Condition ICD9-CM Code FHE85-BR Code Onset Dates Condition Status SNOMED Code Problem Above knee amputation of right lower extremity Z89.611 Active 656477451 Problem Insomnia due to medical condition G47.01 Active 02608165 Problem Acute systolic (congestive) heart failure I50.21 Active 043508443 Problem Chronic bronchitis, unspecified chronic bronchitis type J42 Active 62562182 Problem Moderate major depression F32.1 Active 707674 Problem Tobacco use Z72.0 Active 214499869 Problem PVD (peripheral vascular disease) I73.9 Active [id number] ALLERGIES No Information ENCOUNTERS Encounter Location Date Diagnosis [facility] [id number] [place] [address]3741- 8551 August, [facility] [id number] [place] [address] 63994- 5415 Jul, [facility] [id number] [place] [address] 39828- 8001 Apr, [facility] [id number] [place] [address] 72843- 5154 Apr, [facility] [id number] [place] [address] [id number] Mar, [facility] [address] [address] Mar, Hypokalemia E87.6 [facility] [id number] [place] [address] 01335- 2651 Mar, Hypokalemia E87.6 and Acute systolic (congestive) heart failure I50.21 [facility] [address] [address] 05 Dec, 2016 Acute systolic (congestive) heart failure I50.21 ; Acute respiratory failure, unsp w hypoxia or hypercapnia J96.00 and Insomnia due to medical condition G47.01 [facility] [address] [address] Dec, SOB (shortness of breath) R06.02 [facility] [id number] [place] [address] 43879- 4058 Nov, SOB (shortness of breath) R06.02 and Acute on chronic diastolic congestive heart failure I50.33 [facility] [id number] [address] Oct, [facility] [id number] [place] [address] 22441- 6671 Sep, [facility] [id number] [address] Sep, Chronic bronchitis, unspecified chronic bronchitis type J42 ; Tobacco use Z72.0 ; Moderate major depression F32.1 and Debility R53.81 [facility] [address] [address] Sep, [facility] [address] [address] 40[address] August, [facility] [id number] [address] 8[address] May, [facility] [id number] [address] Jul, [facility] [id number] [place] [address] 28694- 0909 Jul, [facility] [address] [address] Nov, [facility] [place] [facility] [address] [id number] [place] [address] 4[address] Nov, [facility] [place] [facility] [address] [id number] [place] [address] 1114 Oct, [facility] [place] [facility] [address] [id number] [place] [address] Oct, [facility] [place] [facility] [address] [id number] [place] [address] 9042 Sep, [facility] [place] [facility] [address] [id number] [place] [address] 5835 Sep, [facility] [place] [facility] [address] [id number] [place] [address] 3091 Sep, [facility] [place] [facility] [address] [id number] [place] [address] 4593 Sep, [facility] [place] [facility] [address] [id number] [place] [address] 8999 Sep, [facility] [place] [facility] [address] [id number] [place] [address]- 9107 Sep, [facility] [place] [facility] [address] [id number] [place] [address] August, [facility] [place] [facility] [address] [id number] [place] [address] 9941 August, [facility] [place] [facility] [address] [id number] [place] [address]- 6254 August, [facility] [place] [facility] [address] [id number] [place] [address] 6182 August, [facility] [place] [facility] [address] [id number] [place] [address] 1413 August, [facility] [place] [facility] [address] [id number] [place] [address]- 2046 August, [facility] [place] [facility] [address] [id number] [place] [address] 9561 August, [facility] [place] [facility] [address] [id number] [place] [address]- 8601 August, [facility] [place] [facility] [address] [id number] [place] [address]- 7010 August, [facility] [place] [facility] [address] [id number] [place] [address]- 6287 August, [facility] [place] [facility] [address] [id number] [place] [address]- 8983 Jul, [facility] [place] [facility] [address] [id number] [place] [address]- 3961 Jul, [facility] [place] [facility] [address] [id number] [place] [address]- 3001 Jul, [facility] [place] [facility] [address] [id number] [place] [address]- 0337 Jul, [facility] [place] [facility] [address] [id number] [place] [address]- 0524 Jul, [facility] [place] [facility] [address] [id number] [place] [address]- 4020 Jul, [facility] [place] [facility] [address] [id number] [place] [address]- 5965 Jul, [facility] [place] [facility] [address] [id number] [place] [address]- 3920 Jul, [facility] [place] [facility] [address] [id number] [place] [address]- 7405 Jul, [facility] [place] [facility] [address] [id number] [place] [address]- 7769 Jun, [facility] [place] [facility] [address] [id number] [place] [address]- 4178 Jun, [facility] [place] [facility] [address] [id number] [place] [address]- 9360 Jun, [facility] [place] [facility] [address] [id number] [place] [address]- 0046 27 Jun, 2013 [facility] [place] [facility] [address] [id number] [place] [address]- 1752 Jun, [facility] [place] [facility] [address] [id number] [place] [address]- 4926 Jun, [facility] [place] [facility] [address] [id number] [place] [address]- 8005 Jun, [facility] [place] [facility] [address] [id number] [place] [address]- 2554 Jun, [facility] [place] [facility] [address] [id number] [place] [address]- 4720 Jun, [facility] [place] [facility] [address] [id number] [place] [address]- 7255 Jun, [facility] [place] [facility] [address] [id number] [place] [address]- 1809 Jun, [facility] [place] [facility] [address] [id number] [place] [address]- 1323 May, [facility] [place] [facility] [address] [id number] [place] [address]- 4183 May, [facility] [place] [facility] [address] [facility] [id number] [place] [address]- 3625 May, [facility] [place] [facility] [address] [id number] [place] [address]- 8336 May, [facility] [place] [facility] [address] [id number] [place] [address]- 3532 May, [facility] [place] [facility] [address] [id number] [place] [address]- 5072 May, [facility] [place] [facility] [address] [id number] [place] [address]- 5854 May, [facility] [place] [facility] [address] [facility] [id number] [place] [address]- 4787 May, [facility] [place] [facility] [address] [id number] [place] [address]- 5077 May, [facility] [place] [facility] [address] [id number] [place] [address]- 9846 May, [facility] [place] [facility] [address] [id number] [place] [address]- 2886 May, [facility] [place] [facility] [address] [id number] [place] [address]- 6201 May, [facility] [place] [facility] [address] [id number] [place] [address]- 9509 Mar, [facility] [place] [facility] [address] [id number] [place] [address]- 7616 Mar, [facility] [place] [facility] [address] [id number] [place] [address]- 6322 Mar, [facility] [place] [facility] [address] [id number] [place] [address]- 7338 Mar, [facility] [place] [facility] [address] [id number] [place] [address]- 5306 30 Mar, 2013 [facility] [place] [facility] [address] [id number] [place] [address]- 3019 Mar, [facility] [place] [facility] [address] [id number] [place] [address]- 4215 Mar, [facility] [place] [facility] [address] [id number] [place] [address]- 5116 Mar, [facility] [place] [facility] [address] [id number] [place] [address]- 6640 Mar, [facility] [place] [facility] [address] [id number] [place] [address]- 4004 Mar, [facility] [place] [facility] [address] [id number] [place] [address]- 7797 Mar, [facility] [place] [facility] [address] [id number] [place] [address]- 7410 Mar, 2012 [facility] [address] [id number] [place] [address]- 0848 Mar, [facility] [address] [id number] [place] [address]01 Mar, [facility] [address] [id number] [place] [address]- 0292 Mar, [facility] [address] [id number] [place] [address]- 9829 Mar, [facility] [address] [id number] [place] [address] Mar, [facility] [address] [id number] [place] [address]- 3430 Mar, [facility] [address] [facility] [id number] [place] [address]- 4626 Feb, [facility] [address] [id number] [place] [address]- 6608 Feb, [facility] [address] [facility] [id number] [place] [address]- 0160 Feb, [facility] [address] [facility] [id number] [place] [address]- 8983 Feb, [facility] [place] [facility] [address] [id number] [place] [address]- 3198 Feb, [facility] [address] [id number] [address]- 1172 Jan, [facility] [place] [facility] [address] [id number] [place] [address]- 5579 18 Jan, 2013 [facility] [place] [facility] [address] [facility] [id number] [place] [address]- 6319 Jan, [facility] [place] [facility] [address] [facility] [id number] [place] [address]- 5500 Jan, [facility] [address] [facility] [id number] [address]- 8838 Jan, [facility] [address] [facility] [id number] [address]- 9236 Jan, [facility] [address] [facility] [id number] [address] Jan, [facility] [address] [facility] [id number] [address]- 1869 Jan, [facility] [address] [facility] [id number] [address] Jan, [facility] [address] [facility] [id number] [place] [address]- 5396 Jan, [facility] [address] [address]- 0112 Jan, [facility] [address] [address]- 4894 Jan, [facility] [id number] [address]- 2568 Dec, [facility] [address] [address]- 3033 Dec, [facility] [address] [id number] [address]- 3959 Sep, [facility] [id number] [address]- 7917 August, [facility] [id number] [address]- 1330 August, [facility] [address] [id number] [address]- 8626 August, IMMUNIZATIONS No Known Immunizations SOCIAL HISTORY Never Assessed REASON FOR VISIT Requests return call PLAN OF CARE VITAL SIGNS MEDICATIONS Unknown [...] past surgery Hospitalization History Septic shock, respiratory failure-[facility] 04/02/17
--- OUTSIDE RECORDS SUMMARY | 2018-01-27 06:33 | XMS REPORT ---
Author Author ELISEO VALENCIA [facility] Address [address] [place] [address] Care Team Providers Care Philosophy Professor Name Role Phone ANNIE ELISEO Unavailable PROBLEMS Type Condition ICD9-CM Code OEQ59-SH Code Onset Dates Condition Status SNOMED Code Problem Above knee amputation of right lower extremity Z89.611 Active 040970183 Problem Insomnia due to medical condition G47.01 Active 87497028 Problem Acute systolic (congestive) heart failure I50.21 Active 693894991 Problem Chronic bronchitis, unspecified chronic bronchitis type J42 Active 36115220 Problem Moderate major depression F32.1 Active 433080 Problem Tobacco use Z72.0 Active 966325083 Problem PVD (peripheral vascular disease) I73.9 Active [id number] ALLERGIES No Information ENCOUNTERS Encounter Location Date Diagnosis [facility] [id number] [place] [address]16- 9745 Jul, Medicare annual wellness visit, initial Z00.00 [facility] [id number] [place] [address] 84108- 3392 Apr, [facility] [id number] [place] [address] 65675- 2897 Apr, [facility] [id number] [place] [address] [id number] Mar, [facility] [id number] [place] [address] 13943- 2422 Mar, Hypokalemia E87.6 [facility] [id number] [place] [address] 41226- 0432 Mar, Hypokalemia E87.6 and Acute systolic (congestive) heart failure I50.21 [facility] [id number] [place] [address] 97102- 9087 Dec, Acute systolic (congestive) heart failure I50.21 ; Acute respiratory failure, unsp w hypoxia or hypercapnia J96.00 and Insomnia due to medical condition G47.01 [facility] [address] [address] Dec, SOB (shortness of breath) R06.02 [facility] [id number] [place] [address] 31464- 9769 Nov, SOB (shortness of breath) R06.02 and Acute on chronic diastolic congestive heart failure I50.33 [facility] [address] [place], [place] [id number] [place] [address] Oct, [facility] [id number] [place] [address] 90197- 9761 Sep, [facility] [id number] [place] [address] 00647- 5442 Sep, Chronic bronchitis, unspecified chronic bronchitis type J42 ; Tobacco use Z72.0 ; Moderate major depression F32.1 and Debility R53.81 [facility] [id number] [place] [address] 69677- 3533 Sep, [facility] [id number] [place] [address] 85159- 6835 August, [facility] [id number] [place] [address] 89405- 8561 May, [facility] [id number] [place] [address] 77380- 1008 Jul, [facility] [id number] [place] [address] 91770- 9338 Jul, [facility] [id number] [place] [address] 75355- 9319 Nov, [facility] [id number] [place] [address] 48627- 9603 Nov, [facility] [place] [facility] [address] [id number] [place] [address] 9970 Oct, [facility] [place] [facility] [address] [id number] [place] [address]- 4016 Oct, [facility] [place] [facility] [address] [id number] [place] [address]- 5912 Sep, [facility] [place] [facility] [address] [id number] [place] [address]- 2840 Sep, [facility] [place] [facility] [address] [id number] [place] [address]- 8339 Sep, [facility] [place] [facility] [address] [id number] [place] [address]- 8103 Sep, [facility] [place] [facility] [address] [id number] [place] [address]- 2396 Sep, [facility] [place] [facility] [address] [id number] [place] [address]- 6947 Sep, [facility] [place] [facility] [address] [id number] [place] [address]- 3181 August, [facility] [place] [facility] [address] [id number] [place] [address]- 4141 August, [facility] [place] [facility] [address] [id number] [place] [address]- 0319 August, [facility] [place] [facility] [address] [id number] [place] [address]- 3326 August, [facility] [place] [facility] [address] [id number] [place] [address]- 9673 August, [facility] [place] [facility] [address] [id number] [place] [address]- 6723 August, [facility] [place] [facility] [address] [id number] [place] [address]- 0472 August, [facility] [place] [facility] [address] [id number] [place] [address]- 9299 August, [facility] [place] [facility] [address] [id number] [place] [address]- 9411 August, [facility] [place] [facility] [address] [id number] [place] [address]- 2598 August, [facility] [place] [facility] [address] [id number] [place] [address]- 8927 Jul, [facility] [place] [facility] [address] [id number] [place] [address]- 9494 Jul, [facility] [place] [facility] [address] [id number] [place] [address]- 5515 Jul, [facility] [place] [facility] [address] [id number] [place] [address]- 6936 Jul, [facility] [place] [facility] [address] [id number] [place] [address]- 4854 Jul, [facility] [place] [facility] [address] [id number] [place] [address]- 2361 Jul, [facility] [place] [facility] [address] [id number] [place] [address]- 1488 Jul, [facility] [place] [facility] [address] [id number] [place] [address]- 4822 Jul, [facility] [place] [facility] [address] [id number] [place] [address]- 1582 Jul, [facility] [place] [facility] [address] [id number] [place] [address]- 7979 Jun, [facility] [place] [facility] [address] [id number] [place] [address]- 6878 Jun, [facility] [place] [facility] [address] [id number] [place] [address]- 7757 Jun, [facility] [place] [facility] [address] [id number] [place] [address]- 4280 Jun, [facility] [place] [facility] [address] [id number] [place] [address]- 8630 Jun, [facility] [place] [facility] [address] [id number] [place] [address]- 8086 Jun, [facility] [place] [facility] [address] [id number] [place] [address]- 7507 Jun, [facility] [place] [facility] [address] [id number] [place] [address]- 8272 Jun, [facility] [place] [facility] [address] [id number] [place] [address]- 2024 Jun, [facility] [place] [facility] [address] [id number] [place] [address]- 8620 Jun, [facility] [place] [facility] [address] [facility] [id number] [place] [address]- 4000 Jun, [facility] [place] [facility] [address] [id number] [place] [address]- 0097 May, [facility] [place] [facility] [address] [id number] [place] [address]- 7437 May, [facility] [place] [facility] [address] [facility] [id number] [place] [address]- 6409 May, [facility] [place] [facility] [address] [facility] [id number] [place] [address]- 1991 May, [facility] [place] [facility] [address] [id number] [place] [address]- 2740 May, [facility] [place] [facility] [address] [facility] [id number] [place] [address]- 4904 May, [facility] [place] [facility] [address] [id number] [place] [address]- 5346 May, [facility] [place] [facility] [address] [facility] [id number] [place] [address]- 1953 May, [facility] [place] [facility] [address] [facility] [id number] [place] [address]- 3810 May, [facility] [address] [id number] [place] [address]- 9646 May, [facility] [address] [id number] [place] [address]- 8466 May, [facility] [address] [id number] [place] [address]- 6296 May, [facility] [address] [id number] [place] [address]- 8928 Mar, [facility] [address] [id number] [place] [address]- 7761 Mar, [facility] [address] [id number] [place] [address]- 1708 Mar, [facility] [address] [id number] [place] [address]- 0897 Mar, [facility] [address] [id number] [place] [address]- 3373 30 Mar, 2013 [facility] [address] [id number] [place] [address]- 0550 Mar, [facility] [address] [id number] [place] [address]- 9051 Mar, [facility] [address] [id number] [place] [address]- 8136 Mar, [facility] [place] [facility] [address] [id number] [place] [address] 2541 Mar, [facility] [place] [facility] [address] [id number] [place] [address]- 6680 Mar, [facility] [place] [facility] [address] [id number] [place] [address]- 3426 Mar, [facility] [address] [id number] [place] [address]- 4864 19 Mar, 2013 [facility] [place] [facility] [address] [id number] [place] [address]- 7147 Mar, [facility] [place] [facility] [address] [id number] [place] [address]- 0273 Mar, [facility] [place] [facility] [address] [id number] [place] [address]- 7722 Mar, [facility] [place] [facility] [address] [id number] [place] [address]- 0838 Mar, [facility] [place] [facility] [address] [id number] [place] [address]- 6500 Mar, [facility] [place] [facility] [address] [id number] [place] [address]- 4125 Mar, [facility] [place] [facility] [address] [id number] [place] [address]- 2775 Feb, [facility] [place] [facility] [address] [id number] [place] [address]- 8251 Feb, [facility] [place] [facility] [address] [id number] [place] [address]- 0312 Feb, [facility] [place] [facility] [address] [id number] [place] [address]- 9497 Feb, [facility] [place] [facility] [address] [id number] [place] [address]- 1835 Feb, [facility] [place] [facility] [address] [id number] [place] [address]- 5083 Jan, [facility] [place] [facility] [address] [id number] [place] [address]- 0609 18 Jan, 2013 [facility] [place] [facility] [address] [id number] [place] [address]- 9470 Jan, [facility] [place] [facility] [address] [id number] [place] [address]- 0795 17 Jan, 2013 [facility] [place] [facility] [address] [id number], [place] [address]- 5878 Jan, [facility] [address] [facility] [id number], [place] [address]- 8224 Jan, [facility] [address] [facility] [id number], [place] [address]- 7103 Jan, [facility] [address] [facility] [id number], [place] [address]- 3076 Jan, [facility] [address] [facility] [id number], [place] [address]- 8312 Jan, [facility] [address] [facility] [id number], [place] [address]- 0292 Jan, [facility] [address] [facility] [id number], [place] [address]- 9890 Jan, [facility] [address], [place] [address]- 9659 Jan, [facility] [address], [place] [address]- 0035 Dec, [facility] [address] [address]- 6091 Dec, [facility] [address] [place] [address]- 2910 Sep, [facility] [id number] [address]- 3943 August, [facility] [id number] [address]- 3430 August, [facility] [id number] [address]- 4871 August, IMMUNIZATIONS No Known Immunizations SOCIAL HISTORY [...] past surgery Hospitalization History Septic shock, respiratory failure-[facility] 04/02/17
--- OUTSIDE RECORDS SUMMARY | 2018-01-27 06:33 | XMS REPORT ---
Author Author TAYLOR LORENZO Organization [facility] [place] Address [address] [place] [address] Care Team Providers Care Electronics Teacher Name Role Phone TAYLOR LORENZO Unavailable PROBLEMS Type Condition ICD9-CM Code PKE59-TN Code Onset Dates Condition Status SNOMED Code Problem Above knee amputation of right lower extremity Z89.611 Active 944002724 Problem Insomnia due to medical condition G47.01 Active 36289784 Problem Acute systolic (congestive) heart failure I50.21 Active 490710698 Problem Chronic bronchitis, unspecified chronic bronchitis type J42 Active 10894494 Problem Moderate major depression F32.1 Active 425567 Problem Tobacco use Z72.0 Active 297132328 Problem PVD (peripheral vascular disease) I73.9 Active 924145030 ALLERGIES No Information ENCOUNTERS Encounter Location Date Diagnosis [facility] [id number] [place] [address] 97887- 4599 August, [facility] [place] [id number] [place] [address] 30206- 6062 Jul, [facility] [place] [id number] [place] [address] 54159- 0841 Apr, [facility] [place] [id number] [place] [address] 95741- 6839 Apr, [facility] [id number] [place] [address] [id number] Mar, [facility] [place] [address] [address] Mar, Hypokalemia E87.6 [facility] [place] [id number] [place] [address] 65857- 5351 Mar, Hypokalemia E87.6 and Acute systolic (congestive) heart failure I50.21 [facility] [place] [address] [address] 05 Dec, 2016 Acute systolic (congestive) heart failure I50.21 ; Acute respiratory failure, unsp w hypoxia or hypercapnia J96.00 and Insomnia due to medical condition G47.01 [facility] [place] [address] [address] Dec, SOB (shortness of breath) R06.02 [facility] [place] [id number] [place] [address] 41962- 6444 Nov, SOB (shortness of breath) R06.02 and Acute on chronic diastolic congestive heart failure I50.33 [facility] [id number] [address] Oct, [facility] [place] [id number] [place] [address] 65370- 1989 Sep, [facility] [place] [id number] [place] [address] 13925- 9625 Sep, Chronic bronchitis, unspecified chronic bronchitis type J42 ; Tobacco use Z72.0 ; Moderate major depression F32.1 and Debility R53.81 [facility] [place] [address] [address] Sep, [facility] [place] [address] [address] 0269 August, [facility] [place] [id number] [address] 28[address] May, [facility] [place] [id number] [address] Jul, [facility] [place] [id number] [place] [address] 88679- 3969 Jul, [facility] [place] [address], [place] [address] Nov, [facility] [place] [facility] [address] [id number] [place] [address] 0551 Nov, [facility] [place] [facility] [address] [id number] [place] [address] 6993 Oct, [facility] [place] [facility] [address] [id number] [place] [address] 4278 Oct, [facility] [place] [facility] [address] [id number] [place] [address] 8160 Sep, [facility] [place] [facility] [address] [id number] [place] [address] 0555 Sep, [facility] [place] [facility] [address] [id number] [place] [address] 5[address] Sep, [facility] [place] [facility] [address] [id number] [place] [address]- 1784 Sep, [facility] [place] [facility] [address] [id number] [place] [address]- 0164 Sep, [facility] [place] [facility] [address] [id number] [place] [address]- 8971 Sep, [facility] [place] [facility] [address] [id number] [place] [address] 4320 August, [facility] [place] [facility] [address] [id number] [place] [address]- 4864 August, [facility] [place] [facility] [address] [id number] [place] [address]- 0347 August, [facility] [place] [facility] [address] [id number] [place] [address]- 1305 August, [facility] [place] [facility] [address] [id number] [place] [address]- 0445 August, [facility] [place] [facility] [address] [id number] [place] [address]- 3136 August, [facility] [place] [facility] [address] [id number] [place] [address]- 0020 August, [facility] [place] [facility] [address] [id number] [place] [address]- 1235 August, [facility] [place] [facility] [address] [id number] [place] [address]- 8939 August, [facility] [place] [facility] [address] [id number] [place] [address]- 1159 August, [facility] [place] [facility] [address] [id number] [place] [address]- 5358 Jul, [facility] [place] [facility] [address] [id number] [place] [address]- 7704 Jul, [facility] [place] [facility] [address] [id number] [place] [address]- 0010 Jul, [facility] [place] [facility] [address] [id number] [place] [address]- 1400 Jul, [facility] [place] [facility] [address] [id number] [place] [address]- 5258 Jul, [facility] [place] [facility] [address] [id number] [place] [address]- 6575 Jul, [facility] [place] [facility] [address] [id number] [place] [address]- 8872 Jul, [facility] [place] [facility] [address] [id number] [place] [address]- 4542 Jul, [facility] [place] [facility] [address] [id number] [place] [address]- 1843 Jul, [facility] [place] [facility] [address] [id number] [place] [address]- 4460 Jun, [facility] [place] [facility] [address] [id number] [place] [address]- 4355 Jun, [facility] [place] [facility] [address] [id number] [place] [address]- 5295 Jun, [facility] [place] [facility] [address] [id number] [place] [address]- 6798 Jun, [facility] [place] [facility] [address] [id number] [place] [address]- 5680 Jun, [facility] [place] [facility] [address] [id number] [place] [address]- 1203 Jun, [facility] [place] [facility] [address] [facility] [id number] [place] [address]- 1511 Jun, [facility] [place] [facility] [address] [id number] [place] [address]- 4052 Jun, [facility] [place] [facility] [address] [id number] [place] [address]- 9922 Jun, [facility] [place] [facility] [address] [facility] [id number] [place] [address]- 3988 Jun, [facility] [place] [facility] [address] [id number] [place] [address]- 4582 Jun, [facility] [place] [facility] [address] [facility] [id number] [place] [address]- 2734 May, [facility] [place] [facility] [address] [id number] [place] [address]- 5277 May, [facility] [place] [facility] [address] [facility] [id number] [place] [address]- 3303 May, [facility] [place] [facility] [address] [facility] [id number] [place] [address]- 6480 May, [facility] [place] [facility] [address] [facility] [id number] [place] [address]- 3670 May, [facility] [place] [facility] [address] [id number] [place] [address]- 8396 May, [facility] [place] [facility] [address] [facility] [id number] [place] [address]- 5477 May, [facility] [place] [facility] [address] [facility] [id number] [place] [address]- 6627 May, [facility] [place] [facility] [address] [id number] [place] [address]- 4365 May, [facility] [place] [facility] [address] [id number] [place] [address]- 3886 May, [facility] [place] [facility] [address] [id number] [place] [address]- 0876 May, [facility] [place] [facility] [address] [id number] [place] [address]- 7927 May, [facility] [place] [facility] [address] [id number] [place] [address]- 9971 Mar, [facility] [place] [facility] [address] [id number] [place] [address]- 9718 Mar, [facility] [place] [facility] [address] [id number] [place] [address]- 4446 Mar, [facility] [place] [facility] [address] [id number] [place] [address]- 9666 Mar, [facility] [place] [facility] [address] [id number] [place] [address]- 9475 30 Mar, 2013 [facility] [place] [facility] [address] [id number] [place] [address]- 1402 Mar, [facility] [place] [facility] [address] [id number] [place] [address]- 2354 Mar, [facility] [place] [facility] [address] [id number] [place] [address]- 4773 Mar, [facility] [place] [facility] [address] [id number] [place] [address]- 9396 Mar, [facility] [place] [facility] [address] [id number] [place] [address]- 4337 Mar, [facility] [place] [facility] [address] [id number] [place] [address]- 6416 Mar, [facility] [place] [facility] [address] [id number] [place] [address]- 2879 Mar, [facility] [address] [id number] [place] [address]- 6890 Mar, [facility] [address] [id number] [place] [address]- 7868 Mar, [facility] [address] [id number] [place] [address] Mar, [facility] [address] [id number] [place] [address]- 1435 Mar, [facility] [address] [id number] [place] [address]- 7622 Mar, [facility] [address] [id number] [place] [address]- 2363 Mar, [facility] [address] [id number] [place] [address]- 0997 Feb, [facility] [address] [id number] [place] [address]- 2326 Feb, [facility] [address] [id number] [place] [address]- 8561 Feb, [facility] [address] [facility] [id number] [place] [address]- 6941 Feb, [facility] [address] [id number] [place] [address]- 0320 Feb, [facility] [address] [id number] [address]- 4985 Jan, [facility] [place] [facility] [address] [id number] [place] [address] 18 Jan, 2013 [facility] [place] [facility] [address] [id number] [place] [address]- 2616 Jan, [facility] [place] [facility] [address] [id number] [place] [address]- 2524 Jan, [facility] [place] [address] [facility] [id number], [place] [address]- 8525 16 Jan, 2013 [facility] [place] [address] [facility] [id number], [place] [address]- 4026 16 Jan, 2013 [facility] [place] [address] [facility] [id number], [place] [address]- 1252 14 Jan, 2013 [facility] [place] [address] [facility] [id number], [place] [address]- 6423 Jan, [facility] [place] [address] [facility] [id number], [place] [address]- 4453 Jan, [facility] [place] [id number], [place] [address]- 0874 Jan, [facility] [place] [address], [place] [address]- 1163 Jan, [facility] [place] [address], [place] [address]- 8477 Jan, [facility] [place] [address], [place] [address]- 3783 Dec, [facility] [place] [id number], [place] [address]- 6070 Dec, [facility] [place] [id number], [place] [address]- 6921 Sep, [facility] [place] [id number], [place] [address]- 1493 August, [facility] [place] [id number], [place] [address]- 2448 August, [facility] [place] [id number], [place] [address]- 9596 August, IMMUNIZATIONS No Known Immunizations SOCIAL HISTORY Never Assessed REASON FOR VISIT Hospital admit/DC PLAN OF CARE VITAL SIGNS MEDICATIONS Medication Instructions Dosage Frequency Start Date End Date Duration Status Furosemide 40 mg Orally Once a day 2 tablets 24h Active Spiriva HandiHaler 18 MCG Inhalation Once a day 1 capsule 24h Dec, 12 months Active Oxygen 2 L/NC Active ProAir HFA 108 (90 Base) MCG/ACT Inhalation every 6 hrs 2 puffs as needed 6h Active Ibuprofen 200 mg Orally Three times a day 4 tablets with food or milk as needed 8h Active RESULTS No Results PROCEDURES No Known [...] Resp Failure, Severe PVD s/p R AKA, CAD-[facility] Hospitalization History past surgery Hospitalization History Septic shock, respiratory failure-[facility] 04/02/17
--- OUTSIDE RECORDS SUMMARY | 2018-01-27 06:34 | XMS REPORT ---
Author Author ALEJANDRA JOSEPH Organization [facility] Address [address] [place] [address] Care Team Providers Care Traveling Buyer Name Role Phone ALEJANDRA JOSEPH Unavailable PROBLEMS Type Condition ICD9-CM Code BDO49-JI Code Onset Dates Condition Status SNOMED Code Problem Above knee amputation of right lower extremity Z89.611 Active 789060681 Problem Insomnia due to medical condition G47.01 Active 47805531 Problem Acute systolic (congestive) heart failure I50.21 Active 817408925 Problem Chronic bronchitis, unspecified chronic bronchitis type J42 Active 32038682 Problem Moderate major depression F32.1 Active 971317 Problem Tobacco use Z72.0 Active 470315799 Problem PVD (peripheral vascular disease) I73.9 Active 431196211 ALLERGIES No Information ENCOUNTERS Encounter Location Date Diagnosis [facility] [id number] [place] [address] August, [facility] [id number] [place] [address]- [address]349 Jul, [facility] [id number] [place] [address]- 2604 Apr, [facility] [id number] [place] [address]- [address]885 Apr, [facility] [id number] [place] [id number] Mar, [facility] [address] [address] Mar, Hypokalemia E87.6 [facility] [id number] [place] [address]- 5512 Mar, Hypokalemia E87.6 and Acute systolic (congestive) heart failure I50.21 [facility] [address], [place] [address] 05 Dec, 2016 Acute systolic (congestive) heart failure I50.21 ; Acute respiratory failure, unsp w hypoxia or hypercapnia J96.00 and Insomnia due to medical condition G47.01 [facility] [address], [place] [address] Dec, SOB (shortness of breath) R06.02 [facility] [id number] [place] [address]- 3262 Nov, SOB (shortness of breath) R06.02 and Acute on chronic diastolic congestive heart failure I50.33 [facility] [id number] [address] Oct, [facility] [id number] [place] [address] Sep, [facility] [id number] [address] Sep, Chronic bronchitis, unspecified chronic bronchitis type J42 ; Tobacco use Z72.0 ; Moderate major depression F32.1 and Debility R53.81 [facility] [address], [place] [address] Sep, [facility] [address], [place] [address] August, [facility] [id number], [place] [address] May, [facility] [id number] [address] Jul, [facility] [id number] [place] [address]- 3313 Jul, [facility] [address], [place] [address] Nov, [facility] [place] [facility] [address] [id number] [place] [address] Nov, [facility] [place] [facility] [address] [id number] [place] [address] 132[address] Oct, [facility] [place] [facility] [address] [id number] [place] [address] 9[address] Oct, [facility] [place] [facility] [address] [id number] [place] [address] 6[address] Sep, [facility] [place] [facility] [address] [id number] [place] [address] 37[address] Sep, [facility] [place] [facility] [address] [id number] [place] [address] 5[address] Sep, [facility] [place] [facility] [address] [id number] [place] [address] 75[address] Sep, [facility] [place] [facility] [address] [id number] [place] [address] 8[address] Sep, [facility] [place] [facility] [address] [id number] [place] [address] 2140 Sep, [facility] [place] [facility] [address] [id number] [place] [address] August, [facility] [place] [facility] [address] [id number] [place] [address] August, [facility] [place] [facility] [address] [id number] [place] [address] 7[address] August, [facility] [place] [facility] [address] [id number] [place] [address] August, [facility] [place] [facility] [address] [id number] [place] [address] 1514 August, [facility] [place] [facility] [address] [id number] [place] [address] 6[address] August, [facility] [place] [facility] [address] [id number] [place] [address]- 5[address] August, [facility] [place] [facility] [address] [id number] [place] [address]- 7061 August, [facility] [place] [facility] [address] [id number] [place] [address] 2282 August, [facility] [place] [facility] [address] [id number] [place] [address]- 9348 August, [facility] [place] [facility] [address] [id number] [place] [address]- 3078 Jul, [facility] [place] [facility] [address] [id number] [place] [address]- 7434 Jul, [facility] [place] [facility] [address] [id number] [place] [address]- 7[address] Jul, [facility] [place] [facility] [address] [id number] [place] [address]- 6942 Jul, [facility] [place] [facility] [address] [id number] [place] [address]- 2062 Jul, [facility] [place] [facility] [address] [id number] [place] [address]- 4209 Jul, [facility] [place] [facility] [address] [id number] [place] [address]- 8108 Jul, [facility] [place] [facility] [address] [id number] [place] [address]- 4075 Jul, [facility] [place] [facility] [address] [id number] [place] [address]- 9292 Jul, [facility] [place] [facility] [address] [id number] [place] [address]- 7542 Jun, [facility] [place] [facility] [address] [id number] [place] [address]- 6224 Jun, [facility] [place] [facility] [address] [id number] [place] [address]- 2130 Jun, [facility] [place] [facility] [address] [id number] [place] [address]- 3030 27 Jun, 2013 [facility] [place] [facility] [address] [id number] [place] [address]- 6733 Jun, [facility] [place] [facility] [address] [id number] [place] [address]- 3686 Jun, [facility] [place] [facility] [address] [id number] [place] [address]- 0293 Jun, [facility] [place] [facility] [address] [id number] [place] [address]- 3946 Jun, [facility] [place] [facility] [address] [id number] [place] [address]- 3178 Jun, [facility] [place] [facility] [address] [id number] [place] [address]- 2955 Jun, [facility] [place] [facility] [address] [id number] [place] [address]- 1616 Jun, [facility] [place] [facility] [address] [id number] [place] [address]- 1759 May, [facility] [place] [facility] [address] [id number] [place] [address]- 2868 May, [facility] [place] [facility] [address] [facility] [id number] [place] [address]- 0104 May, [facility] [place] [facility] [address] [id number] [place] [address]- 1866 May, [facility] [place] [facility] [address] [id number] [place] [address]- 0167 May, [facility] [place] [facility] [address] [id number] [place] [address]- 4438 May, [facility] [place] [facility] [address] [id number] [place] [address]- 5413 May, [facility] [place] [facility] [address] [facility] [id number] [place] [address]- 4111 May, [facility] [place] [facility] [address] [id number] [place] [address]- 8661 May, [facility] [place] [facility] [address] [id number] [place] [address]- 1266 May, [facility] [place] [facility] [address] [id number] [place] [address]- 0146 May, [facility] [place] [facility] [address] [id number] [place] [address]- 7179 May, [facility] [place] [facility] [address] [id number] [place] [address]- 8290 Mar, [facility] [place] [facility] [address] [id number] [place] [address]- 2461 Mar, [facility] [place] [facility] [address] [id number] [place] [address]- 1898 Mar, [facility] [place] [facility] [address] [id number] [place] [address]- 1554 Mar, [facility] [place] [facility] [address] [id number] [place] [address]- 6770 30 Mar, 2013 [facility] [place] [facility] [address] [id number] [place] [address]- 2716 Mar, [facility] [place] [facility] [address] [id number] [place] [address]- 0954 Mar, [facility] [place] [facility] [address] [id number] [place] [address]- 1416 Mar, [facility] [place] [facility] [address] [id number] [place] [address]- 8578 Mar, [facility] [place] [facility] [address] [id number] [place] [address]- 1805 Mar, [facility] [place] [facility] [address] [id number] [place] [address]- 1210 Mar, [facility] [place] [facility] [address] [id number] [place] [address]- 1726 Mar, 2012 [facility] [address] [id number] [place] [address]- 2405 Mar, [facility] [address] [id number] [place] [address]100 Mar, [facility] [address] [id number] [place] [address]- 5499 Mar, [facility] [address] [id number] [place] [address]- 1606 Mar, [facility] [address] [id number] [place] [address] Mar, [facility] [address] [id number] [place] [address]- 1711 Mar, [facility] [address] [facility] [id number] [place] [address]- 3278 Feb, [facility] [address] [id number] [place] [address]- 6288 Feb, [facility] [address] [facility] [id number] [place] [address]- 6770 Feb, [facility] [address] [facility] [id number] [place] [address]- 6095 Feb, [facility] [place] [facility] [address] [id number] [place] [address]- 4382 Feb, [facility] [address] [id number], [place] [address]- 2269 Jan, [facility] [place] [facility] [address] [id number] [place] [address]- 2388 18 Jan, 2013 [facility] [place] [facility] [address] [facility] [id number] [place] [address]- 0377 Jan, [facility] [place] [facility] [address] [facility] [id number] [place] [address]- 1308 17 Jan, 2013 [facility] [address] [facility] [id number], [place] [address]- [address]170 Jan, [facility] [address] [facility] [id number], [place] [address]- 4776 Jan, [facility] [address] [facility] [id number], [place] [address]- 1661 Jan, [facility] [address] [facility] [id number], [place] [address]- 6635 Jan, [facility] [address] [facility] [id number], [place] [address]- 4028 Jan, [facility] [address] [facility] [id number], [place] [address]- 1746 Jan, [facility] [id number] [address]- [address]296 Jan, [facility] [address], [place] [address]- 4[address] Jan, [facility] [address] [address] Dec, [facility] [address], [place] [address]- 5476 Dec, [facility] [id number], [place] [address]- 9026 Sep, [facility] [id number], [place] [address]- [address]226 August, [facility] [id number], [place] [address]- [address] August, [facility] [address], [place] [address]- [address]66 August, IMMUNIZATIONS No Known Immunizations SOCIAL HISTORY Never Assessed REASON FOR VISIT Lab (walk-in)-- PLAN OF CARE VITAL SIGNS MEDICATIONS Unknown Medications RESULTS No Results PROCEDURES Procedure Date Ordered Result Body Site BASIC METABOLIC PANEL Mar 26, 2017 VENIPUNCT, ROUTINE* Mar 26, 2017 INSTRUCTIONS MEDICATIONS ADMINISTERED No Known Medications [...] Resp Failure, Severe PVD s/p R AKA, CAD-[facility] Hospitalization History past surgery Hospitalization History Septic shock, respiratory failure-[facility] 04/02/17
--- OUTSIDE RECORDS SUMMARY | 2018-01-27 06:34 | XMS REPORT | Continuity of Care Document ---
Author Author [facility] Organization [facility] Address Unknown Phone Unavailable Care Team Providers Care Network Controller Name Role Phone NO, LOCAL PHYSICIAN PP Unavailable Insurance Providers Payer Name Policy Number Subscriber Name Relationship Wps Medicare [id number] [place] Des[place] 01 Self / Same As Patient Advance Directives Directive Response Recorded Date Advance Directives N 09/29/12 10:43pm Health Care Power of Radio News Writer N 09/29/12 10:43pm Organ Donor Y 09/29/12 10:43pm Problems No Known Problems or Medical conditions. Family History History Response Recorded Date/Time Hx Family Cancer Y mother- lung cancer 6:52pm Hx Family Lung Cancer Y 06/07/11 6:52pm Social History History Response Recorded Date/Time Alcohol Use Denies Use 09/29/12 10:43pm Recreational Drug Use N 09/29/12 10:43pm Allergies, Adverse Reactions, Alerts Allergen Type Severity Reaction Last Updated NKANo Known Allergies Allergy Unknown 09/17/05 Medications Medication Dose Units Route Sig Qty Days Phenazopyridine HCl (Pyridium) 1 Each PO TID PRN 5 Nitrofurantoin Macrocrystals (Macrobid) 1 Each PO BID 5 Response Recorded Date/Time Status not known Unknown Results No Known Relevant Diagnostic Tests, Laboratory Data and/or Discharge Summary. Procedures Procedure Code Date EXCISION BREAST LESION 09/03/05 EXCISION ADDL BREAST LESION OT CHEST CAGE OSTECTOMY 77.81 09/17/05 INJECT/INFUSE THROMBOLYTIC AGENT 99.10 CONTRAST AORTOGRAM 88.42 06/07/11 CONTR CEREBR ARTERIOGRAM 88.41 06/07/11 CONTRAST RENAL ARTERIOGR 88.45 06/09/11 CONTRAST AORTOGRAM 88.42 06/08/11 Encounters Encounter Location Date/Time Departed Emergency Room [facility] 10:01pm Discharged Inpatient [facility] 2:43pm
[2018-01-27 06:54] LABS: BASOPHILS % (AUTO) 0 % (0-10); EOSINOPHILS # (AUTO) 0.5 10^3/uL (0.0-0.3); EOSINOPHILS % (AUTO) 5 % (0-10); HEMATOCRIT 33 % (35-52); HEMOGLOBIN 11.1 G/DL (11.5-16.0); LYMPHOCYTES # (AUTO) 1.1 X 10^3 (1.0-4.0); LYMPHOCYTES % (AUTO) 13 % (12-44); MEAN CORPUSCULAR HEMOGLOBIN 30 PG (25-34); MEAN CORPUSCULAR HGB CONC 33 G/DL (32-36); MEAN CORPUSCULAR VOLUME 89 FL (80-99); MEAN PLATELET VOLUME 8.3 FL (7.4-10.4); MONOCYTES # (AUTO) 0.5 X 10^3 (0.0-1.0); MONOCYTES % (AUTO) 6 % (0-12); NEUTROPHILS # (AUTO) 6.7 X 10^3 (1.8-7.8); NEUTROPHILS % (AUTO) 76 % (42-75); PLATELET COUNT 253 10^3/uL (130-400); RED BLOOD COUNT 3.75 10^6/uL (4.35-5.85); RED CELL DISTRIBUTION WIDTH 18.2 % (10.0-14.5); WHITE BLOOD COUNT 8.9 10^3/uL (4.3-11.0)
[2018-01-27] MEDS ORDERED: ONDANSETRON 4 MG/2 ML (SDV) Z0FRAN ONE (07:03)
[2018-01-27] MEDS ORDERED: LIDOCAINE PF 2% 5 ML (XYLOCAINE) VIAL ONE (07:03)
[2018-01-27] MEDS ORDERED: proPOfol 200 MG/20 ML (DIPRIVAN) VIAL IV ONE (07:03)
[2018-01-27] MEDS ORDERED: SEVOFLURANE (ULTANE) 15 ML INHAL SOLN ONE ×3 (07:03→08:37)
[2018-01-27 07:05] LABS: BASOPHILS % (AUTO) 0 % (0-10); EOSINOPHILS # (AUTO) 0.4 10^3/uL (0.0-0.3); EOSINOPHILS % (AUTO) 4 % (0-10); HEMATOCRIT 33 % (35-52); HEMOGLOBIN 11.2 G/DL (11.5-16.0); LYMPHOCYTES # (AUTO) 1.2 X 10^3 (1.0-4.0); LYMPHOCYTES % (AUTO) 13 % (12-44); MEAN CORPUSCULAR HEMOGLOBIN 30 PG (25-34); MEAN CORPUSCULAR HGB CONC 34 G/DL (32-36); MEAN CORPUSCULAR VOLUME 89 FL (80-99); MEAN PLATELET VOLUME 8.3 FL (7.4-10.4); MONOCYTES # (AUTO) 0.5 X 10^3 (0.0-1.0); MONOCYTES % (AUTO) 6 % (0-12); NEUTROPHILS # (AUTO) 6.9 X 10^3 (1.8-7.8); NEUTROPHILS % (AUTO) 77 % (42-75); PLATELET COUNT 252 10^3/uL (130-400); RED BLOOD COUNT 3.72 10^6/uL (4.35-5.85); RED CELL DISTRIBUTION WIDTH 18.1 % (10.0-14.5)
[2018-01-27] MEDS ORDERED: MIDAZOLAM 2 MG/2 ML (VERSED) VIAL ONE (07:05)
[2018-01-27] MEDS ORDERED: fentaNYL INJECTION 100 MCG/2 ML AMP ONE ×2 (07:05→08:26)
[2018-01-27 07:09] LABS: CALCIUM 9.3 MG/DL (8.5-10.1); CREATININE SERUM 1.44 MG/DL (0.60-1.30); POTASSIUM 3.4 MMOL/L (3.6-5.0)
[2018-01-27 07:18] LABS: CALCIUM 9.3 MG/DL (8.5-10.1); CREATININE SERUM 1.44 MG/DL (0.60-1.30); POTASSIUM 3.4 MMOL/L (3.6-5.0)
[2018-01-27] MEDS ORDERED: LACTATED RINGERS 1,000 ML IV PRN ×2 (07:31→07:39)
[2018-01-27] MEDS ORDERED: fentaNYL INJECTION 100 MCG/2 ML AMP IV ONE (07:45)
--- NOTE | 2018-01-27 07:56 | Progress Note-Pre Operative ---
Pre-Operative Progress Note H&P Reviewed The H&P was reviewed, patient examined and no changes noted. Date Seen by Provider: Jan 27, 2018 Time Seen by Provider: 07:56 Date H&P Reviewed: Jan 27, 2018 Time H&P Reviewed: 07:56 Pre-Operative Diagnosis: right aka stump wound TATIANA WALLER DO Jan 27, 2018 07:56
[2018-01-27] MEDS ORDERED: PHENYLEPHRINE 100 MCG/ML 10 ML (ANESTHESIA) SYR ONE (08:26)
--- NOTE | 2018-01-27 08:44 | Progress Note-Post Operative ---
Post-Operative Progess Note Surgeon (s)/Dragline Mechanic (s) Surgeon TATIANA WALLER DO Dragline Mechanic: na Pre-Operative Diagnosis right aka stump wound Post-Operative Diagnosis same Procedure & Operative Findings Date of Procedure 01/27/18 Procedure Performed/Findings exploration right aka wound with revision of right AKA with wound packing Anesthesia Type gen Estimated Blood Loss Estimated blood loss (mL): min Specimens/Packing Specimens Removed portion femur Packing: iodoform gauze TATIANA WALLER DO Jan 27, 2018 08:44
--- NOTE | 2018-01-27 08:51 | Discharge Inst-Simple/Standard ---
Discharge Inst-Standard Patient Instructions/Follow Up Plan of Care/Instructions/FU: 2 weeks [place] Activity as Tolerated: No Discharge Diet: Regular Diet Other Inst to Patient Follow up Appt: Make appointment for 2 week. Instructions: No lifting greater than 10 pounds. No strenuous activity. May shower in 24 hours, no tub bath or soaking. Use incentive spirometer at home as directed. No Smoking Skin/Wound Care: Change bandages daily and as needed. Irrigate with saline and pack with Iodoform gauze. Then wrap with kerlex and marichuy bandage. Symptoms to Report: Appetite Changes, Extremity Discoloration, Numbness/Tingling, Swelling Increased , Bleeding Excessive, Eyesight Changes, Pain Increased, Urine Color Change, Constipation(Persistent), Fever over 101 degree F, Pain/Pressure in chest, Urinating Difficulty, Cough Up/Vomit Blood, Heart Beat Irreg/Pounding, Pain/ Pressure in jaw, Vaginal Bleeding Increase, Cramps in feet or legs, Lightheadedness, Pain/Pressure in shoulder, Diarrhea(Persistent), Memory Changes Suddenly, Questions/Concerns, Weight gain consecutive days, Dizziness/ Fainting, Nausea/Vomiting, Shortness of Breath, Weight gain over 2 pounds If questions or concerns contact your physician Or seek help at emergency department. TATIANA WALLER DO Jan 27, 2018 08:51
[2018-01-27] MEDS ORDERED: morphine INJ 10 MG/ML 1ML (SYR OR VIAL) IVP ONE (09:15)
[2018-01-27] MEDS ORDERED: RT-ALBUTEROL SULF 2.5 MG/3 ML PRE-MIX VIAL INH ONE (09:15)
[2018-01-27] MEDS ORDERED: ONDANSETRON 4 MG/2 ML (SDV) Z0FRAN IVP PRN (09:15)
[2018-01-27 10:15] VITALS: BP 94/63
[2018-01-27 10:45] VITALS: BP 91/59
[2018-01-27] MEDS ORDERED: HYDROcodone/APAP 10 MG/325 MG (LORTAB) TAB PO ONE ×2 (10:47→11:00)
[2018-01-27 11:15] VITALS: BP 96/58
--- NOTE | 2018-01-27 13:31 | Anesthesia-General Post-Op ---
General Patient Condition Mental Status/LOC: Same as Preop Cardiovascular: Satisfactory Nausea/Vomiting: Absent Respiratory: Satisfactory Pain: Controlled Complications: Absent Post Op Complications Complications None Follow Up Care/Instructions Patient Instructions None needed. Anesthesia/Patient Condition Patient Condition Patient is doing well, no complaints, stable vital signs, no apparent adverse anesthesia problems. No complications reported per nursing. DENNIS ANN CRNA Jan 27, 2018 13:31
--- NOTE | 2018-01-27 15:24 | OPERATIVE REPORT ---
DATE OF SERVICE: 01/27/2018 PREOPERATIVE DIAGNOSIS: Right above-knee amputation stump wound. POSTOPERATIVE DIAGNOSIS: Right above-knee amputation stump wound. PROCEDURE: Exploration of right AKA wound with revision of right AKA with wound packing. ANESTHESIA: General. ESTIMATED BLOOD LOSS: Minimal. COMPLICATIONS: None. SPECIMENS: Distal femur. INDICATIONS: The patient is a 62-year-old female with an open wound where she had a right above-knee amputation. The patient has bone spurs on the distal portion that are visible. She understands risks and benefits of procedure and wished to proceed with procedure. Consent was signed on the chart. DESCRIPTION OF PROCEDURE: The patient was taken to the operating suite. She was prepped and draped in sterile fashion. Surgical pause was performed. A 10 blade scalpel was used to extend the opening of the wound laterally and medially. Cautery was used to dissect along the lateral and medial aspect of the femur. An elevator was then used to dissect circumferentially around the bone. A bone saw was then used to resect back the bone of the femur 3 cm from the distal tip. A rongeur was also used to help clean up the circumferential portion of the bone and then a rasp was then used to file the edges of the bone, making it nice and smooth. The wound was irrigated with copious amounts of irrigation. Bone wax was used to help control any bone hemostasis or bone bleeding and achieved hemostasis. The wound was then packed with one inch iodoform gauze. Wound was wrapped in a sterile bandage. The patient tolerated the procedure well without any complications. She was taken to recovery room in stable condition. Job ID: [id number] DocumentID: [id number] Dictated Date: 01/27/2018 09:08:09 Desktop Publisher Date: 01/27/2018 15:23:48 Dictated By: DO AGGIE STALEY
== END 2018-01-27 12:02 | disposition home or self-care (01) ==
LOC: SDC 06:22
PROVIDERS: ATTEND Surgery
DX: T87.89 Other complications of amputation stump (principal); I25.10 Atherosclerotic heart disease of native coronary artery without angina pectoris; I50.9 Heart failure, unspecified; F17.210 Nicotine dependence, cigarettes, uncomplicated; J44.9 Chronic obstructive pulmonary disease, unspecified; Z79.01 Long term (current) use of anticoagulants; Z99.81 Dependence on supplemental oxygen
CPT/HCPCS: 36415; 80048; 85025; 87070; 87075; 87077; 87186; 87205; 88305; 88311; 94664